=== PATIENT | male | born 1985 | race American Indian/Alaskan Native ===

== ENCOUNTER 2017-04-16 10:16 | Emergency (ER) | payer MEDICAID ==
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
[2017-04-16] MEDS ORDERED: Sodium Chloride 0.9% 1,000 ML IV ONE ×3 (12:00→19:22)
[2017-04-16] MEDS ORDERED: Cefepime 2 GM in Premix Bag 1 BAG IV ONE (15:34)
--- NOTE | 2017-04-17 08:02 | CR ---
Chest: Portable view of the chest was obtained. Comparison: No prior chest x-ray. Heart size and mediastinum are normal. Lungs are clear. Bony structures are grossly intact. Incidental note of minimal scoliosis. Impression: 1. Nothing acute is appreciated on portable chest x-ray. Diagnostic code #2
== END 2017-04-16 18:20 | disposition home or self-care (01) ==
LOC: JD.ED 10:16
DX: T83.511A Infection and inflammatory reaction due to indwelling urethral catheter, initial encounter (principal); N39.0 Urinary tract infection, site not specified; N31.9 Neuromuscular dysfunction of bladder, unspecified; L89.102 Pressure ulcer of unspecified part of back, stage 2; G82.20 Paraplegia, unspecified; F15.10 Other stimulant abuse, uncomplicated; F12.10 Cannabis abuse, uncomplicated; F13.10 Sedative, hypnotic or anxiolytic abuse, uncomplicated; Z79.899 Other long term (current) drug therapy
CPT/HCPCS: 36415; 51701; 71045; 80053; 80306; 81001; 85025; 86140; 87086; 87088; 87186; 96361; 96365; 99284; J0692; J7040; 99283

== ENCOUNTER 2018-06-28 08:25 | Emergency (ER) | payer SELFPAY ==
[2018-06-28] MEDS ORDERED: Sodium Chloride 0.9% 10 ML Syringe FLUSH PRN (08:41)
[2018-06-28] MEDS ORDERED: Ondansetron 4 MG/2 ML SDV IVPUSH ONE (08:41)
[2018-06-28] MEDS ORDERED: Sodium Chloride 0.9% 1,000 ML IV STA (08:41)
[2018-06-28] MEDS ORDERED: HYDROmorphone 1 MG/ML Syringe IVPUSH ONE (08:42)
[2018-06-28] MEDS ORDERED: Acetaminophen 325 MG Tab PO ONE (08:44)
[2018-06-28] MEDS ORDERED: cefTRIAXone 2 GM in Sodium Chloride 0.9% 100 ML IV ONE (08:45)
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
[2018-06-28] MEDS ORDERED: Sodium Chloride 0.9% 10 ML Syringe FLUSH ONE ×2 (08:58→10:57)
[2018-06-28] MEDS ORDERED: Diatrizoate Meglumine/Diatrizoate Sodium 37% 120 ML Bottle PO ONE ×2 (08:58→10:57)
[2018-06-28] MEDS ORDERED: Iopamidol 755 Mg/ML 200 ML Bottle IV ONE ×2 (08:58→10:57)
[2018-06-28] MEDS ORDERED: LORazepam 2 MG/ML SDV IVPUSH ONE (11:23)
--- NOTE | 2018-06-28 12:26 | CT ---
CT abdomen and pelvis Technique: Multiple axial sections were obtained from the top of the liver inferiorly through the pubic symphysis. Intravenous contrast was utilized. Oral contrast is noted which remains within the stomach. Minimal contrast noted within the first part of the duodenum. Delayed images were obtained to the bladder. Comparison: Visualized lung bases show nothing acute. Small hiatal hernia seen which contains contrast. Liver shows no focal parenchymal abnormality. Gallbladder contains no calcified gallstones. Spleen appears within normal limits. Adrenal glands show no nodule. Pancreas is within normal limits. Kidneys show symmetric contrast enhancement without hydronephrosis or mass. Aorta shows no aneurysm. No retroperitoneal adenopathy is seen. Appendix is seen which is normal in size. Mild increased stool is noted throughout the colon. Several small bowel loops are mildly prominent which contain fluid within the right abdomen which are most likely incidental. No free fluid or inflammatory change is seen. Porter catheter is noted within the bladder. Delayed images show contrast within the ureters as well as bladder. Bone window settings were reviewed which appear within normal limits for the patient's age. Impression: 1. Slight increased stool within the colon. 2. Several loops of mildly prominent small bowel containing fluid which are most likely incidental. 3. Porter catheter within the bladder. No additional abnormality is appreciated. Diagnostic code #2
[2018-06-28] MEDS ORDERED: Ketorolac 30 MG/ML SDV IVPUSH ONE (15:11)
== END 2018-06-28 22:56 | disposition home or self-care (01) ==
LOC: JD.ED 08:25
DX: N35.919 Unspecified urethral stricture, male, unspecified site (principal); R33.9 Retention of urine, unspecified; J06.9 Acute upper respiratory infection, unspecified; F17.210 Nicotine dependence, cigarettes, uncomplicated; Z79.899 Other long term (current) drug therapy
CPT/HCPCS: 36415; 51702; 74177; 80053; 81001; 83605; 83690; 85025; 86140; 87040; 87804; 96361; 96365; 96375; 99284; A9270; J0696; J1170; J1885; J2060; J2405; J7030; J7040; Q9963; Q9967

== ENCOUNTER 2020-10-25 09:13 | Inpatient (IN) | payer MEDICARE, MEDICAID ==
[2020-10-25] MEDS ORDERED: LORazepam 2 MG/ML SDV IVPUSH ONE (09:36)
[2020-10-25] MEDS ORDERED: Metoclopramide 10 MG/2 ML SDV IVPUSH ONE (09:36)
[2020-10-25] MEDS ORDERED: Dextrose 5%-0.9% NaCl 1,000 ML IV SCH (09:45)
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
--- NOTE | 2020-10-25 11:04 | CR ---
Chest: Portable view of the chest was obtained. Comparison: Prior chest x-rays of 02/09/18 and 04/16/17. Heart size appears within normal limits for portable technique. Upper mediastinum is within normal limits. Lungs are clear with no acute parenchymal change. Slight nodular density is seen within the right lung base. Lungs otherwise are clear. Impression: 1. Nodule within the right lung base. This is not seen on prior exam. Either follow-up chest x-ray in 4 months or, if more immediate workup is needed, a noncontrast chest CT could be performed. 2. Nothing acute is otherwise seen. Diagnostic code #3
[2020-10-25] MEDS ORDERED: Levofloxacin/Dextrose 5%-Water 750 MG in Premix Bag 1 BAG IV ONE (11:43)
[2020-10-25] MEDS: Sodium Chloride 0.9% 1,000 ML IV SCH (12:04)
[2020-10-25] MEDS ORDERED: Baclofen 10 MG Tab PO ONE (12:06)
--- NOTE | 2020-10-25 12:14 | PCM.HP.2 ---
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 Mucus (FEW) /hpf Ethyl Alcohol (0.00) gm% Ketones (0.0-0.3) mM SARS-CoV-2 RNA (BRIT) (NEGATIVE) 10/25/20 10/25/20 10/25/20 Range/Units 10:30 10:30 11:05 WBC (4.23-9.07) K/mm3 RBC (4.63-6.08) M/mm3 Hgb (13.7-17.5) gm/dl Hct (40.1-51.0) % MCV (79.0-92.2) fl MCH (25.7-32.2) pg MCHC (32.2-35.5) g/dl RDW Std Deviation (35.1-43.9) fL Plt Count (163-337) K/mm3 MPV (9.4-12.3) fl Neutrophils % (Manual) (40-60) % Band Neutrophils % (0-10) % Lymphocytes % (Manual) (20-40) % Atypical Lymphs % % Monocytes % (Manual) (2-10) % Eosinophils % (Manual) (0.8-7.0) % Basophils % (Manual) (0.2-1.2) Platelet Estimate Plt Morphology Comment Hypochromasia Anisocytosis Microcytosis RBC Morph Comment PT (9.7-12.0) SECONDS INR APTT (21.7-31.4) SECONDS D-Dimer, Quantitative (0.19-0.50) mg/L Sodium (136-145) mEq/L Potassium (3.5-5.1) mEq/L Chloride (98-107) mEq/L Carbon Dioxide (21-32) mEq/L Anion Gap (5-15) BUN (7-18) mg/dL Creatinine (0.7-1.3) mg/dL Est Cr Clr Drug Dosing mL/min Estimated GFR (MDRD) (>60) mL/min BUN/Creatinine Ratio (14-18) Glucose (70-99) mg/dL Lactic Acid (0.4-2.0) mmol/L Calcium (8.5-10.1) mg/dL Magnesium (1.8-2.4) mg/dL Iron 21 L (65-175) ug/dL TIBC 394 (100-400) ug/dL % Saturation 5 L (20-55) % Transferrin 315 (202-364) mg/dL Total Bilirubin (0.2-1.0) mg/dL AST (15-37) U/L ALT (16-63) U/L Alkaline Phosphatase (46-116) U/L CK-MB (CK-2) (0-3.6) ng/ml Troponin I (0.00-0.056) ng/mL C-Reactive Protein (<1.0) mg/dL Total Protein (6.4-8.2) g/dl Albumin (3.4-5.0) g/dl Globulin gm/dL Albumin/Globulin Ratio (1-2) Urine Color (Yellow) Urine Appearance (Clear) Urine pH (5.0-8.0) Ur Specific Stewart (1.005-1.030) Urine Protein (Negative) Urine Glucose (UA) (Negative) Urine Ketones (Negative) Urine Occult Blood (Negative) Urine Nitrite (Negative) Urine Bilirubin (Negative) Urine Urobilinogen (0.2-1.0) Ur Leukocyte Esterase (Negative) Urine RBC (0-5) /hpf Urine WBC (0-5) /hpf Ur Epithelial Cells (0-5) /hpf Urine Bacteria (FEW) /hpf Urine Mucus (FEW) /hpf Ethyl Alcohol 0.00 (0.00) gm% Ketones <0.01 (0.0-0.3) mM SARS-CoV-2 RNA (BRIT) (NEGATIVE) 10/25/20 10/25/20 10/25/20 Range/Units 11:08 11:34 11:34 WBC (4.23-9.07) K/mm3 RBC (4.63-6.08) M/mm3 Hgb (13.7-17.5) gm/dl Hct (40.1-51.0) % MCV (79.0-92.2) fl MCH (25.7-32.2) pg MCHC (32.2-35.5) g/dl RDW Std Deviation (35.1-43.9) fL Plt Count (163-337) K/mm3 MPV (9.4-12.3) fl Neutrophils % (Manual) (40-60) % Band Neutrophils % (0-10) % Lymphocytes % (Manual) (20-40) % Atypical Lymphs % % Monocytes % (Manual) (2-10) % Eosinophils % (Manual) (0.8-7.0) % Basophils % (Manual) (0.2-1.2) Platelet Estimate Plt Morphology Comment Hypochromasia Anisocytosis Microcytosis RBC Morph Comment PT 10.6 (9.7-12.0) SECONDS INR 0.99 APTT 21.5 L (21.7-31.4) SECONDS D-Dimer, Quantitative 0.80 H (0.19-0.50) mg/L Sodium (136-145) mEq/L Potassium (3.5-5.1) mEq/L Chloride (98-107) mEq/L Carbon Dioxide (21-32) mEq/L Anion Gap (5-15) BUN (7-18) mg/dL Creatinine (0.7-1.3) mg/dL Est Cr Clr Drug Dosing mL/min Estimated GFR (MDRD) (>60) mL/min BUN/Creatinine Ratio (14-18) Glucose (70-99) mg/dL Lactic Acid (0.4-2.0) mmol/L Calcium (8.5-10.1) mg/dL Magnesium (1.8-2.4) mg/dL Iron (65-175) ug/dL TIBC (100-400) ug/dL % Saturation (20-55) % Transferrin (202-364) mg/dL Total Bilirubin (0.2-1.0) mg/dL AST (15-37) U/L ALT (16-63) U/L Alkaline Phosphatase (46-116) U/L CK-MB (CK-2) (0-3.6) ng/ml Troponin I (0.00-0.056) ng/mL C-Reactive Protein (<1.0) mg/dL Total Protein (6.4-8.2) g/dl Albumin (3.4-5.0) g/dl Globulin gm/dL Albumin/Globulin Ratio (1-2) Urine Color Yellow (Yellow) Urine Appearance Slt cloudy H (Clear) Urine pH 8.5 H (5.0-8.0) Ur Specific Stewart 1.020 (1.005-1.030) Urine Protein Negative (Negative) Urine Glucose (UA) Trace H (Negative) Urine Ketones Negative (Negative) Urine Occult Blood Negative (Negative) Urine Nitrite Positive H (Negative) Urine Bilirubin Negative (Negative) Urine Urobilinogen 0.2 (0.2-1.0) Ur Leukocyte Esterase 2+ H (Negative) Urine RBC 0-5 (0-5) /hpf Urine WBC 5-10 H (0-5) /hpf Ur Epithelial Cells 0-5 (0-5) /hpf Urine Bacteria Moderate H (FEW) /hpf Urine Mucus Few (FEW) /hpf Ethyl Alcohol (0.00) gm% Ketones (0.0-0.3) mM SARS-CoV-2 RNA (BRIT) (NEGATIVE) 10/25/20 Range/Units 12:06 WBC (4.23-9.07) K/mm3 RBC (4.63-6.08) M/mm3 Hgb (13.7-17.5) gm/dl Hct (40.1-51.0) % MCV (79.0-92.2) fl MCH (25.7-32.2) pg MCHC (32.2-35.5) g/dl RDW Std Deviation (35.1-43.9) fL Plt Count (163-337) K/mm3 MPV (9.4-12.3) fl Neutrophils % (Manual) (40-60) % Band Neutrophils % (0-10) % Lymphocytes % (Manual) (20-40) % Atypical Lymphs % % Monocytes % (Manual) (2-10) % Eosinophils % (Manual) (0.8-7.0) % Basophils % (Manual) (0.2-1.2) Platelet Estimate Plt Morphology Comment Hypochromasia Anisocytosis Microcytosis RBC Morph Comment PT (9.7-12.0) SECONDS INR APTT (21.7-31.4) SECONDS D-Dimer, Quantitative (0.19-0.50) mg/L Sodium (136-145) mEq/L Potassium (3.5-5.1) mEq/L Chloride (98-107) mEq/L Carbon Dioxide (21-32) mEq/L Anion Gap (5-15) BUN (7-18) mg/dL Creatinine (0.7-1.3) mg/dL Est Cr Clr Drug Dosing mL/min Estimated GFR (MDRD) (>60) mL/min BUN/Creatinine Ratio (14-18) Glucose (70-99) mg/dL Lactic Acid (0.4-2.0) mmol/L Calcium (8.5-10.1) mg/dL Magnesium (1.8-2.4) mg/dL Iron (65-175) ug/dL TIBC (100-400) ug/dL % Saturation (20-55) % Transferrin (202-364) mg/dL Total Bilirubin (0.2-1.0) mg/dL AST (15-37) U/L ALT (16-63) U/L Alkaline Phosphatase (46-116) U/L CK-MB (CK-2) (0-3.6) ng/ml Troponin I (0.00-0.056) ng/mL C-Reactive Protein (<1.0) mg/dL Total Protein (6.4-8.2) g/dl Albumin (3.4-5.0) g/dl Globulin gm/dL Albumin/Globulin Ratio (1-2) Urine Color (Yellow) Urine Appearance (Clear) Urine pH (5.0-8.0) Ur Specific Stewart (1.005-1.030) Urine Protein (Negative) Urine Glucose (UA) (Negative) Urine Ketones (Negative) Urine Occult Blood (Negative) Urine Nitrite (Negative) Urine Bilirubin (Negative) Urine Urobilinogen (0.2-1.0) Ur Leukocyte Esterase (Negative) Urine RBC (0-5) /hpf Urine WBC (0-5) /hpf Ur Epithelial Cells (0-5) /hpf Urine Bacteria (FEW) /hpf Urine Mucus (FEW) /hpf Ethyl Alcohol (0.00) gm% Ketones (0.0-0.3) mM SARS-CoV-2 RNA (BRIT) Negative (NEGATIVE) Result Diagrams: 10/25/20 10:30 10/25/20 10:30 Sepsis Event Note - Focused Exam Vital Signs: Vital Signs Temp Pulse Resp BP Pulse Ox 10/25/20 09:20 97.0 F 98 16 140/86 93 L Orders Last 24hrs: Active Orders 24 hr Category Date Time Status Admission Status [Patient Status] [ADT] Routine ADT 10/25/20 13:49 Active CIWAA Assessment [RC] Q4HR Care 10/25/20 14:52 Active Insert Urinary Catheter [OM.PC] ONETIME Care 10/25/20 15:00 Ordered Intake and Output [RC] 04,16 Care 10/25/20 14:53 Active Nurse Communication: Isolation [RC] ASDIRECTED Care 10/25/20 14:55 Active Oxygen Therapy [RC] ASDIRECTED Care 10/25/20 14:52 Active Pulse Oximetry [RC] PRN Care 10/25/20 14:53 Active Up to Chair [RC] ASDIRECTED Care 10/25/20 14:52 Active Urinary Catheter Assessment [RC] Q4HR Care 10/25/20 11:08 Active Vital Signs [RC] Q6HR Care 10/25/20 14:52 Active Consult to Case Management/[employer] Professional [CONS] Cons 10/25/20 14:52 Active Routine Consult to Occupational Therapy [OT Evaluation and Cons 10/25/20 15:34 Active Treatment] [CONS] Routine PT Evaluation and Treatment [CONS] Routine Cons 10/25/20 15:34 Active Regular Diet [DIET] Diet 10/25/20 Lunch Active BASIC METABOLIC PANEL,BMP [CHEM] AM Lab 10/26/20 05:11 Ordered BASIC METABOLIC PANEL,BMP [CHEM] AM Lab 10/27/20 05:11 Ordered BASIC METABOLIC PANEL,BMP [CHEM] AM Lab 10/28/20 05:11 Ordered BASIC METABOLIC PANEL,BMP [CHEM] AM Lab 10/29/20 05:11 Ordered C-REACTIVE PROTEIN [CHEM] AM Lab 10/26/20 05:11 Ordered C-REACTIVE PROTEIN [CHEM] AM Lab 10/27/20 05:11 Ordered C-REACTIVE PROTEIN [CHEM] AM Lab 10/28/20 05:11 Ordered C-REACTIVE PROTEIN [CHEM] AM Lab 10/29/20 05:11 Ordered CBC WITH AUTO DIFF [HEME] AM Lab 10/26/20 05:11 Ordered CBC WITH AUTO DIFF [HEME] AM Lab 10/27/20 05:11 Ordered CBC WITH AUTO DIFF [HEME] AM Lab 10/28/20 05:11 Ordered CBC WITH AUTO DIFF [HEME] AM Lab 10/29/20 05:11 Ordered CULTURE BLOOD [BC] Stat Lab 10/25/20 10:30 Received CULTURE URINE [MREF] Stat Lab 10/25/20 11:05 Received DRUG SCREEN, URINE [URCHEM] Routine Lab 10/25/20 11:05 Received MAGNESIUM [CHEM] AM Lab 10/26/20 05:11 Ordered MAGNESIUM [CHEM] AM Lab 10/27/20 05:11 Ordered MAGNESIUM [CHEM] AM Lab 10/28/20 05:11 Ordered MAGNESIUM [CHEM] AM Lab 10/29/20 05:11 Ordered OCCULT BLOOD DIAGNOSTIC [OP] Routine Lab 10/25/20 15:51 Ordered Acetaminophen [TylenoL] Med 10/25/20 14:52 Active 650 mg PO Q4H PRN Acetaminophen/HYDROcodone [[place] 325-5 MG] Med 10/25/20 14:52 Active 1 tab PO Q4H PRN Apixaban [Eliquis] Med 10/25/20 21:00 Active 5 mg PO BID Baclofen [Lioresal] Med 10/25/20 17:00 Active 30 mg PO QID Celecoxib [CeleBREX] Med 10/25/20 21:00 Active 100 mg PO BID Docusate Sodium [Colace] Med 10/25/20 14:52 Active 100 mg PO Q12H PRN Gabapentin [Neurontin] Med 10/25/20 21:00 Active 600 mg PO TID HYDROmorphone [Dilaudid] Med 10/25/20 14:52 Active 0.5 mg IVPUSH Q2H PRN LORazepam [Ativan] Med 10/25/20 15:19 Active 1 - 3 mg IVPUSH Q4H PRN Levofloxacin/Dextrose 5%-Water [Levaquin in D5W 750 MG/ Med 10/26/20 12:00 Active 150 ML] 750 mg Premix Bag 1 bag IV Q24H Magnesium Hydroxide [Milk of Magnesia] Med 10/25/20 14:52 Active 30 ml PO Q12H PRN Nicotine [Habitrol] Med 10/25/20 15:30 Active 7 mg TRDERM DAILY Ondansetron [Zofran] Med 10/25/20 14:52 Active 4 mg IV Q6H PRN Pantoprazole [ProTONIX] Med 10/25/20 21:00 Active 40 mg PO BID Remove Patch Med 10/26/20 09:00 Active 0 ea TRDERM DAILY Sodium Chloride 0.9% [Normal Saline] 1,000 ml Med 10/25/20 11:45 Active IV ASDIRECTED Sodium Ferric Gluconat/Sucrose [Sodium Ferric Gluc Cplx Med 10/25/20 15:30 Active 62.5 MG/5 ML] 250 mg Sodium Chloride 0.9% [Normal Saline] 100 ml IV ONETIME Sucralfate [Carafate] Med 10/25/20 17:00 Active 1 gm PO QIDACANDBED Blood Culture x2 Reflex Set [OM.PC] Stat Oth 10/25/20 09:37 Ordered Isolation [COMM] Routine Oth 10/25/20 14:52 Ordered Resuscitation Status Routine Resus Stat 10/25/20 14:52 Ordered Medication Orders Acetaminophen (Acetaminophen 325 Mg Tab) 650 mg PO Q4H PRN PRN Reason: Pain (Mild 1-3)/fever Hydrocodone Bitart/Acetaminophen (Acetaminophen/Hydrocodone 325-5 Mg Tab) 1 tab PO Q4H PRN PRN Reason: Pain (moderate 4-6) Last Admin: 10/25/20 16:06 Dose: 1 tab Documented by: MELISA Apixaban (Apixaban 5 Mg Tab) 5 mg PO BID TANVIR Baclofen (Baclofen 10 Mg Tab) 30 mg PO QID TANVIR Celecoxib (Celecoxib 100 Mg Cap) 100 mg PO BID [facility] Docusate Sodium (Docusate Sodium 100 Mg Cap) 100 mg PO Q12H PRN PRN Reason: Constipation Gabapentin (Gabapentin 600 Mg Tab) 600 mg PO TID [facility] Hydromorphone HCl (Hydromorphone 0.5 Mg/0.5 Ml Syringe) 0.5 mg IVPUSH Q2H PRN PRN Reason: Pain (severe 7-10) Sodium Chloride (Normal Saline) 1,000 mls @ 150 mls/hr IV ASDIRECTED [facility] Last Admin: 10/25/20 12:04 Dose: 150 mls/hr Documented by: SANG Ferric Sodium Gluconate Complex 250 mg/ Sodium Chloride 120 mls @ 60 mls/hr IV ONETIME ONE Stop: 10/25/20 17:29 Last Admin: 10/25/20 16:04 Dose: 60 mls/hr Documented by: MELISA Levofloxacin/Dextrose 750 mg/ (Premix) 150 mls @ 100 mls/hr IV Q24H TANVIR Lorazepam (Lorazepam 2 Mg/Ml Sdv) 1 - 3 mg IVPUSH Q4H PRN; Protocol PRN Reason: withdrawl Magnesium Hydroxide (Magnesium Hydroxide 400 Mg/5 Ml Susp 30 Ml Cup) 30 ml PO Q12H PRN PRN Reason: Constipation Miscellaneous Information (Remove Patch) 0 ea TRDERM DAILY [facility] Nicotine (Nicotine 7 Mg/24 Hr Patch) 7 mg TRDERM DAILY [facility] Last Admin: 10/25/20 16:06 Dose: 7 mg Documented by: MELISA Ondansetron HCl (Ondansetron 4 Mg/2 Ml Sdv) 4 mg IV Q6H PRN PRN Reason: Nausea/Vomiting Pantoprazole Sodium (Pantoprazole 40 Mg Tab.Cr) 40 mg PO BID [facility] Sucralfate (Sucralfate 1 Gm Tab) 1 gm PO QIDACANDBED [facility] Assessment/Plan Comment:: Case discussed in full. Agree with evaluation, assessment and plan.
--- NOTE | 2020-10-25 14:26 | PCM.SN.2 ---
- Free Text/Narrative Note: 10/25/20 [id number] IV started 22 g right upper arm via vein finder times 1 attempt. Secured and flushes easily [email or web address]
[2020-10-25] MEDS ORDERED: Docusate Sodium 100 MG Cap PO PRN (14:52)
[2020-10-25] MEDS ORDERED: Acetaminophen 325 MG Tab PO PRN (14:52)
[2020-10-25] MEDS ORDERED: Magnesium Hydroxide 400 MG/5 ML Susp 30 ML Cup PO PRN (14:52)
[2020-10-25] MEDS ORDERED: Famotidine 20 MG Tab PO SCH (15:15)
[2020-10-25] MEDS ORDERED: LORazepam 2 MG/ML SDV IVPUSH PRN (15:19)
[2020-10-25] MEDS: Acetaminophen/HYDROcodone 325-5 MG Tab PO PRN (16:06)
[2020-10-25] MEDS: Nicotine 7 MG/24 Hr Patch TRDERM SCH (16:06)
[2020-10-25] MEDS: Sucralfate 1 GM Tab PO SCH ×2 (16:25→21:44)
[2020-10-25] MEDS: Baclofen 10 MG Tab PO SCH ×2 (16:26→21:44)
[2020-10-25] MEDS: HYDROmorphone 0.5 MG/0.5 ML Syringe IVPUSH PRN (18:01)
[2020-10-25] MEDS: Ondansetron 4 MG/2 ML SDV IV PRN (21:38)
[2020-10-25] MEDS: LORazepam 2 MG/ML SDV IVPUSH PRN (21:41)
[2020-10-25] MEDS: Pantoprazole 40 MG Tab.CR PO SCH (21:43)
[2020-10-25] MEDS: Celecoxib 100 MG Cap PO SCH (21:44)
[2020-10-25] MEDS: Gabapentin 600 MG Tab PO SCH (21:44)
[2020-10-25] MEDS: Apixaban 5 MG Tab PO SCH (21:44)
[2020-10-25] MEDS ORDERED: Aluminum Hydroxide/Magnesium Hydroxide/Simethicone Susp 30 ML Cup PO PRN (21:55)
[2020-10-25] MEDS ORDERED: Zolpidem 5 MG Tab PO ONE (22:23)
[2020-10-26] MEDS: Sodium Chloride 0.9% 1,000 ML IV SCH (03:44)
[2020-10-26] MEDS: Sucralfate 1 GM Tab PO SCH ×4 (06:22→21:06)
[2020-10-26] MEDS: Acetaminophen/HYDROcodone 325-5 MG Tab PO PRN ×3 (06:26→21:24)
--- NOTE | 2020-10-26 06:58 | PCM.PN ---
<Marcos Olea - Last Filed: 10/26/20 11:21> - General Info Date of Service: 10/26/20 Admission Dx/Problem (Free Text): Admission Diagnosis/Problem Admission Diagnosis/Problem Abdominal pain Functional Status: Reports: Pain Controlled, Tolerating Diet, Urinating. Denies: Ambulating (Baseline ), New Symptoms - Review of Systems General: Reports: No Symptoms. Denies: Fever, Weakness, Fatigue, Malaise, Chills HEENT: Reports: No Symptoms. Denies: Headaches, Sore Throat Pulmonary: Reports: No Symptoms. Denies: Shortness of Breath, Cough, Sputum, Wheezing Cardiovascular: Reports: No Symptoms, Edema. Denies: Chest Pain, Palpitations, Dyspnea on Exertion, Lightheadedness Gastrointestinal: Reports: No Symptoms. Denies: Abdominal Pain, Constipation, Diarrhea, Nausea, Vomiting Genitourinary: Reports: No Symptoms. Denies: Pain Musculoskeletal: Reports: Back Pain Skin: Reports: No Symptoms. 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 Denies: Confusion, Dizziness, Headache, Numbness, Syncope, Weakness Psychiatric: Reports: No Symptoms - Patient Data Vitals - Most Recent: Last Vital Signs Temp 98.1 F 10/26/20 01:59 Pulse 98 10/26/20 01:59 Resp 18 10/26/20 01:59 BP 120/61 10/26/20 01:59 Pulse Ox 97 10/26/20 01:59 Weight - Most Recent: 179 lb 14.4 oz I&O - Last 24 Hours: Intake & Output 10/25/20 10/25/20 10/26/20 14:59 22:59 06:59 Intake Total 2004 Output Total 1450 Balance 555 Lab Results Last 24 Hours: Laboratory Results - last 24 hr 10/25/20 10/25/20 10/25/20 Range/Units 10:30 10:30 10:30 WBC 7.78 (4.23-9.07) K/mm3 RBC 4.40 L (4.63-6.08) M/mm3 Hgb 9.5 L D (13.7-17.5) gm/dl Hct 32.0 L (40.1-51.0) % MCV 72.7 L D (79.0-92.2) fl MCH 21.6 L (25.7-32.2) pg MCHC 29.7 L (32.2-35.5) g/dl RDW Std Deviation 43.1 (35.1-43.9) fL Plt Count 441 H D (163-337) K/mm3 MPV 9.2 L (9.4-12.3) fl Neut % (Auto) (34.0-67.9) % Lymph % (Auto) (21.8-53.1) % Ware % (Auto) (5.3-12.2) % Eos % (Auto) (0.8-7.0) Baso % (Auto) (0.1-1.2) % Neut # (Auto) (1.78-5.38) K/mm3 Lymph # (Auto) (1.32-3.57) K/mm3 Ware # (Auto) (0.30-0.82) K/mm3 Eos # (Auto) (0.04-0.54) K/mm3 Baso # (Auto) (0.01-0.08) K/mm3 Neutrophils % (Manual) 85 H (40-60) % Band Neutrophils % 0 (0-10) % Lymphocytes % (Manual) 11 L (20-40) % Atypical Lymphs % 0 % Monocytes % (Manual) 2 (2-10) % Eosinophils % (Manual) 2 (0.8-7.0) % Basophils % (Manual) 0 L (0.2-1.2) Platelet Estimate Increased Plt Morphology Comment Normal Hypochromasia 2+ moderate Anisocytosis 2+ moderate Microcytosis 2+ moderate RBC Morph Comment Not Reportable PT (9.7-12.0) SECONDS INR APTT (21.7-31.4) SECONDS D-Dimer, Quantitative (0.19-0.50) mg/L Sodium 139 (136-145) mEq/L Potassium 3.8 (3.5-5.1) mEq/L Chloride 101 (98-107) mEq/L Carbon Dioxide 31 (21-32) mEq/L Anion Gap 10.8 (5-15) BUN 16 (7-18) mg/dL Creatinine 1.0 (0.7-1.3) mg/dL Est Cr Clr Drug Dosing 123.23 mL/min Estimated GFR (MDRD) > 60 (>60) mL/min BUN/Creatinine Ratio 16.0 (14-18) Glucose 163 H (70-99) mg/dL Lactic Acid 1.3 (0.4-2.0) mmol/L Calcium 8.7 (8.5-10.1) mg/dL Magnesium 2.3 (1.8-2.4) mg/dL Iron (65-175) ug/dL TIBC (100-400) ug/dL % Saturation (20-55) % Transferrin (202-364) mg/dL Total Bilirubin 0.5 (0.2-1.0) mg/dL AST 65 H (15-37) U/L ALT 104 H (16-63) U/L Alkaline Phosphatase 87 (46-116) U/L CK-MB (CK-2) 0.6 (0-3.6) ng/ml Troponin I < 0.017 (0.00-0.056) ng/mL C-Reactive Protein 4.3 H* (<1.0) mg/dL Total Protein 6.6 (6.4-8.2) g/dl Albumin 2.6 L (3.4-5.0) g/dl Globulin 4.0 gm/dL Albumin/Globulin Ratio 0.7 L (1-2) Urine Color (Yellow) Urine Appearance (Clear) Urine pH (5.0-8.0) Ur Specific [place]arson (1.005-1.030) Urine Protein (Negative) Urine Glucose (UA) (Negative) Urine Ketones (Negative) Urine Occult Blood (Negative) Urine Nitrite (Negative) Urine Bilirubin (Negative) Urine Urobilinogen (0.2-1.0) Ur Leukocyte Esterase (Negative) Urine RBC (0-5) /hpf Urine WBC (0-5) /hpf Ur Epithelial Cells (0-5) /hpf Urine Bacteria (FEW) /hpf Urine Mucus (FEW) /hpf Urine Opiates Screen (XYMWLP=875) Ur Buprenorphine Scrn (CUTOFF=10) Ur Oxycodone Screen (NPV2AW=506) Urine Methadone Screen (NNP4NA=999) Ur Propoxyphene Screen (VWWHWK=182) Ur Barbiturates Screen (DZVRKM=970) Ur Tricyclics Screen (WVXVCT=772) Ur Phencyclidine Scrn (CUTOFF=25) Ur Amphetamine Screen (HUTMQW=832) U Methamphetamines Scrn (WBIKXQ=716) U Benzodiazepines Scrn (UBHUJH=515) U Cocaine Metab Screen (WJGPCJ=577) U Marijuana (THC) Screen (CUTOFF=50) Ethyl Alcohol (0.00) gm% Ketones (0.0-0.3) mM SARS-CoV-2 RNA (BRIT) (NEGATIVE) 10/25/20 10/25/20 10/25/20 Range/Units 10:30 10:30 11:05 WBC (4.23-9.07) K/mm3 RBC (4.63-6.08) M/mm3 Hgb (13.7-17.5) gm/dl Hct (40.1-51.0) % MCV (79.0-92.2) fl MCH (25.7-32.2) pg MCHC (32.2-35.5) g/dl RDW Std Deviation (35.1-43.9) fL Plt Count (163-337) K/mm3 MPV (9.4-12.3) fl Neut % (Auto) (34.0-67.9) % Lymph % (Auto) (21.8-53.1) % Ware % (Auto) (5.3-12.2) % Eos % (Auto) (0.8-7.0) Baso % (Auto) (0.1-1.2) % Neut # (Auto) (1.78-5.38) K/mm3 Lymph # (Auto) (1.32-3.57) K/mm3 Ware # (Auto) (0.30-0.82) K/mm3 Eos # (Auto) (0.04-0.54) K/mm3 Baso # (Auto) (0.01-0.08) K/mm3 Neutrophils % (Manual) (40-60) % Band Neutrophils % (0-10) % Lymphocytes % (Manual) (20-40) % Atypical Lymphs % % Monocytes % (Manual) (2-10) % Eosinophils % (Manual) (0.8-7.0) % Basophils % (Manual) (0.2-1.2) Platelet Estimate Plt Morphology Comment Hypochromasia Anisocytosis Microcytosis RBC Morph Comment PT (9.7-12.0) SECONDS INR APTT (21.7-31.4) SECONDS D-Dimer, Quantitative (0.19-0.50) mg/L Sodium (136-145) mEq/L Potassium (3.5-5.1) mEq/L Chloride (98-107) mEq/L Carbon Dioxide (21-32) mEq/L Anion Gap (5-15) BUN (7-18) mg/dL Creatinine (0.7-1.3) mg/dL Est Cr Clr Drug Dosing mL/min Estimated GFR (MDRD) (>60) mL/min BUN/Creatinine Ratio (14-18) Glucose (70-99) mg/dL Lactic Acid (0.4-2.0) mmol/L Calcium (8.5-10.1) mg/dL Magnesium (1.8-2.4) mg/dL Iron 21 L (65-175) ug/dL TIBC 394 (100-400) ug/dL % Saturation 5 L (20-55) % Transferrin 315 (202-364) mg/dL Total Bilirubin (0.2-1.0) mg/dL AST (15-37) U/L ALT (16-63) U/L Alkaline Phosphatase (46-116) U/L CK-MB (CK-2) (0-3.6) ng/ml Troponin I (0.00-0.056) ng/mL C-Reactive Protein (<1.0) mg/dL Total Protein (6.4-8.2) g/dl Albumin (3.4-5.0) g/dl Globulin gm/dL Albumin/Globulin Ratio (1-2) Urine Color (Yellow) Urine Appearance (Clear) Urine pH (5.0-8.0) Ur Specific [place] (1.005-1.030) Urine Protein (Negative) Urine Glucose (UA) (Negative) Urine Ketones (Negative) Urine Occult Blood (Negative) Urine Nitrite (Negative) Urine Bilirubin (Negative) Urine Urobilinogen (0.2-1.0) Ur Leukocyte Esterase (Negative) Urine RBC (0-5) /hpf Urine WBC (0-5) /hpf Ur Epithelial Cells (0-5) /hpf Urine Bacteria (FEW) /hpf Urine Mucus (FEW) /hpf Urine Opiates Screen Negative (PUYMAX=257) Ur Buprenorphine Scrn Negative (CUTOFF=10) Ur Oxycodone Screen Negative (XGW6DL=879) Urine Methadone Screen Negative (DZV6DW=225) Ur Propoxyphene Screen Negative (BXNUSU=197) Ur Barbiturates Screen Negative (LKJNGP=677) Ur Tricyclics Screen Negative (SQLTUB=745) Ur Phencyclidine Scrn Negative (CUTOFF=25) Ur Amphetamine Screen Negative (YHSKYD=962) U Methamphetamines Scrn Negative (VRHBHK=283) U Benzodiazepines Scrn Negative (QXCWZE=568) U Cocaine Metab Screen Negative (XIPQMA=211) U Marijuana (THC) Screen Presumptive positive H (CUTOFF=50) Ethyl Alcohol (0.00) gm% Ketones <0.01 (0.0-0.3) mM SARS-CoV-2 RNA (BRIT) (NEGATIVE) 10/25/20 10/25/20 10/25/20 Range/Units 11:05 11:08 11:34 WBC (4.23-9.07) K/mm3 RBC (4.63-6.08) M/mm3 Hgb (13.7-17.5) gm/dl Hct (40.1-51.0) % MCV (79.0-92.2) fl MCH (25.7-32.2) pg MCHC (32.2-35.5) g/dl RDW Std Deviation (35.1-43.9) fL Plt Count (163-337) K/mm3 MPV (9.4-12.3) fl Neut % (Auto) (34.0-67.9) % Lymph % (Auto) (21.8-53.1) % Ware % (Auto) (5.3-12.2) % Eos % (Auto) (0.8-7.0) Baso % (Auto) (0.1-1.2) % Neut # (Auto) (1.78-5.38) K/mm3 Lymph # (Auto) (1.32-3.57) K/mm3 Ware # (Auto) (0.30-0.82) K/mm3 Eos # (Auto) (0.04-0.54) K/mm3 Baso # (Auto) (0.01-0.08) K/mm3 Neutrophils % (Manual) (40-60) % Band Neutrophils % (0-10) % Lymphocytes % (Manual) (20-40) % Atypical Lymphs % % Monocytes % (Manual) (2-10) % Eosinophils % (Manual) (0.8-7.0) % Basophils % (Manual) (0.2-1.2) Platelet Estimate Plt Morphology Comment Hypochromasia Anisocytosis Microcytosis RBC Morph Comment PT 10.6 (9.7-12.0) SECONDS INR 0.99 APTT 21.5 L (21.7-31.4) SECONDS D-Dimer, Quantitative (0.19-0.50) mg/L Sodium (136-145) mEq/L Potassium (3.5-5.1) mEq/L Chloride (98-107) mEq/L Carbon Dioxide (21-32) mEq/L Anion Gap (5-15) BUN (7-18) mg/dL Creatinine (0.7-1.3) mg/dL Est Cr Clr Drug Dosing mL/min Estimated GFR (MDRD) (>60) mL/min BUN/Creatinine Ratio (14-18) Glucose (70-99) mg/dL Lactic Acid (0.4-2.0) mmol/L Calcium (8.5-10.1) mg/dL Magnesium (1.8-2.4) mg/dL Iron (65-175) ug/dL TIBC (100-400) ug/dL % Saturation (20-55) % Transferrin (202-364) mg/dL Total Bilirubin (0.2-1.0) mg/dL AST (15-37) U/L ALT (16-63) U/L Alkaline Phosphatase (46-116) U/L CK-MB (CK-2) (0-3.6) ng/ml Troponin I (0.00-0.056) ng/mL C-Reactive Protein (<1.0) mg/dL Total Protein (6.4-8.2) g/dl Albumin (3.4-5.0) g/dl Globulin gm/dL Albumin/Globulin Ratio (1-2) Urine Color Yellow (Yellow) Urine Appearance Slt cloudy H (Clear) Urine pH 8.5 H (5.0-8.0) Ur Specific [place] 1.020 (1.005-1.030) Urine Protein Negative (Negative) Urine Glucose (UA) Trace H (Negative) Urine Ketones Negative (Negative) Urine Occult Blood Negative (Negative) Urine Nitrite Positive H (Negative) Urine Bilirubin Negative (Negative) Urine Urobilinogen 0.2 (0.2-1.0) Ur Leukocyte Esterase 2+ H (Negative) Urine RBC 0-5 (0-5) /hpf Urine WBC 5-10 H (0-5) /hpf Ur Epithelial Cells 0-5 (0-5) /hpf Urine Bacteria Moderate H (FEW) /hpf Urine Mucus Few (FEW) /hpf Urine Opiates Screen (LWQALD=489) Ur Buprenorphine Scrn (CUTOFF=10) Ur Oxycodone Screen (MSC0BI=123) Urine Methadone Screen (UXV9VF=338) Ur Propoxyphene Screen (DQPZYQ=900) Ur Barbiturates Screen (TMTBSP=588) Ur Tricyclics Screen (NGIORO=535) Ur Phencyclidine Scrn (CUTOFF=25) Ur Amphetamine Screen (KTOTGJ=870) U Methamphetamines Scrn (WIGXRJ=691) U Benzodiazepines Scrn (HEBNLT=266) U Cocaine Metab Screen (ZATXLF=718) U Marijuana (THC) Screen (CUTOFF=50) Ethyl Alcohol 0.00 (0.00) gm% Ketones (0.0-0.3) mM SARS-CoV-2 RNA (BRIT) (NEGATIVE) 10/25/20 10/25/20 10/26/20 Range/Units 11:34 12:06 06:12 WBC 5.61 (4.23-9.07) K/mm3 RBC 4.03 L (4.63-6.08) M/mm3 Hgb 8.6 L (13.7-17.5) gm/dl Hct 29.4 L (40.1-51.0) % MCV 73.0 L (79.0-92.2) fl MCH 21.3 L (25.7-32.2) pg MCHC 29.3 L (32.2-35.5) g/dl RDW Std Deviation 43.5 (35.1-43.9) fL Plt Count 459 H (163-337) K/mm3 MPV 9.0 L (9.4-12.3) fl Neut % (Auto) 58.3 (34.0-67.9) % Lymph % (Auto) 28.7 (21.8-53.1) % Ware % (Auto) 5.3 (5.3-12.2) % Eos % (Auto) 7.0 (0.8-7.0) Baso % (Auto) 0.5 (0.1-1.2) % Neut # (Auto) 3.27 (1.78-5.38) K/mm3 Lymph # (Auto) 1.61 (1.32-3.57) K/mm3 Ware # (Auto) 0.30 (0.30-0.82) K/mm3 Eos # (Auto) 0.39 (0.04-0.54) K/mm3 Baso # (Auto) 0.03 (0.01-0.08) K/mm3 Neutrophils % (Manual) (40-60) % Band Neutrophils % (0-10) % Lymphocytes % (Manual) (20-40) % Atypical Lymphs % % Monocytes % (Manual) (2-10) % Eosinophils % (Manual) (0.8-7.0) % Basophils % (Manual) (0.2-1.2) Platelet Estimate Plt Morphology Comment Hypochromasia Anisocytosis Microcytosis RBC Morph Comment PT (9.7-12.0) SECONDS INR APTT (21.7-31.4) SECONDS D-Dimer, Quantitative 0.80 H (0.19-0.50) mg/L Sodium (136-145) mEq/L Potassium (3.5-5.1) mEq/L Chloride (98-107) mEq/L Carbon Dioxide (21-32) mEq/L Anion Gap (5-15) BUN (7-18) mg/dL Creatinine (0.7-1.3) mg/dL Est Cr Clr Drug Dosing mL/min Estimated GFR (MDRD) (>60) mL/min BUN/Creatinine Ratio (14-18) Glucose (70-99) mg/dL Lactic Acid (0.4-2.0) mmol/L Calcium (8.5-10.1) mg/dL Magnesium (1.8-2.4) mg/dL Iron (65-175) ug/dL TIBC (100-400) ug/dL % Saturation (20-55) % Transferrin (202-364) mg/dL Total Bilirubin (0.2-1.0) mg/dL AST (15-37) U/L ALT (16-63) U/L Alkaline Phosphatase (46-116) U/L CK-MB (CK-2) (0-3.6) ng/ml Troponin I (0.00-0.056) ng/mL C-Reactive Protein (<1.0) mg/dL Total Protein (6.4-8.2) g/dl Albumin (3.4-5.0) g/dl Globulin gm/dL Albumin/Globulin Ratio (1-2) Urine Color (Yellow) Urine Appearance (Clear) Urine pH (5.0-8.0) Ur Specific [place] (1.005-1.030) Urine Protein (Negative) Urine Glucose (UA) (Negative) Urine Ketones (Negative) Urine Occult Blood (Negative) Urine Nitrite (Negative) Urine Bilirubin (Negative) Urine Urobilinogen (0.2-1.0) Ur Leukocyte Esterase (Negative) Urine RBC (0-5) /hpf Urine WBC (0-5) /hpf Ur Epithelial Cells (0-5) /hpf Urine Bacteria (FEW) /hpf Urine Mucus (FEW) /hpf Urine Opiates Screen (BEXYBB=700) Ur Buprenorphine Scrn (CUTOFF=10) Ur Oxycodone Screen (WSZ7QD=672) Urine Methadone Screen (SUB6ZH=628) Ur Propoxyphene Screen (SEPMGZ=324) Ur Barbiturates Screen (HIXGPK=837) Ur Tricyclics Screen (QNZSDY=251) Ur Phencyclidine Scrn (CUTOFF=25) Ur Amphetamine Screen (UFGGCU=915) U Methamphetamines Scrn (WBVKFS=305) U Benzodiazepines Scrn (LEUCTJ=944) U Cocaine Metab Screen (YAZFLZ=206) U Marijuana (THC) Screen (CUTOFF=50) Ethyl Alcohol (0.00) gm% Ketones (0.0-0.3) mM SARS-CoV-2 RNA (BRIT) Negative (NEGATIVE) Med Orders - Current: Current Medications Acetaminophen (Acetaminophen 325 Mg Tab) 650 mg PO Q4H PRN PRN Reason: Pain (Mild 1-3)/fever Hydrocodone Bitart/Acetaminophen (Acetaminophen/Hydrocodone 325-5 Mg Tab) 1 tab PO Q4H PRN PRN Reason: Pain (moderate 4-6) Last Admin: 10/26/20 06:26 Dose: 1 tab Documented by: Al Hydroxide/Mg Hydroxide (Aluminum Hydroxide/Magnesium Hydroxide/Simethicone Susp 30 Ml Cup) 30 ml PO Q4H PRN PRN Reason: Heartburn Last Admin: 10/25/20 22:07 Dose: 30 ml Documented by: Apixaban (Apixaban 5 Mg Tab) 5 mg PO BID [facility] Last Admin: 10/25/20 21:44 Dose: 5 mg Documented by: Baclofen (Baclofen 10 Mg Tab) 30 mg PO QID [facility] Last Admin: 10/25/20 21:44 Dose: 30 mg Documented by: Celecoxib (Celecoxib 100 Mg Cap) 100 mg PO BID [facility] Last Admin: 10/25/20 21:44 Dose: 100 mg Documented by: Docusate Sodium (Docusate Sodium 100 Mg Cap) 100 mg PO Q12H PRN PRN Reason: Constipation Last Admin: 10/25/20 22:13 Dose: 100 mg Documented by: Gabapentin (Gabapentin 600 Mg Tab) 600 mg PO TID [facility] Last Admin: 10/25/20 21:44 Dose: 600 mg Documented by: Hydromorphone HCl (Hydromorphone 0.5 Mg/0.5 Ml Syringe) 0.5 mg IVPUSH Q2H PRN PRN Reason: Pain (severe 7-10) Last Admin: 10/25/20 18:01 Dose: 0.5 mg Documented by: Sodium Chloride (Normal Saline) 1,000 mls @ 150 mls/hr IV ASDIRECTED [facility] Last Admin: 10/26/20 03:44 Dose: 150 mls/hr Documented by: Levofloxacin/Dextrose 750 mg/ (Premix) 150 mls @ 100 mls/hr IV Q24H TANVIR Lorazepam (Lorazepam 2 Mg/Ml Sdv) 1 - 3 mg IVPUSH Q4H PRN; Protocol PRN Reason: withdrawl Lorazepam (Lorazepam 2 Mg/Ml Sdv) 1 mg IVPUSH Q6H PRN PRN Reason: Anxiety Last Admin: 10/25/20 21:41 Dose: 1 mg Documented by: Magnesium Hydroxide (Magnesium Hydroxide 400 Mg/5 Ml Susp 30 Ml Cup) 30 ml PO Q12H PRN PRN Reason: Constipation Miscellaneous Information (Remove Patch) 0 ea TRDERM DAILY [facility] Nicotine (Nicotine 7 Mg/24 Hr Patch) 7 mg TRDERM DAILY [facility] Last Admin: 10/25/20 16:06 Dose: 7 mg Documented by: Ondansetron HCl (Ondansetron 4 Mg/2 Ml Sdv) 4 mg IV Q6H PRN PRN Reason: Nausea/Vomiting Last Admin: 10/25/20 21:38 Dose: 4 mg Documented by: Pantoprazole Sodium (Pantoprazole 40 Mg Tab.Cr) 40 mg PO BID [facility] Last Admin: 10/25/20 21:43 Dose: 40 mg Documented by: Sucralfate (Sucralfate 1 Gm Tab) 1 gm PO QIDACANDBED [facility] Last Admin: 10/26/20 06:22 Dose: 1 gm Documented by: Discontinued Medications Baclofen (Baclofen 10 Mg Tab) 30 mg PO ONETIME ONE Stop: 10/25/20 12:07 Last Admin: 10/25/20 13:52 Dose: 30 mg Documented by: Enoxaparin Sodium (Enoxaparin 40 Mg/0.4 Ml Syringe) 40 mg SUBCUT DAILY [facility] Famotidine (Famotidine 20 Mg Tab) 20 mg PO BID [facility] Last Admin: 10/25/20 16:29 Dose: Not Given Documented by: Dextrose/Sodium Chloride (Dextrose 5%-Normal Saline) 1,000 mls @ 999 mls/hr IV ASDIRECTED [facility] Last Admin: 10/25/20 10:05 Dose: 999 mls/hr Documented by: Levofloxacin/Dextrose 750 mg/ (Premix) 150 mls @ 100 mls/hr IV ONETIME ONE Stop: 10/25/20 13:12 Last Admin: 10/25/20 12:05 Dose: 100 mls/hr Documented by: Ferric Sodium Gluconate Complex 250 mg/ Sodium Chloride 120 mls @ 60 mls/hr IV ONETIME ONE Stop: 10/25/20 17:29 Last Admin: 10/25/20 16:04 Dose: 60 mls/hr Documented by: Lorazepam (Lorazepam 2 Mg/Ml Sdv) 1 mg IVPUSH ONETIME ONE Stop: 10/25/20 09:37 Last Admin: 10/25/20 10:14 Dose: 1 mg Documented by: Metoclopramide HCl (Metoclopramide 10 Mg/2 Ml Sdv) 10 mg IVPUSH ONETIME ONE Stop: 10/25/20 09:37 Last Admin: 10/25/20 10:05 Dose: 10 mg Documented by: Zolpidem Tartrate (Zolpidem 5 Mg Tab) 5 mg PO ONETIME ONE Stop: 10/25/20 22:24 Last Admin: 10/25/20 22:36 Dose: 5 mg Documented by: - Exam Quality Assessment: Urine Catheter, DVT Prophylaxis. No: Supplemental Oxygen Urinary Catheter Total Time: 0Days 17Hours General: Alert, Oriented, Cooperative, No Acute Distress HEENT: Pupils Equal, Pupils Reactive, Mucous Membr. Moist/[place] Neck: Supple, Trachea Midline Lungs: Clear to Auscultation, Normal Respiratory Effort Cardiovascular: Regular Rate, Regular Rhythm GI/Abdominal Exam: Normal Bowel Sounds, Soft, Non-Tender, No Distention (Male) Exam: Deferred Back Exam: Normal Inspection, CVA Tenderness (R), Decreased Range of Motion, Other (Ulcer over coccyx with Mepilex covering). No: CVA Tenderness (L) Extremities: Normal Inspection, Non-Tender, Pedal Edema (Trace), Limited Range of Motion (Secondary to quadriplegia) Peripheral Pulses: 2+: Radial (L), Radial (R), Dorsalis Pedis (L), Dorsalis Pedis (R) Skin: Warm, Dry, Intact Wound/Incisions: Healing Well, No Drainage Neurological: No New Focal Deficit Psy/Mental Status: Alert, Normal Affect, Normal Mood - Patient Data Lab Results Last 24 hrs: Laboratory Results - last 24 hr 10/25/20 10/25/20 10/25/20 Range/Units 10:30 10:30 10:30 WBC 7.78 (4.23-9.07) K/mm3 RBC 4.40 L (4.63-6.08) M/mm3 Hgb 9.5 L D (13.7-17.5) gm/dl Hct 32.0 L (40.1-51.0) % MCV 72.7 L D (79.0-92.2) fl MCH 21.6 L (25.7-32.2) pg MCHC 29.7 L (32.2-35.5) g/dl RDW Std Deviation 43.1 (35.1-43.9) fL Plt Count 441 H D (163-337) K/mm3 MPV 9.2 L (9.4-12.3) fl Neut % (Auto) (34.0-67.9) % Lymph % (Auto) (21.8-53.1) % Ware % (Auto) (5.3-12.2) % Eos % (Auto) (0.8-7.0) Baso % (Auto) (0.1-1.2) % Neut # (Auto) (1.78-5.38) K/mm3 Lymph # (Auto) (1.32-3.57) K/mm3 Ware # (Auto) (0.30-0.82) K/mm3 Eos # (Auto) (0.04-0.54) K/mm3 Baso # (Auto) (0.01-0.08) K/mm3 Neutrophils % (Manual) 85 H (40-60) % Band Neutrophils % 0 (0-10) % Lymphocytes % (Manual) 11 L (20-40) % Atypical Lymphs % 0 % Monocytes % (Manual) 2 (2-10) % Eosinophils % (Manual) 2 (0.8-7.0) % Basophils % (Manual) 0 L (0.2-1.2) Platelet Estimate Increased Plt Morphology Comment Normal Hypochromasia 2+ moderate Anisocytosis 2+ moderate Microcytosis 2+ moderate RBC Morph Comment Not Reportable PT (9.7-12.0) SECONDS INR APTT (21.7-31.4) SECONDS D-Dimer, Quantitative (0.19-0.50) mg/L Sodium 139 (136-145) mEq/L Potassium 3.8 (3.5-5.1) mEq/L Chloride 101 (98-107) mEq/L Carbon Dioxide 31 (21-32) mEq/L Anion Gap 10.8 (5-15) BUN 16 (7-18) mg/dL Creatinine 1.0 (0.7-1.3) mg/dL Est Cr Clr Drug Dosing 123.23 mL/min Estimated GFR (MDRD) > 60 (>60) mL/min BUN/Creatinine Ratio 16.0 (14-18) Glucose 163 H (70-99) mg/dL Lactic Acid 1.3 (0.4-2.0) mmol/L Calcium 8.7 (8.5-10.1) mg/dL Magnesium 2.3 (1.8-2.4) mg/dL Iron (65-175) ug/dL TIBC (100-400) ug/dL % Saturation (20-55) % Transferrin (202-364) mg/dL Total Bilirubin 0.5 (0.2-1.0) mg/dL AST 65 H (15-37) U/L ALT 104 H (16-63) U/L Alkaline Phosphatase 87 (46-116) U/L CK-MB (CK-2) 0.6 (0-3.6) ng/ml Troponin I < 0.017 (0.00-0.056) ng/mL C-Reactive Protein 4.3 H* (<1.0) mg/dL Total Protein 6.6 (6.4-8.2) g/dl Albumin 2.6 L (3.4-5.0) g/dl Globulin 4.0 gm/dL Albumin/Globulin Ratio 0.7 L (1-2) Urine Color (Yellow) Urine Appearance (Clear) Urine pH (5.0-8.0) Ur Specific Farson (1.005-1.030) Urine Protein (Negative) Urine Glucose (UA) (Negative) Urine Ketones (Negative) Urine Occult Blood (Negative) Urine Nitrite (Negative) Urine Bilirubin (Negative) Urine Urobilinogen (0.2-1.0) Ur Leukocyte Esterase (Negative) Urine RBC (0-5) /hpf Urine WBC (0-5) /hpf Ur Epithelial Cells (0-5) /hpf Urine Bacteria (FEW) /hpf Urine Mucus (FEW) /hpf Urine Opiates Screen (EOYKAW=535) Ur Buprenorphine Scrn (CUTOFF=10) Ur Oxycodone Screen (AEX6TM=527) Urine Methadone Screen (NVR7MH=685) Ur Propoxyphene Screen (GJVPCW=401) Ur Barbiturates Screen (HALNVZ=693) Ur Tricyclics Screen (BCMMAA=496) Ur Phencyclidine Scrn (CUTOFF=25) Ur Amphetamine Screen (RMGWID=800) U Methamphetamines Scrn (XRZUAS=090) U Benzodiazepines Scrn (AIXJPU=230) U Cocaine Metab Screen (ZGSUKA=687) U Marijuana (THC) Screen (CUTOFF=50) Ethyl Alcohol (0.00) gm% Ketones (0.0-0.3) mM SARS-CoV-2 RNA (BRIT) (NEGATIVE) 10/25/20 10/25/20 10/25/20 Range/Units 10:30 10:30 11:05 WBC (4.23-9.07) K/mm3 RBC (4.63-6.08) M/mm3 Hgb (13.7-17.5) gm/dl Hct (40.1-51.0) % MCV (79.0-92.2) fl MCH (25.7-32.2) pg MCHC (32.2-35.5) g/dl RDW Std Deviation (35.1-43.9) fL Plt Count (163-337) K/mm3 MPV (9.4-12.3) fl Neut % (Auto) (34.0-67.9) % Lymph % (Auto) (21.8-53.1) % Ware % (Auto) (5.3-12.2) % Eos % (Auto) (0.8-7.0) Baso % (Auto) (0.1-1.2) % Neut # (Auto) (1.78-5.38) K/mm3 Lymph # (Auto) (1.32-3.57) K/mm3 Ware # (Auto) (0.30-0.82) K/mm3 Eos # (Auto) (0.04-0.54) K/mm3 Baso # (Auto) (0.01-0.08) K/mm3 Neutrophils % (Manual) (40-60) % Band Neutrophils % (0-10) % Lymphocytes % (Manual) (20-40) % Atypical Lymphs % % Monocytes % (Manual) (2-10) % Eosinophils % (Manual) (0.8-7.0) % Basophils % (Manual) (0.2-1.2) Platelet Estimate Plt Morphology Comment Hypochromasia Anisocytosis Microcytosis RBC Morph Comment PT (9.7-12.0) SECONDS INR APTT (21.7-31.4) SECONDS D-Dimer, Quantitative (0.19-0.50) mg/L Sodium (136-145) mEq/L Potassium (3.5-5.1) mEq/L Chloride (98-107) mEq/L Carbon Dioxide (21-32) mEq/L Anion Gap (5-15) BUN (7-18) mg/dL Creatinine (0.7-1.3) mg/dL Est Cr Clr Drug Dosing mL/min Estimated GFR (MDRD) (>60) mL/min BUN/Creatinine Ratio (14-18) Glucose (70-99) mg/dL Lactic Acid (0.4-2.0) mmol/L Calcium (8.5-10.1) mg/dL Magnesium (1.8-2.4) mg/dL Iron 21 L (65-175) ug/dL TIBC 394 (100-400) ug/dL % Saturation 5 L (20-55) % Transferrin 315 (202-364) mg/dL Total Bilirubin (0.2-1.0) mg/dL AST (15-37) U/L ALT (16-63) U/L Alkaline Phosphatase (46-116) U/L CK-MB (CK-2) (0-3.6) ng/ml Troponin I (0.00-0.056) ng/mL C-Reactive Protein (<1.0) mg/dL Total Protein (6.4-8.2) g/dl Albumin (3.4-5.0) g/dl Globulin gm/dL Albumin/Globulin Ratio (1-2) Urine Color (Yellow) Urine Appearance (Clear) Urine pH (5.0-8.0) Ur Specific [place] (1.005-1.030) Urine Protein (Negative) Urine Glucose (UA) (Negative) Urine Ketones (Negative) Urine Occult Blood (Negative) Urine Nitrite (Negative) Urine Bilirubin (Negative) Urine Urobilinogen (0.2-1.0) Ur Leukocyte Esterase (Negative) Urine RBC (0-5) /hpf Urine WBC (0-5) /hpf Ur Epithelial Cells (0-5) /hpf Urine Bacteria (FEW) /hpf Urine Mucus (FEW) /hpf Urine Opiates Screen Negative (RIEIAG=911) Ur Buprenorphine Scrn Negative (CUTOFF=10) Ur Oxycodone Screen Negative (EXN0IE=317) Urine Methadone Screen Negative (VMX5PX=052) Ur Propoxyphene Screen Negative (YYYKDD=527) Ur Barbiturates Screen Negative (PLASCW=537) Ur Tricyclics Screen Negative (FUBXDQ=287) Ur Phencyclidine Scrn Negative (CUTOFF=25) Ur Amphetamine Screen Negative (OAAGTU=729) U Methamphetamines Scrn Negative (QTAIBK=432) U Benzodiazepines Scrn Negative (RBHCIO=858) U Cocaine Metab Screen Negative (GNBFLY=644) U Marijuana (THC) Screen Presumptive positive H (CUTOFF=50) Ethyl Alcohol (0.00) gm% Ketones <0.01 (0.0-0.3) mM SARS-CoV-2 RNA (BRIT) (NEGATIVE) 10/25/20 10/25/20 10/25/20 Range/Units 11:05 11:08 11:34 WBC (4.23-9.07) K/mm3 RBC (4.63-6.08) M/mm3 Hgb (13.7-17.5) gm/dl Hct (40.1-51.0) % MCV (79.0-92.2) fl MCH (25.7-32.2) pg MCHC (32.2-35.5) g/dl RDW Std Deviation (35.1-43.9) fL Plt Count (163-337) K/mm3 MPV (9.4-12.3) fl Neut % (Auto) (34.0-67.9) % Lymph % (Auto) (21.8-53.1) % Ware % (Auto) (5.3-12.2) % Eos % (Auto) (0.8-7.0) Baso % (Auto) (0.1-1.2) % Neut # (Auto) (1.78-5.38) K/mm3 Lymph # (Auto) (1.32-3.57) K/mm3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 (Auto) 3.27 (1.78-5.38) K/mm3 Lymph # (Auto) 1.61 (1.32-3.57) K/mm3 Ware # (Auto) 0.30 (0.30-0.82) K/mm3 Eos # (Auto) 0.39 (0.04-0.54) K/mm3 Baso # (Auto) 0.03 (0.01-0.08) K/mm3 Manual Slide Review Abnormal smear Sodium 143 (136-145) mEq/L Potassium 4.4 (3.5-5.1) mEq/L Chloride 110 H (98-107) mEq/L Carbon Dioxide 26 (21-32) mEq/L Anion Gap 11.4 (5-15) BUN 9 (7-18) mg/dL Creatinine 1.0 (0.7-1.3) mg/dL Est Cr Clr Drug Dosing 119.00 mL/min Estimated GFR (MDRD) > 60 (>60) mL/min BUN/Creatinine Ratio 9.0 L (14-18) Glucose 108 H (70-99) mg/dL Calcium 7.8 L (8.5-10.1) mg/dL Magnesium 1.9 (1.8-2.4) mg/dL C-Reactive Protein 2.8 H* (<1.0) mg/dL Result Diagrams: 10/26/20 06:12 10/26/20 06:12 Leon Results Last 24 hrs: Microbiology 10/26/20 15:55 Stool Occult Blood (LEON) - Final Stool / Feces 10/25/20 11:05 Urine Culture - Preliminary Urine Gram Negative Rods 10/25/20 10:30 Aerobic Blood Culture - Preliminary Blood - Venous NO GROWTH AFTER 1 DAY Anaerobic Blood Culture - Preliminary NO GROWTH AFTER 1 DAY Sepsis Event Note - Focused Exam Vital Signs: Vital Signs Temp Pulse Resp BP Pulse Ox 10/26/20 15:11 97.5 F 79 14 116/74 98 10/26/20 14:53 98 10/26/20 12:14 97.5 F 72 14 108/81 93 L 10/26/20 07:40 98.1 F 84 16 114/57 L 100 - My Orders Last 24 Hours: My Active Orders 10/25/20 21:04 LORazepam [Ativan] 1 mg IVPUSH Q6H PRN 10/25/20 21:55 Alum Hydrox/Mag Hydrox/Simeth [Mag-Al Plus] 30 ml PO Q4H PRN - Plan Plan:: Case discussed in full. Agree with evaluation, assessment and plan.
[2020-10-26] MEDS: HYDROmorphone 0.5 MG/0.5 ML Syringe IVPUSH PRN ×4 (07:49→18:50)
[2020-10-26] MEDS ORDERED: Enoxaparin 40 MG/0.4 ML Syringe SUBCUT SCH (09:00)
[2020-10-26] MEDS: Celecoxib 100 MG Cap PO SCH ×2 (10:03→21:06)
[2020-10-26] MEDS: Apixaban 5 MG Tab PO SCH ×2 (10:06→21:07)
[2020-10-26] MEDS: Baclofen 10 MG Tab PO SCH ×4 (10:06→21:06)
[2020-10-26] MEDS: Gabapentin 600 MG Tab PO SCH ×3 (10:06→21:06)
[2020-10-26] MEDS: Nicotine 7 MG/24 Hr Patch TRDERM SCH (10:06)
[2020-10-26] MEDS: Pantoprazole 40 MG Tab.CR PO SCH ×2 (10:06→21:06)
--- NOTE | 2020-10-26 10:24 | PCM.SN.2 ---
- Free Text/Narrative Note: Anesthesia Note: Start: 08:30 Stop: 10:00 Anesthesia requested for IV start. After numerous attempts with ability to access but not advance catheter with US, 20 gauge to right saphenous vein placed. Good blood return noted and easily flushed with 20 ml's of normal saline. Patient tolerated attempts exceptionally well. Thank you! Nadia SRINIVASAN
[2020-10-26] MEDS: LORazepam 2 MG/ML SDV IVPUSH PRN ×2 (10:25→21:07)
[2020-10-26] MEDS: Levofloxacin/Dextrose 5%-Water 750 MG in Premix Bag 1 BAG IV SCH (12:34)
[2020-10-26] MEDS: Ondansetron 4 MG/2 ML SDV IV PRN (21:21)
[2020-10-27] MEDS: Sucralfate 1 GM Tab PO SCH ×4 (06:05→21:01)
[2020-10-27] MEDS: Acetaminophen/HYDROcodone 325-5 MG Tab PO PRN ×3 (09:12→19:43)
[2020-10-27] MEDS: Gabapentin 600 MG Tab PO SCH ×3 (09:12→21:00)
[2020-10-27] MEDS: Apixaban 5 MG Tab PO SCH ×2 (09:12→21:00)
[2020-10-27] MEDS: Baclofen 10 MG Tab PO SCH ×4 (09:12→21:01)
[2020-10-27] MEDS: Pantoprazole 40 MG Tab.CR PO SCH ×2 (09:12→21:01)
[2020-10-27] MEDS: Celecoxib 100 MG Cap PO SCH ×2 (09:12→21:00)
[2020-10-27] MEDS: Ondansetron 4 MG/2 ML SDV IV PRN ×2 (09:13→19:40)
[2020-10-27] MEDS: Nicotine 7 MG/24 Hr Patch TRDERM SCH (09:13)
[2020-10-27] MEDS: Levofloxacin/Dextrose 5%-Water 750 MG in Premix Bag 1 BAG IV SCH (11:15)
--- NOTE | 2020-10-27 12:18 | PCM.PN ---
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 Abnormal smear Sodium 145 (136-145) mEq/L Potassium 4.3 (3.5-5.1) mEq/L Chloride 111 H (98-107) mEq/L Carbon Dioxide 25 (21-32) mEq/L Anion Gap 13.3 (5-15) BUN 10 (7-18) mg/dL Creatinine 1.1 (0.7-1.3) mg/dL Est Cr Clr Drug Dosing 111.01 mL/min Estimated GFR (MDRD) > 60 (>60) mL/min BUN/Creatinine Ratio 9.1 L (14-18) Glucose 107 H (70-99) mg/dL Calcium 8.0 L (8.5-10.1) mg/dL Magnesium 2.0 (1.8-2.4) mg/dL C-Reactive Protein 2.0 H* (<1.0) mg/dL Leon Results Last 24 Hours: Microbiology 10/25/20 11:05 Urine Culture - Final Urine Enterobacter Cloacae Complex Beta Streptococcus Group B 10/25/20 10:30 Aerobic Blood Culture - Preliminary Blood - Venous NO GROWTH AFTER 2 DAYS Anaerobic Blood Culture - Preliminary NO GROWTH AFTER 2 DAYS Med Orders - Current: Current Medications Acetaminophen (Acetaminophen 325 Mg Tab) 650 mg PO Q4H PRN PRN Reason: Pain (Mild 1-3)/fever Hydrocodone Bitart/Acetaminophen (Acetaminophen/Hydrocodone 325-5 Mg Tab) 1 tab PO Q4H PRN PRN Reason: Pain (moderate 4-6) Last Admin: 10/27/20 19:43 Dose: 1 tab Documented by: Al Hydroxide/Mg Hydroxide (Aluminum Hydroxide/Magnesium Hydroxide/Simethicone Susp 30 Ml Cup) 30 ml PO Q4H PRN PRN Reason: Heartburn Last Admin: 10/25/20 22:07 Dose: 30 ml Documented by: Apixaban (Apixaban 5 Mg Tab) 5 mg PO BID [facility] Last Admin: 10/27/20 21:00 Dose: 5 mg Documented by: Baclofen (Baclofen 10 Mg Tab) 30 mg PO QID [facility] Last Admin: 10/27/20 21:01 Dose: 30 mg Documented by: Celecoxib (Celecoxib 100 Mg Cap) 100 mg PO BID [facility] Last Admin: 10/27/20 21:00 Dose: 100 mg Documented by: Docusate Sodium (Docusate Sodium 100 Mg Cap) 100 mg PO Q12H PRN PRN Reason: Constipation Last Admin: 10/25/20 22:13 Dose: 100 mg Documented by: Gabapentin (Gabapentin 600 Mg Tab) 600 mg PO TID [facility] Last Admin: 10/27/20 21:00 Dose: 600 mg Documented by: Levofloxacin/Dextrose 750 mg/ (Premix) 150 mls @ 100 mls/hr IV Q24H [facility] Last Admin: 10/27/20 11:15 Dose: 100 mls/hr Documented by: Lorazepam (Lorazepam 2 Mg/Ml Sdv) 1 - 3 mg IVPUSH Q4H PRN; Protocol PRN Reason: withdrawl Last Admin: 10/27/20 11:16 Dose: 1 mg Documented by: Lorazepam (Lorazepam 2 Mg/Ml Sdv) 1 mg IVPUSH Q6H PRN PRN Reason: Anxiety Last Admin: 10/28/20 04:44 Dose: 1 mg Documented by: Magnesium Hydroxide (Magnesium Hydroxide 400 Mg/5 Ml Susp 30 Ml Cup) 30 ml PO Q12H PRN PRN Reason: Constipation Last Admin: 10/26/20 13:44 Dose: 30 ml Documented by: Miscellaneous Information (Remove Patch) 0 ea TRDERM DAILY [facility] Last Admin: 10/27/20 09:20 Dose: 1 ea Documented by: Nicotine (Nicotine 7 Mg/24 Hr Patch) 7 mg TRDERM DAILY [facility] Last Admin: 10/27/20 09:13 Dose: 7 mg Documented by: Ondansetron HCl (Ondansetron 4 Mg/2 Ml Sdv) 4 mg IV Q6H PRN PRN Reason: Nausea/Vomiting Last Admin: 10/27/20 19:40 Dose: 4 mg Documented by: Pantoprazole Sodium (Pantoprazole 40 Mg Tab.Cr) 40 mg PO BID [facility] Last Admin: 10/27/20 21:01 Dose: 40 mg Documented by: Sucralfate (Sucralfate 1 Gm Tab) 1 gm PO QIDACANDBED [facility] Last Admin: 10/27/20 21:01 Dose: 1 gm Documented by: Discontinued Medications Baclofen (Baclofen 10 Mg Tab) 30 mg PO ONETIME ONE Stop: 10/25/20 12:07 Last Admin: 10/25/20 13:52 Dose: 30 mg Documented by: Enoxaparin Sodium (Enoxaparin 40 Mg/0.4 Ml Syringe) 40 mg SUBCUT DAILY [facility] Famotidine (Famotidine 20 Mg Tab) 20 mg PO BID [facility] Last Admin: 10/25/20 16:29 Dose: Not Given Documented by: Hydromorphone HCl (Hydromorphone 0.5 Mg/0.5 Ml Syringe) 0.5 mg IVPUSH Q2H PRN PRN Reason: Pain (severe 7-10) Last Admin: 10/26/20 18:50 Dose: 0.5 mg Documented by: Dextrose/Sodium Chloride (Dextrose 5%-Normal Saline) 1,000 mls @ 999 mls/hr IV ASDIRECTED [facility] Last Admin: 10/25/20 10:05 Dose: 999 mls/hr Documented by: Levofloxacin/Dextrose 750 mg/ (Premix) 150 mls @ 100 mls/hr IV ONETIME ONE Stop: 10/25/20 13:12 Last Admin: 10/25/20 12:05 Dose: 100 mls/hr Documented by: Sodium Chloride (Normal Saline) 1,000 mls @ 150 mls/hr IV ASDIRECTED [facility] Last Admin: 10/26/20 03:44 Dose: 150 mls/hr Documented by: Ferric Sodium Gluconate Complex 250 mg/ Sodium Chloride 120 mls @ 60 mls/hr IV ONETIME ONE Stop: 10/25/20 17:29 Last Admin: 10/25/20 16:04 Dose: 60 mls/hr Documented by: Lorazepam (Lorazepam 2 Mg/Ml Sdv) 1 mg IVPUSH ONETIME ONE Stop: 10/25/20 09:37 Last Admin: 10/25/20 10:14 Dose: 1 mg Documented by: Metoclopramide HCl (Metoclopramide 10 Mg/2 Ml Sdv) 10 mg IVPUSH ONETIME ONE Stop: 10/25/20 09:37 Last Admin: 10/25/20 10:05 Dose: 10 mg Documented by: Zolpidem Tartrate (Zolpidem 5 Mg Tab) 5 mg PO ONETIME ONE Stop: 10/25/20 22:24 Last Admin: 10/25/20 22:36 Dose: 5 mg Documented by: - Patient Data Lab Results Last 24 hrs: Laboratory Results - last 24 hr 10/27/20 10/27/20 10/28/20 Range/Units 05:45 05:45 05:27 WBC 6.31 6.22 (4.23-9.07) K/mm3 RBC 3.71 L 3.75 L (4.63-6.08) M/mm3 Hgb 7.9 L 8.0 L (13.7-17.5) gm/dl Hct 27.7 L 28.0 L (40.1-51.0) % MCV 74.7 L 74.7 L (79.0-92.2) fl MCH 21.3 L 21.3 L (25.7-32.2) pg MCHC 28.5 L 28.6 L (32.2-35.5) g/dl RDW Std Deviation 43.7 43.4 (35.1-43.9) fL Plt Count 435 H 475 H (163-337) K/mm3 MPV 9.2 L 9.0 L (9.4-12.3) fl Neut % (Auto) 60.9 55.4 (34.0-67.9) % Lymph % (Auto) 22.8 28.9 (21.8-53.1) % Coffey % (Auto) 7.1 8.2 (5.3-12.2) % Eos % (Auto) 8.6 H 6.4 (0.8-7.0) Baso % (Auto) 0.3 0.5 (0.1-1.2) % Neut # (Auto) 3.84 3.44 (1.78-5.38) K/mm3 Lymph # (Auto) 1.44 1.80 (1.32-3.57) K/mm3 [place]offey # (Auto) 0.45 0.51 (0.30-0.82) K/mm3 Eos # (Auto) 0.54 0.40 (0.04-0.54) K/mm3 Baso # (Auto) 0.02 0.03 (0.01-0.08) K/mm3 Manual Slide Review Abnormal smear Sodium 145 (136-145) mEq/L Potassium 4.3 (3.5-5.1) mEq/L Chloride 111 H (98-107) mEq/L Carbon Dioxide 25 (21-32) mEq/L Anion Gap 13.3 (5-15) BUN 10 (7-18) mg/dL Creatinine 1.1 (0.7-1.3) mg/dL Est Cr Clr Drug Dosing 111.01 mL/min Estimated GFR (MDRD) > 60 (>60) mL/min BUN/Creatinine Ratio 9.1 L (14-18) Glucose 107 H (70-99) mg/dL Calcium 8.0 L (8.5-10.1) mg/dL Magnesium 2.0 (1.8-2.4) mg/dL C-Reactive Protein 2.0 H* (<1.0) mg/dL Result Diagrams: 10/28/20 05:27 10/27/20 05:45 Leon Results Last 24 hrs: Microbiology 10/25/20 11:05 Urine Culture - Final Urine Enterobacter Cloacae Complex Beta Streptococcus Group B 10/25/20 10:30 Aerobic Blood Culture - Preliminary Blood - Venous NO GROWTH AFTER 2 DAYS Anaerobic Blood Culture - Preliminary NO GROWTH AFTER 2 DAYS Sepsis Event Note - Focused Exam Vital Signs: Vital Signs Temp Pulse Resp BP Pulse Ox 10/28/20 02:51 97.5 F 66 16 125/72 98 10/27/20 23:20 84 100 10/27/20 21:05 97.5 F 85 18 126/80 99 - My Orders Last 24 Hours: My Active Orders 10/27/20 14:57 Renew/Continue Urinary Catheter [OM.PC] Routine - Plan Plan:: Case discussed in full. Agree with evaluation, assessment and plan.
[2020-10-27] MEDS: LORazepam 2 MG/ML SDV IVPUSH PRN ×2 (15:22→19:39)
[2020-10-28] MEDS: LORazepam 2 MG/ML SDV IVPUSH PRN (04:44)
[2020-10-28] MEDS: Sucralfate 1 GM Tab PO SCH ×2 (08:54→12:23)
[2020-10-28] MEDS: Pantoprazole 40 MG Tab.CR PO SCH (08:56)
[2020-10-28] MEDS: Apixaban 5 MG Tab PO SCH (08:56)
[2020-10-28] MEDS: Gabapentin 600 MG Tab PO SCH (08:56)
[2020-10-28] MEDS: Baclofen 10 MG Tab PO SCH (08:56)
[2020-10-28] MEDS: Celecoxib 100 MG Cap PO SCH (08:56)
[2020-10-28] MEDS: Nicotine 7 MG/24 Hr Patch TRDERM SCH (09:02)
[2020-10-28] MEDS: Acetaminophen/HYDROcodone 325-5 MG Tab PO PRN (09:21)
[2020-10-28] MEDS ORDERED: LORazepam 0.5 MG Tab PO ONE (11:33)
--- NOTE | 2020-10-28 11:36 | PCM.DCSUM1 ---
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 1.80 (1.32-3.57) K/mm3 [place] # (Auto) 0.51 (0.30-0.82) K/mm3 Eos # (Auto) 0.40 (0.04-0.54) K/mm3 Baso # (Auto) 0.03 (0.01-0.08) K/mm3 Manual Slide Review Abnormal smear Sodium 144 (136-145) mEq/L Potassium 4.4 (3.5-5.1) mEq/L Chloride 111 H (98-107) mEq/L Carbon Dioxide 26 (21-32) mEq/L Anion Gap 11.4 (5-15) BUN 11 (7-18) mg/dL Creatinine 0.9 (0.7-1.3) mg/dL Est Cr Clr Drug Dosing 135.24 mL/min Estimated GFR (MDRD) > 60 (>60) mL/min BUN/Creatinine Ratio 12.2 L (14-18) Glucose 99 (70-99) mg/dL Calcium 8.2 L (8.5-10.1) mg/dL Magnesium 2.0 (1.8-2.4) mg/dL C-Reactive Protein 1.3 H* (<1.0) mg/dL RADHA Results - Last 24 hrs: Microbiology 10/25/20 10:30 Aerobic Blood Culture - Preliminary Blood - Venous NO GROWTH AFTER 3 DAYS Anaerobic Blood Culture - Preliminary NO GROWTH AFTER 3 DAYS 10/25/20 11:05 Urine Culture - Final Urine Enterobacter Cloacae Complex Beta Streptococcus Group B Med Orders - Current: Current Medications Acetaminophen (Acetaminophen 325 Mg Tab) 650 mg PO Q4H PRN PRN Reason: Pain (Mild 1-3)/fever Hydrocodone Bitart/Acetaminophen (Acetaminophen/Hydrocodone 325-5 Mg Tab) 1 tab PO Q4H PRN PRN Reason: Pain (moderate 4-6) Last Admin: 10/28/20 09:21 Dose: 1 tab Documented by: Al Hydroxide/Mg Hydroxide (Aluminum Hydroxide/Magnesium Hydroxide/Simethicone Susp 30 Ml Cup) 30 ml PO Q4H PRN PRN Reason: Heartburn Last Admin: 10/25/20 22:07 Dose: 30 ml Documented by: Apixaban (Apixaban 5 Mg Tab) 5 mg PO BID [facility] Last Admin: 10/28/20 08:56 Dose: 5 mg Documented by: Baclofen (Baclofen 10 Mg Tab) 30 mg PO QID [facility] Last Admin: 10/28/20 08:56 Dose: 30 mg Documented by: Celecoxib (Celecoxib 100 Mg Cap) 100 mg PO BID [facility] Last Admin: 10/28/20 08:56 Dose: 100 mg Documented by: Docusate Sodium (Docusate Sodium 100 Mg Cap) 100 mg PO Q12H PRN PRN Reason: Constipation Last Admin: 10/25/20 22:13 Dose: 100 mg Documented by: Gabapentin (Gabapentin 600 Mg Tab) 600 mg PO TID [facility] Last Admin: 10/28/20 08:56 Dose: 600 mg Documented by: Levofloxacin/Dextrose 750 mg/ (Premix) 150 mls @ 100 mls/hr IV Q24H [facility] Last Admin: 10/27/20 11:15 Dose: 100 mls/hr Documented by: Lorazepam (Lorazepam 2 Mg/Ml Sdv) 1 - 3 mg IVPUSH Q4H PRN; Protocol PRN Reason: withdrawl Last Admin: 10/27/20 11:16 Dose: 1 mg Documented by: Lorazepam (Lorazepam 2 Mg/Ml Sdv) 1 mg IVPUSH Q6H PRN PRN Reason: Anxiety Last Admin: 10/28/20 04:44 Dose: 1 mg Documented by: Magnesium Hydroxide (Magnesium Hydroxide 400 Mg/5 Ml Susp 30 Ml Cup) 30 ml PO Q12H PRN PRN Reason: Constipation Last Admin: 10/26/20 13:44 Dose: 30 ml Documented by: Miscellaneous Information (Remove Patch) 0 ea TRDERM DAILY [facility] Last Admin: 10/28/20 09:02 Dose: 1 ea Documented by: Nicotine (Nicotine 7 Mg/24 Hr Patch) 7 mg TRDERM DAILY [facility] Last Admin: 10/28/20 09:02 Dose: 7 mg Documented by: Ondansetron HCl (Ondansetron 4 Mg/2 Ml Sdv) 4 mg IV Q6H PRN PRN Reason: Nausea/Vomiting Last Admin: 10/27/20 19:40 Dose: 4 mg Documented by: Pantoprazole Sodium (Pantoprazole 40 Mg Tab.Cr) 40 mg PO BID [facility] Last Admin: 10/28/20 08:56 Dose: 40 mg Documented by: Sucralfate (Sucralfate 1 Gm Tab) 1 gm PO QIDACANDBED [facility] Last Admin: 10/28/20 12:23 Dose: 1 gm Documented by: Discontinued Medications Baclofen (Baclofen 10 Mg Tab) 30 mg PO ONETIME ONE Stop: 10/25/20 12:07 Last Admin: 10/25/20 13:52 Dose: 30 mg Documented by: Enoxaparin Sodium (Enoxaparin 40 Mg/0.4 Ml Syringe) 40 mg SUBCUT DAILY [facility] Famotidine (Famotidine 20 Mg Tab) 20 mg PO BID [facility] Last Admin: 10/25/20 16:29 Dose: Not Given Documented by: Hydromorphone HCl (Hydromorphone 0.5 Mg/0.5 Ml Syringe) 0.5 mg IVPUSH Q2H PRN PRN Reason: Pain (severe 7-10) Last Admin: 10/26/20 18:50 Dose: 0.5 mg Documented by: Dextrose/Sodium Chloride (Dextrose 5%-Normal Saline) 1,000 mls @ 999 mls/hr IV ASDIRECTED [facility] Last Admin: 10/25/20 10:05 Dose: 999 mls/hr Documented by: Levofloxacin/Dextrose 750 mg/ (Premix) 150 mls @ 100 mls/hr IV ONETIME ONE Stop: 10/25/20 13:12 Last Admin: 10/25/20 12:05 Dose: 100 mls/hr Documented by: Sodium Chloride (Normal Saline) 1,000 mls @ 150 mls/hr IV ASDIRECTED [facility] Last Admin: 10/26/20 03:44 Dose: 150 mls/hr Documented by: Ferric Sodium Gluconate Complex 250 mg/ Sodium Chloride 120 mls @ 60 mls/hr IV ONETIME ONE Stop: 10/25/20 17:29 Last Admin: 10/25/20 16:04 Dose: 60 mls/hr Documented by: Lorazepam (Lorazepam 2 Mg/Ml Sdv) 1 mg IVPUSH ONETIME ONE Stop: 10/25/20 09:37 Last Admin: 10/25/20 10:14 Dose: 1 mg Documented by: Lorazepam (Lorazepam 0.5 Mg Tab) 0.5 mg PO ONETIME ONE Stop: 10/28/20 11:34 Last Admin: 10/28/20 12:23 Dose: 0.5 mg Documented by: Metoclopramide HCl (Metoclopramide 10 Mg/2 Ml Sdv) 10 mg IVPUSH ONETIME ONE Stop: 10/25/20 09:37 Last Admin: 10/25/20 10:05 Dose: 10 mg Documented by: Zolpidem Tartrate (Zolpidem 5 Mg Tab) 5 mg PO ONETIME ONE Stop: 10/25/20 22:24 Last Admin: 10/25/20 22:36 Dose: 5 mg Documented by:
== END 2020-10-28 13:03 | disposition home or self-care (01) | DRG 698 ==
LOC: JD.ED 09:13 → JD.MS 13:49
PROVIDERS: ADMIT Hospitalist; ATTEND Hospitalist
DX: T83.511A Infection and inflammatory reaction due to indwelling urethral catheter, initial encounter (principal); R11.2 Nausea with vomiting, unspecified; G82.54 Quadriplegia, C5-C7 incomplete; N10 Acute pyelonephritis; F10.230 Alcohol dependence with withdrawal, uncomplicated; M81.0 Age-related osteoporosis without current pathological fracture; M62.838 Other muscle spasm; N31.9 Neuromuscular dysfunction of bladder, unspecified; F17.219 Nicotine dependence, cigarettes, with unspecified nicotine-induced disorders; Z20.822 Contact with and (suspected) exposure to COVID-19; K21.9 Gastro-esophageal reflux disease without esophagitis; D50.9 Iron deficiency anemia, unspecified; B96.89 Other specified bacterial agents as the cause of diseases classified elsewhere; B95.1 Streptococcus, group B, as the cause of diseases classified elsewhere; F12.90 Cannabis use, unspecified, uncomplicated; F15.90 Other stimulant use, unspecified, uncomplicated; Z87.01 Personal history of pneumonia (recurrent); Z78.9 Other specified health status; Z86.14 Personal history of Methicillin resistant Staphylococcus aureus infection; Z79.899 Other long term (current) drug therapy; Z93.6 Other artificial openings of urinary tract status; Z79.01 Long term (current) use of anticoagulants
CPT/HCPCS: 36410; 36415; 51702; 71045; 71045-26; 80048; 80053; 80306; 80307; 81001; 82009; 82272; 82553; 83540; 83605; 83735; 84145; 84466; 84484; 85007; 85025; 85027; 85379; 85610; 85730; 86140; 87040; 87086; 87088; 87147; 87186; 93005; 93010; 96365; 96375; 97162-GP; 99223; 99233; 99239; 99285; 99285-25; A9270-GY; J1170; J1956; J2060; J2405; J2765; J2916; J7030; J7042; U0002

== ENCOUNTER 2020-11-07 18:00 | Inpatient (IN) | payer MEDICARE, MEDICAID ==
[2020-11-07] MEDS ORDERED: Sodium Chloride 0.9% 1,000 ML IV ONE (20:04)
[2020-11-07] MEDS ORDERED: Levofloxacin/Dextrose 5%-Water 750 MG in Premix Bag 1 BAG IV STA (20:04)
[2020-11-07] MEDS ORDERED: HYDROmorphone 1 MG/ML Syringe IVPUSH ONE (20:05)
[2020-11-07] MEDS ORDERED: Ondansetron 4 MG/2 ML SDV IVPUSH ONE (20:05)
[2020-11-07] MEDS ORDERED: Pantoprazole 40 MG Vial IVPUSH ONE (20:05)
--- NOTE | 2020-11-07 20:11 | EDM.PDOC ---
ED HPI GENERAL MEDICAL PROBLEM - General Chief Complaint: Genitourinary Problem Stated Complaint: [facility] Time Seen by Provider: 11/07/20 19:47 Source of Information: Reports: Patient, Old Records (D/C summary 10/28/2020) History Limitations: Reports: No Limitations - History of Present Illness INITIAL COMMENTS - FREE TEXT/NARRATIVE: Mr. Hughes is a very pleasant 35-year-old gentleman with a past medical history significant for a partial C5-C6 quadriplegia with a neurogenic bladder requiring self-catheterization. Medical records indicate that he was admitted to this hospital 10/25/2020 through 10/28/2020 for pyelonephritis as well as some other issues. A urine culture from 10/25/2020 grew 50,000-100,000 CFU/ml Enterobacter cloacae complex beta Streptococcus group B, with the Enterobacter being susceptible to levofloxacin. He was discharged home with prescriptions for levofloxacin, pantoprazole, sucralfate, gabapentin, baclofen, Celebrex, and Eliquis, however, he reports that he lives alone and does not have transportation, and therefore was unable to fill the prescriptions, and also unable to follow-up with a PCP as requested. He now returns the ED by EMS stating that he has had a few days of pain in his right upper quadrant radiating through to his right flank and down his right back, along with nausea and vomiting. He also reports feeling easily fatigued with exertion. No recent fever. EMS placed a right leg IO, and give the patient 2 mg of Dilaudid and 2 mg of midazolam en route to the ED. Here in the ED, the patient is initially found to be tachycardic at 124 bpm, with mild tachypnea of 26 rpm. He is otherwise hemodynamically stable, afebrile, saturating 100% on room air. He appears to be comfortable, in no acute distress. Prior to a few days ago, the patient denies having a recent fever, chills, sore throat, ear pain, nasal or sinus congestion, cough, dyspnea, chest pain, palpitations, nausea, vomiting, constipation, diarrhea, abdominal pain, urinary symptoms, recent weight gain or weight loss, recent bloody bowel movements or black bowel movements, recent joint aches, headaches, or rashes. The patient does not have a PCP. Back Pain Score (Numeric/FACES): 10 - Related Data Allergies Allergy/AdvReac Type Severity Reaction Status Date / Time No Known Allergies Allergy Verified 11/07/20 18:17 Home Meds: Home Meds Apixaban [Eliquis] 5 mg PO BID #20 tab 10/28/20 [Rx] Baclofen 30 mg PO QID #50 tab 10/28/20 [Rx] Celecoxib [CeleBREX] 100 mg PO BID #20 cap 10/28/20 [Rx] Gabapentin [Neurontin] 600 mg PO TID #35 tablet 10/28/20 [Rx] Pantoprazole [ProTONIX] 40 mg PO BID #40 tab 10/28/20 [Rx] Sucralfate 1 gm PO QIDACANDBED #50 tab 10/28/20 [Rx] levoFLOXacin [Levaquin] 750 mg PO DAILY #4 tab 10/28/20 [Rx] Past Medical History Genitourinary History: Reports: Neurogenic Bladder (requires self- catheterization) Musculoskeletal History: Reports: Osteoporosis Neurological History: Reports: Other (See Below) (C5-C6 partial quadriplegia) Psychiatric History: Reports: Addiction Dermatologic History: Reports: Decubitus Ulcer - Infectious Disease History Infectious Disease History: Reports: Chicken Pox, MRSA Social & Family History - Tobacco Use Tobacco Use Status *Q: Never Tobacco User Second Hand Smoke Exposure: No - Caffeine Use Caffeine Use: Reports: None - Alcohol Use Alcohol Use History: Yes Alcohol Use Frequency: Binges - Recreational Drug Use Recreational Drug Use: Yes Drug Use in Last 12 Months: Yes Recreational Drug Type: Reports: Marijuana/Hashish, Methamphetamine - Living Situation & Occupation Living situation: Reports: Single, Alone Occupation: Disabled ED ROS GENERAL - Review of Systems Review Of Systems: Comprehensive ROS is negative, except as noted in HPI. ED EXAM, RENAL/ - Physical Exam Exam: See Below Exam Limited By: No Limitations General Appearance: Alert, WD/WN, No Apparent Distress Eye Exam: Bilateral Eye: EOMI, Normal Inspection Ears: Normal External Exam, Hearing Grossly Normal Nose: Normal Inspection Throat/Mouth: Normal Inspection, Normal Lips, Normal Voice, No Airway Compromise Head: Atraumatic, Normocephalic Neck: Normal Inspection, Full Range of Motion Respiratory/Chest: No Respiratory Distress, Lungs Clear, Normal Breath Sounds, No Accessory Muscle Use Cardiovascular: Normal Peripheral Pulses, No Edema, No Gallop, No JVD, No Murmur, No Rub, Tachycardia (regular) GI/Abdominal: Normal Bowel Sounds, Soft, Non-Tender, No Organomegaly, No Distention, No Abnormal Bruit, No Mass Extremities: Normal Capillary Refill, Other (Spastic paralysis BLEs. Partial use of bilateral upper extremities. IO in right leg.) Neurological: Alert, Oriented, Normal Cognition, No Motor/Sensory Deficits Psychiatric: Normal Affect Skin Exam: Warm, Dry, Intact, Normal Color, No Rash Course - Vital Signs Last Recorded V/S: Last Vital Signs Temp 37.1 C 11/07/20 18:00 Pulse 124 H 11/07/20 18:00 Resp 26 H 11/07/20 18:00 BP 109/79 11/07/20 18:00 Pulse Ox 100 11/07/20 18:00 - Orders/Labs/Meds Orders: Active Orders 24 hr Category Date Time Status BLOOD CULTURE [MREF] Stat Lab 11/07/20 20:25 Received BLOOD CULTURE [MREF] Stat Lab 11/07/20 21:20 Received CULTURE URINE [MREF] Stat Lab 11/07/20 20:45 Received Blood Culture x2 Reflex Set [OM.PC] Stat Oth 11/07/20 20:03 Ordered Medication Orders Hydromorphone HCl (Hydromorphone 0.5 Mg/0.5 Ml Syringe) 0.5 mg IVPUSH Q2H PRN PRN Reason: Pain Sodium Chloride (Normal Saline) 1,000 mls @ 100 mls/hr IV ASDIRECTED [facility] Labs: Laboratory Tests 11/07/20 11/07/20 11/07/20 Range/Units 20:10 20:10 20:10 WBC 10.65 H (4.23-9.07) K/mm3 RBC 3.75 L (4.63-6.08) M/mm3 Hgb 7.7 L (13.7-17.5) gm/dl Hct 26.8 L (40.1-51.0) % MCV 71.5 L D (79.0-92.2) fl MCH 20.5 L (25.7-32.2) pg MCHC 28.7 L (32.2-35.5) g/dl RDW Std Deviation 44.7 H (35.1-43.9) fL Plt Count 753 H D (163-337) K/mm3 MPV 8.7 L (9.4-12.3) fl Neutrophils % (Manual) 81 H (40-60) % Band Neutrophils % 0 (0-10) % Lymphocytes % (Manual) 13 L (20-40) % Atypical Lymphs % 0 % Monocytes % (Manual) 5 (2-10) % Eosinophils % (Manual) 1 (0.8-7.0) % Basophils % (Manual) 0 L (0.2-1.2) Platelet Estimate Increased Polychromasia 1+ slight Hypochromasia 2+ moderate Microcytosis 2+ moderate RBC Morph Comment Not Reportable Sodium 139 (136-145) mEq/L Potassium 3.3 L (3.5-5.1) mEq/L Chloride 104 (98-107) mEq/L Carbon Dioxide 28 (21-32) mEq/L Anion Gap 10.3 (5-15) BUN 12 (7-18) mg/dL Creatinine 1.1 (0.7-1.3) mg/dL Est Cr Clr Drug Dosing 108.24 mL/min Estimated GFR (MDRD) > 60 (>60) mL/min BUN/Creatinine Ratio 10.9 L (14-18) Glucose 106 H (70-99) mg/dL Calcium 8.2 L (8.5-10.1) mg/dL Total Bilirubin 0.3 (0.2-1.0) mg/dL AST 15 (15-37) U/L ALT 20 (16-63) U/L Alkaline Phosphatase 67 (46-116) U/L Total Protein 7.0 (6.4-8.2) g/dl Albumin 2.9 L (3.4-5.0) g/dl Globulin 4.1 gm/dL Albumin/Globulin Ratio 0.7 L (1-2) Urine Color (Yellow) Urine Appearance (Clear) Urine pH (5.0-8.0) Ur Specific [place] (1.005-1.030) Urine Protein (Negative) Urine Glucose (UA) (Negative) Urine Ketones (Negative) Urine Occult Blood (Negative) Urine Nitrite (Negative) Urine Bilirubin (Negative) Urine Urobilinogen (0.2-1.0) Ur Leukocyte Esterase (Negative) Urine RBC (0-5) /hpf Urine WBC (0-5) /hpf Ur Squamous Epith Cells (0-5) /hpf Urine Bacteria (FEW) /hpf Urine Mucus (FEW) /hpf Urine Opiates Screen (TUXLSH=847) Ur Buprenorphine Scrn (CUTOFF=10) Ur Oxycodone Screen (JVN3AE=600) Urine Methadone Screen (ADR5QG=751) Ur Propoxyphene Screen (JXOXMG=611) Ur Barbiturates Screen (GRNOLD=818) Ur Tricyclics Screen (RIIKHZ=516) Ur Phencyclidine Scrn (CUTOFF=25) Ur Amphetamine Screen (EHSRTP=057) U Methamphetamines Scrn (GLSDUK=454) U Benzodiazepines Scrn (BVZNBJ=376) U Cocaine Metab Screen (GXALQX=499) U Marijuana (THC) Screen (CUTOFF=50) Ethyl Alcohol 0.00 (0.00) gm% SARS-CoV-2 RNA (BRIT) (NEGATIVE) 11/07/20 11/07/20 11/07/20 Range/Units 20:45 20:45 20:45 WBC (4.23-9.07) K/mm3 RBC (4.63-6.08) M/mm3 Hgb (13.7-17.5) gm/dl Hct (40.1-51.0) % MCV (79.0-92.2) fl MCH (25.7-32.2) pg MCHC (32.2-35.5) g/dl RDW Std Deviation (35.1-43.9) fL Plt Count (163-337) K/mm3 MPV (9.4-12.3) fl Neutrophils % (Manual) (40-60) % Band Neutrophils % (0-10) % Lymphocytes % (Manual) (20-40) % Atypical Lymphs % % Monocytes % (Manual) (2-10) % Eosinophils % (Manual) (0.8-7.0) % Basophils % (Manual) (0.2-1.2) Platelet Estimate Polychromasia Hypochromasia Microcytosis RBC Morph Comment Sodium (136-145) mEq/L Potassium (3.5-5.1) mEq/L Chloride (98-107) mEq/L Carbon Dioxide (21-32) mEq/L Anion Gap (5-15) BUN (7-18) mg/dL Creatinine (0.7-1.3) mg/dL Est Cr Clr Drug Dosing mL/min Estimated GFR (MDRD) (>60) mL/min BUN/Creatinine Ratio (14-18) Glucose (70-99) mg/dL Calcium (8.5-10.1) mg/dL Total Bilirubin (0.2-1.0) mg/dL AST (15-37) U/L ALT (16-63) U/L Alkaline Phosphatase (46-116) U/L Total Protein (6.4-8.2) g/dl Albumin (3.4-5.0) g/dl Globulin gm/dL Albumin/Globulin Ratio (1-2) Urine Color Rufina H (Yellow) Urine Appearance Cloudy H (Clear) Urine pH 6.0 (5.0-8.0) Ur Specific [place] 1.025 (1.005-1.030) Urine Protein 1+ H (Negative) Urine Glucose (UA) Negative (Negative) Urine Ketones 1+ H (Negative) Urine Occult Blood Trace-intact H (Negative) Urine Nitrite Positive H (Negative) Urine Bilirubin Negative (Negative) Urine Urobilinogen 0.2 (0.2-1.0) Ur Leukocyte Esterase 2+ H (Negative) Urine RBC 10-20 H (0-5) /hpf Urine WBC >100 H (0-5) /hpf Ur Squamous Epith Cells 0-5 (0-5) /hpf Urine Bacteria Moderate H (FEW) /hpf Urine Mucus Few (FEW) /hpf Urine Opiates Screen Presumptive positive H (SLEVNZ=554) Ur Buprenorphine Scrn Negative (CUTOFF=10) Ur Oxycodone Screen Negative (JVA8GE=813) Urine Methadone Screen Negative (LJI5SS=070) Ur Propoxyphene Screen Negative (PKWEYR=559) Ur Barbiturates Screen Negative (JTNFWB=117) Ur Tricyclics Screen Negative (VREPCO=025) Ur Phencyclidine Scrn Negative (CUTOFF=25) Ur Amphetamine Screen Presumptive positive H (QHKYZZ=770) U Methamphetamines Scrn Presumptive positive H (OSFYAB=082) U Benzodiazepines Scrn Presumptive positive H (TAANIL=911) U Cocaine Metab Screen Negative (FRTYAA=542) U Marijuana (THC) Screen Presumptive positive H (CUTOFF=50) Ethyl Alcohol (0.00) gm% SARS-CoV-2 RNA (BRIT) Negative (NEGATIVE) Meds: Medications Generic Name Dose Route Start Last Admin Trade Name Freq PRN Reason Stop Dose Admin Hydromorphone HCl 0.5 mg 11/07/20 23:50 Hydromorphone 0.5 Mg/0.5 Ml Syringe IVPUSH Q2H PRN Pain Sodium Chloride 1,000 mls @ 100 mls/hr 11/07/20 23:45 Normal Saline IV ASDIRECTED [facility]AN[facility] Discontinued Medications Generic Name Dose Route Start Last Admin Trade Name Freq PRN Reason Stop Dose Admin Hydromorphone HCl 1 mg 11/07/20 20:05 11/07/20 20:36 Hydromorphone 1 Mg/Ml Syringe IVPUSH 11/07/20 20:06 1 mg ONETIME ONE Administration Sodium Chloride 1,000 mls @ 999 mls/hr 11/07/20 20:04 11/07/20 20:29 Normal Saline IV 11/07/20 21:04 999 mls/hr ONETIME ONE Administration Levofloxacin/Dextrose 750 mg/ 150 mls @ 100 mls/hr 11/07/20 20:04 11/07/20 20:43 Premix IV 11/07/20 21:33 100 mls/hr ONETIME STA Administration Ondansetron HCl 4 mg 11/07/20 20:05 11/07/20 20:35 Ondansetron 4 Mg/2 Ml Sdv IVPUSH 11/07/20 20:06 4 mg ONETIME ONE Administration Pantoprazole Sodium 40 mg 11/07/20 20:05 11/07/20 20:43 Pantoprazole 40 Mg Vial IVPUSH 11/07/20 20:06 40 mg ONETIME ONE Administration - Re-Assessments/Exams Free Text/Narrative Re-Assessment/Exam: 11/07/20 20:06 As above, the patient was admitted to this hospital 10/25/2020 through 10/28/2020 for pyelonephritis, as well as other issues, and was discharged home with prescriptions for Levaquin, among other things, however, the patient did not fill his prescriptions and did not follow-up with a PCP as requested. A urine culture obtained 10/25/2020 grew 50,000 - 100,000 CFU/ml Enterobacter cloacae, susceptible to levofloxacin. It also grew beta Streptococcus group B, however, there are no details on that. He now presents with pain to his right upper quadrant that radiates around to his right flank and down his right back. He also reports easy fatigability on exertion, although no fever. I suspect that he is suffering from progression of his pyelonephritis. A CBC, CMP and urinalysis were ordered at triage. I have added 2 sets of blood cultures, an EtOH level, and a urine drug screen. In the meantime, the patient will be given some IV fluid, IV Dilaudid, IV pantoprazole, and IV Zofran. He will receive IV Levaquin after his blood and urine have been collected. 11/07/20 21:49 The patient's CBC is remarkable for leukocytosis of 10.65, but with 0% bandemia. His H/H is depressed at 7.7/26.8, with thrombocytosis of 753,000. His anemia is hypochromic/microcytic. His CMP is remarkable for slight hypokalemia 3.3, and slight hyperglycemia of 106, with the remainder of his CBC being unremarkable. His EtOH level is 0.00. His urinalysis is remarkable for cloudy appearance, trace occult blood with 10- 20 RBCs, 2+ leukocyte esterase with >100 WBCs, nitrate positive with moderate bacteria, and 0-5 squamous epithelial cells. His urine drug screen is positive for opiates, methamphetamine/amphetamine, benzodiazepines, and marijuana. Reviewing prior labs finds that the patient's H/H was 8.0/28.0, with platelets 475,000 on 10/28/2020. Based on the above, I have ordered a urine culture. As above, the patient is already been started on IV levofloxacin. As oral levofloxacin is 100% bioavailable, and the patient is not hemodynamically unstable, one could make an argument that the patient does not require hospitalization, however, since the patient reports that he has no ability to acquire prescriptions or follow-up, I believe that in this case it would be the patient's best interest to admit him to the hospital until his pyelonephritis has been adequately treated. 11/07/20 21:59 Test results and my plan to admit discussed with the patient. He is agreeable to being admitted. He is requesting something for both pain and anxiety. I will leave it to the Hospitalist to decide on pain medication and antianxiety medication. While the patient is anemic, it is debatable if he would benefit from a PRBC transfusion at this time. I will leave that to the Hospitalist, as well. 11/07/20 22:[address] Gary at 22:06. He accepted the patient for full admission to the Med-Surg unit. He does not want the patient to be transfused PRBCs at this time. I will write some bridge orders that includes some pain medication. Departure - Departure Time of Disposition: 22:14 Disposition: Home, Self-Care 01 Condition: Good Clinical Impression: Pyelonephritis, Polysubstance abuse Anemia Qualifiers: Anemia type: iron deficiency Iron deficiency anemia type: unspecified iron deficiency Qualified Code(s): D50.9 - Iron deficiency anemia, unspecified - Discharge Information *PRESCRIPTION DRUG MONITORING PROGRAM REVIEWED*: Not Applicable *COPY OF PRESCRIPTION DRUG MONITORING REPORT IN PATIENT [place]: Not Applicable Sepsis Event Note (ED) - Evaluation Sepsis Screening Result: No Definite Risk - Focused Exam Vital Signs: Vital Signs Temp Pulse Resp BP Pulse Ox 11/07/20 18:00 37.1 C 124 H 26 H 109/79 100 - My Orders Last 24 Hours: My Active Orders 11/07/20 20:03 Blood Culture x2 Reflex Set [OM.PC] Stat 11/07/20 20:25 BLOOD CULTURE [MREF] Stat 11/07/20 20:45 CULTURE URINE [MREF] Stat 11/07/20 21:20 BLOOD CULTURE [MREF] Stat - Assessment/Plan Last 24 Hours: My Active Orders 11/07/20 20:03 Blood Culture x2 Reflex Set [OM.PC] Stat 11/07/20 20:25 BLOOD CULTURE [MREF] Stat 11/07/20 20:45 CULTURE URINE [MREF] Stat 11/07/20 21:20 BLOOD CULTURE [MREF] Stat
[2020-11-08] MEDS: HYDROmorphone 0.5 MG/0.5 ML Syringe IVPUSH PRN ×5 (00:34→16:10)
[2020-11-08] MEDS: Sodium Chloride 0.9% 1,000 ML IV SCH ×2 (00:36→10:22)
[2020-11-08] MEDS: oxyCODONE 5 MG Tab PO PRN ×3 (07:47→20:46)
--- NOTE | 2020-11-08 08:37 | PCM.HP.2 ---
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 RDW Std Deviation 44.7 H (35.1-43.9) fL Plt Count 753 H D (163-337) K/mm3 MPV 8.7 L (9.4-12.3) fl Neutrophils % (Manual) 81 H (40-60) % Band Neutrophils % 0 (0-10) % Lymphocytes % (Manual) 13 L (20-40) % Atypical Lymphs % 0 % Monocytes % (Manual) 5 (2-10) % Eosinophils % (Manual) 1 (0.8-7.0) % Basophils % (Manual) 0 L (0.2-1.2) Platelet Estimate Increased Polychromasia 1+ slight Hypochromasia 2+ moderate Microcytosis 2+ moderate RBC Morph Comment Not Reportable Sodium 139 (136-145) mEq/L Potassium 3.3 L (3.5-5.1) mEq/L Chloride 104 (98-107) mEq/L Carbon Dioxide 28 (21-32) mEq/L Anion Gap 10.3 (5-15) BUN 12 (7-18) mg/dL Creatinine 1.1 (0.7-1.3) mg/dL Est Cr Clr Drug Dosing 108.24 mL/min Estimated GFR (MDRD) > 60 (>60) mL/min BUN/Creatinine Ratio 10.9 L (14-18) Glucose 106 H (70-99) mg/dL Calcium 8.2 L (8.5-10.1) mg/dL Total Bilirubin 0.3 (0.2-1.0) mg/dL AST 15 (15-37) U/L ALT 20 (16-63) U/L Alkaline Phosphatase 67 (46-116) U/L Total Protein 7.0 (6.4-8.2) g/dl Albumin 2.9 L (3.4-5.0) g/dl Globulin 4.1 gm/dL Albumin/Globulin Ratio 0.7 L (1-2) Urine Color (Yellow) Urine Appearance (Clear) Urine pH (5.0-8.0) Ur Specific Fowler (1.005-1.030) Urine Protein (Negative) Urine Glucose (UA) (Negative) Urine Ketones (Negative) Urine Occult Blood (Negative) Urine Nitrite (Negative) Urine Bilirubin (Negative) Urine Urobilinogen (0.2-1.0) Ur Leukocyte Esterase (Negative) Urine RBC (0-5) /hpf Urine WBC (0-5) /hpf Ur Squamous Epith Cells (0-5) /hpf Urine Bacteria (FEW) /hpf Urine Mucus (FEW) /hpf Urine Opiates Screen (UTQKQE=320) Ur Buprenorphine Scrn (CUTOFF=10) Ur Oxycodone Screen (PHY7QI=570) Urine Methadone Screen (AMP0DQ=612) Ur Propoxyphene Screen (KPYAWW=238) Ur Barbiturates Screen (SNPERU=023) Ur Tricyclics Screen (QOPLZN=031) Ur Phencyclidine Scrn (CUTOFF=25) Ur Amphetamine Screen (ZJXAXT=421) U Methamphetamines Scrn (ESMYWD=826) U Benzodiazepines Scrn (ZQPGGL=995) U Cocaine Metab Screen (BIVIHB=061) U Marijuana (THC) Screen (CUTOFF=50) Ethyl Alcohol 0.00 (0.00) gm% SARS-CoV-2 RNA (BRIT) (NEGATIVE) MRSA (PCR) 11/07/20 11/07/20 11/07/20 Range/Units 20:45 20:45 20:45 WBC (4.23-9.07) K/mm3 RBC (4.63-6.08) M/mm3 Hgb (13.7-17.5) gm/dl Hct (40.1-51.0) % MCV (79.0-92.2) fl MCH (25.7-32.2) pg MCHC (32.2-35.5) g/dl RDW Std Deviation (35.1-43.9) fL Plt Count (163-337) K/mm3 MPV (9.4-12.3) fl Neutrophils % (Manual) (40-60) % Band Neutrophils % (0-10) % Lymphocytes % (Manual) (20-40) % Atypical Lymphs % % Monocytes % (Manual) (2-10) % Eosinophils % (Manual) (0.8-7.0) % Basophils % (Manual) (0.2-1.2) Platelet Estimate Polychromasia Hypochromasia Microcytosis RBC Morph Comment Sodium (136-145) mEq/L Potassium (3.5-5.1) mEq/L Chloride (98-107) mEq/L Carbon Dioxide (21-32) mEq/L Anion Gap (5-15) BUN (7-18) mg/dL Creatinine (0.7-1.3) mg/dL Est Cr Clr Drug Dosing mL/min Estimated GFR (MDRD) (>60) mL/min BUN/Creatinine Ratio (14-18) Glucose (70-99) mg/dL Calcium (8.5-10.1) mg/dL Total Bilirubin (0.2-1.0) mg/dL AST (15-37) U/L ALT (16-63) U/L Alkaline Phosphatase (46-116) U/L Total Protein (6.4-8.2) g/dl Albumin (3.4-5.0) g/dl Globulin gm/dL Albumin/Globulin Ratio (1-2) Urine Color Rufina H (Yellow) Urine Appearance Cloudy H (Clear) Urine pH 6.0 (5.0-8.0) Ur Specific Fowler 1.025 (1.005-1.030) Urine Protein 1+ H (Negative) Urine Glucose (UA) Negative (Negative) Urine Ketones 1+ H (Negative) Urine Occult Blood Trace-intact H (Negative) Urine Nitrite Positive H (Negative) Urine Bilirubin Negative (Negative) Urine Urobilinogen 0.2 (0.2-1.0) Ur Leukocyte Esterase 2+ H (Negative) Urine RBC 10-20 H (0-5) /hpf Urine WBC >100 H (0-5) /hpf Ur Squamous Epith Cells 0-5 (0-5) /hpf Urine Bacteria Moderate H (FEW) /hpf Urine Mucus Few (FEW) /hpf Urine Opiates Screen Presumptive positive H (TBPYWD=046) Ur Buprenorphine Scrn Negative (CUTOFF=10) Ur Oxycodone Screen Negative (QQP4SP=609) Urine Methadone Screen Negative (QVZ0WL=014) Ur Propoxyphene Screen Negative (DPFVSY=162) Ur Barbiturates Screen Negative (ZZEIKD=576) Ur Tricyclics Screen Negative (XLXSMR=856) Ur Phencyclidine Scrn Negative (CUTOFF=25) Ur Amphetamine Screen Presumptive positive H (GYSCYF=932) U Methamphetamines Scrn Presumptive positive H (OJUVEK=857) U Benzodiazepines Scrn Presumptive positive H (FBAUOO=080) U Cocaine Metab Screen Negative (WDMFCH=486) U Marijuana (THC) Screen Presumptive positive H (CUTOFF=50) Ethyl Alcohol (0.00) gm% SARS-CoV-2 RNA (BRIT) Negative (NEGATIVE) MRSA (PCR) 11/08/20 Range/Units 07:30 WBC (4.23-9.07) K/mm3 RBC (4.63-6.08) M/mm3 Hgb (13.7-17.5) gm/dl Hct (40.1-51.0) % MCV (79.0-92.2) fl MCH (25.7-32.2) pg MCHC (32.2-35.5) g/dl RDW Std Deviation (35.1-43.9) fL Plt Count (163-337) K/mm3 MPV (9.4-12.3) fl Neutrophils % (Manual) (40-60) % Band Neutrophils % (0-10) % Lymphocytes % (Manual) (20-40) % Atypical Lymphs % % Monocytes % (Manual) (2-10) % Eosinophils % (Manual) (0.8-7.0) % Basophils % (Manual) (0.2-1.2) Platelet Estimate Polychromasia Hypochromasia Microcytosis RBC Morph Comment Sodium (136-145) mEq/L Potassium (3.5-5.1) mEq/L Chloride (98-107) mEq/L Carbon Dioxide (21-32) mEq/L Anion Gap (5-15) BUN (7-18) mg/dL Creatinine (0.7-1.3) mg/dL Est Cr Clr Drug Dosing mL/min Estimated GFR (MDRD) (>60) mL/min BUN/Creatinine Ratio (14-18) Glucose (70-99) mg/dL Calcium (8.5-10.1) mg/dL Total Bilirubin (0.2-1.0) mg/dL AST (15-37) U/L ALT (16-63) U/L Alkaline Phosphatase (46-116) U/L Total Protein (6.4-8.2) g/dl Albumin (3.4-5.0) g/dl Globulin gm/dL Albumin/Globulin Ratio (1-2) Urine Color (Yellow) Urine Appearance (Clear) Urine pH (5.0-8.0) Ur Specific Fowler (1.005-1.030) Urine Protein (Negative) Urine Glucose (UA) (Negative) Urine Ketones (Negative) Urine Occult Blood (Negative) Urine Nitrite (Negative) Urine Bilirubin (Negative) Urine Urobilinogen (0.2-1.0) Ur Leukocyte Esterase (Negative) Urine RBC (0-5) /hpf Urine WBC (0-5) /hpf Ur Squamous Epith Cells (0-5) /hpf Urine Bacteria (FEW) /hpf Urine Mucus (FEW) /hpf Urine Opiates Screen (WVJADJ=375) Ur Buprenorphine Scrn (CUTOFF=10) Ur Oxycodone Screen (QOP0SV=914) Urine Methadone Screen (UJP9KA=630) Ur Propoxyphene Screen (HTIIMY=016) Ur Barbiturates Screen (BBJONT=963) Ur Tricyclics Screen (QWCFHE=498) Ur Phencyclidine Scrn (CUTOFF=25) Ur Amphetamine Screen (GESYMA=173) U Methamphetamines Scrn (CJYTHI=521) U Benzodiazepines Scrn (HBOHSF=898) U Cocaine Metab Screen (WLBATJ=551) U Marijuana (THC) Screen (CUTOFF=50) Ethyl Alcohol (0.00) gm% SARS-CoV-2 RNA (BRIT) (NEGATIVE) MRSA (PCR) Positive H Result Diagrams: 11/07/20 20:10 11/07/20 20:10 Sepsis Event Note - Focused Exam Vital Signs: Vital Signs Temp Pulse Resp BP Pulse Ox 11/08/20 07:31 36.4 C 96 18 132/66 98 11/08/20 04:56 36.8 C 95 14 112/71 94 L Orders Last 24hrs: Active Orders 24 hr Category Date Time Status Patient Status [ADT] Routine ADT 11/07/20 23:04 Active Insert Nath Catheter [Insert Urinary Catheter] [OM.PC] Care 11/08/20 08:15 Ordered Q24H Insert Urinary Catheter [OM.PC] Q24H Care 11/07/20 23:53 Ordered Notify Provider Consults [RC] ASDIRECTED Care 11/08/20 10:07 Active Oxygen Therapy [RC] PRN Care 11/08/20 07:01 Active RT Incentive Spirometry [RC] ASDIRECTED Care 11/08/20 10:15 Active Up With Assistance [RC] ASDIRECTED Care 11/08/20 07:01 Active Urinary Catheter Assessment [RC] 04,10,16,22 Care 11/08/20 08:05 Active VTE/DVT Education [RC] PER UNIT ROUTINE Care 11/08/20 07:01 Active Vital Signs [RC] 10,16,22,04 Care 11/08/20 07:01 Active Consult to Case Management/Wood Last Maker [CONS] Cons 11/08/20 02:35 Active Routine Consult to Physician [CONS] Routine Cons 11/08/20 10:06 Active OT Evaluation and Treatment [CONS] Routine Cons 11/08/20 07:01 Active PT Evaluation and Treatment [CONS] Routine Cons 11/08/20 07:01 Active Regular Diet [DIET] Diet 11/08/20 Breakfast Active BASIC METABOLIC PANEL,BMP [CHEM] AM Lab 11/09/20 05:11 Ordered BASIC METABOLIC PANEL,BMP [CHEM] AM Lab 11/10/20 05:11 Ordered BASIC METABOLIC PANEL,BMP [CHEM] AM Lab 11/11/20 05:11 Ordered BASIC METABOLIC PANEL,BMP [CHEM] AM Lab 11/12/20 05:11 Ordered BLOOD CULTURE [MREF] Stat Lab 11/07/20 20:25 Received BLOOD CULTURE [MREF] Stat Lab 11/07/20 21:20 Received CBC WITH AUTO DIFF [HEME] AM Lab 11/09/20 05:11 Ordered CBC WITH AUTO DIFF [HEME] AM Lab 11/10/20 05:11 Ordered CBC WITH AUTO DIFF [HEME] AM Lab 11/11/20 05:11 Ordered CBC WITH AUTO DIFF [HEME] AM Lab 11/12/20 05:11 Ordered CRP [C-REACTIVE PROTEIN] [CHEM] AM Lab 11/09/20 05:11 Ordered CRP [C-REACTIVE PROTEIN] [CHEM] AM Lab 11/10/20 05:11 Ordered CRP [C-REACTIVE PROTEIN] [CHEM] AM Lab 11/11/20 05:11 Ordered CRP [C-REACTIVE PROTEIN] [CHEM] AM Lab 11/12/20 05:11 Ordered CULTURE URINE [MREF] Stat Lab 11/07/20 20:45 Received MAGNESIUM [CHEM] AM Lab 11/09/20 05:11 Ordered MAGNESIUM [CHEM] AM Lab 11/10/20 05:11 Ordered MAGNESIUM [CHEM] AM Lab 11/11/20 05:11 Ordered MAGNESIUM [CHEM] AM Lab 11/12/20 05:11 Ordered Acetaminophen [TylenoL] Med 11/08/20 07:01 Active 650 mg PO Q4H PRN Apixaban [Eliquis] Med 11/08/20 09:00 Active 5 mg PO BID Baclofen [Lioresal] Med 11/08/20 09:00 Active 30 mg PO QID Celecoxib [CeleBREX] Med 11/08/20 09:00 Active 100 mg PO BID Docusate Sodium [Colace] Med 11/08/20 07:01 Active 100 mg PO BID PRN Gabapentin [Neurontin] Med 11/08/20 09:00 Active 600 mg PO TID HYDROmorphone [Dilaudid] Med 11/07/20 23:50 Active 0.5 mg IVPUSH Q2H PRN Iron Polysaccharides Complex [Ferrex 150] Med 11/08/20 11:00 Active 150 mg PO DAILY Levofloxacin/Dextrose 5%-Water [Levaquin in D5W 750 MG/ Med 11/08/20 20:00 Active 150 ML] 750 mg Premix Bag 1 bag IV Q24H Nicotine [Habitrol] Med 11/08/20 10:15 Active 7 mg TRDERM DAILY Ondansetron [Zofran ODT] Med 11/08/20 07:01 Active 4 mg PO Q4H PRN Pantoprazole [ProTONIX] Med 11/08/20 09:00 Active 40 mg PO BID Remove Patch Med 11/09/20 09:00 Active 1 ea TRDERM DAILY Sodium Chloride 0.9% [Normal Saline] 1,000 ml Med 11/07/20 23:45 Active IV ASDIRECTED Sucralfate [Carafate] Med 11/08/20 11:00 Active 1 gm PO QIDACANDBED oxyCODONE Med 11/08/20 07:01 Active 5 mg PO Q4H PRN Blood Culture x2 Reflex Set [OM.PC] Stat Oth 11/07/20 20:03 Ordered Code Status [Resuscitation Status] Routine Resus Stat 11/07/20 23:48 Ordered Medication Orders Acetaminophen (Acetaminophen 325 Mg Tab) 650 mg PO Q4H PRN PRN Reason: Pain (Mild 1-3)/fever Last Admin: 11/08/20 12:31 Dose: 650 mg Documented by: FELI Apixaban (Apixaban 5 Mg Tab) 5 mg PO BID [facility] Last Admin: 11/08/20 09:29 Dose: 5 mg Documented by: FELI Baclofen (Baclofen 10 Mg Tab) 30 mg PO QID [facility] Last Admin: 11/08/20 12:32 Dose: 30 mg Documented by: Admin: 11/08/20 09:28 Dose: 30 mg Documented by: FELI Celecoxib (Celecoxib 100 Mg Cap) 100 mg PO BID [facility] Last Admin: 11/08/20 09:28 Dose: 100 mg Documented by: FELI Docusate Sodium (Docusate Sodium 100 Mg Cap) 100 mg PO BID PRN PRN Reason: Constipation Gabapentin (Gabapentin 600 Mg Tab) 600 mg PO TID [facility] Last Admin: 11/08/20 09:28 Dose: 600 mg Documented by: FELI Hydromorphone HCl (Hydromorphone 0.5 Mg/0.5 Ml Syringe) 0.5 mg IVPUSH Q2H PRN PRN Reason: Pain Last Admin: 11/08/20 12:32 Dose: 0.5 mg Documented by: Admin: 11/08/20 07:48 Dose: 0.5 mg Documented by: Admin: 11/08/20 04:42 Dose: 0.5 mg Documented by: Admin: 11/08/20 00:34 Dose: 0.5 mg Documented by: MARTINE Sodium Chloride (Normal Saline) 1,000 mls @ 100 mls/hr IV ASDIRECTED [facility] Last Admin: 11/08/20 10:22 Dose: 100 mls/hr Documented by: Infusion: 11/08/20 10:22 Dose: 100 mls/hr Documented by: Admin: 11/08/20 00:36 Dose: 100 mls/hr Documented by: MARTINE Levofloxacin/Dextrose 750 mg/ (Premix) 150 mls @ 100 mls/hr IV Q24H [facility] Miscellaneous Information (Remove Nicotine Patch) 1 ea TRDERM DAILY [facility] Nicotine (Nicotine 7 Mg/24 Hr Patch) 7 mg TRDERM DAILY [facility] Last Admin: 11/08/20 10:18 Dose: 7 mg Documented by: FELI Ondansetron HCl (Ondansetron 4 Mg Tab.Dis) 4 mg PO Q4H PRN PRN Reason: nausea, able to take PO Oxycodone HCl (Oxycodone 5 Mg Tab) 5 mg PO Q4H PRN PRN Reason: Pain (moderate 4-6) Last Admin: 11/08/20 07:47 Dose: 5 mg Documented by: FELI Pantoprazole Sodium (Pantoprazole 40 Mg Tab.Cr) 40 mg PO BID [facility] Last Admin: 11/08/20 09:28 Dose: 40 mg Documented by: FELI Polysaccharide Iron Complex (Iron Polysaccharides Complex 150 Mg Cap) 150 mg PO DAILY [facility] Last Admin: 11/08/20 10:17 Dose: 150 mg Documented by: FELI Sucralfate (Sucralfate 1 Gm Tab) 1 gm PO QIDACANDBED [facility] Last Admin: 11/08/20 10:03 Dose: 1 gm Documented by: FELI Assessment/Plan Comment:: I have seen and examined the patient independently of physician educational/development assistant Marcos Olea and have discussed the case with him. I have reviewed and agree with the plan of care as outlined by him for this patient. Please see orders.
[2020-11-08] MEDS ORDERED: Sucralfate 1 GM Tab PO SCH (09:00)
[2020-11-08] MEDS ORDERED: Pantoprazole 40 MG Tab.CR PO SCH (09:00)
[2020-11-08] MEDS ORDERED: Enoxaparin 40 MG/0.4 ML Syringe SUBCUT SCH (09:00)
[2020-11-08] MEDS: Celecoxib 100 MG Cap PO SCH ×2 (09:28→20:46)
[2020-11-08] MEDS: Pantoprazole 40 MG Tab.CR PO SCH ×2 (09:28→20:47)
[2020-11-08] MEDS: Gabapentin 600 MG Tab PO SCH ×3 (09:28→20:46)
[2020-11-08] MEDS: Baclofen 10 MG Tab PO SCH ×4 (09:28→20:48)
[2020-11-08] MEDS: Apixaban 5 MG Tab PO SCH ×2 (09:29→20:46)
[2020-11-08] MEDS: Sucralfate 1 GM Tab PO SCH ×4 (10:03→21:14)
[2020-11-08] MEDS: Iron Polysaccharides Complex 150 MG Cap PO SCH (10:17)
[2020-11-08] MEDS: Nicotine 7 MG/24 Hr Patch TRDERM SCH (10:18)
[2020-11-08] MEDS: Acetaminophen 325 MG Tab PO PRN (12:31)
[2020-11-08] MEDS ORDERED: Levofloxacin/Dextrose 5%-Water 750 MG in Premix Bag 1 BAG IV SCH (20:00)
[2020-11-08] MEDS ORDERED: LORazepam 2 MG/ML SDV IVPUSH PRN (20:01)
[2020-11-09] MEDS: Sucralfate 1 GM Tab PO SCH ×4 (06:35→20:59)
[2020-11-09] MEDS: oxyCODONE 5 MG Tab PO PRN ×2 (06:36→12:51)
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
[2020-11-09] MEDS ORDERED: Magnesium Sulfate/Water 2 GM in Premix Bag 1 BAG IV ONE (08:00)
[2020-11-09] MEDS: Baclofen 10 MG Tab PO SCH ×4 (09:29→20:52)
[2020-11-09] MEDS: Gabapentin 600 MG Tab PO SCH ×3 (09:29→20:52)
[2020-11-09] MEDS: Pantoprazole 40 MG Tab.CR PO SCH ×2 (09:29→20:52)
[2020-11-09] MEDS: Iron Polysaccharides Complex 150 MG Cap PO SCH (09:29)
[2020-11-09] MEDS: Nicotine 7 MG/24 Hr Patch TRDERM SCH (09:29)
[2020-11-09] MEDS: Celecoxib 100 MG Cap PO SCH ×2 (09:29→20:52)
[2020-11-09] MEDS ORDERED: Vancomycin 1 GM, Vancomycin 500 MG in Sodium Chloride 0.9% 500 ML IV ONE (11:20)
--- NOTE | 2020-11-09 11:48 | PCM.SN.2 ---
- Free Text/Narrative Note: 11/09/20 [id number] IV started times 1 attempt 20 guage right forearm. Vein finder assisted. Flushes well and was secured with opsite. Kenneth
[2020-11-09] MEDS: Apixaban 5 MG Tab PO SCH ×2 (11:52→20:52)
[2020-11-09] MEDS ORDERED: Sodium Chloride 0.9% 250 ML IV SCH (12:30)
[2020-11-09] MEDS ORDERED: LORazepam 1 MG Tab PO PRN (12:40)
[2020-11-09] MEDS: LORazepam 1 MG Tab PO SCH ×2 (12:51→20:52)
[2020-11-09] MEDS: FLUoxetine 20 MG Cap PO SCH (12:52)
[2020-11-09] MEDS: Topiramate 25 MG Tab PO SCH ×2 (12:52→20:52)
[2020-11-09] MEDS ORDERED: Vancomycin 1 GM, Vancomycin 250 MG in Sodium Chloride 0.9% 250 ML IV SCH (20:00)
[2020-11-10] MEDS: Docusate Sodium 100 MG Cap PO PRN (04:29)
[2020-11-10] MEDS: oxyCODONE 5 MG Tab PO PRN ×2 (04:29→16:31)
[2020-11-10] MEDS ORDERED: Magnesium Hydroxide 400 MG/5 ML Susp 30 ML Cup PO PRN (05:09)
--- NOTE | 2020-11-10 05:38 | PCM.SN.2 ---
- Free Text/Narrative Note: End Matcher called to place PIV on patient. RN stated that he has a history of being a difficult PIV start. Attempted to flush existing 20 samir to right lower arm without success, patient complaining of discomfort with flushing, appears to be infiltrated. New PIV placed to left upper arm, 22 samir. Clear tegaderm applied a nd tape to secure PIV. Discussed with RN if she could discuss with JONNY Winston this morning during rounds if TKO (To Keep Open with 25 ml/hr) fluids could be started to potentially prevent the patient from PIV pokes. Old 20 samir PIV to be removed per RN. Kassidy Wilson, ZARINA
[2020-11-10] MEDS: Vancomycin 1 GM, Vancomycin 250 MG in Sodium Chloride 0.9% 250 ML IV SCH ×2 (05:45→14:04)
[2020-11-10] MEDS: Sucralfate 1 GM Tab PO SCH ×4 (06:22→21:07)
[2020-11-10] MEDS ORDERED: Lactated Ringers 1,000 ML IV SCH (07:30)
[2020-11-10] MEDS: Nicotine 7 MG/24 Hr Patch TRDERM SCH (08:34)
[2020-11-10] MEDS: Celecoxib 100 MG Cap PO SCH ×2 (08:35→20:36)
[2020-11-10] MEDS: Gabapentin 600 MG Tab PO SCH ×3 (08:35→20:36)
[2020-11-10] MEDS: Iron Polysaccharides Complex 150 MG Cap PO SCH (08:35)
[2020-11-10] MEDS: LORazepam 1 MG Tab PO SCH ×2 (08:35→20:35)
[2020-11-10] MEDS: Pantoprazole 40 MG Tab.CR PO SCH ×2 (08:35→20:36)
[2020-11-10] MEDS: Baclofen 10 MG Tab PO SCH ×4 (08:35→20:35)
[2020-11-10] MEDS: Apixaban 5 MG Tab PO SCH ×2 (08:36→20:34)
[2020-11-10] MEDS: FLUoxetine 20 MG Cap PO SCH (08:36)
[2020-11-10] MEDS: Topiramate 25 MG Tab PO SCH ×2 (08:36→20:35)
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
[2020-11-10] MEDS: LINEZOLID IV SCH (18:21)
[2020-11-11] MEDS: oxyCODONE 5 MG Tab PO PRN ×2 (05:26→19:44)
[2020-11-11] MEDS: LINEZOLID IV SCH (05:34)
[2020-11-11] MEDS ORDERED: Linezolid 600 MG in Premix Bag 1 BAG IV SCH (06:00)
[2020-11-11] MEDS: Sucralfate 1 GM Tab PO SCH ×4 (06:31→21:09)
[2020-11-11] MEDS: Nicotine 7 MG/24 Hr Patch TRDERM SCH (09:15)
[2020-11-11] MEDS: LORazepam 1 MG Tab PO SCH ×2 (09:16→20:27)
[2020-11-11] MEDS: Gabapentin 600 MG Tab PO SCH ×3 (09:17→20:27)
[2020-11-11] MEDS: Topiramate 25 MG Tab PO SCH ×2 (09:17→20:27)
[2020-11-11] MEDS: Iron Polysaccharides Complex 150 MG Cap PO SCH (09:17)
[2020-11-11] MEDS: Pantoprazole 40 MG Tab.CR PO SCH ×2 (09:17→20:29)
[2020-11-11] MEDS: FLUoxetine 20 MG Cap PO SCH (09:17)
[2020-11-11] MEDS: Celecoxib 100 MG Cap PO SCH ×2 (09:17→20:29)
[2020-11-11] MEDS: Baclofen 10 MG Tab PO SCH ×4 (09:17→20:28)
[2020-11-11] MEDS: Apixaban 5 MG Tab PO SCH ×2 (09:17→20:27)
[2020-11-11] MEDS: Docusate Sodium 100 MG Cap PO PRN (13:08)
--- NOTE | 2020-11-11 14:17 | PCM.PN ---
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 blood is negative. Patient is in agreement to possible SNF placement however there has been some difficulty arranging placement given the patient's complex social situation and history of drug use. Throughout his stay patient has been very tearful and appreciative of the care we are providing. He reports that he knows he needs to break his current social habits and states he cannot be discharged back to the [facility] again. Plan will be to discharge once appropriate safe discharge disposition is figured out. [facility] gina cleared for discharge. - Plan Plan:: Urinary tract infection associated with catheterization of urinary tract Pyelonephritis of right kidney Recurrent UTI Self-catheterizes urinary bladder Neurogenic bladder Nath catheter in place * Discontinue IV fluids * Re-insert nath catheter * Change antibiotic to p.o. Bactrim DS 1 tab twice daily based on urine sensitivities and discussion with pharmacy. * Pain medications as ordered * Antiemetics as ordered * Await urine sensitivities -staph aureus and other gram-positive isolates thus far resistant to Levaquin * Await blood cultures -negative thus far * Tylenol if febrile * Monitor daily labs Anxiety * Dr. 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 Osteoporosis * No acute concerns * PT/OT * CM/SW for discharge planning History of MRSA * Contact precautions H/O recurrent pneumonia * No acute concerns Muscle spasms of lower extremity * Continue home baclofen * PRN pain medications as ordered * PT/OT Nicotine dependence History of substance abuse History of ETOH use Methamphetamine abuse Marijuana abuse Non-compliance Food insecurity High risk social situation * Nicotine patches * Cessation counseling * Offer nicotine patches at discharge * SW/CM * Work on placement GERD * Continue home Protonix Dysphagia, ruled out * [employer] [facility] evaluation -regular diet with thin liquids * [employer] consultation Hypomagnesemia, resolved * Monitor labs Code status: Full code PCP: None locally DVT prophylaxis: Home Eliquis Social: Patient resides alone and has difficulty with ambulation due to his quadriplegia. He reports he is quite lonely and anxious. Hopeful for [facility] placement. Disposition: Patient admitted to the medical floor for treatment of his UTI/pyelonephritis and medical noncompliance. Discharge pending placement. Length of stay greater than 96 hours due to placement issues secondary to high risk social situation.
[2020-11-11] MEDS: Sulfamethoxazole/Trimethoprim 800-160 MG Tab PO SCH (20:28)
[2020-11-12] MEDS: Sucralfate 1 GM Tab PO SCH ×4 (06:27→21:03)
--- NOTE | 2020-11-12 07:48 | PCM.PN ---
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 arranging placement given the patient's complex social situation and history of drug use. Throughout his stay patient has been very tearful and appreciative of the care we are providing. He reports that he knows he needs to break his current social habits and states he cannot be discharged back to the [facility] again. Plan will be to discharge once appropriate safe discharge disposition is figured out. Otherwise cleared for discharge. 11/12/2020 35-year-old male quadriplegic admitted for UTI. Urine cultures are growing MRSA and other gram-positive bacteria of also been isolated. Patient was initially started on Levaquin and was switched to vancomycin after urine cultures returned positive for gram positive bacteria. Unfortunately patient did not tolerate vancomycin and he was noted to have IV site irritation and redness. He was then switched to IV and linezolid and ultimately switched to Bactrim DS 1 tablet twice daily based on urine cultures and sensitivities. Blood cultures have remained negative. Today infectious disease specialist Dr. Rosario with [facility] was contacted to discuss case and ensure patient is on proper antibiotics. She recommends continuing Bactrim DS 1 tab twice daily for a total of 7 days of treatment. She also wanted to clarify that the Nath was placed after patient began treatment, which was the case. She has no other concerns. Overall he continues to do quite well. He states his been feeling better. WBC today 7.04. Hemoglobin 7.6. Platelet 567,000. Neutrophils 56.1. Sodium 142. Potassium 3.7. Chloride 111. Carbon dioxide 18. Anion gap 16.7. BUN is 14. Creatinine 0.9. GFR greater than 60. Glucose 135. Calcium 7.8. Magnesium 1.9. CRP is 2.3. He remains on contact isolation. Because his labs have been stable we will not draw blood tomorrow for fear of exacerbating his anemia. At this point patient will be clear for discharge pending safe discharge disposition. There remains multiple concerns with patient's social situation. Social work did confirm patient has been sleeping on the floor at home as he does not have a proper bed. Patient will remain hospitalized pending placement. - Plan Plan:: MRSA Urinary tract infection associated with catheterization of urinary tract Pyelonephritis of right kidney Recurrent UTI Self-catheterizes urinary bladder Neurogenic bladder Nath catheter in place * Continue nath catheter * Continue p.o. Bactrim DS 1 tab twice daily based on urine sensitivities and discussion with pharmacy. * Pain medications as ordered * Antiemetics as ordered * Await urine sensitivities -MRSA and other gram-positive isolates thus far resistant to Levaquin * Await blood cultures -negative thus far * Tylenol if febrile * Monitor daily labs Anxiety * Dr. 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 Osteoporosis * No acute concerns * PT/OT * CM/SW for discharge planning History of MRSA Positive MRSA screen * Contact precautions H/O recurrent pneumonia * No acute concerns Muscle spasms of lower extremity * Continue home baclofen * PRN pain medications as ordered * PT/OT Nicotine dependence History of substance abuse History of ETOH use Methamphetamine abuse Marijuana abuse Non-compliance Food insecurity High risk social situation * Nicotine patches * Cessation counseling * Offer nicotine patches at discharge * SW/CM * Work on placement GERD * Continue home Protonix Dysphagia, ruled out * HUMAN RESOURCES BENEFITS COORDINATOR evaluation -regular diet with thin liquids * Inspection And Testing Supervisor consultation Hypomagnesemia, resolved * Monitor labs PRN Code status: Full code PCP: None locally DVT prophylaxis: Home Eliquis Social: Patient resides alone and has difficulty with ambulation due to his quadriplegia. He reports he is quite lonely and anxious. Hopeful for LONGTERM placement. Disposition: Patient admitted to the medical floor for treatment of his UTI/pyelonephritis and medical noncompliance. Discharge pending placement. Length of stay greater than 96 hours due to placement issues secondary to high risk social situation.
[2020-11-12] MEDS: Baclofen 10 MG Tab PO SCH ×4 (08:32→21:03)
[2020-11-12] MEDS: Topiramate 25 MG Tab PO SCH ×2 (08:32→21:03)
[2020-11-12] MEDS: LORazepam 1 MG Tab PO SCH ×2 (08:33→21:03)
[2020-11-12] MEDS: Celecoxib 100 MG Cap PO SCH ×2 (08:33→21:03)
[2020-11-12] MEDS: FLUoxetine 20 MG Cap PO SCH (08:34)
[2020-11-12] MEDS: Pantoprazole 40 MG Tab.CR PO SCH ×2 (08:34→21:03)
[2020-11-12] MEDS: Gabapentin 600 MG Tab PO SCH ×3 (08:34→21:03)
[2020-11-12] MEDS: Iron Polysaccharides Complex 150 MG Cap PO SCH (08:35)
[2020-11-12] MEDS: Sulfamethoxazole/Trimethoprim 800-160 MG Tab PO SCH ×2 (08:35→21:02)
[2020-11-12] MEDS: Apixaban 5 MG Tab PO SCH ×2 (08:35→21:03)
[2020-11-12] MEDS: Nicotine 7 MG/24 Hr Patch TRDERM SCH (08:40)
[2020-11-12] MEDS: oxyCODONE 5 MG Tab PO PRN (23:23)
[2020-11-13] MEDS: Sucralfate 1 GM Tab PO SCH ×5 (06:47→23:41)
[2020-11-13] MEDS ORDERED: Albuterol 6.7 GM Inhaler INH PRN (08:14)
[2020-11-13] MEDS: FLUoxetine 20 MG Cap PO SCH (09:10)
[2020-11-13] MEDS: LORazepam 1 MG Tab PO SCH ×2 (09:10→20:44)
[2020-11-13] MEDS: Celecoxib 100 MG Cap PO SCH ×2 (09:11→20:45)
[2020-11-13] MEDS: Baclofen 10 MG Tab PO SCH ×4 (09:11→20:44)
[2020-11-13] MEDS: Topiramate 25 MG Tab PO SCH ×2 (09:11→20:46)
[2020-11-13] MEDS: Apixaban 5 MG Tab PO SCH ×2 (09:12→20:45)
[2020-11-13] MEDS: Pantoprazole 40 MG Tab.CR PO SCH ×2 (09:12→20:45)
[2020-11-13] MEDS: Iron Polysaccharides Complex 150 MG Cap PO SCH (09:12)
[2020-11-13] MEDS: Sulfamethoxazole/Trimethoprim 800-160 MG Tab PO SCH ×2 (09:13→20:46)
[2020-11-13] MEDS: Gabapentin 600 MG Tab PO SCH ×3 (09:13→20:45)
[2020-11-13] MEDS: Nicotine 7 MG/24 Hr Patch TRDERM SCH (09:13)
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
[2020-11-13] MEDS: oxyCODONE 5 MG Tab PO PRN (23:41)
[2020-11-14] MEDS: oxyCODONE 5 MG Tab PO PRN ×3 (04:36→12:16)
[2020-11-14] MEDS: Sucralfate 1 GM Tab PO SCH ×5 (04:37→21:12)
[2020-11-14] MEDS: Ondansetron 4 MG Tab.DIS PO PRN (07:57)
[2020-11-14] MEDS: Pantoprazole 40 MG Tab.CR PO SCH ×2 (08:15→21:12)
[2020-11-14] MEDS: Gabapentin 600 MG Tab PO SCH ×3 (08:16→21:11)
[2020-11-14] MEDS: Baclofen 10 MG Tab PO SCH ×4 (08:16→21:11)
[2020-11-14] MEDS: Celecoxib 100 MG Cap PO SCH ×2 (08:17→21:10)
[2020-11-14] MEDS: Topiramate 25 MG Tab PO SCH ×2 (08:18→21:12)
[2020-11-14] MEDS: Apixaban 5 MG Tab PO SCH ×2 (08:18→21:11)
[2020-11-14] MEDS: FLUoxetine 20 MG Cap PO SCH (08:18)
[2020-11-14] MEDS: Iron Polysaccharides Complex 150 MG Cap PO SCH (08:18)
[2020-11-14] MEDS: Nicotine 7 MG/24 Hr Patch TRDERM SCH (08:20)
[2020-11-14] MEDS: LORazepam 1 MG Tab PO SCH ×2 (08:20→21:10)
[2020-11-14] MEDS: Sulfamethoxazole/Trimethoprim 800-160 MG Tab PO SCH ×2 (08:20→21:12)
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
[2020-11-15] MEDS: oxyCODONE 5 MG Tab PO PRN ×3 (01:03→20:06)
[2020-11-15] MEDS: Sucralfate 1 GM Tab PO SCH ×4 (06:11→22:23)
--- NOTE | 2020-11-15 07:44 | CT ---
Head CT Technique: Multiple axial sections through the brain were obtained. Intravenous contrast was not utilized. Reconstructed coronal and sagittal images were obtained. Comparison: Prior head CT study of 02/09/18. Findings: Ventricles along with basal cisterns and sulci over the convexities are within normal limits for the patient's age. No abnormal parenchymal densities are seen. No evidence of intracranial hemorrhage is seen. No midline shift or mass-effect is seen. Bone window settings were reviewed. Visualized mastoid sinuses are clear. Mild mucosal thickening is seen within the ethmoid sinuses and frontal sinuses. Mild mucosal thickening is noted within both maxillary sinuses. No acute calvarial abnormality is appreciated. Impression: 1. Mucosal thickening within the paranasal sinuses most likely representing mild chronic sinusitis. 2. No acute intracranial abnormality is appreciated on noncontrast head CT study. Diagnostic code #2 I agree with preliminary report from [facility], finalized on 11/14/20, 7:45 PM CDT, code 1
--- NOTE | 2020-11-15 07:56 | PCM.PN ---
- General Info Date of Service: 11/15/20 Admission Dx/Problem (Free Text): Admission Diagnosis/Problem Admission Diagnosis/Problem Pyelonephritis Functional Status: Reports: Pain Controlled, Tolerating Diet, Urinating, Incentive Spirometry, Other (Acapella). 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 Denies: Fever, Weakness, Fatigue, Malaise, Chills HEENT: Reports: No Symptoms. Denies: Headaches, Sore Throat Pulmonary: Reports: Shortness of Breath (At times). Denies: Pleuritic Chest Pain, Cough, Sputum, Wheezing Cardiovascular: Reports: Dyspnea on Exertion (At times). Denies: Chest Pain, Palpitations, Edema Gastrointestinal: Reports: No Symptoms. Denies: Abdominal Pain, Constipation, Diarrhea, Nausea, Vomiting Genitourinary: Reports: No Symptoms. Denies: Pain Musculoskeletal: Reports: No Symptoms Skin: Reports: No Symptoms. Denies: Cyanosis Neurological: Reports: Pre-Existing Deficit (Quadriplegic with some use of his arms), Difficulty Walking (Baseline). Denies: Confusion, Dizziness, Headache, Numbness, Seizure, Syncope, Tingling, Trouble Speaking Psychiatric: Reports: No Symptoms - Patient Data Vitals - Most Recent: Last Vital Signs Temp 97.8 F 11/15/20 03:25 Pulse 82 11/15/20 03:25 Resp 14 11/15/20 03:25 BP 115/68 11/15/20 03:25 Pulse Ox 99 11/15/20 03:25 Weight - Most Recent: 176 lb 6.4 oz I&O - Last 24 Hours: Intake & Output 11/14/20 11/15/20 11/15/20 22:59 06:59 14:59 Intake Total 1320 900 Output Total 1300 1850 Balance 20 -950 Lab Results Last 24 Hours: Laboratory Results - last 24 hr 11/14/20 11/14/20 11/14/20 Range/Units 15:18 15:18 17:37 WBC 6.36 (4.23-9.07) K/mm3 RBC 3.17 L (4.63-6.08) M/mm3 Hgb 8.0 L (13.7-17.5) gm/dl Hct 23.0 L (40.1-51.0) % MCV 72.6 L (79.0-92.2) fl MCH 25.2 L (25.7-32.2) pg MCHC 34.8 (32.2-35.5) g/dl RDW Std Deviation 45.0 H (35.1-43.9) fL Plt Count 447 H D (163-337) K/mm3 MPV 9.0 L (9.4-12.3) fl Neut % (Auto) (34.0-67.9) % Lymph % (Auto) (21.8-53.1) % Beadle % (Auto) (5.3-12.2) % Eos % (Auto) (0.8-7.0) Baso % (Auto) (0.1-1.2) % Neut # (Auto) (1.78-5.38) K/mm3 Lymph # (Auto) (1.32-3.57) K/mm3 Beadle # (Auto) (0.30-0.82) K/mm3 Eos # (Auto) (0.04-0.54) K/mm3 Baso # (Auto) (0.01-0.08) K/mm3 Manual Slide Review VBG pH 7.43 H (7.30-7.40) VBG pCO2 26.9 L (41-51) mmHg VBG pO2 75.0 (40-80) mmHG VBG HCO3 17.7 L (22-26) meq/L VBG O2 Saturation 97.0 VBG Base Excess -5.4 L (-4.0-2.0) O2 Delivery Device Room air Oxygen Flow Rate 0.0 Sodium 141 (136-145) mEq/L Potassium 4.4 (3.5-5.1) mEq/L Chloride 109 H (98-107) mEq/L Carbon Dioxide 22 (21-32) mEq/L Anion Gap 14.4 (5-15) BUN 19 H (7-18) mg/dL Creatinine 1.3 (0.7-1.3) mg/dL Est Cr Clr Drug Dosing 89.61 mL/min Estimated GFR (MDRD) > 60 (>60) mL/min BUN/Creatinine Ratio 14.6 (14-18) Glucose 102 H (70-99) mg/dL Lactic Acid (0.4-2.0) mmol/L Calcium 8.2 L (8.5-10.1) mg/dL Total Bilirubin (0.2-1.0) mg/dL AST (15-37) U/L ALT (16-63) U/L Alkaline Phosphatase (46-116) U/L Ammonia (11-32) umol/L Total Protein (6.4-8.2) g/dl Albumin (3.4-5.0) g/dl Globulin gm/dL Albumin/Globulin Ratio (1-2) 11/14/20 11/14/20 11/14/20 Range/Units 17:40 17:40 17:40 WBC 5.04 (4.23-9.07) K/mm3 RBC 3.64 L (4.63-6.08) M/mm3 Hgb 7.6 L (13.7-17.5) gm/dl Hct 25.8 L (40.1-51.0) % MCV 70.9 L (79.0-92.2) fl MCH 20.9 L (25.7-32.2) pg MCHC 29.5 L (32.2-35.5) g/dl RDW Std Deviation 45.1 H (35.1-43.9) fL Plt Count 581 H D (163-337) K/mm3 MPV 8.9 L (9.4-12.3) fl Neut % (Auto) 46.7 (34.0-67.9) % Lymph % (Auto) 34.5 (21.8-53.1) % Beadle % (Auto) 9.5 (5.3-12.2) % Eos % (Auto) 7.9 H (0.8-7.0) Baso % (Auto) 0.6 (0.1-1.2) % Neut # (Auto) 2.35 (1.78-5.38) K/mm3 Lymph # (Auto) 1.74 (1.32-3.57) K/mm3 Beadle # (Auto) 0.48 (0.30-0.82) K/mm3 Eos # (Auto) 0.40 (0.04-0.54) K/mm3 Baso # (Auto) 0.03 (0.01-0.08) K/mm3 Manual Slide Review Abnormal smear VBG pH (7.30-7.40) VBG pCO2 (41-51) mmHg VBG pO2 (40-80) mmHG VBG HCO3 (22-26) meq/L VBG O2 Saturation VBG Base Excess (-4.0-2.0) O2 Delivery Device Oxygen Flow Rate Sodium 141 (136-145) mEq/L Potassium 4.5 (3.5-5.1) mEq/L Chloride 109 H (98-107) mEq/L Carbon Dioxide 21 (21-32) mEq/L Anion Gap 15.5 H (5-15) BUN 21 H (7-18) mg/dL Creatinine 1.3 (0.7-1.3) mg/dL Est Cr Clr Drug Dosing 89.61 mL/min Estimated GFR (MDRD) > 60 (>60) mL/min BUN/Creatinine Ratio 16.2 (14-18) Glucose 99 (70-99) mg/dL Lactic Acid (0.4-2.0) mmol/L Calcium 8.2 L (8.5-10.1) mg/dL Total Bilirubin 0.1 L (0.2-1.0) mg/dL AST 12 L (15-37) U/L ALT 18 (16-63) U/L Alkaline Phosphatase 58 (46-116) U/L Ammonia 20 (11-32) umol/L Total Protein 6.4 (6.4-8.2) g/dl Albumin 2.6 L (3.4-5.0) g/dl Globulin 3.8 gm/dL Albumin/Globulin Ratio 0.7 L (1-2) 11/14/20 Range/Units 17:40 WBC (4.23-9.07) K/mm3 RBC (4.63-6.08) M/mm3 Hgb (13.7-17.5) gm/dl Hct (40.1-51.0) % MCV (79.0-92.2) fl MCH (25.7-32.2) pg MCHC (32.2-35.5) g/dl RDW Std Deviation (35.1-43.9) fL Plt Count (163-337) K/mm3 MPV (9.4-12.3) fl Neut % (Auto) (34.0-67.9) % Lymph % (Auto) (21.8-53.1) % Beadle % (Auto) (5.3-12.2) % Eos % (Auto) (0.8-7.0) Baso % (Auto) (0.1-1.2) % Neut # (Auto) (1.78-5.38) K/mm3 Lymph # (Auto) (1.32-3.57) K/mm3 Beadle # (Auto) (0.30-0.82) K/mm3 Eos # (Auto) (0.04-0.54) K/mm3 Baso # (Auto) (0.01-0.08) K/mm3 Manual Slide Review VBG pH (7.30-7.40) VBG pCO2 (41-51) mmHg VBG pO2 (40-80) mmHG VBG HCO3 (22-26) meq/L VBG O2 Saturation VBG Base Excess (-4.0-2.0) O2 Delivery Device Oxygen Flow Rate Sodium (136-145) mEq/L Potassium (3.5-5.1) mEq/L Chloride (98-107) mEq/L Carbon Dioxide (21-32) mEq/L Anion Gap (5-15) BUN (7-18) mg/dL Creatinine (0.7-1.3) mg/dL Est Cr Clr Drug Dosing mL/min Estimated GFR (MDRD) (>60) mL/min BUN/Creatinine Ratio (14-18) Glucose (70-99) mg/dL Lactic Acid 1.1 (0.4-2.0) mmol/L Calcium (8.5-10.1) mg/dL Total Bilirubin (0.2-1.0) mg/dL AST (15-37) U/L ALT (16-63) U/L Alkaline Phosphatase (46-116) U/L Ammonia (11-32) umol/L Total Protein (6.4-8.2) g/dl Albumin (3.4-5.0) g/dl Globulin gm/dL Albumin/Globulin Ratio (1-2) Med Orders - Current: Current Medications Acetaminophen (Acetaminophen 325 Mg Tab) 650 mg PO Q4H PRN PRN Reason: Pain (Mild 1-3)/fever Last Admin: 11/08/20 12:31 Dose: 650 mg Documented by: Albuterol (Albuterol 6.7 Gm Inhaler) 0 gm INH Q2H PRN PRN Reason: Shortness of Breath Last Admin: 11/14/20 08:55 Dose: 2 inhalation Documented by: Apixaban (Apixaban 5 Mg Tab) 5 mg PO BID [facility] Last Admin: 11/14/20 21:11 Dose: 5 mg Documented by: Baclofen (Baclofen 10 Mg Tab) 30 mg PO QID [facility] Last Admin: 11/14/20 21:11 Dose: 30 mg Documented by: Celecoxib (Celecoxib 100 Mg Cap) 100 mg PO BID [facility] Last Admin: 11/14/20 21:10 Dose: 100 mg Documented by: Docusate Sodium (Docusate Sodium 100 Mg Cap) 100 mg PO BID PRN PRN Reason: Constipation Last Admin: 11/11/20 13:08 Dose: 100 mg Documented by: Fluoxetine HCl (Fluoxetine 20 Mg Cap) 20 mg PO DAILY [facility] Last Admin: 11/14/20 08:18 Dose: 20 mg Documented by: Gabapentin (Gabapentin 600 Mg Tab) 600 mg PO TID [facility] Last Admin: 11/14/20 21:11 Dose: 600 mg Documented by: Lorazepam (Lorazepam 1 Mg Tab) 1 mg PO BID [facility] Last Admin: 11/14/20 21:10 Dose: 1 mg Documented by: Lorazepam (Lorazepam 1 Mg Tab) 1 mg PO Q12H PRN PRN Reason: Anxiety Last Admin: 11/10/20 22:47 Dose: 1 mg Documented by: Magnesium Hydroxide (Magnesium Hydroxide 400 Mg/5 Ml Susp 30 Ml Cup) 30 ml PO DAILY PRN PRN Reason: Constipation Miscellaneous Information (Remove Nicotine Patch) 1 ea TRDERM DAILY [facility] Last Admin: 11/14/20 08:21 Dose: 1 ea Documented by: Nicotine (Nicotine 7 Mg/24 Hr Patch) 7 mg TRDERM DAILY [facility] Last Admin: 11/14/20 08:20 Dose: 7 mg Documented by: Ondansetron HCl (Ondansetron 4 Mg Tab.Dis) 4 mg PO Q4H PRN PRN Reason: nausea, able to take PO Last Admin: 11/14/20 07:57 Dose: 4 mg Documented by: Oxycodone HCl (Oxycodone 5 Mg Tab) 5 mg PO Q4H PRN PRN Reason: Pain (moderate 4-6) Last Admin: 11/15/20 01:03 Dose: 5 mg Documented by: Pantoprazole Sodium (Pantoprazole 40 Mg Tab.Cr) 40 mg PO BID [facility] Last Admin: 11/14/20 21:12 Dose: 40 mg Documented by: Polysaccharide Iron Complex (Iron Polysaccharides Complex 150 Mg Cap) 150 mg PO DAILY [facility] Last Admin: 11/14/20 08:18 Dose: 150 mg Documented by: Sucralfate (Sucralfate 1 Gm Tab) 1 gm PO QIDACANDBED [facility] Last Admin: 11/15/20 06:11 Dose: 1 gm Documented by: Topiramate (Topiramate 25 Mg Tab) 25 mg PO BID [facility] Last Admin: 11/14/20 21:12 Dose: 25 mg Documented by: Trimethoprim/Sulfamethoxazole (Sulfamethoxazole/Trimethoprim 800-160 Mg Tab) 1 tab PO BID [facility] Last Admin: 11/14/20 21:12 Dose: 1 tab Documented by: Discontinued Medications Enoxaparin Sodium (Enoxaparin 40 Mg/0.4 Ml Syringe) 40 mg SUBCUT DAILY [facility] Last Admin: 11/08/20 08:00 Dose: 40 mg Documented by: Hydromorphone HCl (Hydromorphone 1 Mg/Ml Syringe) 1 mg IVPUSH ONETIME ONE Stop: 11/07/20 20:06 Last Admin: 11/07/20 20:36 Dose: 1 mg Documented by: Hydromorphone HCl (Hydromorphone 0.5 Mg/0.5 Ml Syringe) 0.5 mg IVPUSH Q2H PRN PRN Reason: Pain Last Admin: 11/08/20 16:10 Dose: 0.5 mg Documented by: Sodium Chloride (Normal Saline) 1,000 mls @ 999 mls/hr IV ONETIME ONE Stop: 11/07/20 21:04 Last Admin: 11/07/20 20:29 Dose: 999 mls/hr Documented by: Levofloxacin/Dextrose 750 mg/ (Premix) 150 mls @ 100 mls/hr IV ONETIME STA Stop: 11/07/20 21:33 Last Admin: 11/07/20 20:43 Dose: 100 mls/hr Documented by: Sodium Chloride (Normal Saline) 1,000 mls @ 100 mls/hr IV ASDIRECTED [facility] Last Admin: 11/08/20 10:22 Dose: 100 mls/hr Documented by: Levofloxacin/Dextrose 750 mg/ (Premix) 150 mls @ 100 mls/hr IV Q24H [facility] Last Admin: 11/08/20 20:49 Dose: 100 mls/hr Documented by: Magnesium Sulfate 2 gm/ Premix 50 mls @ 25 mls/hr IV ONETIME ONE Stop: 11/09/20 09:59 Last Admin: 11/09/20 09:30 Dose: 25 mls/hr Documented by: Vancomycin HCl 1 gm/Vancomycin HCl 500 mg/ Sodium Chloride 500 mls @ 250 mls/hr IV ONETIME ONE Stop: 11/09/20 13:19 Last Admin: 11/09/20 12:50 Dose: 250 mls/hr Documented by: Vancomycin HCl 1 gm/Vancomycin HCl 250 mg/ Sodium Chloride 250 mls @ 166.667 mls/hr IV Q8H [facility] Last Admin: 11/09/20 20:51 Dose: 166.667 mls/hr Documented by: Sodium Chloride (Normal Saline) 250 mls @ 100 mls/hr IV ASDIRECTED [facility] Last Admin: 11/09/20 13:03 Dose: 100 mls/hr Documented by: Vancomycin HCl 1 gm/Vancomycin HCl 250 mg/ Sodium Chloride 250 mls @ 83.333 mls/hr IV Q8H [facility] Last Admin: 11/10/20 14:04 Dose: Not Given Documented by: Lactated Ringer's (Ringers, Lactated) 1,000 mls @ 30 mls/hr IV ASDIRECTED [facility] Last Admin: 11/10/20 13:08 Dose: 30 mls/hr Documented by: Linezolid 600 mg/ Premix 300 mls @ 300 mls/hr IV Q12H [facility] Last Admin: 11/11/20 05:34 Dose: Not Given Documented by: Linezolid (Zyvox) Confirm Administered Dose 300 mls @ as directed .ROUTE .STK- MED ONE Stop: 11/10/20 16:06 Last Admin: 11/10/20 18:14 Dose: Not Given Documented by: Linezolid 600 mg/ Premix 300 mls @ 300 mls/hr IV Q12H [facility] Last Admin: 11/11/20 06:13 Dose: 300 mls/hr Documented by: Lorazepam (Lorazepam 2 Mg/Ml Sdv) 1 mg IVPUSH Q6H PRN PRN Reason: Anxiety Last Admin: 11/08/20 20:52 Dose: 1 mg Documented by: Ondansetron HCl (Ondansetron 4 Mg/2 Ml Sdv) 4 mg IVPUSH ONETIME ONE Stop: 11/07/20 20:06 Last Admin: 11/07/20 20:35 Dose: 4 mg Documented by: Pantoprazole Sodium (Pantoprazole 40 Mg Vial) 40 mg IVPUSH ONETIME ONE Stop: 11/07/20 20:06 Last Admin: 11/07/20 20:43 Dose: 40 mg Documented by: Pantoprazole Sodium (Pantoprazole 40 Mg Tab.Cr) 40 mg PO DAILY [facility] Last Admin: 11/08/20 10:06 Dose: Not Given Documented by: Sucralfate (Sucralfate 1 Gm Tab) 1 gm PO QID [facility] Last Admin: 11/08/20 10:06 Dose: Not Given Documented by: Vancomycin HCl (Pharmacy To Dose - Vancomycin) 1 dose .XX ASDIRECTED PRN PRN Reason: RX TO DOSE VANCO - Exam Quality Assessment: Urine Catheter (Nath), DVT Prophylaxis. No: Supplemental Oxygen Urinary Catheter Total Time: 3Days 20Hours General: Alert, Oriented, Cooperative, No Acute Distress HEENT: Pupils Equal, Pupils Reactive, Mucous Membr. Moist/[place] Neck: Supple, Trachea Midline Lungs: Clear to Auscultation, Normal Respiratory Effort Cardiovascular: Regular Rate, Regular Rhythm GI/Abdominal Exam: Normal Bowel Sounds, Soft, Non-Tender, No Distention, No Abnormal Bruit (Male) Exam: Deferred Back Exam: Normal Inspection, Decreased Range of Motion Extremities: Non-Tender, No Pedal Edema, Normal Capillary Refill, Limited Range of Motion Peripheral Pulses: 2+: Radial (L), Radial (R), Dorsalis Pedis (L), Dorsalis Pedis (R) Skin: Warm, Dry, Intact Neurological: No New Focal Deficit Psy/Mental Status: Alert, Normal Affect, Normal Mood - Patient Data Lab Results Last 24 hrs: Laboratory Results - last 24 hr 11/14/20 11/14/20 11/14/20 Range/Units 15:18 15:18 17:37 WBC 6.36 (4.23-9.07) K/mm3 RBC 3.17 L (4.63-6.08) M/mm3 Hgb 8.0 L (13.7-17.5) gm/dl Hct 23.0 L (40.1-51.0) % MCV 72.6 L (79.0-92.2) fl MCH 25.2 L (25.7-32.2) pg MCHC 34.8 (32.2-35.5) g/dl RDW Std Deviation 45.0 H (35.1-43.9) fL Plt Count 447 H D (163-337) K/mm3 MPV 9.0 L (9.4-12.3) fl Neut % (Auto) (34.0-67.9) % Lymph % (Auto) (21.8-53.1) % Beadle % (Auto) (5.3-12.2) % Eos % (Auto) (0.8-7.0) Baso % (Auto) (0.1-1.2) % Neut # (Auto) (1.78-5.38) K/mm3 Lymph # (Auto) (1.32-3.57) K/mm3 Beadle # (Auto) (0.30-0.82) K/mm3 Eos # (Auto) (0.04-0.54) K/mm3 Baso # (Auto) (0.01-0.08) K/mm3 Manual Slide Review VBG pH 7.43 H (7.30-7.40) VBG pCO2 26.9 L (41-51) mmHg VBG pO2 75.0 (40-80) mmHG VBG HCO3 17.7 L (22-26) meq/L VBG O2 Saturation 97.0 VBG Base Excess -5.4 L (-4.0-2.0) O2 Delivery Device Room air Oxygen Flow Rate 0.0 Sodium 141 (136-145) mEq/L Potassium 4.4 (3.5-5.1) mEq/L Chloride 109 H (98-107) mEq/L Carbon Dioxide 22 (21-32) mEq/L Anion Gap 14.4 (5-15) BUN 19 H (7-18) mg/dL Creatinine 1.3 (0.7-1.3) mg/dL Est Cr Clr Drug Dosing 89.61 mL/min Estimated GFR (MDRD) > 60 (>60) mL/min BUN/Creatinine Ratio 14.6 (14-18) Glucose 102 H (70-99) mg/dL Lactic Acid (0.4-2.0) mmol/L Calcium 8.2 L (8.5-10.1) mg/dL Total Bilirubin (0.2-1.0) mg/dL AST (15-37) U/L ALT (16-63) U/L Alkaline Phosphatase (46-116) U/L Ammonia (11-32) umol/L Total Protein (6.4-8.2) g/dl Albumin (3.4-5.0) g/dl Globulin gm/dL Albumin/Globulin Ratio (1-2) 11/14/20 11/14/20 11/14/20 Range/Units 17:40 17:40 17:40 WBC 5.04 (4.23-9.07) K/mm3 RBC 3.64 L (4.63-6.08) M/mm3 Hgb 7.6 L (13.7-17.5) gm/dl Hct 25.8 L (40.1-51.0) % MCV 70.9 L (79.0-92.2) fl MCH 20.9 L (25.7-32.2) pg MCHC 29.5 L (32.2-35.5) g/dl RDW Std Deviation 45.1 H (35.1-43.9) fL Plt Count 581 H D (163-337) K/mm3 MPV 8.9 L (9.4-12.3) fl Neut % (Auto) 46.7 (34.0-67.9) % Lymph % (Auto) 34.5 (21.8-53.1) % Beadle % (Auto) 9.5 (5.3-12.2) % Eos % (Auto) 7.9 H (0.8-7.0) Baso % (Auto) 0.6 (0.1-1.2) % Neut # (Auto) 2.35 (1.78-5.38) K/mm3 Lymph # (Auto) 1.74 (1.32-3.57) K/mm3 Beadle # (Auto) 0.48 (0.30-0.82) K/mm3 Eos # (Auto) 0.40 (0.04-0.54) K/mm3 Baso # (Auto) 0.03 (0.01-0.08) K/mm3 Manual Slide Review Abnormal smear VBG pH (7.30-7.40) VBG pCO2 (41-51) mmHg VBG pO2 (40-80) mmHG VBG HCO3 (22-26) meq/L VBG O2 Saturation VBG Base Excess (-4.0-2.0) O2 Delivery Device Oxygen Flow Rate Sodium 141 (136-145) mEq/L Potassium 4.5 (3.5-5.1) mEq/L Chloride 109 H (98-107) mEq/L Carbon Dioxide 21 (21-32) mEq/L Anion Gap 15.5 H (5-15) BUN 21 H (7-18) mg/dL Creatinine 1.3 (0.7-1.3) mg/dL Est Cr Clr Drug Dosing 89.61 mL/min Estimated GFR (MDRD) > 60 (>60) mL/min BUN/Creatinine Ratio 16.2 (14-18) Glucose 99 (70-99) mg/dL Lactic Acid (0.4-2.0) mmol/L Calcium 8.2 L (8.5-10.1) mg/dL Total Bilirubin 0.1 L (0.2-1.0) mg/dL AST 12 L (15-37) U/L ALT 18 (16-63) U/L Alkaline Phosphatase 58 (46-116) U/L Ammonia 20 (11-32) umol/L Total Protein 6.4 (6.4-8.2) g/dl Albumin 2.6 L (3.4-5.0) g/dl Globulin 3.8 gm/dL Albumin/Globulin Ratio 0.7 L (1-2) 11/14/20 Range/Units 17:40 WBC (4.23-9.07) K/mm3 RBC (4.63-6.08) M/mm3 Hgb (13.7-17.5) gm/dl Hct (40.1-51.0) % MCV (79.0-92.2) fl MCH (25.7-32.2) pg MCHC (32.2-35.5) g/dl RDW Std Deviation (35.1-43.9) fL Plt Count (163-337) K/mm3 MPV (9.4-12.3) fl Neut % (Auto) (34.0-67.9) % Lymph % (Auto) (21.8-53.1) % Beadle % (Auto) (5.3-12.2) % Eos % (Auto) (0.8-7.0) Baso % (Auto) (0.1-1.2) % Neut # (Auto) (1.78-5.38) K/mm3 Lymph # (Auto) (1.32-3.57) K/mm3 Beadle # (Auto) (0.30-0.82) K/mm3 Eos # (Auto) (0.04-0.54) K/mm3 Baso # (Auto) (0.01-0.08) K/mm3 Manual Slide Review VBG pH (7.30-7.40) VBG pCO2 (41-51) mmHg VBG pO2 (40-80) mmHG VBG HCO3 (22-26) meq/L VBG O2 Saturation VBG Base Excess (-4.0-2.0) O2 Delivery Device Oxygen Flow Rate Sodium (136-145) mEq/L Potassium (3.5-5.1) mEq/L Chloride (98-107) mEq/L Carbon Dioxide (21-32) mEq/L Anion Gap (5-15) BUN (7-18) mg/dL Creatinine (0.7-1.3) mg/dL Est Cr Clr Drug Dosing mL/min Estimated GFR (MDRD) (>60) mL/min BUN/Creatinine Ratio (14-18) Glucose (70-99) mg/dL Lactic Acid 1.1 (0.4-2.0) mmol/L Calcium (8.5-10.1) mg/dL Total Bilirubin (0.2-1.0) mg/dL AST (15-37) U/L ALT (16-63) U/L Alkaline Phosphatase (46-116) U/L Ammonia (11-32) umol/L Total Protein (6.4-8.2) g/dl Albumin (3.4-5.0) g/dl Globulin gm/dL Albumin/Globulin Ratio (1-2) Result Diagrams: 11/14/20 17:40 11/14/20 17:40 Sepsis Event Note - Evaluation Sepsis Screening Result: No Definite Risk - Focused Exam Vital Signs: Vital Signs Temp Pulse Resp BP Pulse Ox 11/15/20 03:25 97.8 F 82 14 115/68 99 - Problem List & Annotations (1) Noncompliance SNOMED Code(s): 3987782 Code(s): Z91.19 - PATIENT'S NONCOMPLIANCE W OTH MEDICAL TREATMENT AND REGIMEN Status: Acute Priority: High Current Visit: Yes (2) Polysubstance abuse SNOMED Code(s): 346658978 Code(s): F19.10 - OTHER PSYCHOACTIVE SUBSTANCE ABUSE, UNCOMPLICATED Status: Chronic Priority: High Current Visit: Yes (3) Methamphetamine abuse SNOMED Code(s): 207477232 Code(s): F15.10 - OTHER STIMULANT ABUSE, UNCOMPLICATED Status: Chronic Priority: High Current Visit: Yes (4) Urinary tract infection associated with catheterization of urinary tract SNOMED Code(s): 402882778 Code(s): T83.511A - I/I REACT D/T INDWELLING URETHRAL CATHETER, INIT; N39.0 - URINARY TRACT INFECTION, SITE NOT SPECIFIED Status: Acute Priority: High Current Visit: Yes Qualifiers: Indwelling urinary catheter type: unspecified Encounter type: initial encounter Qualified Code(s): T83.511A - Infection and inflammatory reaction due to indwelling urethral catheter, initial encounter; N39.0 - Urinary tract infection, site not specified; N39.0 - Urinary tract infection, site not specified (5) GERD (gastroesophageal reflux disease) SNOMED Code(s): 000806971 Code(s): K21.9 - GASTRO-ESOPHAGEAL REFLUX DISEASE WITHOUT ESOPHAGITIS Status: Chronic Priority: Medium Current Visit: No Qualifiers: Esophagitis presence: esophagitis presence not specified Qualified Code(s): K21.9 - Gastro-esophageal reflux disease without esophagitis (6) H/O recurrent pneumonia SNOMED Code(s): 711281663 Code(s): Z87.01 - PERSONAL HISTORY OF PNEUMONIA (RECURRENT) Status: Chronic Priority: Low Current Visit: No (7) History of MRSA infection SNOMED Code(s): 982397069, 927615659 Code(s): Z86.14 - PERSONAL HISTORY OF METHICILLIN RESIS STAPH INFECTION Status: Chronic Priority: Low Current Visit: No (8) Incomplete quadriplegia at C5-6 level SNOMED Code(s): 07263763, 528064756 Code(s): G82.54 - QUADRIPLEGIA, C5-C7 INCOMPLETE Status: Chronic Priority: Medium Current Visit: No (9) Neurogenic bladder SNOMED Code(s): 465626949 Code(s): N31.9 - NEUROMUSCULAR DYSFUNCTION OF BLADDER, UNSPECIFIED Status: Chronic Priority: High Current Visit: Yes (10) Nicotine dependence SNOMED Code(s): 23487284 Code(s): F17.200 - NICOTINE DEPENDENCE, UNSPECIFIED, UNCOMPLICATED Status: Chronic Priority: Medium Current Visit: No Qualifiers: Nicotine product type: cigarettes Substance use status: unspecified nicotine-induced disorder Qualified Code(s): F17.219 - Nicotine dependence, cigarettes, with unspecified nicotine-induced disorders (11) Osteoporosis SNOMED Code(s): 30076981 Code(s): M81.0 - AGE-RELATED OSTEOPOROSIS W/O CURRENT PATHOLOGICAL FRACTURE Status: Chronic Priority: Low Current Visit: No Qualifiers: Osteoporosis type: unspecified Presence of current pathological fracture: unspecified Qualified Code(s): M81.0 - Age-related osteoporosis without current pathological fracture (12) Recurrent UTI SNOMED Code(s): 396589237 Code(s): N39.0 - URINARY TRACT INFECTION, SITE NOT SPECIFIED Status: Chronic Priority: High Current Visit: No (13) Self-catheterizes urinary bladder SNOMED Code(s): 509367199 Code(s): Z78.9 - OTHER SPECIFIED HEALTH STATUS Status: Chronic Priority: High Current Visit: Yes (14) Marijuana abuse SNOMED Code(s): 69794559 Code(s): F12.10 - CANNABIS ABUSE, UNCOMPLICATED Status: Chronic Priority: High Current Visit: Yes (15) Anemia SNOMED Code(s): 950808580 Code(s): D64.9 - ANEMIA, UNSPECIFIED Status: Chronic Priority: Medium Current Visit: Yes Qualifiers: Anemia type: iron deficiency Iron deficiency anemia type: unspecified iron deficiency Qualified Code(s): D50.9 - Iron deficiency anemia, unspecified (16) Pyelonephritis SNOMED Code(s): 96484293 Code(s): N12 - TUBULO-INTERSTITIAL NEPHRITIS, NOT SPCF ACUTE OR CHRONIC Status: Acute Priority: High Current Visit: Yes (17) Anxiety SNOMED Code(s): 52123350 Code(s): F41.9 - ANXIETY DISORDER, UNSPECIFIED Status: Chronic Priority: High Current Visit: Yes (18) History of alcohol use SNOMED Code(s): 824734526 Code(s): Z87.898 - PERSONAL HISTORY OF OTHER SPECIFIED CONDITIONS Status: Chronic Priority: Medium Current Visit: Yes (19) Iron deficiency SNOMED Code(s): 69258587 Code(s): E61.1 - IRON DEFICIENCY Status: Chronic Priority: Medium Current Visit: Yes (20) Dysphagia SNOMED Code(s): 56859106, 411841314 Code(s): R13.10 - DYSPHAGIA, UNSPECIFIED Status: Ruled-out Priority: High Current Visit: Yes Qualifiers: Dysphagia type: unspecified Qualified Code(s): R13.10 - Dysphagia, unspecified (21) Food insecurity SNOMED Code(s): 986268789 Code(s): Z59.4 - LACK OF ADEQUATE FOOD AND SAFE DRINKING WATER Status: Chronic Priority: High Current Visit: Yes (22) High risk social situation SNOMED Code(s): 823381257, 862008166 Code(s): Z60.9 - PROBLEM RELATED TO SOCIAL ENVIRONMENT, UNSPECIFIED Status: Chronic Priority: High Current Visit: Yes (23) Hypomagnesemia SNOMED Code(s): 021538632 Code(s): E83.42 - HYPOMAGNESEMIA Status: Resolved Priority: High Current Visit: Yes (24) Nath catheter in place SNOMED Code(s): 702875697 Code(s): Z97.8 - PRESENCE OF OTHER SPECIFIED DEVICES Status: Acute Priority: Medium Current Visit: Yes (25) Positive result for methicillin resistant Staphylococcus aureus (MRSA) screening SNOMED Code(s): 892209846 Code(s): Z22.322 - CARRIER OR SUSPECTED CARRIER OF METHICILLIN RESIS STAPH Status: Acute Priority: Medium Current Visit: Yes - Problem List Review Problem List Initiated/Reviewed/Updated: Yes - Assessment Assessment:: Assessment - Day of admission 11/08/2020 (admitted late 11/07/2020) * 35-year-old male who presents to ED on 11-07-2020 with right upper quadrant plain radiated to his right flank and down his right back * Accompanying nausea, vomiting, and fatigue. Denies any fever. * History of: neurogenic bladder, osteoporosis, C5-C6 partial quadriplegia, addiction, prior MRSA infection, GERD, recurrent pneumonia, recurrent UTI, home self-catheterization. * Hospitalized from 10-26-2019 for pyelonephritis of his right kidney * Urine culture from that admission grew out 50-100,000 CFU's of Enterobacter cloacae complex and beta strep group B. * Enterobacter was susceptible to Levaquin and that was what he was discharged home on. * home medications were also renewed with a short course refill for each * Unable to obtain any of his medications. He also did not follow-up with his primary care provider as instructed * In route to the hospital EMS had placed a right leg IO and given the patient 2 mg Dilaudid and 2 mg of midazolam. * In the ED patient is noted to be tachycardic at 124 bpm and tachypneic at 26 breaths/min. * Labs are obtained: * WBC of 10.65. * Hemoglobin 7.7. * Hematocrit 26.8. * Platelets 753,000. * Neutrophils are elevated 81%. There is no bandemia. * Sodium is 139. * Potassium 3.3. * Chloride 104. * Carbon dioxide 28. * Anion gap is 10.3. * BUN is 12. Creatinine 1.1. GFR is greater than 60. * Glucose 106. *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
[2020-11-15] MEDS: Apixaban 5 MG Tab PO SCH ×2 (08:36→20:07)
[2020-11-15] MEDS: Topiramate 25 MG Tab PO SCH ×2 (08:36→20:07)
[2020-11-15] MEDS: LORazepam 1 MG Tab PO SCH ×2 (08:36→20:07)
[2020-11-15] MEDS: Docusate Sodium 100 MG Cap PO PRN (08:37)
[2020-11-15] MEDS: Iron Polysaccharides Complex 150 MG Cap PO SCH (08:37)
[2020-11-15] MEDS: Baclofen 10 MG Tab PO SCH ×4 (08:37→20:06)
[2020-11-15] MEDS: Nicotine 7 MG/24 Hr Patch TRDERM SCH (08:37)
[2020-11-15] MEDS: Gabapentin 600 MG Tab PO SCH ×3 (08:38→20:07)
[2020-11-15] MEDS: Sulfamethoxazole/Trimethoprim 800-160 MG Tab PO SCH ×2 (08:38→20:06)
[2020-11-15] MEDS: FLUoxetine 20 MG Cap PO SCH (08:38)
[2020-11-15] MEDS: Pantoprazole 40 MG Tab.CR PO SCH ×2 (08:38→20:06)
[2020-11-15] MEDS: Celecoxib 100 MG Cap PO SCH ×2 (08:38→20:06)
[2020-11-16] MEDS: oxyCODONE 5 MG Tab PO PRN ×4 (02:33→22:37)
[2020-11-16] MEDS: Sucralfate 1 GM Tab PO SCH ×4 (06:03→21:29)
[2020-11-16] MEDS: Baclofen 10 MG Tab PO SCH ×4 (09:42→20:06)
[2020-11-16] MEDS: LORazepam 1 MG Tab PO SCH ×2 (09:42→21:31)
[2020-11-16] MEDS: Nicotine 7 MG/24 Hr Patch TRDERM SCH (09:42)
[2020-11-16] MEDS: Apixaban 5 MG Tab PO SCH ×2 (09:42→20:07)
[2020-11-16] MEDS: Iron Polysaccharides Complex 150 MG Cap PO SCH (09:42)
[2020-11-16] MEDS: Pantoprazole 40 MG Tab.CR PO SCH ×2 (09:42→21:29)
[2020-11-16] MEDS: FLUoxetine 20 MG Cap PO SCH (09:42)
[2020-11-16] MEDS: Sulfamethoxazole/Trimethoprim 800-160 MG Tab PO SCH ×2 (09:43→20:07)
[2020-11-16] MEDS: Topiramate 25 MG Tab PO SCH ×2 (09:43→20:07)
[2020-11-16] MEDS: Gabapentin 600 MG Tab PO SCH ×3 (09:43→20:07)
[2020-11-16] MEDS: Celecoxib 100 MG Cap PO SCH ×2 (09:43→20:06)
--- NOTE | 2020-11-16 11:12 | PCM.PN ---
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 tarted on vancomycin for 1 day and switch to linezolid. He was ultimately switched to Bactrim DS 1 tab twice daily. This was discussed with infectious disease as well. Today no labs were obtained. Patient has been doing quite well. He did have an episode of near syncope over the weekend after a soap in the Jacuzzi tub on the floor. Head CT was obtained after that episode which showed mucosal thickening within the paranasal sinuses but nothing acute. He reports his anxiety has greatly improved. He remains on contact isolation. Social work continues to work on placement options and discharge disposition. Otherwise he remains clear for discharge pending placement. No acute concerns t saumya. 11/16/2020 Patient states he did not sleep well last night due to the fact that his brother last evening. Offered to call spiritual care to visit with him however he declined that. States he is otherwise feeling very well. He is anxious to not have to move back home and be around the environment he had been in. States that he is optimistic about his future. No other real complaints. Hemoglobin is down to 7.6 again today. Iron studies reveal an iron of 18, TIBC 510, percent saturation 4, transferrin 408. Is still on the Bactrim DS 1 tab twice daily. Awaiting placement. - Plan Plan:: MRSA Urinary tract infection associated with catheterization of urinary tract Pyelonephritis of right kidney Recurrent UTI Self-catheterizes urinary bladder Neurogenic bladder Nath catheter in place * Continue nath catheter * Continue p.o. Bactrim DS 1 tab twice daily based on urine sensitivities and discussion with pharmacy. * Pain medications as ordered * Antiemetics as ordered * Await urine sensitivities -MRSA and other gram-positive isolates thus far resistant to Levaquin * Await blood cultures -negative thus far * Tylenol if febrile Anxiety * Dr. Deras/psychiatry consultation: * Start 20mg daily Prozac * Start 25mg BID Topamax * Start 1mg BID Ativan * 1mg Q12hr PRN Ativan for anxiety * Follow-up with outpatient psychiatry after discharge Anemia Iron deficiency * PCP follow-up * PO iron supplementation * Infused 1 unit PRBC on 11/09/2020 * Occult stool negative * Caution with lab draw frequency * Iron infusion today Incomplete quadriplegia at C5-6 level Osteoporosis * No acute concerns * PT/OT * CM/SW for discharge planning History of MRSA Positive MRSA screen * Contact precautions H/O recurrent pneumonia * No acute concerns Muscle spasms of lower extremity * Continue home baclofen * PRN pain medications as ordered * PT/OT Nicotine dependence History of substance abuse History of ETOH use Methamphetamine abuse Marijuana abuse Non-compliance Food insecurity High risk social situation * Nicotine patches * Cessation counseling * Offer nicotine patches at discharge * SW/CM * Work on placement GERD * Continue home Protonix Dysphagia, ruled out * [employer] evaluation -regular diet with thin liquids * Energy 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 He reports he is quite lonely and anxious. Hopeful for [facility] placement. Disposition: Patient admitted to the medical floor for treatment of his UTI/pyelonephritis and medical noncompliance. Discharge pending placement. Length of stay greater than 96 hours due to placement issues secondary to high risk social situation.
[2020-11-17] MEDS: Acetaminophen 325 MG Tab PO PRN ×3 (02:29→16:27)
[2020-11-17] MEDS: oxyCODONE 5 MG Tab PO PRN ×4 (05:39→21:39)
[2020-11-17] MEDS: Sucralfate 1 GM Tab PO SCH ×4 (06:29→21:38)
--- NOTE | 2020-11-17 07:18 | PCM.PN ---
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 pending safe discharge disposition. There remains multiple concerns with patient's social situation. Social work did confirm patient has been sleeping on the floor at home as he does not have a proper bed. Patient will remain hospitalized pending placement. 11/13/2020 Patient had bad nightmares last night endorses anxiety and SOB denies Cough Denies chest pain would like prn albuterol and prn supplemental oxygen morning labs pending 11/14/2020 Patient had bad nightmare last night denies chest pain and sob eating breakfast tolerating diet 11/15/2020 35-year-old male admitted to the floor for UTI. Patient is quadriplegic and does have a neurogenic bladder for which a Nath was placed after admission. Ur ine cultures are growing MRSA and other gram-positive isolates. Patient was started on vancomycin for 1 day and switch to linezolid. He was ultimately switched to Bactrim DS 1 tab twice daily. This was discussed with infectious disease as well. Today no labs were obtained. Patient has been doing quite well. He did have an episode of near syncope over the weekend after a soap in the Jacuzzi tub on the floor. Head CT was obtained after that episode which showed mucosal thickening within the paranasal sinuses but nothing acute. He reports his anxiety has greatly improved. He remains on contact isolation. Social work continues to work on placement options and discharge disposition. Otherwise he remains clear for discharge pending placement. No acute concerns today. 11/16/2020 Patient states he did not sleep well last night due to the fact that his brother last evening. Offered to call spiritual care to visit with him however he declined that. States he is otherwise feeling very well. He is anxious to not have to move back home and be around the environment he had been in. States that he is optimistic about his future. No other real complaints. Hemoglobin is down to 7.6 again today. Iron studies reveal an iron of 18, TIBC 510, percent saturation 4, transferrin 408. Is still on the Bactrim DS 1 tab twice daily. Awaiting placement. 11/17/2020 45-year-old male admitted for pyelonephritis/UTI. Overall patient is doing quite well. He will finish his last dose of Bactrim today. Iron panel was obtained yesterday and was low and iron infusion was given. We will recheck labs tomorrow including CBC, BMP, and magnesium. He is complaining of back pain and states that in the past he is used Voltaren gel for this. We will try a lidocaine patch first and consider Voltaren gel if that does not work. He is hesitant to utilize a hot pack as he states he does not have great feeling in his back and he is concerned about risk of cross. No labs were obtained today. He states that he has been in contact with some people regarding living arrangements. They are reportedly going to stop in and see him today or tomorrow. Remains cleared for discharge pending placement. - Plan Plan:: MRSA Urinary tract infection associated with catheterization of urinary tract Pyelonephritis of right kidney Recurrent UTI Self-catheterizes urinary bladder Neurogenic bladder Nath catheter in place * Continue nath catheter * Continue p.o. Bactrim DS 1 tab twice daily based on urine sensitivities and discussion with pharmacy - last dose today * Pain medications as ordered * Antiemetics as ordered * Await urine sensitivities -MRSA and other gram-positive isolates thus far resistant to Levaquin * Await blood cultures -negative thus far * Tylenol if febrile Anxiety * Dr. 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 Osteoporosis * No acute concerns * PT/OT * CM/SW for discharge planning History of MRSA Positive MRSA screen * Contact precautions H/O recurrent pneumonia * No acute concerns Muscle spasms of lower extremity * Continue home baclofen * PRN pain medications as ordered * PT/OT Nicotine dependence History of substance abuse History of ETOH use Methamphetamine abuse Marijuana abuse Non-compliance Food insecurity High risk social situation * Nicotine patches * Cessation counseling * Offer nicotine patches at discharge * SW/CM * Work on placement GERD * Continue home Protonix Dysphagia, ruled out * 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 He reports he is quite lonely and anxious. Hopeful for INTERMEDIATE placement. Disposition: Patient admitted to the medical floor for treatment of his UTI/pyelonephritis and medical noncompliance. Discharge pending placement. Length of stay greater than 96 hours due to placement issues secondary to high risk social situation.
[2020-11-17] MEDS: LORazepam 1 MG Tab PO SCH ×2 (09:55→21:38)
[2020-11-17] MEDS: Iron Polysaccharides Complex 150 MG Cap PO SCH (09:56)
[2020-11-17] MEDS: Topiramate 25 MG Tab PO SCH ×2 (09:57→21:39)
[2020-11-17] MEDS: Apixaban 5 MG Tab PO SCH ×2 (09:57→21:38)
[2020-11-17] MEDS: Pantoprazole 40 MG Tab.CR PO SCH ×2 (09:58→21:39)
[2020-11-17] MEDS: Celecoxib 100 MG Cap PO SCH ×2 (09:58→21:39)
[2020-11-17] MEDS: FLUoxetine 20 MG Cap PO SCH (09:58)
[2020-11-17] MEDS: Baclofen 10 MG Tab PO SCH ×4 (09:59→21:39)
[2020-11-17] MEDS: Gabapentin 600 MG Tab PO SCH ×3 (09:59→21:39)
[2020-11-17] MEDS: Sulfamethoxazole/Trimethoprim 800-160 MG Tab PO SCH ×2 (09:59→21:39)
[2020-11-17] MEDS: Nicotine 7 MG/24 Hr Patch TRDERM SCH (10:00)
[2020-11-17] MEDS: Docusate Sodium 100 MG Cap PO PRN (10:09)
[2020-11-17] MEDS: Lidocaine 4% 1 each Patch TOP SCH (10:12)
[2020-11-18] MEDS: Ondansetron 4 MG Tab.DIS PO PRN (05:40)
[2020-11-18] MEDS: oxyCODONE 5 MG Tab PO PRN ×2 (05:40→13:35)
[2020-11-18] MEDS: Sucralfate 1 GM Tab PO SCH ×4 (06:12→22:09)
--- NOTE | 2020-11-18 07:30 | PCM.PN ---
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 at 67.9. Sodium is 145. Potassium 4.0. Chloride 114. Carbon dioxide 22. Anion gap 13.0. BUN is 11. Creatinine 1.0. GFR greater than 60. Glucose was 120. Calcium is 7.9. CRP is 5.0. Urine culture returns MRSA. Discussion ensues with pharmacy and ultimately patient will be placed on Bactrim 1 tablet twice daily. Blood cultures have been negative. Stool occult blood is negative. Patient is in agreement to possible SNF placement however there has been some difficulty arranging placement given the patient's complex social situation and history of drug use. Throughout his stay patient has been very tearful and appreciative of the care we are providing. He reports that he knows he needs to break his current social habits and states he cannot be discharged back to the [facility] again. Plan will be to discharge once appropriate safe discharge disposition is figured out. Otherwise cleared for discharge. 11/12/2020 35-year-old male quadriplegic admitted for UTI. Urine cultures are growing MRSA and other gram-positive bacteria of also been isolated. Patient was initially started on Levaquin and was switched to vancomycin after urine cultures returned positive for gram positive bacteria. Unfortunately patient did not tolerate vancomycin and he was noted to have IV site irritation and redness. He was then switched to IV and linezolid and ultimately switched to Bactrim DS 1 tablet twice daily based on urine cultures and sensitivities. Blood cultures have remained negative. Today infectious disease specialist Dr. Rosario with [facility] was contacted to discuss case and ensure patient is on proper antibiotics. She recommends continuing Bactrim DS 1 tab twice daily for a total of 7 days of treatment. She also wanted to clarify that the Nath was placed after patient began treatment, which was the case. She has no other concerns. Overall he continues to do quite well. He states his been feeling better. WBC today 7.04. Hemoglobin 7.6. Platelet 567,000. Neutrophils 56.1. Sodium 142. Potassium 3.7. Chloride 111. Carbon dioxide 18. Anion gap 16.7. BUN is 14. Creatinine 0.9. GFR greater than 60. Glucose 135. Calcium 7.8. Magnesium 1.9. CRP is 2.3. He remains on contact isolation. Because his labs have been stable we will not draw blood tomorrow for fear of exacerbating his anemia. At this point patient will be clear for discharge pending safe discharge disposition. There remains multiple concerns with patient's social situation. Social work did confirm patient has been sleeping on the floor at home as he does not have a proper bed. Patient will remain hospitalized pending placement. 11/13/2020 Patient had bad nightmares last night endorses anxiety and SOB denies Cough Denies chest pain would like prn albuterol and prn supplemental oxygen morning labs pending 11/14/2020 Patient had bad nightmare last night denies chest pain and sob eating breakfast tolerating diet 11/15/2020 35-year-old male admitted to the floor for UTI. Patient is quadriplegic and does have a neurogenic bladder for which a Nath was placed after admission. Urine cultures are growing MRSA and other gram-positive isolates. Patient was started on vancomycin for 1 day and switch to linezolid. He was ultimately switched to Bactrim DS 1 tab twice daily. This was discussed with infectious disease as well. Today no labs were obtained. Patient has been doing quite well. He did have an episode of near syncope over the weekend after a soap in the Jacuzzi tub on the floor. Head CT was obtained after that episode which showed mucosal thickening within the paranasal sinuses but nothing acute. He reports his anxiety has greatly improved. He remains on contact isolation. Social work continues to work on placement options and discharge disposition. Otherwise he remains clear for discharge pending placement. No acute concerns today. 11/16/2020 Patient states he did not sleep well last night due to the fact that his brother last evening. Offered to call spiritual care to visit with him however he declined that. States he is otherwise feeling very well. He is anxious to not have to move back home and be around the environment he had been in. States that he is optimistic about his future. No other real complaints. Hemoglobin is down to 7.6 again today. Iron studies reveal an iron of 18, TIBC 510, percent saturation 4, transferrin 408. Is still on the Bactrim DS 1 tab twice daily. Awaiting placement. 11/17/2020 35-year-old male admitted for pyelonephritis/UTI. Overall patient is doing quite well. He will finish his last dose of Bactrim today. Iron panel was obtained yesterday and was low and iron infusion was given. We will recheck labs tomorrow including CBC, BMP, and magnesium. He is complaining of back pain and states that in the past he is used Voltaren gel for this. We will try a lidocaine patch first and consider Voltaren gel if that does not work. He is hesitant to utilize a hot pack as he states he does not have great feeling in his back and he is concerned about risk of cross. No labs were obtained today. He states that he has been in contact with some people regarding living arrangements. They are reportedly going to stop in and see him today or tomorrow. Remains cleared for discharge pending placement. 11/18/2020 35-year-old male quadriplegic patient admitted for pyelonephritis/UTI. He has since finished his antibiotic and is doing quite well. Labs today were obtained showing a WBC of 6.37. Hemoglobin 8.2. Hematocrit 28.6. Sodium 145. Potassium 5.2. Chloride 111. Anion gap 17.2. BUN 29. Creatinine 1.4. GFR 58. Magnesium 2.4. Encouraged to drink more water. There have been some issues with the patient and nursing as he had some episodes of frustration with how quickly they are able to address his catheter needs. Patient does note that he feels things differently secondary to his cervical spine injury and neurogenic bladder and if he has issues with his Nath and needs to be addressed quite rapidly. We discussed treating nurses and other staff with respect and how we are working very hard to ensure a safe and appropriate discharge for the patient. By all accounts medically he is very stable and he remains clear for discharge pending placement. Plan will be to keep the patient until Sunday, at which time several of our local social secretary offices will assist him in finding a place to stay. - Plan Plan:: MRSA Urinary tract infection associated with catheterization of urinary tract Pyelonephritis of right kidney Recurrent UTI Self-catheterizes urinary bladder Neurogenic bladder Nath catheter in place * Continue nath catheter * Completed ABX treatment with Bactrim DS * Pain medications as ordered * Antiemetics as ordered * Await urine sensitivities -MRSA and other gram-positive isolates thus far resistant to Levaquin * Await blood cultures -negative thus far * Tylenol if febrile Anxiety * Dr. 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 Osteoporosis * No acute concerns * PT/OT * CM/SW for discharge planning History of MRSA Positive MRSA screen * Contact precautions H/O recurrent pneumonia * No acute concerns Muscle spasms of lower extremity * Continue home baclofen * PRN pain medications as ordered * PT/OT Nicotine dependence History of substance abuse History of ETOH use Methamphetamine abuse Marijuana abuse Non-compliance Food insecurity High risk social situation * Nicotine patches * Cessation counseling * Offer nicotine patches at discharge * SW/CM * Work on placement GERD * Continue home Protonix Dysphagia, ruled out * D[employer]UT [employer]ER evaluation -regular diet with thin liquids * Recorder Helper Seismograph consultation Hypomagnesemia, resolved * Monitor labs PRN Chronic back pain * PT/OT * Lidocaine patches * Pain medications as ordered * PRN warming pad Code status: Full code PCP: None locally DVT prophylaxis: Home Eliquis Social: Patient resides alone and has difficulty with ambulation due to his quadriplegia. He reports he is quite lonely and anxious. Hopeful for [facility] placement. Disposition: Patient admitted to the medical floor for treatment of his UTI/pyelonephritis and medical noncompliance. Discharge pending placement. Length of stay greater than 96 hours due to placement issues secondary to high risk social situation.
[2020-11-18] MEDS: Nicotine 7 MG/24 Hr Patch TRDERM SCH (08:15)
[2020-11-18] MEDS: Lidocaine 4% 1 each Patch TOP SCH ×2 (08:15→09:35)
[2020-11-18] MEDS: Topiramate 25 MG Tab PO SCH ×2 (08:16→22:09)
[2020-11-18] MEDS: Pantoprazole 40 MG Tab.CR PO SCH ×2 (08:16→22:10)
[2020-11-18] MEDS: Iron Polysaccharides Complex 150 MG Cap PO SCH (08:16)
[2020-11-18] MEDS: Baclofen 10 MG Tab PO SCH ×4 (08:16→22:09)
[2020-11-18] MEDS: Apixaban 5 MG Tab PO SCH ×2 (08:16→22:10)
[2020-11-18] MEDS: LORazepam 1 MG Tab PO SCH ×2 (08:16→22:10)
[2020-11-18] MEDS: Gabapentin 600 MG Tab PO SCH ×3 (08:16→22:09)
[2020-11-18] MEDS: Celecoxib 100 MG Cap PO SCH ×2 (08:16→22:09)
[2020-11-18] MEDS: FLUoxetine 20 MG Cap PO SCH (08:16)
--- NOTE | 2020-11-19 07:18 | PCM.PN ---
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 clear for discharge pending safe discharge disposition. There remains multiple concerns with patient's social situation. Social work did confirm patient has been sleeping on the floor at home as he does not have a proper bed. Patient will remain hospitalized pending placement. 11/13/2020 Patient had bad nightmares last night endorses anxiety and SOB denies Cough Denies chest pain would like prn albuterol and prn supplemental oxygen morning labs pending 11/14/2020 Patient had bad nightmare last night denies chest pain and sob eating breakfast tolerating diet 11/15/2020 35-year-old male admitted to the floor for UTI. Patient is quadriplegic and does have a neurogenic bladder for which a Nath was placed after admission. Urine cultures are growing MRSA and other gram-positive isolates. Patient was started on vancomycin for 1 day and switch to linezolid. He was ultimately switched to Bactrim DS 1 tab twice daily. This was discussed with infectious disease as well. Today no labs were obtained. Patient has been doing quite well. He did have an episode of near syncope over the weekend after a soap in the Jacuzzi tub on the floor. Head CT was obtained after that episode which showed mucosal thickening within the paranasal sinuses but nothing acute. He reports his anxiety has greatly improved. He remains on contact isolation. Social work continues to work on placement options and discharge disposition. Otherwise he remains clear for discharge pending placement. No acute concerns today. 11/16/2020 Patient states he did not sleep well last night due to the fact that his brother last evening. Offered to call spiritual care to visit with him however he declined that. States he is otherwise feeling very well. He is anxious to not have to move back home and be around the environment he had been in. States that he is optimistic about his future. No other real complaints. Hemoglobin is down to 7.6 again today. Iron studies reveal an iron of 18, TIBC 510, percent saturation 4, transferrin 408. Is still on the Bactrim DS 1 tab twice daily. Awaiting placement. 11/17/2020 35-year-old male admitted for pyelonephritis/UTI. Overall patient is doing quite well. He will finish his last dose of Bactrim today. Iron panel was obtained yesterday and was low and iron infusion was given. We will recheck labs tomorrow including CBC, BMP, and magnesium. He is complaining of back pain and states that in the past he is used Voltaren gel for this. We will try a lidocaine patch first and consider Voltaren gel if that does not work. He is hesitant to utilize a hot pack as he states he does not have great feeling in his back and he is concerned about risk of cross. No labs were obtained today. He states that he has been in contact with some people regarding living arrangements. They are reportedly going to stop in and see him today or tomorrow. Remains cleared for discharge pending placement. 11/18/2020 35-year-old male quadriplegic patient admitted for pyelonephritis/UTI. He has since finished his antibiotic and is doing quite well. Labs today were obtained showing a WBC of 6.37. Hemoglobin 8.2. Hematocrit 28.6. Sodium 145. Potassium 5.2. Chloride 111. Anion gap 17.2. BUN 29. Creatinine 1.4. GFR 58. Magnesium 2.4. Encouraged to drink more water. There have been some issues with the patient and nursing as he had some episodes of frustration with how quickly they are able to address his catheter needs. Patient does note that he feels things differently secondary to his cervical spine injury and neur ogenic bladder and if he has issues with his Nath and needs to be addressed quite rapidly. We discussed treating nurses and other staff with respect and how we are working very hard to ensure a safe and appropriate discharge for the patient. By all accounts medically he is very stable and he remains clear for discharge pending placement. Plan will be to keep the patient until Sunday, at which time several of our local social security specialist offices will assist him in finding a place to stay. 11/19/2020 35-year-old quadriplegic male admitted for pyelonephritis/UTI who has completed treatment. At this point he remains hospitalized due to his social situation and need for assistance in finding placement. Plan is for discharge Sunday. No labs are obtained today. Overall he states he feels pretty good. He is very determined to "prove us right" and make is proud with all the help we have been giving him. Clinically he continues to look well. No new complaints. We will recheck labs tomorrow to ensure stability. Otherwise we will wait Sunday for discharge. - Plan Plan:: MRSA Urinary tract infection associated with catheterization of urinary tract, Resolved Pyelonephritis of right kidney, Resolved Recurrent UTI Self-catheterizes urinary bladder Neurogenic bladder Nath catheter in place * Continue nath catheter * Completed ABX treatment with Bactrim DS * Pain medications as ordered * Antiemetics as ordered * Await urine sensitivities -MRSA and other gram-positive isolates thus far resistant to Levaquin * Await blood cultures -negative thus far * Tylenol if febrile Anxiety * Dr. 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 Osteoporosis * No acute concerns * PT/OT * CM/SW for discharge planning History of MRSA Positive MRSA screen * Contact precautions H/O recurrent pneumonia * No acute concerns Muscle spasms of lower extremity * Continue home baclofen * PRN pain medications as ordered * PT/OT Nicotine dependence History of substance abuse History of ETOH use Methamphetamine abuse Marijuana abuse Non-compliance Food insecurity High risk social situation * Nicotine patches * Cessation counseling * Offer nicotine patches at discharge * SW/CM * Work on placement GERD * Continue home Protonix Dysphagia, ruled out * AIRCRAFT COMMUNICATOR evaluation -regular diet with thin liquids * Recreation Attendant Supervisor consultation Hypomagnesemia, resolved * Monitor labs PRN Chronic back pain * PT/OT * Lidocaine patches * Pain medications as ordered * PRN warming pad Code status: Full code PCP: None locally DVT prophylaxis: Home Eliquis Social: Patient resides alone and has difficulty with ambulation due to his quadriplegia. He reports he is quite lonely and anxious. Hopeful for placement. Disposition: Patient admitted to the medical floor for treatment of his UTI/p yelonephritis and medical noncompliance. Discharge pending placement. Length of stay greater than 96 hours due to placement issues secondary to high risk social situation.
[2020-11-19] MEDS: Sucralfate 1 GM Tab PO SCH ×4 (07:44→16:21)
[2020-11-19] MEDS: FLUoxetine 20 MG Cap PO SCH (09:03)
[2020-11-19] MEDS: Iron Polysaccharides Complex 150 MG Cap PO SCH (09:03)
[2020-11-19] MEDS: Gabapentin 600 MG Tab PO SCH ×3 (09:04→22:29)
[2020-11-19] MEDS: Pantoprazole 40 MG Tab.CR PO SCH ×2 (09:04→22:30)
[2020-11-19] MEDS: Celecoxib 100 MG Cap PO SCH ×2 (09:04→22:28)
[2020-11-19] MEDS: Apixaban 5 MG Tab PO SCH ×2 (09:04→22:28)
[2020-11-19] MEDS: Baclofen 10 MG Tab PO SCH ×4 (09:04→22:29)
[2020-11-19] MEDS: LORazepam 1 MG Tab PO SCH ×2 (09:05→22:28)
[2020-11-19] MEDS: Topiramate 25 MG Tab PO SCH ×2 (09:05→22:30)
[2020-11-19] MEDS: Nicotine 7 MG/24 Hr Patch TRDERM SCH (09:06)
[2020-11-19] MEDS: Lidocaine 4% 1 each Patch TOP SCH (09:07)
[2020-11-19] MEDS: Diclofenac Sodium 1% Gel 100 GM Tube TOP PRN (12:02)
[2020-11-19] MEDS: oxyCODONE 5 MG Tab PO PRN ×2 (18:30→22:30)
[2020-11-19] MEDS: Acetaminophen 325 MG Tab PO PRN ×2 (18:34→22:31)
--- NOTE | 2020-11-20 08:50 | PCM.PN ---
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 did not tolerate vancomycin and he was noted to have IV site irritation and redness. He was then switched to IV and linezolid and ultimately switched to Bactrim DS 1 tablet twice daily based on urine cultures and sensitivities. Blood cultures have remained negative. Today infectious disease specialist Dr. Rosario with [facility] was contacted to discuss case and ensure patient is on proper antibiotics. She recommends continuing Bactrim DS 1 tab twice daily for a total of 7 days of treatment. She also wanted to clarify that the Nath was placed after patient began treatment, which was the case. She has no other concerns. Overall he continues to do quite well. He states his been feeling better. WBC today 7.04. Hemoglobin 7.6. Platelet 567,000. Neutrophils 56.1. Sodium 142. Potassium 3.7. Chloride 111. Carbon dioxide 18. Anion gap 16.7. BUN is 14. Creatinine 0.9. GFR greater than 60. Glucose 135. Calcium 7.8. Magnesium 1.9. CRP is 2.3. He remains on contact isolation. Because his labs have been stable we will not draw blood tomorrow for fear of exacerbating his anemia. At this point patient will be clear for discharge pending safe discharge disposition. There remains multiple concerns with patient's social situation. Social work did confirm patient has been sleeping on the floor at home as he does not have a proper bed. Patient will remain hospitalized pending placement. 11/13/2020 Patient had bad nightmares last night endorses anxiety and SOB denies Cough Denies chest pain would like prn albuterol and prn supplemental oxygen morning labs pending 11/14/2020 Patient had bad nightmare last night denies chest pain and sob eating breakfast tolerating diet 11/15/2020 35-year-old male admitted to the floor for UTI. Patient is quadriplegic and does have a neurogenic bladder for which a Nath was placed after admission. Urine cultures are growing MRSA and other gram-positive isolates. Patient was started on vancomycin for 1 day and switch to linezolid. He was ultimately switched to Bactrim DS 1 tab twice daily. This was discussed with infectious disease as well. Today no labs were obtained. Patient has been doing quite well. He did have an episode of near syncope over the weekend after a soap in the Jacuzzi tub on the floor. Head CT was obtained after that episode which showed mucosal thickening within the paranasal sinuses but nothing acute. He reports his anxiety has greatly improved. He remains on contact isolation. Social work continues to work on placement options and discharge disposition. Otherwise he remains clear for discharge pending placement. No acute concerns today. 11/16/2020 Patient states he did not sleep well last night due to the fact that his brother last evening. Offered to call spiritual care to visit with him however he declined that. States he is otherwise feeling very well. He is anxious to not have to move back home and be around the environment he had been in. States that he is optimistic about his future. No other real complaints. Hemoglobin is down to 7.6 again today. Iron studies reveal an iron of 18, TIBC 510, percent saturation 4, transferrin 408. Is still on the Bactrim DS 1 tab twice daily. Awaiting placement. 11/17/2020 35-year-old male admitted for pyelonephritis/UTI. Overall patient is doing quite well. He will finish his last dose of Bactrim today. Iron panel was obtained yesterday and was low and iron infusion was given. We will recheck labs tomorrow including CBC, BMP, and magnesium. He is complaining of back pain and states that in the past he is used Voltaren gel for this. We will try a lidocaine patch first and consider Voltaren gel if that does not work. He is hesitant to utilize a hot pack as he states he does not have great feeling in his back and he is concerned about risk of cross. No labs were obtained today. He states that he has been in contact with some people regarding living ar rangements. They are reportedly going to stop in and see him today or tomorrow. Remains cleared for discharge pending placement. 11/18/2020 35-year-old male quadriplegic patient admitted for pyelonephritis/UTI. He has since finished his antibiotic and is doing quite well. Labs today were obtained showing a WBC of 6.37. Hemoglobin 8.2. Hematocrit 28.6. Sodium 145. Pot assium 5.2. Chloride 111. Anion gap 17.2. BUN 29. Creatinine 1.4. GFR 58. Magnesium 2.4. Encouraged to drink more water. There have been some issues with the patient and nursing as he had some episodes of frustration with how quickly they are able to address his catheter needs. Patient does note that he feels things differently secondary to his cervical spine injury and neurogenic bladder and if he has issues with his Nath and needs to be addressed quite rapidly. We discussed treating nurses and other staff with respect and how we are working very hard to ensure a safe and appropriate discharge for the patient. By all accounts medically he is very stable and he remains clear for discharge pending placement. Plan will be to keep the patient until Sunday, at which time several of our local social media marketing analyst offices will assist him in finding a place to stay. 11/19/2020 35-year-old quadriplegic male admitted for pyelonephritis/UTI who has completed treatment. At this point he remains hospitalized due to his social situation and need for assistance in finding placement. Plan is for discharge Sunday. No labs are obtained today. Overall he states he feels pretty good. He is very determined to "prove us right" and make is proud with all the help we have been giving him. Clinically he continues to look well. No new complaints. We will recheck labs tomorrow to ensure stability. Otherwise we will wait Sunday for discharge. 11/20/2020 35-year-old male quadriplegic admitted for pyelonephritis and UTI was completed treatment. Remains hospitalized to do so situation need for assistance in finding placement. Labs obtained show sodium of 146. Potassium 4.3. Chloride 112. Carbon oxide 24. Anion gap 14.3. BUN 24. Creatinine 1.0. GFR greater than 60. Calcium 8.4. Magnesium 2.3. Patient was complaining of some dysphagia. TEMPERATURE REGULATOR did evaluate patient earlier in stay and found no concerns. Will recommend patient follow-up with Dr. Calix, general surgeon, as patient reports that he has had strictures in the past. Overall patient continues to do well. Plan for discharge tomorrow. Patient remains cleared for discharge pending placement. - Plan Plan:: MRSA Urinary tract infection associated with catheterization of urinary tract, Resolved Pyelonephritis of right kidney, Resolved Recurrent UTI Self-catheterizes urinary bladder Neurogenic bladder Nath catheter in place * Continue nath catheter * Completed ABX treatment with Bactrim DS * Pain medications as ordered * Antiemetics as ordered * Await urine sensitivities -MRSA and other gram-positive isolates thus far resistant to Levaquin * Await blood cultures -negative thus far * Tylenol if febrile Anxiety * Dr. 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 Osteoporosis * No acute concerns * PT/OT * CM/SW for discharge planning History of MRSA Positive MRSA screen * Contact precautions H/O recurrent pneumonia * No acute concerns Muscle spasms of lower extremity * Continue home baclofen * PRN pain medications as ordered * PT/OT Nicotine dependence History of substance abuse History of ETOH use Methamphetamine abuse Marijuana abuse Non-compliance Food insecurity High risk social situation * Nicotine patches * Cessation counseling * Offer nicotine patches at discharge * SW/CM * Work on placement GERD * Continue home Protonix Dysphagia * TEMPERATURE REGULATOR evaluation -regular diet with thin liquids * Learning Design Specialist consultation * Outpatient general surgery consultation Hypomagnesemia, resolved * Monitor labs PRN Chronic back pain * PT/OT * Lidocaine patches * Pain medications as ordered * PRN warming pad Code status: Full code PCP: None locally DVT prophylaxis: Home Eliquis Social: Patient resides alone and has difficulty with ambulation due to his quadriplegia. He reports he is quite lonely and anxious. Hopeful for placement. Disposition: Patient admitted to the medical floor for treatment of his UTI/pyelonephritis and medical noncompliance. Discharge pending placement. Length of stay greater than 96 hours due to placement issues secondary to high risk social situation.
[2020-11-20] MEDS: Nicotine 7 MG/24 Hr Patch TRDERM SCH (09:55)
[2020-11-20] MEDS: Baclofen 10 MG Tab PO SCH ×4 (10:27→22:13)
[2020-11-20] MEDS: Gabapentin 600 MG Tab PO SCH ×3 (10:28→22:13)
[2020-11-20] MEDS: Iron Polysaccharides Complex 150 MG Cap PO SCH (10:29)
[2020-11-20] MEDS: FLUoxetine 20 MG Cap PO SCH (10:31)
[2020-11-20] MEDS: Celecoxib 100 MG Cap PO SCH ×2 (10:31→22:12)
[2020-11-20] MEDS: Pantoprazole 40 MG Tab.CR PO SCH ×2 (10:32→22:13)
[2020-11-20] MEDS: LORazepam 1 MG Tab PO SCH ×2 (10:32→22:11)
[2020-11-20] MEDS: Topiramate 25 MG Tab PO SCH ×2 (10:32→22:12)
[2020-11-20] MEDS: Apixaban 5 MG Tab PO SCH ×2 (10:32→22:12)
[2020-11-20] MEDS: oxyCODONE 5 MG Tab PO PRN (22:14)
[2020-11-21] MEDS: Gabapentin 600 MG Tab PO SCH ×4 (08:28→21:22)
[2020-11-21] MEDS: Celecoxib 100 MG Cap PO SCH ×3 (08:29→21:21)
[2020-11-21] MEDS: FLUoxetine 20 MG Cap PO SCH (08:29)
[2020-11-21] MEDS: Iron Polysaccharides Complex 150 MG Cap PO SCH (08:29)
[2020-11-21] MEDS: Pantoprazole 40 MG Tab.CR PO SCH ×3 (08:30→21:22)
[2020-11-21] MEDS: Apixaban 5 MG Tab PO SCH ×2 (08:31→19:59)
[2020-11-21] MEDS: Topiramate 25 MG Tab PO SCH ×3 (08:31→21:22)
[2020-11-21] MEDS: LORazepam 1 MG Tab PO SCH ×3 (08:32→21:21)
[2020-11-21] MEDS: Baclofen 10 MG Tab PO SCH ×5 (08:33→21:21)
[2020-11-21] MEDS: Nicotine 7 MG/24 Hr Patch TRDERM SCH (08:34)
--- NOTE | 2020-11-21 09:45 | PCM.PN ---
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 contact isolation. Because his labs have been stable we will not draw blood tomorrow for fear of exacerbating his anemia. At this point patient will be clear for discharge pending safe discharge disposition. There remains multiple concerns with patient's social situation. Social work did confirm patient has been sleeping on the floor at home as he does not have a proper bed. Patient will remain hospitalized pending placement. 11/13/2020 Patient had bad nightmares last night endorses anxiety and SOB denies Cough Denies chest pain would like prn albuterol and prn supplemental oxygen morning labs pending 11/14/2020 Patient had bad nightmare last night denies chest pain and sob eating breakfast tolerating diet 11/15/2020 35-year-old male admitted to the floor for UTI. Patient is quadriplegic and does have a neurogenic bladder for which a Nath was placed after admission. Urine cultures are growing MRSA and other gram-positive isolates. Patient was started on vancomycin for 1 day and switch to linezolid. He was ultimately switched to Bactrim DS 1 tab twice daily. This was discussed with infectious disease as well. Today no labs were obtained. Patient has been doing quite well. He did have an episode of near syncope over the weekend after a soap in the Jacuzzi tub on the floor. Head CT was obtained after that episode which showed mucosal thickening within the paranasal sinuses but nothing acute. He reports his anxiety has greatly improved. He remains on contact isolation. Social work continues to work on placement options and discharge disposition. Otherwise he remains clear for discharge pending placement. No acute concerns today. 11/16/2020 Patient states he did not sleep well last night due to the fact that his brother last evening. Offered to call spiritual care to visit with him h owever he declined that. States he is otherwise feeling very well. He is anxious to not have to move back home and be around the environment he had been in. States that he is optimistic about his future. No other real complaints. Hemoglobin is down to 7.6 again today. Iron studies reveal an iron of 18, TIBC 510, percent saturation 4, transferrin 408. Is still on the Bactrim DS 1 tab twice daily. Awaiting placement. 11/17/2020 35-year-old male admitted for pyelonephritis/UTI. Overall patient is doing quite well. He will finish his last dose of Bactrim today. Iron panel was obtained yesterday and was low and iron infusion was given. We will recheck labs tomorrow including CBC, BMP, and magnesium. He is complaining of back pain and states that in the past he is used Voltaren gel for this. We will try a lidocaine patch first and consider Voltaren gel if that does not work. He is hesitant to utilize a hot pack as he states he does not have great feeling in his back and he is concerned about risk of cross. No labs were obtained today. He states that he has been in contact with some people regarding living arrangements. They are reportedly going to stop in and see him today or tomorrow. Remains cleared for discharge pending placement. 11/18/2020 35-year-old male quadriplegic patient admitted for pyelonephritis/UTI. He has since finished his antibiotic and is doing quite well. Labs today were obtained showing a WBC of 6.37. Hemoglobin 8.2. Hematocrit 28.6. Sodium 145. Potassium 5.2. Chloride 111. Anion gap 17.2. BUN 29. Creatinine 1.4. GFR 58. Magnesium 2.4. Encouraged to drink more water. There have been some issues with the patient and nursing as he had some episodes of frustration with how quickly they are able to address his catheter needs. Patient does note that he feels things differently secondary to his cervical spine injury and neurogenic bladder and if he has issues with his Nath and needs to be addressed quite rapidly. We discussed treating nurses and other staff with respect and how we are working very hard to ensure a safe and appropriate discharge for the patient. By all accounts medically he is very stable and he remains clear for discharge pending placement. Plan will be to keep the patient until Sunday, at which time several of our local social work msw offices will assist him in finding a place to stay. 11/19/2020 35-year-old quadriplegic male admitted for pyelonephritis/UTI who has completed treatment. At this point he remains hospitalized due to his social situation and need for assistance in finding placement. Plan is for discharge Sunday. No labs are obtained today. Overall he states he feels pretty good. He is very determined to "prove us right" and make is proud with all the help we have been giving him. Clinically he continues to look well. No new complaints. We will recheck labs tomorrow to ensure stability. Otherwise we will wait Sunday for discharge. 11/20/2020 35-year-old male quadriplegic admitted for pyelonephritis and UTI was completed treatment. Remains hospitalized to do so situation need for assistance in finding placement. Labs obtained show sodium of 146. Potassium 4.3. Chloride 112. Carbon oxide 24. Anion gap 14.3. BUN 24. Creatinine 1.0. GFR greater than 60. Calcium 8.4. Magnesium 2.3. Patient was complaining of some dysphagia. TRADE CLERK did evaluate patient earlier in stay and found no concerns. Will recommend patient follow-up with Dr. Calix, general surgeon, as patient reports that he has had strictures in the past. Overall patient continues to do well. Plan for discharge tomorrow. Patient remains cleared for discharge pend ing placement. 11/21/2020 35-year-old male admitted to the floor for pyelonephritis/UTI who completed antibiotic treatment. Patient is a quadriplegic and there have been several concerning social events noted. Overall patient has done quite well. Nath catheter remains in place and he will need outpatient follow-up with urology for this concerning strictures. Patient has noted difficulty with swallowing which has apparently been ongoing for some time. Speech-language pathologist did see him and cleared him for regular diet with thin liquids. We will recommend karina ent follow-up with outpatient general surgery regarding this. No labs were obtained today. No patient or nursing concerns. Plan for discharge tomorrow. - Plan Plan:: MRSA Urinary tract infection associated with catheterization of urinary tract, Resolved Pyelonephritis of right kidney, Resolved Recurrent UTI Self-catheterizes urinary bladder Neurogenic bladder Nath catheter in place * Continue nath catheter * Completed ABX treatment with Bactrim DS * Pain medications as ordered * Antiemetics as ordered * Await urine sensitivities -MRSA and other gram-positive isolates thus far resistant to Levaquin * Await blood cultures -negative thus far * Tylenol if febrile Anxiety * Dr. 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 Osteoporosis * No acute concerns * PT/OT * CM/SW for discharge planning History of MRSA Positive MRSA screen * Contact precautions H/O recurrent pneumonia * No acute concerns Muscle spasms of lower extremity * Continue home baclofen * PRN pain medications as ordered * PT/OT Nicotine dependence History of substance abuse History of ETOH use Methamphetamine abuse Marijuana abuse Non-compliance Food insecurity High risk social situation * Nicotine patches * Cessation counseling * Offer nicotine patches at discharge * SW/CM * Work on placement GERD * Continue home Protonix Dysphagia * TRADE CLERK evaluation -regular diet with thin liquids * Environmental Compliance Technician consultation * Outpatient general surgery consultation Hypomagnesemia, resolved * Monitor labs PRN Chronic back pain * PT/OT * Discontinue lidocaine patches * Pain medications as ordered * PRN warming pad * Voltaren gel as needed Code status: Full code PCP: None locally DVT prophylaxis: Home Eliquis Social: Patient resides alone and has difficulty with ambulation due to his quadriplegia. He reports he is quite lonely and anxious. Hopeful for placement. Disposition: Patient admitted to the medical floor for treatment of his UTI/pyelonephritis and medical noncompliance. Discharge pending placement. Length of stay greater than 96 hours due to placement issues secondary to high risk social situation.
[2020-11-21] MEDS: oxyCODONE 5 MG Tab PO PRN (19:57)
[2020-11-22] MEDS: Diclofenac Sodium 1% Gel 100 GM Tube TOP PRN (06:43)
[2020-11-22] MEDS: Iron Polysaccharides Complex 150 MG Cap PO SCH (09:18)
[2020-11-22] MEDS: Baclofen 10 MG Tab PO SCH ×3 (09:18→16:44)
[2020-11-22] MEDS: Pantoprazole 40 MG Tab.CR PO SCH (09:19)
[2020-11-22] MEDS: Celecoxib 100 MG Cap PO SCH (09:19)
[2020-11-22] MEDS: FLUoxetine 20 MG Cap PO SCH (09:19)
[2020-11-22] MEDS: LORazepam 1 MG Tab PO SCH (09:20)
[2020-11-22] MEDS: Topiramate 25 MG Tab PO SCH (09:20)
[2020-11-22] MEDS: Apixaban 5 MG Tab PO SCH (09:20)
[2020-11-22] MEDS: Gabapentin 600 MG Tab PO SCH ×2 (09:20→16:44)
[2020-11-22] MEDS: Nicotine 7 MG/24 Hr Patch TRDERM SCH (09:21)
--- NOTE | 2020-11-22 10:21 | PCM.DCSUM1 ---
Discharge Summary - Hospital Course HPI Initial Comments: This is a 35-year-old male who presents to ED on 11-07-2020 with right upper quadrant plain radiated to his right flank and down his right back. He has had accompanying nausea, vomiting, and fatigue. Denies any fever. He is well-known to this service as he was hospitalized from 10-26-2019 for pyelonephritis of his right kidney. Urine culture from that admission grew out 50-100,000 CFU's of Enterobacter cloacae complex and beta strep group B. Enteric coccus was susceptible to Levaquin and that was what he was discharged home on. His home medications were also renewed with a short course refill for each. Patient does report that he lives alone and has been unable to obtain any of his medications. He also did not follow-up with his primary care provider as instructed. In route to the hospital EMS had placed a right leg IO and given the patient 2 mg Dilaudid and 2 mg of midazolam. In the ED patient is noted to be tachycardic at 124 bpm and tachypneic at 26 breaths/min. Temp is 37.1 Celsius. Pressure 109/79. Pulse ox 100% on room air. Labs are obtained showing a WBC of 10.65. Hemoglobin 7.7. Hematocrit 26.8. Platelets 753,000. Neutrophils are elevated 81%. There is no bandemia. Sodium is 139. Potassium 3.3. Chloride 104. Carbon dioxide 28. Anion gap is 10.3. BUN is 12. Creatinine 1.1. GFR is greater than 60. Glucose 106. Calcium 8.2. Bilirubin 0.3. AST is 15, ALT 20, alkaline phosphatase 67. Protein is 7.0. Albumin 2.9. UA is obtained showing cloudy urine with 1+ protein, 1+ ketones, trace intact blood, positive nitrite, 2+ leukocyte esterase, 10-20 RBC, greater than 100 WBCs, moderate bacteria. Urine drug screen is obtained and is positive for amphetamines, methamphetamines, benzodiazepines, opioids, and marijuana. Patient was given benzos and opiates in route. He does admit to methamphetamine and marijuana use. Ethyl alcohol was 0.00. SARS Covid 2 RNA was negative. Urine culture and blood culture are pending. He is given Dilaudid for pain and started on 750 mg Levaquin. He is also given IV push Zofran and Protonix. IV fluids are started and he is admitted to the medical floor for further treatment and his social issues. He carries a history of neurogenic bladder, osteoporosis, C5-C6 partial quadriplegia, addiction, prior MRSA infection, GERD, recurrent pneumonia, recurrent UTI, home self-catheterization. He is a full code. He does not have a primary care provider locally. Diagnosis: Stroke: No - Discharge Data Discharge Date: 11/22/20 (Admit date: 11/07/2020) Discharge Disposition: Home, W Home Health Agency 06 Condition: Good - Referral to Home Health Date of Face to Face Encounter: 11/22/20 Reason for Homebound Status: See discharge summary Primary Care Physician: PCP None Skilled Need: See discharge summary - Discharge Diagnosis/Problem(s) (1) Noncompliance SNOMED Code(s): 2450291 ICD Code: Z91.19 - PATIENT'S NONCOMPLIANCE W OTH MEDICAL TREATMENT AND REGIMEN Status: Acute Priority: High Current Visit: Yes (2) Polysubstance abuse SNOMED Code(s): 143364592 ICD Code: F19.10 - OTHER PSYCHOACTIVE SUBSTANCE ABUSE, UNCOMPLICATED Status: Chronic Priority: High Current Visit: Yes (3) Methamphetamine abuse SNOMED Code(s): 871994685 ICD Code: F15.10 - OTHER STIMULANT ABUSE, UNCOMPLICATED Status: Chronic Priority: High Current Visit: Yes (4) Urinary tract infection associated with catheterization of urinary tract SNOMED Code(s): 038424394 ICD Code: T83.511A - I/I REACT D/T INDWELLING URETHRAL CATHETER, INIT; N39.0 - URINARY TRACT INFECTION, SITE NOT SPECIFIED Status: Resolved Priority: High Current Visit: Yes Qualifiers: Indwelling urinary catheter type: unspecified Encounter type: initial encounter Qualified Code(s): T83.511A - Infection and inflammatory reaction due to indwelling urethral catheter, initial encounter; N39.0 - Urinary tract infection, site not specified; N39.0 - Urinary tract infection, site not sp ecified (5) GERD (gastroesophageal reflux disease) SNOMED Code(s): 700248499 ICD Code: K21.9 - GASTRO-ESOPHAGEAL REFLUX DISEASE WITHOUT ESOPHAGITIS Status: Chronic Priority: Medium Current Visit: No Qualifiers: Esophagitis presence: esophagitis presence not specified Qualified Code(s): K21.9 - Gastro-esophageal reflux disease without esophagitis (6) H/O recurrent pneumonia SNOMED Code(s): 780768662 ICD Code: Z87.01 - PERSONAL HISTORY OF PNEUMONIA (RECURRENT) Status: Chronic Priority: Low Current Visit: No (7) History of MRSA infection SNOMED Code(s): 239414967, 303162708 ICD Code: Z86.14 - PERSONAL HISTORY OF METHICILLIN RESIS STAPH INFECTION Status: Chronic Priority: Low Current Visit: No (8) Incomplete quadriplegia at C5-6 level SNOMED Code(s): 25812244, 887202315 ICD Code: G82.54 - QUADRIPLEGIA, C5-C7 INCOMPLETE Status: Chronic Priority: Medium Current Visit: No (9) Neurogenic bladder SNOMED Code(s): 536099607 ICD Code: N31.9 - NEUROMUSCULAR DYSFUNCTION OF BLADDER, UNSPECIFIED Status: Chronic Priority: High Current Visit: Yes (10) Nicotine dependence SNOMED Code(s): 37164585 ICD Code: F17.200 - NICOTINE DEPENDENCE, UNSPECIFIED, UNCOMPLICATED Status: Chronic Priority: Medium Current Visit: No Qualifiers: Nicotine product type: cigarettes Substance use status: unspecified nicotine-induced disorder Qualified Code(s): F17.219 - Nicotine dependence, cigarettes, with unspecified nicotine-induced disorders (11) Osteoporosis SNOMED Code(s): 31532465 ICD Code: M81.0 - AGE-RELATED OSTEOPOROSIS W/O CURRENT PATHOLOGICAL FRACTURE Status: Chronic Priority: Low Current Visit: No Qualifiers: Osteoporosis type: unspecified Presence of current pathological fracture: unspecified Qualified Code(s): M81.0 - Age-related osteoporosis without current pathological fracture (12) Recurrent UTI SNOMED Code(s): 203572746 ICD Code: N39.0 - URINARY TRACT INFECTION, SITE NOT SPECIFIED Status: Chronic Priority: High Current Visit: No (13) Self-catheterizes urinary bladder SNOMED Code(s): 687843982 ICD Code: Z78.9 - OTHER SPECIFIED HEALTH STATUS Status: Chronic Priority: High Current Visit: Yes (14) Marijuana abuse SNOMED Code(s): 33882850 ICD Code: F12.10 - CANNABIS ABUSE, UNCOMPLICATED Status: Chronic Priority: High Current Visit: Yes (15) Anemia SNOMED Code(s): 150360186 ICD Code: D64.9 - ANEMIA, UNSPECIFIED Status: Chronic Priority: Medium Current Visit: Yes Qualifiers: Anemia type: iron deficiency Iron deficiency anemia type: unspecified iron deficiency Qualified Code(s): D50.9 - Iron deficiency anemia, unspecified (16) Pyelonephritis SNOMED Code(s): 36315889 ICD Code: N12 - TUBULO-INTERSTITIAL NEPHRITIS, NOT SPCF ACUTE OR CHRONIC Status: Resolved Priority: High Current Visit: Yes (17) Anxiety SNOMED Code(s): 85589437 ICD Code: F41.9 - ANXIETY DISORDER, UNSPECIFIED Status: Chronic Priority: High Current Visit: Yes (18) History of alcohol use SNOMED Code(s): 230720305 ICD Code: Z87.898 - PERSONAL HISTORY OF OTHER SPECIFIED CONDITIONS Status: Chronic Priority: Medium Current Visit: Yes (19) Iron deficiency SNOMED Code(s): 87597882 ICD Code: E61.1 - IRON DEFICIENCY Status: Chronic Priority: Medium Current Visit: Yes (20) Dysphagia SNOMED Code(s): 84228211, 075291132 ICD Code: R13.10 - DYSPHAGIA, UNSPECIFIED Status: Acute Priority: High Current Visit: Yes Qualifiers: Dysphagia type: unspecified Qualified Code(s): R13.10 - Dysphagia, unspecified (21) Food insecurity SNOMED Code(s): 038022816 ICD Code: Z59.4 - LACK OF ADEQUATE FOOD AND SAFE DRINKING WATER Status: Chronic Priority: High Current Visit: Yes (22) High risk social situation SNOMED Code(s): 611679741, 363699659 ICD Code: Z60.9 - PROBLEM RELATED TO SOCIAL ENVIRONMENT, UNSPECIFIED Status: Chronic Priority: High Current Visit: Yes (23) Hypomagnesemia SNOMED Code(s): 782790713 ICD Code: E83.42 - HYPOMAGNESEMIA Status: Resolved Priority: High Current Visit: Yes (24) Porter catheter in place SNOMED Code(s): 928630703 ICD Code: Z97.8 - PRESENCE OF OTHER SPECIFIED DEVICES Status: Acute Priority: Medium Current Visit: Yes (25) Positive result for methicillin resistant Staphylococcus aureus (MRSA) screening SNOMED Code(s): 988691701 ICD Code: Z22.322 - CARRIER OR SUSPECTED CARRIER OF METHICILLIN RESIS STAPH Status: Acute Priority: Medium Current Visit: Yes (26) Back pain SNOMED Code(s): 112836611 ICD Code: M54.9 - DORSALGIA, UNSPECIFIED Status: Chronic Priority: Medium Current Visit: Yes Qualifiers: Back pain location: back pain in unspecified location Chronicity: chronic Back pain laterality: unspecified Qualified Code(s): M54.9 - Dorsalgia, unspecified; G89.29 - Other chronic pain - Patient Summary/Data Consults: Consultations 11/08/20 02:35 Consult to Case Management/English And Reading Instructor [CONS] Routine 11/08/20 07:01 OT Evaluation and Treatment [CONS] Routine PT Evaluation and Treatment [CONS] Routine 11/08/20 10:06 Consult to Physician [CONS] Routine 11/09/20 13:42 Consult to Speech Language Pathology [SPECIALTY TRANSFORMER ASSEMBLER Evaluation and Treatment] [CONS] Routine 11/09/20 13:43 Consult to Retail Clerk [CONS] Routine Labs Pending at D/C: None. Recommended Follow-up Testing/Procedures: Follow-up with primary care provider within 5 days of discharge, sooner if needed. -Patient completed treatment for pyelonephritis/UTI and no antibiotic was prescribed at discharge -Patient was reporting difficulty swallowing occasionally while here. SPECIALTY TRANSFORMER ASSEMBLER evaluation had no concerns. Outpatient surgery appointment scheduled. -Patient noted to have a low iron and was started on daily p.o. supplement. He was also given iron infusion while here. Be sure to follow-up on this. -Patient started on scheduled and as needed Ativan, Prozac, and Topamax by psychiatry. -Significant difficulty with discharge disposition. Patient ultimately discharged with plans to reside locally with assistance from social work. -Patient has been noncompliant in the past due to difficulty with accessing medications. 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 Nursing confirmed this with catheterization. Porter catheter placed. Follow-up with psychiatry as scheduled Follow-up with Dr. Calix, general surgery, as scheduled regarding swallowing difficulty and possible strictures. Follow-up with outpatient urology as scheduled regarding urethral strictures and Porter catheter placement. Hospital Course: This is a 35-year-old male who presented to ED on 11/07/2020 with right upper quadrant pain that radiates to his right flank and down his right back. He also noted accompanying nausea, vomiting, and fatigue. He was brought in by ambulance in the interosseous needle was placed due to concerns over patient being septic. Carries a history of neurogenic bladder, osteoporosis, C5-C6 fracture with partial quadriplegia, addiction, prior MRSA infection, GERD, recurrent pneumonia, recurrent UTI, home self-catheterization, and methamphetamine abuse. He was hospitalized from 10-25-20 to for pyelonephritis of his right kidney. During that time he grew out 50-100,000 CFU's of Enterobacter cloacae complex and beta strep group B. The Enterobacter was susceptible to Levaquin he was discharged home on this. He also requested refills for many of his home medications, as he had reportedly ran out. Per the patient's report he was unable to find anyone to help him get his medications. 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 Patient did have a leukocytosis and UA was positive so he was admitted to the floor for continued treatment of his spinal nephritis and UTI. MRSA screen was obtained and patient was positive. Blood cultures remain negative. He did see Dr. Deras with telepsychiatry who recommended patient start 20 mg of Prozac daily and Topamax 25 mg p.o. twice daily. He recommended 1 mg of p.o. lorazepam twice daily and 1 mg p.o. lorazepam as needed for anxiety. Patient was noted to have difficulty obtaining food and was ordering significant amounts of food with his meals. Dietitian was consulted and did notice that the patient was drinking lots of water and having difficulty with swallowing. SPECIALTY TRANSFORMER ASSEMBLER evaluation was ordered and no concerns were noted. He was placed on regular diet with thin liquids. Throughout his stay blood cultures remain negative. He was initially placed on Levaquin however his blood cultures returned positive for MRSA and he was switched to vancomycin. He noted pain with infusion from the vancomycin was ultimately switched to Zyvox. Sensitivities returned and he was placed on Bactrim DS 1 tablet twice daily. Of note MRSA was resistant to Levaquin. Patient was noted to have a hemoglobin drop to 6.9 and he was given 1 unit of packed red cells with good response. Iron panel was obtained and was low and he was given an iron infusion. He was also started on daily iron supplementation. Porter catheter was placed on admission and this was discontinued after discussion with our hospital stockroom associate. Patient was placed back on his home catheterization routine and had great difficulty with this. Patient does note that because of his neurogenic bladder and prior quadriplegia he has a rapid need to urinate. He stated he was having difficulty with catheterization at home as he feels like he has some strictures in his urethra and nursing did note this is well. Ultimately decision was made to reinsert Porter catheter and have patient follow- up with urology. Social work was involved and did set up a plan for safe discharge and services locally. Patient stated that he is aware he is in a bad situation and [place] and he was appreciative of our services being offered. Multiple correction and assisted living facilities were explored however patient was not accepted at any of these. Ultimately a service was found that will help patient find an apartment after discharge. Prior to discharge patient was continuing to complain of dysphagia and felt like he was having things getting stuck in his throat. As noted we had SPECIALTY TRANSFORMER ASSEMBLER evaluate him earlier in his st ay with no concerns. We will therefore have him follow-up with Dr. Calix, general surgeon, as the patient may require an EGD to rule out strictures. Patient was accepted by Dr. Paz, internal medicine, locally as a primary care provider. He was scheduled to follow-up with urology, unfortunately the earliest he could get in is in March. He will also follow-up with Dr. Deras, psychiatry, outpatient. Patient's home medications were all continued. Refills were sent as the patient does not have any more locally. He was reporting pain and was utilizing oxycodone while here. We will discharge him on a short course of Tylenol 3, in addition to his home pain medications. He was utilizing Voltaren gel while here for back pain. We had tried lidocaine patches with no success. Patient will be sent on Voltaren gel as well. He did report occasional daily cigarette use and he will be prescribed patches at discharge. He was given resources for cessation and instructed to follow-up with his primary care provider as he will likely need longer duration of patches. Patient does remain a high readmission risk given his multiple chronic conditions and social situation. He was discharged today. Recommend follow-up with primary care provider within 5 days of discharge, sooner if needed. Recommend repeat CBC, CMP, and magnesium at that time. Please follow-up on patient's iron deficiency anemia, as he may need an increase in his iron supplementation. Patient structured to follow-up with Dr. Deras, psychiatry as scheduled. Patient instructed to follow-up with Dr. Calix, general surgery, as scheduled. Patient instructed to follow-up with urology as scheduled. Nursing educated patient on Porter catheter care. Patient started to contact primary care provider return the emergency room should symptoms return or worsen. - Patient Instructions Diet: Usual Diet as Tolerated Activity: As Tolerated Driving: Do Not Drive Showering/Bathing: May Shower Notify Provider of: Fever, Increased Pain, Nausea and/or Vomiting Other/Special Instructions: Follow-up with primary care provider within 5 days of discharge, sooner if needed. Follow-up with general surgery , Dr. Calix, as scheduled regarding swallowing difficulty. Follow-up with psychiatry as scheduled. Follow-up with urology as scheduled. Porter catheter cares as directed by nursing. You completed treatment for your pyelonephritis/UTI. No antibiotic will be prescribed at discharge. Stay away from alcholol and methamphetamine. Take all new medications as prescribed. Be careful as several of your pain medications and antianxiety medications may make you quite sleepy. Be sure to discuss this with your primary care provider should you notice issues. You were prescribed nicotine patches to aid in smoking cessation. Be sure to discuss this with your primary care provider as you will likely need a continuing prescription. You were also given resources such as [place] quits which would have counseling available and possibly free resources for assistance. As we discussed we have set up a safe discharge plan for you through social work. This is a great opportunity. Be sure not to waste it. Should symptoms return or worsen contact your primary care provider or return to the Emergency Department. - Discharge Plan *PRESCRIPTION DRUG MONITORING PROGRAM REVIEWED*: Not Applicable *COPY OF PRESCRIPTION DRUG MONITORING REPORT IN PATIENT [place]: Not Applicable Prescriptions/Med Rec: LORazepam [Ativan] 1 mg PO Q12H PRN #10 tablet PRN Reason: Anxiety LORazepam [Ativan] 1 mg PO BID #30 tablet Baclofen 30 mg PO QID #140 tablet Celecoxib [CeleBREX] 100 mg PO BID #30 cap Apixaban [Eliquis] 5 mg PO BID #30 tablet Iron Polysaccharides Complex [Ferrex 150] 150 mg PO DAILY #20 cap Nicotine [Habitrol] 7 mg TRDERM DAILY #2 box Gabapentin [Neurontin] 600 mg PO TID #60 tablet Pantoprazole [ProTONIX] 40 mg PO BID #30 tab FLUoxetine [PROzac] 20 mg PO DAILY #30 tab Topiramate [Topamax] 25 mg PO BID #30 tablet Acetaminophen/Codeine [Tylenol with Codeine No.3 300MG/30MG] 1 tab PO Q4H PRN #10 tab PRN Reason: Pain Diclofenac Sodium [Voltaren 1% Gel] 1 gm TOP Q6H PRN #2 tube PRN Reason: Pain (Mild 1-3) Tobacco Cessation Medication: Prescription Given Home Medications: Home Meds Acetaminophen/Codeine [Tylenol with Codeine No.3 300MG/30MG] 1 tab PO Q4H PRN #10 tab 11/22/20 [Rx] Apixaban [Eliquis] 5 mg PO BID #30 tablet 11/22/20 [Rx] Baclofen 30 mg PO QID #140 tablet 11/22/20 [Rx] Celecoxib [CeleBREX] 100 mg PO BID #30 cap 11/22/20 [Rx] Diclofenac Sodium [Voltaren 1% Gel] 1 gm TOP Q6H PRN #2 tube 11/22/20 [Rx] FLUoxetine [PROzac] 20 mg PO DAILY #30 tab 11/22/20 [Rx] Gabapentin [Neurontin] 600 mg PO TID #60 tablet 11/22/20 [Rx] Iron Polysaccharides Complex [Ferrex 150] 150 mg PO DAILY #20 cap 11/22/20 [Rx] LORazepam [Ativan] 1 mg PO BID #30 tablet 11/22/20 [Rx] LORazepam [Ativan] 1 mg PO Q12H PRN #10 tablet 11/22/20 [Rx] Nicotine [Habitrol] 7 mg TRDERM DAILY #2 box 11/22/20 [Rx] Pantoprazole [ProTONIX] 40 mg PO BID #30 tab 11/22/20 [Rx] Topiramate [Topamax] 25 mg PO BID #30 tablet 11/22/20 [Rx] Oxygen Therapy Mode: Room Air Patient Handouts: Urinary Tract Infection, Adult, [id number], Indwelling Urinary Catheter Care, Adult, [id number], Steps to Quit Smoking, Sepsis, Self Care, Adult Referrals: Ildefonso Matos NP [Ordering Only Provider] - 03/22/21 8:30 am (This appointment is for urology and this appointment is in [place] on the [place] side of the hospital, you have been put on a wait list for earlier appt.) Uriah Deras MD [Physician] - 01/11/21 11:00 am (This appt. is [place] over tele med. You will also be put on a wait list for earlier appt. ) Jer Hopkins MD [Physician] - 11/30/20 1:40 pm (This appt. is to Establish care and hospital follow up and will by with Dr. Evie Flynn is out that week Please arrive at 1:40) Juan Pablo Calix MD [Physician] - 11/26/20 12:00 pm (This appointment dysphagia, Please check in at 12:00) - Discharge Summary/Plan Comment DC Time >30 min.: Yes (60 minutes ) - General Info Date of Service: 11/22/20 Admission Dx/Problem (Free Text: Admission Diagnosis/Problem Admission Diagnosis/Problem Pyelonephritis Functional Status: Reports: Pain Controlled, Tolerating Diet, Urinating, Incentive Spirometry. Denies: Ambulating (Baseline quadriplegic), New Symptoms - Review of Systems General: Reports: No Symptoms. Denies: Fever, Weakness, Fatigue, Malaise, Chills HEENT: Reports: No Symptoms. Denies: Headaches, Sore Throat Pulmonary: Reports: No Symptoms. Denies: Shortness of Breath, Pleuritic Chest Pain, Cough, Sputum, Wheezing Cardiovascular: Reports: No Symptoms. Denies: Chest Pain, Palpitations, Dyspnea on Exertion, Edema, Lightheadedness Gastrointestinal: Reports: Difficulty Swallowing (Chronic). Denies: Abdominal Pain, Constipation, Diarrhea, Nausea, Vomiting Genitourinary: Reports: No Symptoms. Denies: Pain Musculoskeletal: Reports: Back Pain (Chronic) Skin: Reports: No Symptoms. Denies: Cyanosis Neurological: Reports: Pre-Existing Deficit (Baseline quadriplegic however does have some use of his arms and is able to ambulate very short distances with a walker), Difficulty Walking (Chronic), Gait Disturbance (Chronic). Denies: Confusion, Dizziness, Headache, Numbness, Seizure, Syncope, Tingling, Weakness Psychiatric: Reports: No Symptoms - Patient Data Vitals - Most Recent: Last Vital Signs Temp 97.9 F 11/22/20 03:48 Pulse 62 11/22/20 03:48 Resp 18 11/22/20 03:48 BP 105/53 L 11/22/20 03:48 Pulse Ox 95 11/22/20 03:48 Weight - Most Recent: 172 lb 9.6 oz I&O - Last 24 hours: Intake & Output 11/21/20 11/22/20 11/22/20 22:59 06:59 14:59 Intake Total 1280 1950 Output Total 2505 5380 Balance -1225 -650 Med Orders - Current: Current Medications Acetaminophen (Acetaminophen 325 Mg Tab) 650 mg PO Q4H PRN PRN Reason: Pain (Mild 1-3)/fever Last Admin: 11/19/20 22:31 Dose: 650 mg Documented by: Albuterol (Albuterol 6.7 Gm Inhaler) 0 gm INH Q2H PRN PRN Reason: Shortness of Breath Last Admin: 11/14/20 08:55 Dose: 2 inhalation Documented by: Apixaban (Apixaban 5 Mg Tab) 5 mg PO BID [facility] Last Admin: 11/22/20 09:20 Dose: 5 mg Documented by: Baclofen (Baclofen 10 Mg Tab) 30 mg PO QID [facility] Last Admin: 11/22/20 09:18 Dose: 30 mg Documented by: Celecoxib (Celecoxib 100 Mg Cap) 100 mg PO BID [facility] Last Admin: 11/22/20 09:19 Dose: 100 mg Documented by: Diclofenac Sodium (Diclofenac Sodium 1% Gel 100 Gm Tube) 1 gm TOP Q6H PRN PRN Reason: Pain (mild 1-3) Last Admin: 11/22/20 06:43 Dose: 1 gm Documented by: Docusate Sodium (Docusate Sodium 100 Mg Cap) 100 mg PO BID PRN PRN Reason: Constipation Last Admin: 11/17/20 10:09 Dose: 100 mg Documented by: Fluoxetine HCl (Fluoxetine 20 Mg Cap) 20 mg PO DAILY [facility] Last Admin: 11/22/20 09:19 Dose: 20 mg Documented by: Gabapentin (Gabapentin 600 Mg Tab) 600 mg PO TID [facility] Last Admin: 11/22/20 09:20 Dose: 600 mg Documented by: Lorazepam (Lorazepam 1 Mg Tab) 1 mg PO BID [facility] Last Admin: 11/22/20 09:20 Dose: 1 mg Documented by: Lorazepam (Lorazepam 1 Mg Tab) 1 mg PO Q12H PRN PRN Reason: Anxiety Last Admin: 11/10/20 22:47 Dose: 1 mg Documented by: Magnesium Hydroxide (Magnesium Hydroxide 400 Mg/5 Ml Susp 30 Ml Cup) 30 ml PO DAILY PRN PRN Reason: Constipation Last Admin: 11/21/20 01:33 Dose: 30 ml Documented by: Miscellaneous Information (Remove Nicotine Patch) 1 ea TRDERM DAILY [facility] Last Admin: 11/22/20 09:21 Dose: 1 ea Documented by: Nicotine (Nicotine 7 Mg/24 Hr Patch) 7 mg TRDERM DAILY [facility] Last Admin: 11/22/20 09:21 Dose: 7 mg Documented by: Ondansetron HCl (Ondansetron 4 Mg Tab.Dis) 4 mg PO Q4H PRN PRN Reason: nausea, able to take PO Last Admin: 11/18/20 05:40 Dose: 4 mg Documented by: Oxycodone HCl (Oxycodone 5 Mg Tab) 5 mg PO Q4H PRN PRN Reason: Pain (moderate 4-6) Last Admin: 11/21/20 19:57 Dose: 5 mg Documented by: Pantoprazole Sodium (Pantoprazole 40 Mg Tab.Cr) 40 mg PO BID [facility] Last Admin: 11/22/20 09:19 Dose: 40 mg Documented by: Polysaccharide Iron Complex (Iron Polysaccharides Complex 150 Mg Cap) 150 mg PO DAILY [facility] Last Admin: 11/22/20 09:18 Dose: 150 mg Documented by: Topiramate (Topiramate 25 Mg Tab) 25 mg PO BID [facility] Last Admin: 11/22/20 09:20 Dose: 25 mg Documented by: Discontinued Medications Enoxaparin Sodium (Enoxaparin 40 Mg/0.4 Ml Syringe) 40 mg SUBCUT DAILY [facility] Last Admin: 11/08/20 08:00 Dose: 40 mg Documented by: Hydromorphone HCl (Hydromorphone 1 Mg/Ml Syringe) 1 mg IVPUSH ONETIME ONE Stop: 11/07/20 20:06 Last Admin: 11/07/20 20:36 Dose: 1 mg Documented by: Hydromorphone HCl (Hydromorphone 0.5 Mg/0.5 Ml Syringe) 0.5 mg IVPUSH Q2H PRN PRN Reason: Pain Last Admin: 11/08/20 16:10 Dose: 0.5 mg Documented by: Sodium Chloride (Normal Saline) 1,000 mls @ 999 mls/hr IV ONETIME ONE Stop: 11/07/20 21:04 Last Admin: 11/07/20 20:29 Dose: 999 mls/hr Documented by: Levofloxacin/Dextrose 750 mg/ (Premix) 150 mls @ 100 mls/hr IV ONETIME STA Stop: 11/07/20 21:33 Last Admin: 11/07/20 20:43 Dose: 100 mls/hr Documented by: Sodium Chloride (Normal Saline) 1,000 mls @ 100 mls/hr IV ASDIRECTED [facility] Last Admin: 11/08/20 10:22 Dose: 100 mls/hr Documented by: Levofloxacin/Dextrose 750 mg/ (Premix) 150 mls @ 100 mls/hr IV Q24H [facility] Last Admin: 11/08/20 20:49 Dose: 100 mls/hr Documented by: Magnesium Sulfate 2 gm/ Premix 50 mls @ 25 mls/hr IV ONETIME ONE Stop: 11/09/20 09:59 Last Admin: 11/09/20 09:30 Dose: 25 mls/hr Documented by: Vancomycin HCl 1 gm/Vancomycin HCl 500 mg/ Sodium Chloride 500 mls @ 250 mls/hr IV ONETIME ONE Stop: 11/09/20 13:19 Last Admin: 11/09/20 12:50 Dose: 250 mls/hr Documented by: Vancomycin HCl 1 gm/Vancomycin HCl 250 mg/ Sodium Chloride 250 mls @ 166.667 mls/hr IV Q8H [facility] Last Admin: 11/09/20 20:51 Dose: 166.667 mls/hr Documented by: Sodium Chloride (Normal Saline) 250 mls @ 100 mls/hr IV ASDIRECTED [facility] Last Admin: 11/09/20 13:03 Dose: 100 mls/hr Documented by: Vancomycin HCl 1 gm/Vancomycin HCl 250 mg/ Sodium Chloride 250 mls @ 83.333 mls/hr IV Q8H [facility] Last Admin: 11/10/20 14:04 Dose: Not Given Documented by: Lactated Ringer's (Ringers, Lactated) 1,000 mls @ 30 mls/hr IV ASDIRECTED [facility] Last Admin: 11/10/20 13:08 Dose: 30 mls/hr Documented by: Linezolid 600 mg/ Premix 300 mls @ 300 mls/hr IV Q12H [facility] Last Admin: 11/11/20 05:34 Dose: Not Given Documented by: Linezolid (Zyvox) Confirm Administered Dose 300 mls @ as directed .ROUTE .STK- MED ONE Stop: 11/10/20 16:06 Last Admin: 11/10/20 18:14 Dose: Not Given Documented by: Linezolid 600 mg/ Premix 300 mls @ 300 mls/hr IV Q12H [facility] Last Admin: 11/11/20 06:13 Dose: 300 mls/hr Documented by: Ferric Sodium Gluconate Complex 250 mg/ Sodium Chloride 120 mls @ 60 mls/hr IV ONETIME ONE Stop: 11/16/20 15:59 Last Admin: 11/16/20 14:25 Dose: 60 mls/hr Documented by: Lidocaine (Lidocaine 4% 1 Each Patch) 1 each TOP Q24H [facility] Last Admin: 11/19/20 09:07 Dose: Not Given Documented by: Lorazepam (Lorazepam 2 Mg/Ml Sdv) 1 mg IVPUSH Q6H PRN PRN Reason: Anxiety Last Admin: 11/08/20 20:52 Dose: 1 mg Documented by: Miscellaneous Information (Remove Lidocaine Patch) 1 ea TOP Q24H [facility] Last Admin: 11/18/20 22:10 Dose: 1 ea Documented by: Ondansetron HCl (Ondansetron 4 Mg/2 Ml Sdv) 4 mg IVPUSH ONETIME ONE Stop: 11/07/20 20:06 Last Admin: 11/07/20 20:35 Dose: 4 mg Documented by: Pantoprazole Sodium (Pantoprazole 40 Mg Vial) 40 mg IVPUSH ONETIME ONE Stop: 11/07/20 20:06 Last Admin: 11/07/20 20:43 Dose: 40 mg Documented by: Pantoprazole Sodium (Pantoprazole 40 Mg Tab.Cr) 40 mg PO DAILY [facility] Last Admin: 11/08/20 10:06 Dose: Not Given Documented by: Sucralfate (Sucralfate 1 Gm Tab) 1 gm PO QID [facility] Last Admin: 11/08/20 10:06 Dose: Not Given Documented by: Sucralfate (Sucralfate 1 Gm Tab) 1 gm PO QIDACANDBED [facility] Last Admin: 11/19/20 16:21 Dose: Not Given Documented by: Trimethoprim/Sulfamethoxazole (Sulfamethoxazole/Trimethoprim 800-160 Mg Tab) 1 tab PO BID [facility] Stop: 11/17/20 21:01 Last Admin: 11/17/20 21:39 Dose: 1 tab Documented by: Vancomycin HCl (Pharmacy To Dose - Vancomycin) 1 dose .XX ASDIRECTED PRN PRN Reason: RX TO DOSE VANCO - Exam Quality Assessment: Reports: Urine Catheter, DVT Prophylaxis. Denies: Supplemental Oxygen General: Reports: Alert, Oriented, Cooperative, No Acute Distress HEENT: Reports: Pupils Equal, Pupils Reactive, Mucous Membr. Moist/[place] Neck: Reports: Supple, Trachea Midline Lungs: Reports: Clear to Auscultation, Normal Respiratory Effort Cardiovascular: Reports: Regular Rate, Regular Rhythm GI/Abdominal Exam: Normal Bowel Sounds, Soft, Non-Tender, No Distention (Male) Exam: Deferred Rectal (Males) Exam: Deferred Back Exam: Reports: Normal Inspection, Decreased Range of Motion Extremities: Normal Inspection, Non-Tender, No Pedal Edema, Normal Capillary Refill, Limited Range of Motion Skin: Reports: Warm, Dry, Intact Neurological: Reports: No New Focal Deficit Psy/Mental Status: Reports: Alert, Normal Affect, Normal Mood
== END 2020-11-22 18:30 | disposition home health service (06) | DRG 698 ==
LOC: JD.ED 18:00 → JD.MS 23:04
PROVIDERS: ADMIT Internal Medicine; ATTEND Internal Medicine
PROC: 30233N1 Transfusion of Nonautologous Red Blood Cells into Peripheral Vein, Percutaneous Approach (ICD-10-PCS; principal; 2019-11-08)
DX: T83.511A Infection and inflammatory reaction due to indwelling urethral catheter, initial encounter (principal); G82.54 Quadriplegia, C5-C7 incomplete; N12 Tubulo-interstitial nephritis, not specified as acute or chronic; F31.60 Bipolar disorder, current episode mixed, unspecified; F19.10 Other psychoactive substance abuse, uncomplicated; N39.0 Urinary tract infection, site not specified; F15.10 Other stimulant abuse, uncomplicated; K21.9 Gastro-esophageal reflux disease without esophagitis; N31.9 Neuromuscular dysfunction of bladder, unspecified; F17.219 Nicotine dependence, cigarettes, with unspecified nicotine-induced disorders; M81.0 Age-related osteoporosis without current pathological fracture; F12.10 Cannabis abuse, uncomplicated; D50.9 Iron deficiency anemia, unspecified; F41.9 Anxiety disorder, unspecified; E83.42 Hypomagnesemia; M54.9 Dorsalgia, unspecified; Y84.6 Urinary catheterization as the cause of abnormal reaction of the patient, or of later complication, without mention of misadventure at the time of the procedure; G89.29 Other chronic pain; Z20.822 Contact with and (suspected) exposure to COVID-19; N39.498 Other specified urinary incontinence; F43.10 Post-traumatic stress disorder, unspecified; B95.62 Methicillin resistant Staphylococcus aureus infection as the cause of diseases classified elsewhere; Z60.9 Problem related to social environment, unspecified; Z87.01 Personal history of pneumonia (recurrent); Z86.14 Personal history of Methicillin resistant Staphylococcus aureus infection; Z91.19 Patient's noncompliance with other medical treatment and regimen; Z59.4 Lack of adequate food; Z79.01 Long term (current) use of anticoagulants; Z79.899 Other long term (current) drug therapy; Z87.440 Personal history of urinary (tract) infections
CPT/HCPCS: 36415; 80053; 80306; 80307; 81001; 85007; 85027; 87040 ×2; 87086; 87088; 87186; 96365; 96375; 99285; C9113; J1170; J1956; J2405; J7030; U0002; 36410; 36430; 51701; 51702; 51798; 70450; 70450-26; 80048; 82140; 82272; 82803; 83540; 83605; 83735; 84466; 85025; 86140; 86850; 86900; 86901; 86922; 87147; 87641; 92610-GN; 94640; 94760; 97110-GP; 97162-GP; 97530-GP; 99223; 99233; 99239; 99284; A9270-GY; J1650; J2020; J2060; J2916; J3370; J3475; J7040; J7050; J7120; P9016; Q3014

== ENCOUNTER 2021-02-24 21:09 | Inpatient (IN) | payer MEDICARE, MEDICAID ==
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
[2021-02-24] MEDS ORDERED: Levofloxacin 750 MG Tab PO ONE (22:46)
[2021-02-25] MEDS ORDERED: Ketorolac 15 MG/ML SDV IM ONE (01:05)
[2021-02-25] MEDS ORDERED: Ondansetron 4 MG Tab.DIS PO ONE ×2 (02:38→19:56)
[2021-02-25] MEDS ORDERED: Ondansetron 4 MG Tab.DIS ONE (02:42)
[2021-02-25] MEDS ORDERED: Acetaminophen 325 MG Tab PO ONE (05:57)
--- NOTE | 2021-02-25 05:59 | CR ---
Right elbow: 4 views of the right elbow were obtained. Comparison: No prior right elbow study is available. Joint spaces are preserved. No joint effusion is seen. No fracture, dislocation or other bony abnormality is appreciated. Soft tissue swelling appears to be present. Impression: 1. Soft tissue swelling which is presumably due to cellulitis. 2. No acute osseous finding is seen. Diagnostic code #3
[2021-02-25] MEDS ORDERED: Acetaminophen 325 MG Tab ONE ×2 (06:02→06:06)
[2021-02-25] MEDS ORDERED: Acetaminophen/HYDROcodone 325-5 MG Tab PO ONE (09:44)
[2021-02-25] MEDS ORDERED: Vancomycin 2 GM in Sodium Chloride 0.9% 500 ML IV ONE ×2 (12:37→14:00)
[2021-02-25] MEDS ORDERED: Sodium Chloride 0.9% 10 ML Syringe FLUSH PRN (12:37)
[2021-02-25] MEDS ORDERED: HYDROmorphone 0.5 MG/0.5 ML Syringe IVPUSH ONE ×2 (14:14→17:44)
[2021-02-25] MEDS: Levofloxacin 750 MG Tab PO SCH (21:32)
[2021-02-25] MEDS: Morphine 2 MG/ML SYRINGE IVPUSH PRN ×2 (21:32→23:30)
[2021-02-25] MEDS: Gabapentin 600 MG Tab PO SCH ×2 (23:14→23:15)
[2021-02-25] MEDS: LORazepam 0.5 MG Tab PO SCH (23:14)
[2021-02-25] MEDS: Baclofen 10 MG Tab PO SCH (23:14)
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
[2021-02-26] MEDS ORDERED: DULoxetine 30 MG Cap PO SCH (09:00)
[2021-02-26] MEDS ORDERED: amLODIPine 5 MG Tab PO SCH ×2 (09:00)
[2021-02-26] MEDS ORDERED: Apixaban 5 MG Tab PO SCH (09:00)
[2021-02-26] MEDS ORDERED: Baclofen 10 MG Tab PO SCH (09:00)
[2021-02-26] MEDS ORDERED: Pantoprazole 40 MG Tab.CR PO SCH (09:00)
[2021-02-26] MEDS ORDERED: Lactulose Soln 10 GM/15 ML 30 ML UD Cup PO PRN (09:30)
[2021-02-26] MEDS: LORazepam 0.5 MG Tab PO SCH ×3 (10:30→20:10)
[2021-02-26] MEDS: Gabapentin 600 MG Tab PO SCH ×3 (10:32→20:10)
[2021-02-26] MEDS: AMLODIPINE 10 MG PO SCH (10:33)
[2021-02-26] MEDS: APIXABAN 5 MG PO SCH (10:35)
[2021-02-26] MEDS: BACLOFEN 10 MG PO SCH ×3 (10:36→20:06)
[2021-02-26] MEDS: DULOXETINE 30 MG PO SCH (10:40)
[2021-02-26] MEDS: IRON POLYSACCHARIDES COMPLEX 150 MG PO SCH (10:41)
[2021-02-26] MEDS: Morphine 2 MG/ML SYRINGE IVPUSH PRN ×2 (10:45→20:06)
[2021-02-26] MEDS: Ondansetron 4 MG Tab.DIS PO PRN (13:00)
[2021-02-26] MEDS: SUCRALFATE 1 GM PO SCH ×3 (13:00→20:06)
[2021-02-26] MEDS: Acetaminophen 325 MG Tab PO PRN (13:01)
[2021-02-26] MEDS: Baclofen 10 MG Tab PO SCH (13:43)
[2021-02-26] MEDS: PANTOPRAZOLE 40 MG PO SCH (20:06)
[2021-02-26] MEDS: Levofloxacin 750 MG Tab PO SCH (20:10)
[2021-02-27] MEDS: SUCRALFATE 1 GM PO SCH ×3 (05:15→16:34)
[2021-02-27] MEDS: Morphine 2 MG/ML SYRINGE IVPUSH PRN ×3 (05:21→22:04)
[2021-02-27] MEDS: APIXABAN 5 MG PO SCH ×2 (05:30→09:09)
[2021-02-27] MEDS: LORazepam 0.5 MG Tab PO SCH ×3 (09:04→21:17)
[2021-02-27] MEDS: Acetaminophen 325 MG Tab PO PRN (09:05)
[2021-02-27] MEDS: Gabapentin 600 MG Tab PO SCH ×3 (09:05→21:16)
[2021-02-27] MEDS: AMLODIPINE 10 MG PO SCH (09:08)
[2021-02-27] MEDS: Ondansetron 4 MG Tab.DIS PO PRN (09:08)
[2021-02-27] MEDS: BACLOFEN 10 MG PO SCH ×2 (09:10→14:05)
[2021-02-27] MEDS: DULOXETINE 30 MG PO SCH (09:10)
[2021-02-27] MEDS: IRON POLYSACCHARIDES COMPLEX 150 MG PO SCH (09:11)
[2021-02-27] MEDS: PANTOPRAZOLE 40 MG PO SCH (09:12)
[2021-02-27] MEDS ORDERED: Bacitracin/Neomycin/Polymyxin B Oint 15 GM Tube TOP SCH (11:00)
--- NOTE | 2021-02-27 12:11 | PCM.PN ---
- General Info Date of Service: 02/27/21 Admission Dx/Problem (Free Text): Admission Diagnosis/Problem Admission Diagnosis/Problem UTI, Urinary tract infectious disease Subjective Update: Patient is a 35-year-old male with a past medical history as listed below, most notable for functional quadriplegia who presented to the emergency department on February 24 in the late evening due to a chief complaint of generalized body aches. Patient has been living at home. He had been worried for himself as he does not believe he is getting the care and help he needs from family and friends. Pt is feeling fine. Does not have any new complaints. Blood pressure is soft at times Hemoglobin 8.7. Fecal cocci blood was ordered Patient asking for more pain medications. Educated the patient - Review of Systems General: Reports: Weakness HEENT: Reports: No Symptoms Pulmonary: Reports: No Symptoms Cardiovascular: Reports: No Symptoms Gastrointestinal: Reports: No Symptoms Genitourinary: Reports: No Symptoms Musculoskeletal: Reports: Other (Body ache) Skin: Reports: No Symptoms Neurological: Reports: No Symptoms, Other (Quadriplegia) Psychiatric: Reports: No Symptoms - Patient Data Vitals - Most Recent: Last Vital Signs Temp 36.9 C 02/27/21 05:16 Pulse 75 02/27/21 05:16 Resp 20 02/27/21 05:16 BP 98/56 L 02/27/21 11:07 Pulse Ox 98 02/27/21 05:16 Weight - Most Recent: 76.476 kg I&O - Last 24 Hours: Intake & Output 02/26/21 02/27/21 02/27/21 22:59 06:59 14:59 Intake Total 1700 1720 Output Total 1100 1900 Balance 600 -180 Leon Results Last 24 Hours: Microbiology 02/24/21 21:30 Urine Culture - Preliminary Urine Gram Negative Rods Gram Negative Rods#2 02/25/21 09:47 Miscellaneous Reference Culture - Preliminary Sacrum Staphylococcus Aureus Gram Stain - Final Med Orders - Current: Current Medications Acetaminophen (Acetaminophen 325 Mg Tab) 650 mg PO Q6H PRN PRN Reason: Pain Last Admin: 02/27/21 09:05 Dose: 650 mg Documented by: Docusate Sodium (Docusate Sodium 100 Mg Cap) 100 mg PO Q12H PRN PRN Reason: Constipation Gabapentin (Gabapentin 600 Mg Tab) 600 mg PO TID [facility] Last Admin: 02/27/21 09:05 Dose: 600 mg Documented by: Lactulose (Lactulose Soln 10 Gm/15 Ml 30 Ml Ud Cup) 20 gm PO DAILY PRN PRN Reason: Constipation Stop: 03/05/21 09:31 Levofloxacin (Levofloxacin 750 Mg Tab) 750 mg PO Q24H [facility] Last Admin: 02/26/21 20:10 Dose: 750 mg Documented by: Lorazepam (Lorazepam 0.5 Mg Tab) 0.5 mg PO TID [facility] Last Admin: 02/27/21 09:04 Dose: 0.5 mg Documented by: Morphine Sulfate (Morphine 2 Mg/Ml Syringe) 2 mg IVPUSH Q8H PRN PRN Reason: Pain (severe 7-10) Last Admin: 02/27/21 05:21 Dose: 2 mg Documented by: Neomycin/Polymyxin/Bacitracin (Bacitracin/Neomycin/Polymyxin B Oint 15 Gm Tube) 0 gm TOP DAILY [facility] Ondansetron HCl (Ondansetron 4 Mg Tab.Dis) 4 mg PO Q8H PRN PRN Reason: Nausea Last Admin: 02/27/21 09:08 Dose: 4 mg Documented by: Iron Polysaccharides Complex 150 Mg Cap Patient's Own Med 0 each PO DAILY [facility] Last Admin: 02/27/21 09:11 Dose: 1 each Documented by: Sucralfate 1 Gm Tab Patient's Own Med 0 each PO QIDACANDBED [facility] Last Admin: 02/27/21 10:51 Dose: 1 each Documented by: Apixaban 5 Mg Tab Patient's Own Med * * 0 each PO BID [facility] Last Admin: 02/27/21 09:09 Dose: 1 each Documented by: Baclofen 10 Mg Tab Patient's Own Med 0 each PO TID [facility] Last Admin: 02/27/21 09:10 Dose: 1 each Documented by: Pantoprazole 40 Mg Tab.Cr Patient's Own Med 0 each PO BID [facility] Last Admin: 02/27/21 09:12 Dose: 1 each Documented by: Amlodipine 10 Mg Tab Patient's Own Med 0 each PO DAILY [facility] Last Admin: 02/27/21 09:08 Dose: Not Given Documented by: Duloxetine 30 Mg Cap Patient's Own Med 0 each PO DAILY [facility] Last Admin: 02/27/21 09:10 Dose: 1 each Documented by: Sodium Chloride (Sodium Chloride 0.9% 10 Ml Syringe) 10 ml FLUSH ASDIRECTED PRN PRN Reason: Keep Vein Open Last Admin: 02/25/21 13:17 Dose: 10 ml Documented by: Discontinued Medications Acetaminophen (Acetaminophen 325 Mg Tab) 650 mg PO NOW ONE Stop: 02/25/21 05:58 Last Admin: 02/25/21 06:03 Dose: 650 mg Documented by: Acetaminophen (Acetaminophen 325 Mg Tab) Confirm Administered Dose 650 mg .ROUTE .STK-MED ONE Stop: 02/25/21 06:03 Last Admin: 02/25/21 17:37 Dose: Not Given Documented by: Acetaminophen (Acetaminophen 325 Mg Tab) Confirm Administered Dose 325 mg .ROUTE .STK-MED ONE Stop: 02/25/21 06:07 Last Admin: 02/25/21 17:38 Dose: Not Given Documented by: Hydrocodone Bitart/Acetaminophen (Acetaminophen/Hydrocodone 325-5 Mg Tab) 2 tab PO ONETIME ONE Stop: 02/25/21 09:45 Last Admin: 02/25/21 09:55 Dose: 2 tab Documented by: Amlodipine Besylate (Amlodipine 5 Mg Tab) 10 mg PO DAILY [facility] Amlodipine Besylate (Amlodipine 5 Mg Tab) 2.5 mg PO DAILY [facility] Last Admin: 02/26/21 13:43 Dose: Not Given Documented by: Apixaban (Apixaban 5 Mg Tab) 5 mg PO DAILY [facility] Last Admin: 02/26/21 13:43 Dose: Not Given Documented by: Baclofen (Baclofen 10 Mg Tab) 30 mg PO QID [facility] Last Admin: 02/26/21 13:43 Dose: Not Given Documented by: Baclofen (Baclofen 10 Mg Tab) 30 mg PO TID [facility] Duloxetine HCl (Duloxetine 30 Mg Cap) 30 mg PO DAILY [facility] Last Admin: 02/26/21 13:42 Dose: Not Given Documented by: Hydromorphone HCl (Hydromorphone 0.5 Mg/0.5 Ml Syringe) 0.5 mg IVPUSH ONETIME ONE Stop: 02/25/21 14:15 Last Admin: 02/25/21 14:33 Dose: 0.5 mg Documented by: Hydromorphone HCl (Hydromorphone 0.5 Mg/0.5 Ml Syringe) 0.5 mg IVPUSH ONETIME ONE Stop: 02/25/21 17:45 Last Admin: 02/25/21 18:01 Dose: 0.5 mg Documented by: Vancomycin HCl 2 gm/ Sodium (Chloride) 500 mls @ 250 mls/hr IV ONETIME ONE Stop: 02/25/21 15:59 Last Admin: 02/25/21 13:57 Dose: 250 mls/hr Documented by: Ketorolac Tromethamine (Ketorolac 15 Mg/Ml Sdv) 30 mg IM ONETIME ONE Stop: 02/25/21 01:06 Last Admin: 02/25/21 01:16 Dose: 30 mg Documented by: Levofloxacin (Levofloxacin 750 Mg Tab) 750 mg PO ONETIME ONE Stop: 02/24/21 22:47 Last Admin: 02/24/21 22:53 Dose: 750 mg Documented by: Ondansetron HCl (Ondansetron 4 Mg Tab.Dis) 4 mg PO ONETIME ONE Stop: 02/25/21 02:39 Last Admin: 02/25/21 02:43 Dose: 4 mg Documented by: Ondansetron HCl (Ondansetron 4 Mg Tab.Dis) Confirm Administered Dose 4 mg .ROUTE .STK-MED ONE Stop: 02/25/21 02:43 Last Admin: 02/25/21 17:38 Dose: Not Given Documented by: Ondansetron HCl (Ondansetron 4 Mg Tab.Dis) 4 mg PO ONETIME ONE Stop: 02/25/21 19:57 Last Admin: 02/25/21 20:15 Dose: 4 mg Documented by: Pantoprazole Sodium (Pantoprazole 40 Mg Tab.Cr) 40 mg PO BID [facility] Last Admin: 02/26/21 13:43 Dose: Not Given Documented by: - Exam Urinary Catheter Total Time: 1Days 6Hours General: Alert, Oriented, Cooperative HEENT: Pupils Equal, Pupils Reactive, EOMI Neck: Supple, No JVD Lungs: Clear to Auscultation, Normal Respiratory Effort Cardiovascular: Regular Rate, Regular Rhythm, No Murmurs, Irregular Rhythm GI/Abdominal Exam: Normal Bowel Sounds, Soft, Non-Tender, No Organomegaly Extremities: Non-Tender, No Pedal Edema Skin: Other Wound/Incisions: Other (pressure ulcers x 1, stage II-III over left hip area; pressure ulcers x 2, stage II-III over right hip area; ulcers, stage II-III over sacral area. bases of ulcers are covered by purulent secretion) Neurological: Other (decreased strength and sensation in the both arms and legs) Psy/Mental Status: Alert, Normal Affect, Normal Mood - Patient Data Result Diagrams: 02/26/21 04:30 02/26/21 04:30 Leon Results Last 24 hrs: Microbiology 02/24/21 21:30 Urine Culture - Preliminary Urine Gram Negative Rods Gram Negative Rods#2 02/25/21 09:47 Miscellaneous Reference Culture - Preliminary Sacrum Staphylococcus Aureus Gram Stain - Final Sepsis Event Note - Evaluation Sepsis Screening Result: No Definite Risk - Focused Exam Vital Signs: Vital Signs Temp Pulse Resp BP BP Pulse Ox 02/27/21 11:07 98/56 L 02/27/21 05:16 36.9 C 75 20 109/84 98 - Problem List Review Problem List Initiated/Reviewed/Updated: Yes - My Orders Last 24 Hours: My Active Orders 02/26/21 16:33 Renew/Continue Urinary Catheter [OM.PC] Routine 02/26/21 18:50 Up With Assistance [RC] ASDIRECTED 02/27/21 11:59 Patient Status [ADT] Routine 02/28/21 05:00 CBC WITH AUTO DIFF [HEME] DAILY COMPREHENSIVE METABOLIC PN,CMP [CHEM] DAILY 03/01/21 05:00 CBC WITH AUTO DIFF [HEME] DAILY COMPREHENSIVE METABOLIC PN,CMP [CHEM] DAILY 03/02/21 05:00 CBC WITH AUTO DIFF [HEME] DAILY COMPREHENSIVE METABOLIC PN,CMP [CHEM] DAILY 03/03/21 05:00 CBC WITH AUTO DIFF [HEME] DAILY COMPREHENSIVE METABOLIC PN,CMP [CHEM] DAILY 03/04/21 05:00 CBC WITH AUTO DIFF [HEME] DAILY COMPREHENSIVE METABOLIC PN,CMP [CHEM] DAILY - Plan Plan:: Patient is a 35-year-old male with a past medical history as listed above who presented to the emergency department with generalized body aches and requesting placement into a halfway because he believes he is not cared for and obviously cannot do it himself considering his neurologic condition. 1. Urinary tract infection. Uncomplicated in the setting of neurogenic bladder. Not septic and nontoxic-appearing. Monitor volume status. Empiric antibiotics with levofloxacin to continue. Urine culture showed gram-negative rods, sensitivity pending Continue Levaquin 2. Skin ulcerations and skin breakdown. Pressure ulcers x 1, stage II-III over left hip area; pressure ulcers x 2, stage II-III over right hip area; ulcers, stage II-III over sacral area. bases of ulcers are covered by purulent secretion All wounds likely pressure ulcers in nature. Wound care Topical antibiotics Wound care showed miscellaneous, light growth staph aureus Case management and professor of social work involvement for placement into halfway. Awaiting placement on Sunday. Consistent repositioning. 3. Alcohol and methamphetamine abuse. Patient not acutely intoxicated with meth. Patient drinks about 8 ounces of hard liquor a day. Patient is on 3 times daily lorazepam at baseline which we will continue. Has never gone through with draw. Will invoke [facility] protocol if necessary. 4. Quadriplegia. PT and OT. Wound care as mentioned above. Frequent with repositioning. Intermittent catheterizations for urination. Baclofen at home dose. All other medical comorbidities are stable and nonactive conditions, will continue home medications at regular dose. CODE STATUS: Full code. DVT prophylaxis with enoxaparin.
[2021-02-27] MEDS ORDERED: Enoxaparin 40 MG/0.4 ML Syringe SUBCUT SCH (12:30)
[2021-02-27] MEDS: Bacitracin/Neomycin/Polymyxin B Oint 15 GM Tube TOP SCH (15:25)
[2021-02-27] MEDS ORDERED: Apixaban 5 MG Tab PO SCH (17:51)
[2021-02-27] MEDS ORDERED: Baclofen 10 MG Tab PO SCH (17:52)
[2021-02-27] MEDS ORDERED: Iron Polysaccharides Complex 150 MG Cap PO SCH (17:54)
[2021-02-27] MEDS ORDERED: Sucralfate 1 GM Tab PO SCH (17:56)
[2021-02-27] MEDS ORDERED: Pantoprazole 40 MG Tab.CR PO SCH (17:57)
[2021-02-27] MEDS ORDERED: amLODIPine 2.5 MG Tab PO SCH (17:58)
[2021-02-27] MEDS ORDERED: DULoxetine 30 MG Cap PO SCH (18:00)
[2021-02-27] MEDS: Sucralfate 1 GM Tab PO SCH (21:16)
[2021-02-27] MEDS: Baclofen 10 MG Tab PO SCH (21:16)
[2021-02-27] MEDS: Apixaban 5 MG Tab PO SCH (21:17)
[2021-02-27] MEDS: Pantoprazole 40 MG Tab.CR PO SCH (21:17)
[2021-02-27] MEDS: Levofloxacin 750 MG Tab PO SCH (21:19)
[2021-02-28] MEDS: Acetaminophen 325 MG Tab PO PRN (05:07)
[2021-02-28] MEDS: Morphine 2 MG/ML SYRINGE IVPUSH PRN ×3 (06:15→22:44)
[2021-02-28] MEDS: Sucralfate 1 GM Tab PO SCH ×4 (06:15→21:31)
[2021-02-28] MEDS: Bacitracin/Neomycin/Polymyxin B Oint 15 GM Tube TOP SCH (08:30)
[2021-02-28] MEDS: Iron Polysaccharides Complex 150 MG Cap PO SCH ×2 (09:31→10:17)
[2021-02-28] MEDS: Apixaban 5 MG Tab PO SCH ×3 (09:32→21:32)
[2021-02-28] MEDS: Gabapentin 600 MG Tab PO SCH ×4 (09:32→21:32)
[2021-02-28] MEDS: amLODIPine 2.5 MG Tab PO SCH (09:34)
[2021-02-28] MEDS: LORazepam 0.5 MG Tab PO SCH ×4 (09:35→21:31)
[2021-02-28] MEDS: DULoxetine 30 MG Cap PO SCH ×2 (09:36→10:16)
[2021-02-28] MEDS: Baclofen 10 MG Tab PO SCH ×4 (09:36→21:31)
[2021-02-28] MEDS: Pantoprazole 40 MG Tab.CR PO SCH ×3 (09:36→21:32)
[2021-02-28] MEDS ORDERED: Sodium Chloride 0.9% 500 ML IV ONE (11:00)
[2021-02-28] MEDS: Docusate Sodium 100 MG Cap PO PRN (11:03)
--- NOTE | 2021-02-28 11:55 | PCM.PN ---
- General Info Date of Service: 02/28/21 Admission Dx/Problem (Free Text): Admission Diagnosis/Problem Admission Diagnosis/Problem UTI, Urinary tract infectious disease Subjective Update: Patient is a 35-year-old male with a past medical history as listed below, most notable for functional quadriplegia who presented to the emergency department on February 24 in the late evening due to a chief complaint of generalized body aches. Patient has been living at home. He had been worried for himself as he does not believe he is getting the care and help he needs from family and friends. Pt is feeling fine. Does not have any new complaints. Blood pressure is soft at times. NS bolus Hemoglobin 8.9. Fecal cocci blood was ordered - Review of Systems Systems Review Comment:: General: Reports: Weakness HEENT: Reports: No Symptoms Pulmonary: Reports: No Symptoms Cardiovascular: Reports: No Symptoms Gastrointestinal: Reports: No Symptoms Genitourinary: Reports: No Symptoms Musculoskeletal: Reports: Other (Body ache) Skin: Reports: No Symptoms Neurological: Reports: No Symptoms, Other (Quadriplegia) Psychiatric: Reports: No Symptoms - Patient Data Vitals - Most Recent: Last Vital Signs Temp 37.0 C 02/28/21 04:14 Pulse 72 02/28/21 04:14 Resp 18 02/28/21 04:14 BP 90/37 L 02/28/21 09:34 Pulse Ox 98 02/28/21 04:14 Weight - Most Recent: 77.111 kg I&O - Last 24 Hours: Intake & Output 02/27/21 02/28/21 02/28/21 22:59 06:59 14:59 Intake Total 2520 2072 Output Total 2250 3900 Balance 270 -1828 Lab Results Last 24 Hours: Laboratory Results - last 24 hr 02/28/21 02/28/21 Range/Units 06:12 06:12 WBC 8.38 (4.23-9.07) K/mm3 RBC 4.41 L (4.63-6.08) M/mm3 Hgb 8.9 L (13.7-17.5) gm/dl Hct 31.4 L (40.1-51.0) % MCV 71.2 L (79.0-92.2) fl MCH 20.2 L (25.7-32.2) pg MCHC 28.3 L (32.2-35.5) g/dl RDW Std Deviation 50.9 H (35.1-43.9) fL Plt Count 588 H D (163-337) K/mm3 MPV 9.4 (9.4-12.3) fl Neut % (Auto) 62.5 (34.0-67.9) % Lymph % (Auto) 25.1 (21.8-53.1) % Ellis % (Auto) 7.9 (5.3-12.2) % Eos % (Auto) 3.9 (0.8-7.0) Baso % (Auto) 0.4 (0.1-1.2) % Neut # (Auto) 5.24 (1.78-5.38) K/mm3 Lymph # (Auto) 2.10 (1.32-3.57) K/mm3 Ellis # (Auto) 0.66 (0.30-0.82) K/mm3 Eos # (Auto) 0.33 (0.04-0.54) K/mm3 Baso # (Auto) 0.03 (0.01-0.08) K/mm3 Manual Slide Review Not Reportable Sodium 141 (136-145) mEq/L Potassium 4.5 (3.5-5.1) mEq/L Chloride 107 (98-107) mEq/L Carbon Dioxide 28 (21-32) mEq/L Anion Gap 10.5 (5-15) BUN 12 (7-18) mg/dL Creatinine 1.0 (0.7-1.3) mg/dL Est Cr Clr Drug Dosing 112.45 mL/min Estimated GFR (MDRD) > 60 (>60) mL/min BUN/Creatinine Ratio 12.0 L (14-18) Glucose 98 (70-99) mg/dL Calcium 8.1 L (8.5-10.1) mg/dL Total Bilirubin 0.1 L (0.2-1.0) mg/dL AST 11 L (15-37) U/L ALT 30 (16-63) U/L Alkaline Phosphatase 74 (46-116) U/L Total Protein 6.3 L (6.4-8.2) g/dl Albumin 2.3 L (3.4-5.0) g/dl Globulin 4.0 gm/dL Albumin/Globulin Ratio 0.6 L (1-2) Leon Results Last 24 Hours: Microbiology 02/25/21 09:47 Miscellaneous Reference Culture - Final Sacrum Staphylococcus Aureus Iso Consis W/Enterocutan Kylah Gram Stain - Final 02/24/21 21:30 Urine Culture - Preliminary Urine Pseudomonas Aeruginosa Klebsiella Pneumoniae Med Orders - Current: Current Medications Acetaminophen (Acetaminophen 325 Mg Tab) 650 mg PO Q6H PRN PRN Reason: Pain Last Admin: 02/28/21 05:07 Dose: 650 mg Documented by: Amlodipine Besylate (Amlodipine 2.5 Mg Tab) 2.5 mg PO DAILY [facility] Last Admin: 02/28/21 09:34 Dose: Not Given Documented by: Apixaban (Apixaban 5 Mg Tab) 5 mg PO BID [facility] Last Admin: 02/28/21 10:17 Dose: 5 mg Documented by: Baclofen (Baclofen 10 Mg Tab) 30 mg PO TID [facility] Last Admin: 02/28/21 10:17 Dose: 30 mg Documented by: Docusate Sodium (Docusate Sodium 100 Mg Cap) 100 mg PO Q12H PRN PRN Reason: Constipation Last Admin: 02/28/21 11:03 Dose: 100 mg Documented by: Duloxetine HCl (Duloxetine 30 Mg Cap) 30 mg PO DAILY [facility] Last Admin: 02/28/21 10:16 Dose: 30 mg Documented by: Gabapentin (Gabapentin 600 Mg Tab) 600 mg PO TID [facility] Last Admin: 02/28/21 10:17 Dose: 600 mg Documented by: Sodium Chloride (Normal Saline) 500 mls @ 250 mls/hr IV .BOLUS ONE Stop: 02/28/21 12:59 Last Admin: 02/28/21 11:03 Dose: 250 mls/hr Documented by: Lactulose (Lactulose Soln 10 Gm/15 Ml 30 Ml Ud Cup) 20 gm PO DAILY PRN PRN Reason: Constipation Stop: 03/05/21 09:31 Levofloxacin (Levofloxacin 750 Mg Tab) 750 mg PO Q24H [facility] Lorazepam (Lorazepam 0.5 Mg Tab) 0.5 mg PO TID [facility] Last Admin: 02/28/21 10:17 Dose: 0.5 mg Documented by: Morphine Sulfate (Morphine 2 Mg/Ml Syringe) 2 mg IVPUSH Q8H PRN PRN Reason: Pain (severe 7-10) Last Admin: 02/28/21 06:15 Dose: 2 mg Documented by: Neomycin/Polymyxin/Bacitracin (Bacitracin/Neomycin/Polymyxin B Oint 15 Gm Tube) 1 gm TOP DAILY [facility] Last Admin: 02/28/21 08:30 Dose: 1 applic Documented by: Ondansetron HCl (Ondansetron 4 Mg Tab.Dis) 4 mg PO Q8H PRN PRN Reason: Nausea Last Admin: 02/27/21 09:08 Dose: 4 mg Documented by: Pantoprazole Sodium (Pantoprazole 40 Mg Tab.Cr) 40 mg PO BID [facility] Last Admin: 02/28/21 10:19 Dose: Not Given Documented by: Polysaccharide Iron Complex (Iron Polysaccharides Complex 150 Mg Cap) 150 mg PO DAILY [facility] Last Admin: 02/28/21 10:17 Dose: 150 mg Documented by: Sodium Chloride (Sodium Chloride 0.9% 10 Ml Syringe) 10 ml FLUSH ASDIRECTED PRN PRN Reason: Keep Vein Open Last Admin: 02/25/21 13:17 Dose: 10 ml Documented by: Sucralfate (Sucralfate 1 Gm Tab) 1 gm PO QIDACANDBED [facility] Last Admin: 02/28/21 11:03 Dose: Not Given Documented by: Discontinued Medications Acetaminophen (Acetaminophen 325 Mg Tab) 650 mg PO NOW ONE Stop: 02/25/21 05:58 Last Admin: 02/25/21 06:03 Dose: 650 mg Documented by: Acetaminophen (Acetaminophen 325 Mg Tab) Confirm Administered Dose 650 mg .ROUTE .STK-MED ONE Stop: 02/25/21 06:03 Last Admin: 02/25/21 17:37 Dose: Not Given Documented by: Acetaminophen (Acetaminophen 325 Mg Tab) Confirm Administered Dose 325 mg .ROUTE .STK-MED ONE Stop: 02/25/21 06:07 Last Admin: 02/25/21 17:38 Dose: Not Given Documented by: Hydrocodone Bitart/Acetaminophen (Acetaminophen/Hydrocodone 325-5 Mg Tab) 2 tab PO ONETIME ONE Stop: 02/25/21 09:45 Last Admin: 02/25/21 09:55 Dose: 2 tab Documented by: Amlodipine Besylate (Amlodipine 5 Mg Tab) 10 mg PO DAILY [facility] Amlodipine Besylate (Amlodipine 5 Mg Tab) 2.5 mg PO DAILY [facility] Last Admin: 02/26/21 13:43 Dose: Not Given Documented by: Amlodipine Besylate (Amlodipine 2.5 Mg Tab) 2.5 mg PO DAILY [facility] Apixaban (Apixaban 5 Mg Tab) 5 mg PO DAILY [facility] Last Admin: 02/26/21 13:43 Dose: Not Given Documented by: Apixaban (Apixaban 5 Mg Tab) 5 mg PO BID [facility] Baclofen (Baclofen 10 Mg Tab) 30 mg PO QID [facility] Last Admin: 02/26/21 13:43 Dose: Not Given Documented by: Baclofen (Baclofen 10 Mg Tab) 30 mg PO TID [facility] Baclofen (Baclofen 10 Mg Tab) 30 mg PO TID [facility] Duloxetine HCl (Duloxetine 30 Mg Cap) 30 mg PO DAILY [facility] Last Admin: 02/26/21 13:42 Dose: Not Given Documented by: Duloxetine HCl (Duloxetine 30 Mg Cap) 30 mg PO DAILY [facility] Enoxaparin Sodium (Enoxaparin 40 Mg/0.4 Ml Syringe) 40 mg SUBCUT DAILY [facility] Last Admin: 02/27/21 14:00 Dose: 40 mg Documented by: Hydromorphone HCl (Hydromorphone 0.5 Mg/0.5 Ml Syringe) 0.5 mg IVPUSH ONETIME ONE Stop: 02/25/21 14:15 Last Admin: 02/25/21 14:33 Dose: 0.5 mg Documented by: Hydromorphone HCl (Hydromorphone 0.5 Mg/0.5 Ml Syringe) 0.5 mg IVPUSH ONETIME ONE Stop: 02/25/21 17:45 Last Admin: 02/25/21 18:01 Dose: 0.5 mg Documented by: Vancomycin HCl 2 gm/ Sodium (Chloride) 500 mls @ 250 mls/hr IV ONETIME ONE Stop: 02/25/21 15:59 Last Admin: 02/25/21 13:57 Dose: 250 mls/hr Documented by: Ketorolac Tromethamine (Ketorolac 15 Mg/Ml Sdv) 30 mg IM ONETIME ONE Stop: 02/25/21 01:06 Last Admin: 02/25/21 01:16 Dose: 30 mg Documented by: Levofloxacin (Levofloxacin 750 Mg Tab) 750 mg PO ONETIME ONE Stop: 02/24/21 22:47 Last Admin: 02/24/21 22:53 Dose: 750 mg Documented by: Levofloxacin (Levofloxacin 750 Mg Tab) 750 mg PO Q24H [facility] Last Admin: 02/27/21 21:19 Dose: 750 mg Documented by: Ondansetron HCl (Ondansetron 4 Mg Tab.Dis) 4 mg PO ONETIME ONE Stop: 02/25/21 02:39 Last Admin: 02/25/21 02:43 Dose: 4 mg Documented by: Ondansetron HCl (Ondansetron 4 Mg Tab.Dis) Confirm Administered Dose 4 mg .ROUTE .STK-MED ONE Stop: 02/25/21 02:43 Last Admin: 02/25/21 17:38 Dose: Not Given Documented by: Ondansetron HCl (Ondansetron 4 Mg Tab.Dis) 4 mg PO ONETIME ONE Stop: 02/25/21 19:57 Last Admin: 02/25/21 20:15 Dose: 4 mg Documented by: Pantoprazole Sodium (Pantoprazole 40 Mg Tab.Cr) 40 mg PO BID [facility] Last Admin: 02/26/21 13:43 Dose: Not Given Documented by: Pantoprazole Sodium (Pantoprazole 40 Mg Tab.Cr) 40 mg PO BID [facility] Iron Polysaccharides Complex 150 Mg Cap Patient's Own Med 0 each PO DAILY [facility] Last Admin: 02/27/21 09:11 Dose: 1 each Documented by: Sucralfate 1 Gm Tab Patient's Own Med 0 each PO QIDACANDBED [facility] Last Admin: 02/27/21 16:34 Dose: 1 each Documented by: Apixaban 5 Mg Tab Patient's Own Med * * 0 each PO BID [facility] Last Admin: 02/27/21 09:09 Dose: 1 each Documented by: Baclofen 10 Mg Tab Patient's Own Med 0 each PO TID [facility] Last Admin: 02/27/21 14:05 Dose: 1 each Documented by: Pantoprazole 40 Mg Tab.Cr Patient's Own Med 0 each PO BID [facility] Last Admin: 02/27/21 09:12 Dose: 1 each Documented by: Amlodipine 10 Mg Tab Patient's Own Med 0 each PO DAILY [facility] Last Admin: 02/27/21 09:08 Dose: Not Given Documented by: Duloxetine 30 Mg Cap Patient's Own Med 0 each PO DAILY [facility] Last Admin: 02/27/21 09:10 Dose: 1 each Documented by: Polysaccharide Iron Complex (Iron Polysaccharides Complex 150 Mg Cap) 150 mg PO DAILY [facility] Sucralfate (Sucralfate 1 Gm Tab) 1 gm PO QIDACANDBED TANVIR - Exam Urinary Catheter Total Time: 2Days 15Hours Physical Findings Comments:: General: Alert, Oriented, Cooperative HEENT: Pupils Equal, Pupils Reactive, EOMI Neck: Supple, No JVD Lungs: Clear to Auscultation, Normal Respiratory Effort Cardiovascular: Regular Rate, Regular Rhythm, No Murmurs, Irregular Rhythm GI/Abdominal Exam: Normal Bowel Sounds, Soft, Non-Tender, No Organomegaly Extremities: Non-Tender, No Pedal Edema Skin: Other : nath cath in place Wound/Incisions: Other (pressure ulcers x 1, stage II-III over left hip area; pressure ulcers x 2, stage II-III over right hip area; ulcers, stage II-III over sacral area. bases of ulcers are covered by purulent secretion) Neurological: Other (decreased strength and sensation in the both arms and legs) Psy/Mental Status: Alert, Normal Affect, Normal Mood - Patient Data Lab Results Last 24 hrs: Laboratory Results - last 24 hr 02/28/21 02/28/21 Range/Units 06:12 06:12 WBC 8.38 (4.23-9.07) K/mm3 RBC 4.41 L (4.63-6.08) M/mm3 Hgb 8.9 L (13.7-17.5) gm/dl Hct 31.4 L (40.1-51.0) % MCV 71.2 L (79.0-92.2) fl MCH 20.2 L (25.7-32.2) pg MCHC 28.3 L (32.2-35.5) g/dl RDW Std Deviation 50.9 H (35.1-43.9) fL Plt Count 588 H D (163-337) K/mm3 MPV 9.4 (9.4-12.3) fl Neut % (Auto) 62.5 (34.0-67.9) % Lymph % (Auto) 25.1 (21.8-53.1) % Ellis % (Auto) 7.9 (5.3-12.2) % Eos % (Auto) 3.9 (0.8-7.0) Baso % (Auto) 0.4 (0.1-1.2) % Neut # (Auto) 5.24 (1.78-5.38) K/mm3 Lymph # (Auto) 2.10 (1.32-3.57) K/mm3 Ellis # (Auto) 0.66 (0.30-0.82) K/mm3 Eos # (Auto) 0.33 (0.04-0.54) K/mm3 Baso # (Auto) 0.03 (0.01-0.08) K/mm3 Manual Slide Review Not Reportable Sodium 141 (136-145) mEq/L Potassium 4.5 (3.5-5.1) mEq/L Chloride 107 (98-107) mEq/L Carbon Dioxide 28 (21-32) mEq/L Anion Gap 10.5 (5-15) BUN 12 (7-18) mg/dL Creatinine 1.0 (0.7-1.3) mg/dL Est Cr Clr Drug Dosing 112.45 mL/min Estimated GFR (MDRD) > 60 (>60) mL/min BUN/Creatinine Ratio 12.0 L (14-18) Glucose 98 (70-99) mg/dL Calcium 8.1 L (8.5-10.1) mg/dL Total Bilirubin 0.1 L (0.2-1.0) mg/dL AST 11 L (15-37) U/L ALT 30 (16-63) U/L Alkaline Phosphatase 74 (46-116) U/L Total Protein 6.3 L (6.4-8.2) g/dl Albumin 2.3 L (3.4-5.0) g/dl Globulin 4.0 gm/dL Albumin/Globulin Ratio 0.6 L (1-2) Result Diagrams: 02/28/21 06:12 02/28/21 06:12 Leon Results Last 24 hrs: Microbiology 02/25/21 09:47 Miscellaneous Reference Culture - Final Sacrum Staphylococcus Aureus Iso Consis W/Enterocutan Kylah Gram Stain - Final 02/24/21 21:30 Urine Culture - Preliminary Urine Pseudomonas Aeruginosa Klebsiella Pneumoniae Sepsis Event Note - Evaluation Sepsis Screening Result: No Definite Risk - Focused Exam Vital Signs: Vital Signs Temp Pulse Resp BP Pulse Ox 02/28/21 09:34 90/37 L 02/28/21 04:14 37.0 C 72 18 112/66 98 02/27/21 23:50 36.6 C 77 18 114/85 97 - Problem List Review Problem List Initiated/Reviewed/Updated: Yes - My Orders Last 24 Hours: My Active Orders 02/27/21 11:59 Patient Status [ADT] Routine 02/27/21 14:00 Bacitracin/Neomycin/Polymyxin [Neosporin Oint] 1 gm TOP DAILY 02/27/21 17:34 PT Evaluation and Treatment [CONS] Routine 02/27/21 17:35 Consult to Occupational Therapy [OT Evaluation and Treatment] [CONS] Routine 02/27/21 18:03 amLODIPine [Norvasc] 2.5 mg PO DAILY 02/27/21 18:44 Renew/Continue Urinary Catheter [OM.PC] Routine 02/28/21 10:02 Consult to Speech Language Pathology [BACK ORDER CLERK Evaluation and Treatment] [CONS] Routine 02/28/21 11:00 Sodium Chloride 0.9% [Normal Saline] 500 ml IV .BOLUS 02/28/21 11:22 Renew/Continue Urinary Catheter [OM.PC] Routine 03/01/21 05:00 CBC WITH AUTO DIFF [HEME] DAILY COMPREHENSIVE METABOLIC PN,CMP [CHEM] DAILY 03/02/21 05:00 CBC WITH AUTO DIFF [HEME] DAILY COMPREHENSIVE METABOLIC PN,CMP [CHEM] DAILY 03/03/21 05:00 CBC WITH AUTO DIFF [HEME] DAILY COMPREHENSIVE METABOLIC PN,CMP [CHEM] DAILY 03/04/21 05:00 CBC WITH AUTO DIFF [HEME] DAILY COMPREHENSIVE METABOLIC PN,CMP [CHEM] DAILY - Plan Plan:: Patient is a 35-year-old male with a past medical history as listed above who presented to the emergency department with generalized body aches and requesting placement into a jail because he believes he is not cared for and obviously cannot do it himself considering his neurologic condition. 1. Urinary tract infection. neurogenic bladder, using cath at home by himself. I would like to discharge this patient on Nath catheter and to follow with the urologist. urine culture - positive for Pseudomonas aeruginosa and Klebsiella pneumoniae. Both are sensitive to Levaquin Continue levofloxacin Nath catheter in place. 2. Skin ulcerations and skin breakdown. Pressure ulcers x 1, stage II-III over left hip area; pressure ulcers x 2, stage II-III over right hip area; ulcers, stage II-III over sacral area. bases of ulcers are covered by purulent secretion All wounds likely pressure ulcers in nature. Wound care Topical antibiotics Wound culture showed miscellaneous, light growth staph aureus Case management and social security assessor involvement for placement into jail. Consistent repositioning. 3. Alcohol and methamphetamine abuse. Patient not acutely intoxicated with meth. Patient drinks about 8 ounces of hard liquor a day. Patient is on 3 times daily lorazepam at baseline which we will continue. Has never gone through with draw. Will invoke [facility] protocol if necessary. machine lay out worker consult 4. Quadriplegia. PT and OT. Wound care as mentioned above. Frequent with repositioning. Intermittent catheterizations for urination. Baclofen at home dose. 5. Hx of PE As per patient, he had a PE in the past. For which he had been taking Eliquis Continue Eliquis 6. Dysphagia? I was reported that he may have dysphagia Speech pathology consult All other medical comorbidities are stable and nonactive conditions, will continue home medications at regular dose. CODE STATUS: Full code. DVT prophylaxis: Eliquis Pt needs pcp, urology and wound care.
[2021-02-28] MEDS: Ondansetron 4 MG Tab.DIS PO PRN (18:28)
[2021-02-28] MEDS: Levofloxacin 750 MG Tab PO SCH (18:49)
[2021-03-01] MEDS: Sucralfate 1 GM Tab PO SCH ×2 (06:19→12:11)
[2021-03-01] MEDS: Morphine 2 MG/ML SYRINGE IVPUSH PRN ×3 (06:48→20:28)
--- NOTE | 2021-03-01 09:48 | US ---
Right upper extremity venous ultrasound: Duplex and color Doppler evaluation was obtained of the right internal jugular, subclavian, axillary, brachial, basilic, radial and ulnar veins. Comparison: No previous upper extremity venous ultrasound is available. Findings: Normal phasic flow, augmentation and compression are seen. Impression: 1. No findings of venous thrombosis is seen within the right upper extremity. Diagnostic code #1
--- NOTE | 2021-03-01 10:15 | PCM.PN ---
- General Info Date of Service: 03/01/21 Admission Dx/Problem (Free Text): Admission Diagnosis/Problem Admission Diagnosis/Problem UTI, Urinary tract infectious disease Subjective Update: Patient is a 35-year-old male with a past medical history as listed below, most notable for functional quadriplegia who presented to the emergency department on February 24 in the late evening due to a chief complaint of generalized body aches. Patient has been living at home. He had been worried for himself as he does not believe he is getting the care and help he needs from family and friends. Patient complains of right arm swelling and mild pain. He was found to cough up food. Blood pressure is improving Hemoglobin trending up to 9.6 today. Social work is working on placement - Review of Systems Systems Review Comment:: General: Reports: Weakness HEENT: Reports: No Symptoms Pulmonary: Reports: No Symptoms Cardiovascular: Reports: No Symptoms Gastrointestinal: Reports: No Symptoms Genitourinary: Reports: No Symptoms Musculoskeletal: Reports: Other (Body ache), right arm swelling Skin: Reports: No Symptoms Neurological: Reports: No Symptoms, Other (Quadriplegia) Psychiatric: Reports: No Symptoms - Patient Data Vitals - Most Recent: Last Vital Signs Temp 36.2 C 03/01/21 07:32 Pulse 57 L 03/01/21 07:32 Resp 16 03/01/21 07:32 BP 123/72 03/01/21 07:32 Pulse Ox 97 03/01/21 07:32 Weight - Most Recent: 78.517 kg I&O - Last 24 Hours: Intake & Output 02/28/21 03/01/21 03/01/21 22:59 06:59 14:59 Intake Total 3690 918 Output Total 3300 2050 Balance 390 -1132 Lab Results Last 24 Hours: Laboratory Results - last 24 hr 03/01/21 03/01/21 Range/Units 07:00 07:00 WBC 6.67 (4.23-9.07) K/mm3 RBC 4.73 (4.63-6.08) M/mm3 Hgb 9.6 L (13.7-17.5) gm/dl Hct 33.4 L (40.1-51.0) % MCV 70.6 L (79.0-92.2) fl MCH 20.3 L (25.7-32.2) pg MCHC 28.7 L (32.2-35.5) g/dl RDW Std Deviation 51.8 H (35.1-43.9) fL Plt Count 596 H (163-337) K/mm3 MPV 8.9 L (9.4-12.3) fl Neut % (Auto) 50.6 (34.0-67.9) % Lymph % (Auto) 34.9 (21.8-53.1) % [place] % (Auto) 6.1 (5.3-12.2) % Eos % (Auto) 7.6 H (0.8-7.0) Baso % (Auto) 0.4 (0.1-1.2) % Neut # (Auto) 3.36 (1.78-5.38) K/mm3 Lymph # (Auto) 2.33 (1.32-3.57) K/mm3 [place] # (Auto) 0.41 (0.30-0.82) K/mm3 Eos # (Auto) 0.51 (0.04-0.54) K/mm3 Baso # (Auto) 0.03 (0.01-0.08) K/mm3 Manual Slide Review Normal smear Sodium 143 (136-145) mEq/L Potassium 4.1 (3.5-5.1) mEq/L Chloride 109 H (98-107) mEq/L Carbon Dioxide 27 (21-32) mEq/L Anion Gap 11.1 (5-15) BUN 12 (7-18) mg/dL Creatinine 0.9 (0.7-1.3) mg/dL Est Cr Clr Drug Dosing 127.23 mL/min Estimated GFR (MDRD) > 60 (>60) mL/min BUN/Creatinine Ratio 13.3 L (14-18) Glucose 88 (70-99) mg/dL Calcium 8.5 (8.5-10.1) mg/dL Total Bilirubin 0.1 L (0.2-1.0) mg/dL AST 13 L (15-37) U/L ALT 27 (16-63) U/L Alkaline Phosphatase 67 (46-116) U/L Total Protein 6.5 (6.4-8.2) g/dl Albumin 2.4 L (3.4-5.0) g/dl Globulin 4.1 gm/dL Albumin/Globulin Ratio 0.6 L (1-2) Leon Results Last 24 Hours: Microbiology 02/25/21 09:47 Miscellaneous Reference Culture - Final Sacrum Staphylococcus Aureus Iso Consis W/Enterocutan Kylah Gram Stain - Final 02/24/21 21:30 Urine Culture - Preliminary Urine Pseudomonas Aeruginosa Klebsiella Pneumoniae Med Orders - Current: Current Medications Acetaminophen (Acetaminophen 325 Mg Tab) 650 mg PO Q6H PRN PRN Reason: Pain Last Admin: 02/28/21 05:07 Dose: 650 mg Documented by: Amlodipine Besylate (Amlodipine 2.5 Mg Tab) 2.5 mg PO DAILY [facility] Last Admin: 02/28/21 09:34 Dose: Not Given Documented by: Apixaban (Apixaban 5 Mg Tab) 5 mg PO BID [facility] Last Admin: 02/28/21 21:32 Dose: 5 mg Documented by: Baclofen (Baclofen 10 Mg Tab) 30 mg PO TID [facility] Last Admin: 02/28/21 21:31 Dose: 30 mg Documented by: Docusate Sodium (Docusate Sodium 100 Mg Cap) 100 mg PO Q12H PRN PRN Reason: Constipation Last Admin: 02/28/21 11:03 Dose: 100 mg Documented by: Duloxetine HCl (Duloxetine 30 Mg Cap) 30 mg PO DAILY [facility] Last Admin: 02/28/21 10:16 Dose: 30 mg Documented by: Gabapentin (Gabapentin 600 Mg Tab) 600 mg PO TID [facility] Last Admin: 02/28/21 21:32 Dose: 600 mg Documented by: Lactulose (Lactulose Soln 10 Gm/15 Ml 30 Ml Ud Cup) 20 gm PO DAILY PRN PRN Reason: Constipation Stop: 03/05/21 09:31 Levofloxacin (Levofloxacin 750 Mg Tab) 750 mg PO Q24H [facility] Last Admin: 02/28/21 18:49 Dose: 750 mg Documented by: Lorazepam (Lorazepam 0.5 Mg Tab) 0.5 mg PO TID [facility] Last Admin: 02/28/21 21:31 Dose: 0.5 mg Documented by: Morphine Sulfate (Morphine 2 Mg/Ml Syringe) 2 mg IVPUSH Q8H PRN PRN Reason: Pain (severe 7-10) Last Admin: 03/01/21 06:48 Dose: 2 mg Documented by: Neomycin/Polymyxin/Bacitracin (Bacitracin/Neomycin/Polymyxin B Oint 15 Gm Tube) 1 gm TOP DAILY [facility] Last Admin: 02/28/21 08:30 Dose: 1 applic Documented by: Ondansetron HCl (Ondansetron 4 Mg Tab.Dis) 4 mg PO Q8H PRN PRN Reason: Nausea Last Admin: 02/28/21 18:28 Dose: 4 mg Documented by: Pantoprazole Sodium (Pantoprazole 40 Mg Tab.Cr) 40 mg PO BID [facility] Last Admin: 02/28/21 21:32 Dose: 40 mg Documented by: Polysaccharide Iron Complex (Iron Polysaccharides Complex 150 Mg Cap) 150 mg PO DAILY [facility] Last Admin: 02/28/21 10:17 Dose: 150 mg Documented by: Sodium Chloride (Sodium Chloride 0.9% 10 Ml Syringe) 10 ml FLUSH ASDIRECTED PRN PRN Reason: Keep Vein Open Last Admin: 02/25/21 13:17 Dose: 10 ml Documented by: Sucralfate (Sucralfate 1 Gm Tab) 1 gm PO QIDACANDBED [facility] Last Admin: 03/01/21 06:19 Dose: 1 gm Documented by: Discontinued Medications Acetaminophen (Acetaminophen 325 Mg Tab) 650 mg PO NOW ONE Stop: 02/25/21 05:58 Last Admin: 02/25/21 06:03 Dose: 650 mg Documented by: Acetaminophen (Acetaminophen 325 Mg Tab) Confirm Administered Dose 650 mg .ROUTE .STK-MED ONE Stop: 02/25/21 06:03 Last Admin: 02/25/21 17:37 Dose: Not Given Documented by: Acetaminophen (Acetaminophen 325 Mg Tab) Confirm Administered Dose 325 mg .ROUTE .STK-MED ONE Stop: 02/25/21 06:07 Last Admin: 02/25/21 17:38 Dose: Not Given Documented by: Hydrocodone Bitart/Acetaminophen (Acetaminophen/Hydrocodone 325-5 Mg Tab) 2 tab PO ONETIME ONE Stop: 02/25/21 09:45 Last Admin: 02/25/21 09:55 Dose: 2 tab Documented by: Amlodipine Besylate (Amlodipine 5 Mg Tab) 10 mg PO DAILY [facility] Amlodipine Besylate (Amlodipine 5 Mg Tab) 2.5 mg PO DAILY [facility] Last Admin: 02/26/21 13:43 Dose: Not Given Documented by: Amlodipine Besylate (Amlodipine 2.5 Mg Tab) 2.5 mg PO DAILY [facility] Apixaban (Apixaban 5 Mg Tab) 5 mg PO DAILY [facility] Last Admin: 02/26/21 13:43 Dose: Not Given Documented by: Apixaban (Apixaban 5 Mg Tab) 5 mg PO BID [facility] Baclofen (Baclofen 10 Mg Tab) 30 mg PO QID [facility] Last Admin: 02/26/21 13:43 Dose: Not Given Documented by: Baclofen (Baclofen 10 Mg Tab) 30 mg PO TID [facility] Baclofen (Baclofen 10 Mg Tab) 30 mg PO TID [facility] Duloxetine HCl (Duloxetine 30 Mg Cap) 30 mg PO DAILY [facility] Last Admin: 02/26/21 13:42 Dose: Not Given Documented by: Duloxetine HCl (Duloxetine 30 Mg Cap) 30 mg PO DAILY [facility] Enoxaparin Sodium (Enoxaparin 40 Mg/0.4 Ml Syringe) 40 mg SUBCUT DAILY [facility] Last Admin: 02/27/21 14:00 Dose: 40 mg Documented by: Hydromorphone HCl (Hydromorphone 0.5 Mg/0.5 Ml Syringe) 0.5 mg IVPUSH ONETIME ONE Stop: 02/25/21 14:15 Last Admin: 02/25/21 14:33 Dose: 0.5 mg Documented by: Hydromorphone HCl (Hydromorphone 0.5 Mg/0.5 Ml Syringe) 0.5 mg IVPUSH ONETIME ONE Stop: 02/25/21 17:45 Last Admin: 02/25/21 18:01 Dose: 0.5 mg Documented by: Vancomycin HCl 2 gm/ Sodium (Chloride) 500 mls @ 250 mls/hr IV ONETIME ONE Stop: 02/25/21 15:59 Last Admin: 02/25/21 13:57 Dose: 250 mls/hr Documented by: Sodium Chloride (Normal Saline) 500 mls @ 250 mls/hr IV .BOLUS ONE Stop: 02/28/21 12:59 Last Admin: 02/28/21 11:03 Dose: 250 mls/hr Documented by: Ketorolac Tromethamine (Ketorolac 15 Mg/Ml Sdv) 30 mg IM ONETIME ONE Stop: 02/25/21 01:06 Last Admin: 02/25/21 01:16 Dose: 30 mg Documented by: Levofloxacin (Levofloxacin 750 Mg Tab) 750 mg PO ONETIME ONE Stop: 02/24/21 22:47 Last Admin: 02/24/21 22:53 Dose: 750 mg Documented by: Levofloxacin (Levofloxacin 750 Mg Tab) 750 mg PO Q24H [facility] Last Admin: 02/27/21 21:19 Dose: 750 mg Documented by: Ondansetron HCl (Ondansetron 4 Mg Tab.Dis) 4 mg PO ONETIME ONE Stop: 02/25/21 02:39 Last Admin: 02/25/21 02:43 Dose: 4 mg Documented by: Ondansetron HCl (Ondansetron 4 Mg Tab.Dis) Confirm Administered Dose 4 mg .ROUTE .STK-MED ONE Stop: 02/25/21 02:43 Last Admin: 02/25/21 17:38 Dose: Not Given Documented by: Ondansetron HCl (Ondansetron 4 Mg Tab.Dis) 4 mg PO ONETIME ONE Stop: 02/25/21 19:57 Last Admin: 02/25/21 20:15 Dose: 4 mg Documented by: Pantoprazole Sodium (Pantoprazole 40 Mg Tab.Cr) 40 mg PO BID [facility] Last Admin: 02/26/21 13:43 Dose: Not Given Documented by: Pantoprazole Sodium (Pantoprazole 40 Mg Tab.Cr) 40 mg PO BID [facility] Iron Polysaccharides Complex 150 Mg Cap Patient's Own Med 0 each PO DAILY [facility] Last Admin: 02/27/21 09:11 Dose: 1 each Documented by: Sucralfate 1 Gm Tab Patient's Own Med 0 each PO QIDACANDBED [facility] Last Admin: 02/27/21 16:34 Dose: 1 each Documented by: Apixaban 5 Mg Tab Patient's Own Med * * 0 each PO BID [facility] Last Admin: 02/27/21 09:09 Dose: 1 each Documented by: Baclofen 10 Mg Tab Patient's Own Med 0 each PO TID [facility] Last Admin: 02/27/21 14:05 Dose: 1 each Documented by: Pantoprazole 40 Mg Tab.Cr Patient's Own Med 0 each PO BID [facility] Last Admin: 02/27/21 09:12 Dose: 1 each Documented by: Amlodipine 10 Mg Tab Patient's Own Med 0 each PO DAILY [facility] Last Admin: 02/27/21 09:08 Dose: Not Given Documented by: Duloxetine 30 Mg Cap Patient's Own Med 0 each PO DAILY [facility] Last Admin: 02/27/21 09:10 Dose: 1 each Documented by: Polysaccharide Iron Complex (Iron Polysaccharides Complex 150 Mg Cap) 150 mg PO DAILY [facility] Sucralfate (Sucralfate 1 Gm Tab) 1 gm PO QIDACANDBED [facility] - Exam Urinary Catheter Total Time: 3Days 2Hours Physical Findings Comments:: General: Alert, Oriented, Cooperative HEENT: Pupils Equal, Pupils Reactive, EOMI Neck: Supple, No JVD Lungs: Clear to Auscultation, Normal Respiratory Effort Cardiovascular: Regular Rate, Regular Rhythm, No Murmurs, Irregular Rhythm GI/Abdominal Exam: Normal Bowel Sounds, Soft, Non-Tender, No Organomegaly Extremities: Non-Tender, right arm swelling, no tenderness Skin: Other : nath cath in place Wound/Incisions: Other (pressure ulcers x 1, stage II-III over left hip area; pressure ulcers x 2, stage II-III over right hip area; ulcers, stage II-III over sacral area. bases of ulcers are covered by purulent secretion) Neurological: Other (decreased strength and sensation in the both arms and legs) Psy/Mental Status: Alert, Normal Affect, Normal Mood - Patient Data Lab Results Last 24 hrs: Laboratory Results - last 24 hr 03/01/21 03/01/21 Range/Units 07:00 07:00 WBC 6.67 (4.23-9.07) K/mm3 RBC 4.73 (4.63-6.08) M/mm3 Hgb 9.6 L (13.7-17.5) gm/dl Hct 33.4 L (40.1-51.0) % MCV 70.6 L (79.0-92.2) fl MCH 20.3 L (25.7-32.2) pg MCHC 28.7 L (32.2-35.5) g/dl RDW Std Deviation 51.8 H (35.1-43.9) fL Plt Count 596 H (163-337) K/mm3 MPV 8.9 L (9.4-12.3) fl Neut % (Auto) 50.6 (34.0-67.9) % Lymph % (Auto) 34.9 (21.8-53.1) % [place] % (Auto) 6.1 (5.3-12.2) % Eos % (Auto) 7.6 H (0.8-7.0) Baso % (Auto) 0.4 (0.1-1.2) % Neut # (Auto) 3.36 (1.78-5.38) K/mm3 Lymph # (Auto) 2.33 (1.32-3.57) K/mm3 [place] # (Auto) 0.41 (0.30-0.82) K/mm3 Eos # (Auto) 0.51 (0.04-0.54) K/mm3 Baso # (Auto) 0.03 (0.01-0.08) K/mm3 Manual Slide Review Normal smear Sodium 143 (136-145) mEq/L Potassium 4.1 (3.5-5.1) mEq/L Chloride 109 H (98-107) mEq/L Carbon Dioxide 27 (21-32) mEq/L Anion Gap 11.1 (5-15) BUN 12 (7-18) mg/dL Creatinine 0.9 (0.7-1.3) mg/dL Est Cr Clr Drug Dosing 127.23 mL/min Estimated GFR (MDRD) > 60 (>60) mL/min BUN/Creatinine Ratio 13.3 L (14-18) Glucose 88 (70-99) mg/dL Calcium 8.5 (8.5-10.1) mg/dL Total Bilirubin 0.1 L (0.2-1.0) mg/dL AST 13 L (15-37) U/L ALT 27 (16-63) U/L Alkaline Phosphatase 67 (46-116) U/L Total Protein 6.5 (6.4-8.2) g/dl Albumin 2.4 L (3.4-5.0) g/dl Globulin 4.1 gm/dL Albumin/Globulin Ratio 0.6 L (1-2) Result Diagrams: 03/01/21 07:00 03/01/21 07:00 Leon Results Last 24 hrs: Microbiology 02/25/21 09:47 Miscellaneous Reference Culture - Final Sacrum Staphylococcus Aureus Iso Consis W/Enterocutan Kylah Gram Stain - Final 02/24/21 21:30 Urine Culture - Preliminary Urine Pseudomonas Aeruginosa Klebsiella Pneumoniae Sepsis Event Note - Evaluation Sepsis Screening Result: No Definite Risk - Focused Exam Vital Signs: Vital Signs Temp Pulse Resp BP Pulse Ox 03/01/21 07:32 36.2 C 57 L 16 123/72 97 03/01/21 03:48 36.3 C 72 18 112/71 94 L 02/28/21 23:39 36.8 C 78 18 130/87 98 - Problem List Review Problem List Initiated/Reviewed/Updated: Yes - My Orders Last 24 Hours: My Active Orders 02/28/21 10:02 Consult to Speech Language Pathology [COMPUTATOR Evaluation and Treatment] [CONS] Routine 02/28/21 11:22 Renew/Continue Urinary Catheter [OM.PC] Routine 03/02/21 05:00 CBC WITH AUTO DIFF [HEME] DAILY COMPREHENSIVE METABOLIC PN,CMP [CHEM] DAILY 03/03/21 05:00 CBC WITH AUTO DIFF [HEME] DAILY COMPREHENSIVE METABOLIC PN,CMP [CHEM] DAILY 03/04/21 05:00 CBC WITH AUTO DIFF [HEME] DAILY COMPREHENSIVE METABOLIC PN,CMP [CHEM] DAILY - Plan Plan:: Patient is a 35-year-old male with a past medical history as listed above who presented to the emergency department with generalized body aches and requesting placement into a [place] [facility] [place] because he believes he is not cared for and obviously cannot do it himself considering his neurologic condition. 1. Urinary tract infection. neurogenic bladder, using cath at home by himself. I would like to discharge this patient on Nath catheter and to follow with the urologist. urine culture - positive for Pseudomonas aeruginosa and Klebsiella pneumoniae. Both are sensitive to Levaquin Continue levofloxacin Nath catheter in place. 2. Skin ulcerations and skin breakdown. Pressure ulcers x 1, stage II-III over left hip area; pressure ulcers x 2, stage II-III over right hip area; ulcers, stage II-III over sacral area. bases of ulcers are covered by purulent secretion All wounds likely pressure ulcers in nature. Wound culture showed miscellaneous growth include staph aureus and eneterocutan kylah which are resistant to levofloxacin, but sensitive to clindamycin. 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 Wound care Topical antibiotics I will give him a short of course of clindamycin 600mg iv Q8hrs (since 03/01) Consistent repositioning. 3. Alcohol and methamphetamine abuse. Patient not acutely intoxicated with meth. Patient drinks about 8 ounces of hard liquor a day. Patient is on 3 times daily lorazepam at baseline which we will continue. Has never gone through with draw. Will invoke [facility] protocol if necessary. 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 Quadriplegia. PT and OT. Wound care as mentioned above. Frequent with repositioning. Intermittent catheterizations for urination. Baclofen at home dose. 5. Hx of PE As per patient, he had a PE in the past. For which he had been taking Eliquis Continue Eliquis 6. Dysphagia? I was reported that he may have dysphagia Speech pathology consult All other medical comorbidities are stable and nonactive conditions, will continue home medications at regular dose. CODE STATUS: Full code. DVT prophylaxis: Eliquis Pt needs pcp, urology and wound care. Length of stay greater then 96 hours due to slow response to treatment and placement.
[2021-03-01] MEDS ORDERED: Clindamycin Phosphate in D5W 600 MG in Premix Bag 1 BAG IV SCH ×2 (10:30)
[2021-03-01] MEDS: Baclofen 10 MG Tab PO SCH ×3 (10:48→21:57)
[2021-03-01] MEDS: amLODIPine 2.5 MG Tab PO SCH (10:49)
[2021-03-01] MEDS: LORazepam 0.5 MG Tab PO SCH ×3 (10:49→21:57)
[2021-03-01] MEDS: Apixaban 5 MG Tab PO SCH ×2 (10:49→21:57)
[2021-03-01] MEDS: Iron Polysaccharides Complex 150 MG Cap PO SCH (10:49)
[2021-03-01] MEDS: Gabapentin 600 MG Tab PO SCH ×3 (10:50→21:56)
[2021-03-01] MEDS: Bacitracin/Neomycin/Polymyxin B Oint 15 GM Tube TOP SCH (10:50)
[2021-03-01] MEDS: Pantoprazole 40 MG Tab.CR PO SCH ×2 (10:50→21:57)
[2021-03-01] MEDS: DULoxetine 30 MG Cap PO SCH (10:50)
[2021-03-01] MEDS: Clindamycin HCl 150 MG Cap PO SCH ×2 (10:58→19:04)
[2021-03-01] MEDS ORDERED: Clindamycin Phosphate 600 MG in Dextrose 5% in Water 100 ML IV SCH ×2 (11:00)
[2021-03-01] MEDS: Acetaminophen 325 MG Tab PO PRN (13:49)
[2021-03-01] MEDS: Sucralfate Suspension 1 GM/10 ML Cup PO SCH ×3 (13:55→21:57)
[2021-03-01] MEDS: Levofloxacin 750 MG Tab PO SCH (19:04)
[2021-03-02] MEDS: Morphine 2 MG/ML SYRINGE IVPUSH PRN ×4 (02:50→23:34)
[2021-03-02] MEDS: Clindamycin HCl 150 MG Cap PO SCH ×3 (02:54→18:44)
[2021-03-02] MEDS: Sucralfate Suspension 1 GM/10 ML Cup PO SCH ×5 (06:58→22:44)
[2021-03-02] MEDS: Baclofen 10 MG Tab PO SCH ×3 (09:00→20:00)
[2021-03-02] MEDS: Apixaban 5 MG Tab PO SCH ×2 (09:01→20:00)
[2021-03-02] MEDS: LORazepam 0.5 MG Tab PO SCH ×3 (09:01→20:00)
[2021-03-02] MEDS: Gabapentin 600 MG Tab PO SCH ×3 (09:01→20:00)
[2021-03-02] MEDS: Acetaminophen 325 MG Tab PO PRN (09:02)
[2021-03-02] MEDS: amLODIPine 2.5 MG Tab PO SCH (09:04)
[2021-03-02] MEDS: DULoxetine 30 MG Cap PO SCH (09:05)
[2021-03-02] MEDS: Iron Polysaccharides Complex 150 MG Cap PO SCH (09:05)
[2021-03-02] MEDS: Pantoprazole 40 MG Tab.CR PO SCH ×2 (09:05→20:00)
[2021-03-02] MEDS: Bacitracin/Neomycin/Polymyxin B Oint 15 GM Tube TOP SCH (09:06)
[2021-03-02] MEDS: Docusate Sodium 100 MG Cap PO PRN (10:12)
--- NOTE | 2021-03-02 16:33 | PCM.PN ---
- General Info Date of Service: 03/02/21 Admission Dx/Problem (Free Text): Admission Diagnosis/Problem Admission Diagnosis/Problem UTI, Urinary tract infectious disease Subjective Update: Patient is a 35-year-old male with a past medical history as listed below, most notable for functional quadriplegia who presented to the emergency department on February 24 in the late evening due to a chief complaint of generalized body aches. Patient has been living at home. He had been worried for himself as he does not believe he is getting the care and help he needs from family and friends. Patient still complains of a pain at times and asking for pain medication. Otherwise the patient denies fever, chills, nausea, or vomiting. Vital signs are stable and acceptable Hemoglobin 9.0 Speech pathology saw patient -no dysphagia but suggested patient to see GI as an outpatient - Review of Systems Systems Review Comment:: General: Reports: Weakness HEENT: Reports: No Symptoms Pulmonary: Reports: No Symptoms Cardiovascular: Reports: No Symptoms Gastrointestinal: Reports: No Symptoms Genitourinary: Reports: No Symptoms Musculoskeletal: Reports: Other (Body ache), right arm swelling Skin: Reports: No Symptoms Neurological: Reports: No Symptoms, Other (Quadriplegia) Psychiatric: Reports: No Symptoms - Patient Data Vitals - Most Recent: Last Vital Signs Temp 36.4 C 03/02/21 11:20 Pulse 82 03/02/21 11:20 Resp 16 03/02/21 11:20 BP 128/49 L 03/02/21 11:20 Pulse Ox 99 03/02/21 11:20 Weight - Most Recent: 80.467 kg I&O - Last 24 Hours: Intake & Output 03/02/21 03/02/21 03/02/21 06:59 14:59 22:59 Intake Total 1200 880 Output Total 1500 Balance -300 880 Lab Results Last 24 Hours: Laboratory Results - last 24 hr 03/02/21 03/02/21 Range/Units 07:25 07:25 WBC 5.99 (4.23-9.07) K/mm3 RBC 4.42 L (4.63-6.08) M/mm3 Hgb 9.0 L (13.7-17.5) gm/dl Hct 31.3 L (40.1-51.0) % MCV 70.8 L (79.0-92.2) fl MCH 20.4 L (25.7-32.2) pg MCHC 28.8 L (32.2-35.5) g/dl RDW Std Deviation 51.6 H (35.1-43.9) fL Plt Count 617 H (163-337) K/mm3 MPV 8.9 L (9.4-12.3) fl Neut % (Auto) 46.4 (34.0-67.9) % Lymph % (Auto) 37.9 (21.8-53.1) % Crowley % (Auto) 6.8 (5.3-12.2) % Eos % (Auto) 7.8 H (0.8-7.0) Baso % (Auto) 0.8 (0.1-1.2) % Neut # (Auto) 2.77 (1.78-5.38) K/mm3 Lymph # (Auto) 2.27 (1.32-3.57) K/mm3 Crowley # (Auto) 0.41 (0.30-0.82) K/mm3 Eos # (Auto) 0.47 (0.04-0.54) K/mm3 Baso # (Auto) 0.05 (0.01-0.08) K/mm3 Manual Slide Review Abnormal smear Sodium 141 (136-145) mEq/L Potassium 3.9 (3.5-5.1) mEq/L Chloride 108 H (98-107) mEq/L Carbon Dioxide 25 (21-32) mEq/L Anion Gap 11.9 (5-15) BUN 14 (7-18) mg/dL Creatinine 0.9 (0.7-1.3) mg/dL Est Cr Clr Drug Dosing 130.39 mL/min Estimated GFR (MDRD) > 60 (>60) mL/min BUN/Creatinine Ratio 15.6 (14-18) Glucose 119 H (70-99) mg/dL Calcium 8.3 L (8.5-10.1) mg/dL Total Bilirubin 0.2 (0.2-1.0) mg/dL AST 19 (15-37) U/L ALT 23 (16-63) U/L Alkaline Phosphatase 62 (46-116) U/L Total Protein 6.3 L (6.4-8.2) g/dl Albumin 2.3 L (3.4-5.0) g/dl Globulin 4.0 gm/dL Albumin/Globulin Ratio 0.6 L (1-2) Med Orders - Current: Current Medications Acetaminophen (Acetaminophen 325 Mg Tab) 650 mg PO Q6H PRN PRN Reason: Pain Last Admin: 03/02/21 09:02 Dose: 650 mg Documented by: Amlodipine Besylate (Amlodipine 2.5 Mg Tab) 2.5 mg PO DAILY [facility] Last Admin: 03/02/21 09:04 Dose: 2.5 mg Documented by: Apixaban (Apixaban 5 Mg Tab) 5 mg PO BID [facility] Last Admin: 03/02/21 09:01 Dose: 5 mg Documented by: Baclofen (Baclofen 10 Mg Tab) 30 mg PO TID [facility] Last Admin: 03/02/21 15:38 Dose: 30 mg Documented by: Clindamycin HCl (Clindamycin Hcl 150 Mg Cap) 300 mg PO Q8H [facility] Last Admin: 03/02/21 10:12 Dose: 300 mg Documented by: Docusate Sodium (Docusate Sodium 100 Mg Cap) 100 mg PO Q12H PRN PRN Reason: Constipation Last Admin: 03/02/21 10:12 Dose: 100 mg Documented by: Duloxetine HCl (Duloxetine 30 Mg Cap) 30 mg PO DAILY [facility] Last Admin: 03/02/21 09:05 Dose: 30 mg Documented by: Gabapentin (Gabapentin 600 Mg Tab) 600 mg PO TID [facility] Last Admin: 03/02/21 15:37 Dose: 600 mg Documented by: Lactulose (Lactulose Soln 10 Gm/15 Ml 30 Ml Ud Cup) 20 gm PO DAILY PRN PRN Reason: Constipation Stop: 03/05/21 09:31 Levofloxacin (Levofloxacin 750 Mg Tab) 750 mg PO Q24H [facility] Last Admin: 03/01/21 19:04 Dose: 750 mg Documented by: Lorazepam (Lorazepam 0.5 Mg Tab) 0.5 mg PO TID [facility] Last Admin: 03/02/21 15:38 Dose: 0.5 mg Documented by: Morphine Sulfate (Morphine 2 Mg/Ml Syringe) 2 mg IVPUSH Q6H PRN PRN Reason: Pain (severe 7-10) Last Admin: 03/02/21 10:14 Dose: 2 mg Documented by: Neomycin/Polymyxin/Bacitracin (Bacitracin/Neomycin/Polymyxin B Oint 15 Gm Tube) 1 gm TOP DAILY [facility] Last Admin: 03/02/21 09:06 Dose: Not Given Documented by: Ondansetron HCl (Ondansetron 4 Mg Tab.Dis) 4 mg PO Q8H PRN PRN Reason: Nausea Last Admin: 02/28/21 18:28 Dose: 4 mg Documented by: Pantoprazole Sodium (Pantoprazole 40 Mg Tab.Cr) 40 mg PO BID [facility] Last Admin: 03/02/21 09:05 Dose: 40 mg Documented by: Polysaccharide Iron Complex (Iron Polysaccharides Complex 150 Mg Cap) 150 mg PO DAILY [facility] Last Admin: 03/02/21 09:05 Dose: 150 mg Documented by: Sodium Chloride (Sodium Chloride 0.9% 10 Ml Syringe) 10 ml FLUSH ASDIRECTED PRN PRN Reason: Keep Vein Open Last Admin: 02/25/21 13:17 Dose: 10 ml Documented by: Sucralfate (Sucralfate Suspension 1 Gm/10 Ml Cup) 1 gm PO QIDACANDBED [facility] Last Admin: 03/02/21 10:13 Dose: 1 gm Documented by: Discontinued Medications Acetaminophen (Acetaminophen 325 Mg Tab) 650 mg PO NOW ONE Stop: 02/25/21 05:58 Last Admin: 02/25/21 06:03 Dose: 650 mg Documented by: Acetaminophen (Acetaminophen 325 Mg Tab) Confirm Administered Dose 650 mg .ROUTE .STK-MED ONE Stop: 02/25/21 06:03 Last Admin: 02/25/21 17:37 Dose: Not Given Documented by: Acetaminophen (Acetaminophen 325 Mg Tab) Confirm Administered Dose 325 mg .ROUTE .STK-MED ONE Stop: 02/25/21 06:07 Last Admin: 02/25/21 17:38 Dose: Not Given Documented by: Hydrocodone Bitart/Acetaminophen (Acetaminophen/Hydrocodone 325-5 Mg Tab) 2 tab PO ONETIME ONE Stop: 02/25/21 09:45 Last Admin: 02/25/21 09:55 Dose: 2 tab Documented by: Amlodipine Besylate (Amlodipine 5 Mg Tab) 10 mg PO DAILY [facility] Amlodipine Besylate (Amlodipine 5 Mg Tab) 2.5 mg PO DAILY [facility] Last Admin: 02/26/21 13:43 Dose: Not Given Documented by: Amlodipine Besylate (Amlodipine 2.5 Mg Tab) 2.5 mg PO DAILY [facility] Apixaban (Apixaban 5 Mg Tab) 5 mg PO DAILY [facility] Last Admin: 02/26/21 13:43 Dose: Not Given Documented by: Apixaban (Apixaban 5 Mg Tab) 5 mg PO BID [facility] Baclofen (Baclofen 10 Mg Tab) 30 mg PO QID [facility] Last Admin: 02/26/21 13:43 Dose: Not Given Documented by: Baclofen (Baclofen 10 Mg Tab) 30 mg PO TID [facility] Baclofen (Baclofen 10 Mg Tab) 30 mg PO TID [facility] Duloxetine HCl (Duloxetine 30 Mg Cap) 30 mg PO DAILY [facility] Last Admin: 02/26/21 13:42 Dose: Not Given Documented by: Duloxetine HCl (Duloxetine 30 Mg Cap) 30 mg PO DAILY [facility] Enoxaparin Sodium (Enoxaparin 40 Mg/0.4 Ml Syringe) 40 mg SUBCUT DAILY [facility] Last Admin: 02/27/21 14:00 Dose: 40 mg Documented by: Hydromorphone HCl (Hydromorphone 0.5 Mg/0.5 Ml Syringe) 0.5 mg IVPUSH ONETIME ONE Stop: 02/25/21 14:15 Last Admin: 02/25/21 14:33 Dose: 0.5 mg Documented by: Hydromorphone HCl (Hydromorphone 0.5 Mg/0.5 Ml Syringe) 0.5 mg IVPUSH ONETIME ONE Stop: 02/25/21 17:45 Last Admin: 02/25/21 18:01 Dose: 0.5 mg Documented by: Vancomycin HCl 2 gm/ Sodium (Chloride) 500 mls @ 250 mls/hr IV ONETIME ONE Stop: 02/25/21 15:59 Last Admin: 02/25/21 13:57 Dose: 250 mls/hr Documented by: Sodium Chloride (Normal Saline) 500 mls @ 250 mls/hr IV .BOLUS ONE Stop: 02/28/21 12:59 Last Admin: 02/28/21 11:03 Dose: 250 mls/hr Documented by: Clindamycin Phosphate 600 mg/ (Premix) 33.3333 mls @ 100 mls/hr IV Q8H [facility] Last Admin: 03/01/21 10:52 Dose: Not Given Documented by: Clindamycin Phosphate 600 mg/ (Dextrose/Water) 104 mls @ 312 mls/hr IV Q8H [facility] Ketorolac Tromethamine (Ketorolac 15 Mg/Ml Sdv) 30 mg IM ONETIME ONE Stop: 02/25/21 01:06 Last Admin: 02/25/21 01:16 Dose: 30 mg Documented by: Levofloxacin (Levofloxacin 750 Mg Tab) 750 mg PO ONETIME ONE Stop: 02/24/21 22:47 Last Admin: 02/24/21 22:53 Dose: 750 mg Documented by: Levofloxacin (Levofloxacin 750 Mg Tab) 750 mg PO Q24H [facility] Last Admin: 02/27/21 21:19 Dose: 750 mg Documented by: Morphine Sulfate (Morphine 2 Mg/Ml Syringe) 2 mg IVPUSH Q8H PRN PRN Reason: Pain (severe 7-10) Last Admin: 03/01/21 06:48 Dose: 2 mg Documented by: Ondansetron HCl (Ondansetron 4 Mg Tab.Dis) 4 mg PO ONETIME ONE Stop: 02/25/21 02:39 Last Admin: 02/25/21 02:43 Dose: 4 mg Documented by: Ondansetron HCl (Ondansetron 4 Mg Tab.Dis) Confirm Administered Dose 4 mg .ROUTE .STK-MED ONE Stop: 02/25/21 02:43 Last Admin: 02/25/21 17:38 Dose: Not Given Documented by: Ondansetron HCl (Ondansetron 4 Mg Tab.Dis) 4 mg PO ONETIME ONE Stop: 02/25/21 19:57 Last Admin: 02/25/21 20:15 Dose: 4 mg Documented by: Pantoprazole Sodium (Pantoprazole 40 Mg Tab.Cr) 40 mg PO BID [facility] Last Admin: 02/26/21 13:43 Dose: Not Given Documented by: Pantoprazole Sodium (Pantoprazole 40 Mg Tab.Cr) 40 mg PO BID [facility] Iron Polysaccharides Complex 150 Mg Cap Patient's Own Med 0 each PO DAILY [facility] Last Admin: 02/27/21 09:11 Dose: 1 each Documented by: Sucralfate 1 Gm Tab Patient's Own Med 0 each PO QIDACANDBED [facility] Last Admin: 02/27/21 16:34 Dose: 1 each Documented by: Apixaban 5 Mg Tab Patient's Own Med * * 0 each PO BID [facility] Last Admin: 02/27/21 09:09 Dose: 1 each Documented by: Baclofen 10 Mg Tab Patient's Own Med 0 each PO TID [facility] Last Admin: 02/27/21 14:05 Dose: 1 each Documented by: Pantoprazole 40 Mg Tab.Cr Patient's Own Med 0 each PO BID [facility] Last Admin: 02/27/21 09:12 Dose: 1 each Documented by: Amlodipine 10 Mg Tab Patient's Own Med 0 each PO DAILY [facility] Last Admin: 02/27/21 09:08 Dose: Not Given Documented by: Duloxetine 30 Mg Cap Patient's Own Med 0 each PO DAILY [facility] Last Admin: 02/27/21 09:10 Dose: 1 each Documented by: Polysaccharide Iron Complex (Iron Polysaccharides Complex 150 Mg Cap) 150 mg PO DAILY [facility] Sucralfate (Sucralfate 1 Gm Tab) 1 gm PO QIDACANDBED [facility] Sucralfate (Sucralfate 1 Gm Tab) 1 gm PO QIDACANDBED [facility] Last Admin: 03/01/21 12:11 Dose: Not Given Documented by: - Exam Urinary Catheter Total Time: 4Days 4Hours Physical Findings Comments:: General: Alert, Oriented, Cooperative HEENT: Pupils Equal, Pupils Reactive, EOMI Neck: Supple, No JVD Lungs: Clear to Auscultation, Normal Respiratory Effort Cardiovascular: Regular Rate, Regular Rhythm, No Murmurs, Irregular Rhythm GI/Abdominal Exam: Normal Bowel Sounds, Soft, Non-Tender, No Organomegaly Extremities: Non-Tender, right arm swelling, no tenderness Skin: Other : nath cath in place Wound/Incisions: Other (pressure ulcers x 1, stage II-III over left hip area; pressure ulcers x 2, stage II-III over right hip area; ulcers, stage II-III over sacral area. bases of ulcers are covered by purulent secretion) Neurological: Other (decreased strength and sensation in the both arms and legs) Psy/Mental Status: Alert, Normal Affect, Normal Mood - Patient Data Lab Results Last 24 hrs: Laboratory Results - last 24 hr 03/02/21 03/02/21 Range/Units 07:25 07:25 WBC 5.99 (4.23-9.07) K/mm3 RBC 4.42 L (4.63-6.08) M/mm3 Hgb 9.0 L (13.7-17.5) gm/dl Hct 31.3 L (40.1-51.0) % MCV 70.8 L (79.0-92.2) fl MCH 20.4 L (25.7-32.2) pg MCHC 28.8 L (32.2-35.5) g/dl RDW Std Deviation 51.6 H (35.1-43.9) fL Plt Count 617 H (163-337) K/mm3 MPV 8.9 L (9.4-12.3) fl Neut % (Auto) 46.4 (34.0-67.9) % Lymph % (Auto) 37.9 (21.8-53.1) % Crowley % (Auto) 6.8 (5.3-12.2) % Eos % (Auto) 7.8 H (0.8-7.0) Baso % (Auto) 0.8 (0.1-1.2) % Neut # (Auto) 2.77 (1.78-5.38) K/mm3 Lymph # (Auto) 2.27 (1.32-3.57) K/mm3 Crowley # (Auto) 0.41 (0.30-0.82) K/mm3 Eos # (Auto) 0.47 (0.04-0.54) K/mm3 Baso # (Auto) 0.05 (0.01-0.08) K/mm3 Manual Slide Review Abnormal smear Sodium 141 (136-145) mEq/L Potassium 3.9 (3.5-5.1) mEq/L Chloride 108 H (98-107) mEq/L Carbon Dioxide 25 (21-32) mEq/L Anion Gap 11.9 (5-15) BUN 14 (7-18) mg/dL Creatinine 0.9 (0.7-1.3) mg/dL Est Cr Clr Drug Dosing 130.39 mL/min Estimated GFR (MDRD) > 60 (>60) mL/min BUN/Creatinine Ratio 15.6 (14-18) Glucose 119 H (70-99) mg/dL Calcium 8.3 L (8.5-10.1) mg/dL Total Bilirubin 0.2 (0.2-1.0) mg/dL AST 19 (15-37) U/L ALT 23 (16-63) U/L Alkaline Phosphatase 62 (46-116) U/L Total Protein 6.3 L (6.4-8.2) g/dl Albumin 2.3 L (3.4-5.0) g/dl Globulin 4.0 gm/dL Albumin/Globulin Ratio 0.6 L (1-2) Result Diagrams: 03/02/21 07:25 03/02/21 07:25 Sepsis Event Note - Evaluation Sepsis Screening Result: No Definite Risk - Focused Exam Vital Signs: Vital Signs Temp Pulse Resp BP Pulse Ox 03/02/21 11:20 36.4 C 82 16 128/49 L 99 03/02/21 09:05 36.4 C 67 16 116/94 H 98 03/02/21 09:04 116/94 H 03/02/21 07:39 36.4 C 66 16 104/57 L 99 - Problem List Review Problem List Initiated/Reviewed/Updated: Yes - My Orders Last 24 Hours: My Active Orders 03/03/21 05:00 CBC WITH AUTO DIFF [HEME] DAILY COMPREHENSIVE METABOLIC PN,CMP [CHEM] DAILY 03/04/21 05:00 CBC WITH AUTO DIFF [HEME] DAILY COMPREHENSIVE METABOLIC PN,CMP [CHEM] DAILY - Plan Plan:: Patient is a 35-year-old male with a past medical history as listed above who presented to the emergency department with generalized body aches and requesting placement into a long-term because he believes he is not cared for and obviously cannot do it himself considering his neurologic condition. 1. Urinary tract infection. neurogenic bladder, using cath at home by himself. I would like to discharge this patient on Nath catheter and to follow with the urologist. urine culture - positive for Pseudomonas aeruginosa and Klebsiella pneumoniae. Both are sensitive to Levaquin Continue levofloxacin Nath catheter in place. 2. Skin ulcerations and skin breakdown. Pressure ulcers x 1, stage II-III over left hip area; pressure ulcers x 2, stage II-III over right hip area; ulcers, stage II-III over sacral area. bases of ulcers are covered by purulent secretion All wounds likely pressure ulcers in nature. Wound culture showed miscellaneous growth include staph aureus and eneterocutan surjit which are resistant to levofloxacin, but sensitive to clindamycin. Case management and social group worker involvement for placement into long-term. Wound care Topical antibiotics Clindamycin 300mg po Q8hrs (since 03/01) Consistent repositioning. 3. Alcohol and methamphetamine abuse. Patient not acutely intoxicated with meth. Patient drinks about 8 ounces of hard liquor a day. Patient is on 3 times daily lorazepam at baseline which we will continue. Has never gone through with draw. No evidence of alcohol withdrawal, discontinued CIWA protocol. lay out worker consulted 4. Quadriplegia. PT and OT. Wound care as mentioned above. Frequent with repositioning. Intermittent catheterizations for urination. Baclofen at home dose. 5. Hx of PE As per patient, he had a PE in the past. For which he had been taking Eliquis Continue Eliquis 6. Dysphagia? I was reported that he may have dysphagia Speech pathology saw patient -no dysphagia but suggested patient to see GI as an outpatient All other medical comorbidities are stable and nonactive conditions, will continue home medications at regular dose. CODE STATUS: Full code. DVT prophylaxis: Eliquis Disposition: medical ready. awaiting placement Pt needs pcp, urology and wound care. Length of stay greater then 96 hours due to slow response to treatment and placement.
[2021-03-02] MEDS: Levofloxacin 750 MG Tab PO SCH (18:44)
[2021-03-03] MEDS: Clindamycin HCl 150 MG Cap PO SCH ×3 (01:45→18:21)
[2021-03-03] MEDS: Acetaminophen 325 MG Tab PO PRN (03:22)
[2021-03-03] MEDS: Morphine 2 MG/ML SYRINGE IVPUSH PRN ×2 (05:27→11:54)
[2021-03-03] MEDS: Sucralfate Suspension 1 GM/10 ML Cup PO SCH ×4 (06:25→22:17)
[2021-03-03] MEDS: Iron Polysaccharides Complex 150 MG Cap PO SCH (10:03)
[2021-03-03] MEDS: Ondansetron 4 MG Tab.DIS PO PRN (10:04)
[2021-03-03] MEDS: LORazepam 0.5 MG Tab PO SCH ×3 (10:05→22:13)
[2021-03-03] MEDS: DULoxetine 30 MG Cap PO SCH (10:05)
[2021-03-03] MEDS: Pantoprazole 40 MG Tab.CR PO SCH ×2 (10:06→22:15)
[2021-03-03] MEDS: Baclofen 10 MG Tab PO SCH ×3 (10:06→22:16)
[2021-03-03] MEDS: Apixaban 5 MG Tab PO SCH ×2 (10:06→22:17)
[2021-03-03] MEDS: Gabapentin 600 MG Tab PO SCH ×3 (10:06→22:17)
[2021-03-03] MEDS: amLODIPine 2.5 MG Tab PO SCH (10:08)
[2021-03-03] MEDS: Bacitracin/Neomycin/Polymyxin B Oint 15 GM Tube TOP SCH (10:09)
--- NOTE | 2021-03-03 10:52 | PCM.PN ---
- General Info Date of Service: 03/03/21 Admission Dx/Problem (Free Text): Admission Diagnosis/Problem Admission Diagnosis/Problem UTI, Urinary tract infectious disease Subjective Update: Patient is a 35-year-old male with a past medical history as listed below, most notable for functional quadriplegia who presented to the emergency department on February 24 in the late evening due to a chief complaint of generalized body aches. Patient has been living at home. He had been worried for himself as he does not believe he is getting the care and help he needs from family and friends. That he is feeling better than when he was admitted. Speech pathology saw patient -no dysphagia but suggested patient to see GI as an outpatient Functional Status: Reports: Pain Controlled - Review of Systems General: Reports: No Symptoms HEENT: Reports: No Symptoms Pulmonary: Reports: No Symptoms Cardiovascular: Reports: No Symptoms Neurological: Reports: Paresthesia (Right hand) - Patient Data Vitals - Most Recent: Last Vital Signs Temp 97.3 F 03/03/21 07:30 Pulse 72 03/03/21 07:30 Resp 16 03/03/21 07:30 BP 124/80 03/03/21 07:30 Pulse Ox 99 03/03/21 07:30 Weight - Most Recent: 176 lb 4.8 oz I&O - Last 24 Hours: Intake & Output 03/02/21 03/03/21 03/03/21 22:59 06:59 14:59 Intake Total 1730 1200 Output Total 2925 1600 Balance -1195 -400 Lab Results Last 24 Hours: Laboratory Results - last 24 hr 03/03/21 03/03/21 Range/Units 06:25 06:25 WBC 12.02 H (4.23-9.07) K/mm3 RBC 4.12 L (4.63-6.08) M/mm3 Hgb 8.4 L (13.7-17.5) gm/dl Hct 29.0 L (40.1-51.0) % MCV 70.4 L (79.0-92.2) fl MCH 20.4 L (25.7-32.2) pg MCHC 29.0 L (32.2-35.5) g/dl RDW Std Deviation 51.0 H (35.1-43.9) fL Plt Count 634 H (163-337) K/mm3 MPV 8.8 L (9.4-12.3) fl Neut % (Auto) 73.5 H (34.0-67.9) % Lymph % (Auto) 15.8 L (21.8-53.1) % [place] % (Auto) 6.7 (5.3-12.2) % Eos % (Auto) 3.5 (0.8-7.0) Baso % (Auto) 0.2 (0.1-1.2) % Neut # (Auto) 8.84 H (1.78-5.38) K/mm3 Lymph # (Auto) 1.90 (1.32-3.57) K/mm3 [place] # (Auto) 0.80 (0.30-0.82) K/mm3 Eos # (Auto) 0.42 (0.04-0.54) K/mm3 Baso # (Auto) 0.02 (0.01-0.08) K/mm3 Sodium 144 (136-145) mEq/L Potassium 4.0 (3.5-5.1) mEq/L Chloride 108 H (98-107) mEq/L Carbon Dioxide 28 (21-32) mEq/L Anion Gap 12.0 (5-15) BUN 12 (7-18) mg/dL Creatinine 1.0 (0.7-1.3) mg/dL Est Cr Clr Drug Dosing 116.62 mL/min Estimated GFR (MDRD) > 60 (>60) mL/min BUN/Creatinine Ratio 12.0 L (14-18) Glucose 90 (70-99) mg/dL Calcium 8.0 L (8.5-10.1) mg/dL Total Bilirubin 0.1 L (0.2-1.0) mg/dL AST 12 L (15-37) U/L ALT 20 (16-63) U/L Alkaline Phosphatase 66 (46-116) U/L Total Protein 6.2 L (6.4-8.2) g/dl Albumin 2.2 L (3.4-5.0) g/dl Globulin 4.0 gm/dL Albumin/Globulin Ratio 0.6 L (1-2) Med Orders - Current: Current Medications Acetaminophen (Acetaminophen 325 Mg Tab) 650 mg PO Q6H PRN PRN Reason: Pain Last Admin: 03/03/21 03:22 Dose: 650 mg Documented by: Amlodipine Besylate (Amlodipine 2.5 Mg Tab) 2.5 mg PO DAILY [facility] Last Admin: 03/03/21 10:08 Dose: Not Given Documented by: Apixaban (Apixaban 5 Mg Tab) 5 mg PO BID [facility] [place] Last Admin: 03/03/21 10:06 Dose: 5 mg Documented by: Baclofen (Baclofen 10 Mg Tab) 30 mg PO TID [facility] [place] Last Admin: 03/03/21 10:06 Dose: 30 mg Documented by: Clindamycin HCl (Clindamycin Hcl 150 Mg Cap) 300 mg PO Q8H [facility] [place] Last Admin: 03/03/21 10:04 Dose: 300 mg Documented by: Docusate Sodium (Docusate Sodium 100 Mg Cap) 100 mg PO Q12H PRN PRN Reason: Constipation Last Admin: 03/02/21 10:12 Dose: 100 mg Documented by: Duloxetine HCl (Duloxetine 30 Mg Cap) 30 mg PO DAILY [facility] [place] Last Admin: 03/03/21 10:05 Dose: 30 mg Documented by: Gabapentin (Gabapentin 600 Mg Tab) 600 mg PO TID [facility] [place] Last Admin: 03/03/21 10:06 Dose: 600 mg Documented by: Lactulose (Lactulose Soln 10 Gm/15 Ml 30 Ml Ud Cup) 20 gm PO DAILY PRN PRN Reason: Constipation Stop: 03/05/21 09:31 Levofloxacin (Levofloxacin 750 Mg Tab) 750 mg PO Q24H [facility] [place] Last Admin: 03/02/21 18:44 Dose: 750 mg Documented by: Lorazepam (Lorazepam 0.5 Mg Tab) 0.5 mg PO TID [facility] [place] Last Admin: 03/03/21 10:05 Dose: 0.5 mg Documented by: Morphine Sulfate (Morphine 2 Mg/Ml Syringe) 2 mg IVPUSH Q6H PRN PRN Reason: Pain (severe 7-10) Last Admin: 03/03/21 05:27 Dose: 2 mg Documented by: Neomycin/Polymyxin/Bacitracin (Bacitracin/Neomycin/Polymyxin B Oint 15 Gm Tube) 1 gm TOP DAILY [facility] [place] Last Admin: 03/03/21 10:09 Dose: Not Given Documented by: Ondansetron HCl (Ondansetron 4 Mg Tab.Dis) 4 mg PO Q8H PRN PRN Reason: Nausea Last Admin: 03/03/21 10:04 Dose: 4 mg Documented by: Pantoprazole Sodium (Pantoprazole 40 Mg Tab.Cr) 40 mg PO BID [facility] [place] Last Admin: 03/03/21 10:06 Dose: 40 mg Documented by: Polysaccharide Iron Complex (Iron Polysaccharides Complex 150 Mg Cap) 150 mg PO DAILY [facility] [place] Last Admin: 03/03/21 10:03 Dose: 150 mg Documented by: Sodium Chloride (Sodium Chloride 0.9% 10 Ml Syringe) 10 ml FLUSH ASDIRECTED PRN PRN Reason: Keep Vein Open Last Admin: 02/25/21 13:17 Dose: 10 ml Documented by: Sucralfate (Sucralfate Suspension 1 Gm/10 Ml Cup) 1 gm PO QIDACANDBED [facility] [place] Last Admin: 03/03/21 06:25 Dose: 1 gm Documented by: Discontinued Medications Acetaminophen (Acetaminophen 325 Mg Tab) 650 mg PO NOW ONE Stop: 02/25/21 05:58 Last Admin: 02/25/21 06:03 Dose: 650 mg Documented by: Acetaminophen (Acetaminophen 325 Mg Tab) Confirm Administered Dose 650 mg .ROUTE .STK-MED ONE Stop: 02/25/21 06:03 Last Admin: 02/25/21 17:37 Dose: Not Given Documented by: Acetaminophen (Acetaminophen 325 Mg Tab) Confirm Administered Dose 325 mg .ROUTE .STK-MED ONE Stop: 02/25/21 06:07 Last Admin: 02/25/21 17:38 Dose: Not Given Documented by: Hydrocodone Bitart/Acetaminophen (Acetaminophen/Hydrocodone 325-5 Mg Tab) 2 tab PO ONETIME ONE Stop: 02/25/21 09:45 Last Admin: 02/25/21 09:55 Dose: 2 tab Documented by: Amlodipine Besylate (Amlodipine 5 Mg Tab) 10 mg PO DAILY [facility] [place] Amlodipine Besylate (Amlodipine 5 Mg Tab) 2.5 mg PO DAILY [facility] [place] Last Admin: 02/26/21 13:43 Dose: Not Given Documented by: Amlodipine Besylate (Amlodipine 2.5 Mg Tab) 2.5 mg PO DAILY [facility] [place] Apixaban (Apixaban 5 Mg Tab) 5 mg PO DAILY [facility] [place] Last Admin: 02/26/21 13:43 Dose: Not Given Documented by: Apixaban (Apixaban 5 Mg Tab) 5 mg PO BID [facility] [place] Baclofen (Baclofen 10 Mg Tab) 30 mg PO QID [facility] Last Admin: 02/26/21 13:43 Dose: Not Given Documented by: Baclofen (Baclofen 10 Mg Tab) 30 mg PO TID [facility] Baclofen (Baclofen 10 Mg Tab) 30 mg PO TID [facility] Duloxetine HCl (Duloxetine 30 Mg Cap) 30 mg PO DAILY [facility] Last Admin: 02/26/21 13:42 Dose: Not Given Documented by: Duloxetine HCl (Duloxetine 30 Mg Cap) 30 mg PO DAILY [facility] [place] Enoxaparin Sodium (Enoxaparin 40 Mg/0.4 Ml Syringe) 40 mg SUBCUT DAILY [facility] [place] Last Admin: 02/27/21 14:00 Dose: 40 mg Documented by: Hydromorphone HCl (Hydromorphone 0.5 Mg/0.5 Ml Syringe) 0.5 mg IVPUSH ONETIME ONE Stop: 02/25/21 14:15 Last Admin: 02/25/21 14:33 Dose: 0.5 mg Documented by: Hydromorphone HCl (Hydromorphone 0.5 Mg/0.5 Ml Syringe) 0.5 mg IVPUSH ONETIME ONE Stop: 02/25/21 17:45 Last Admin: 02/25/21 18:01 Dose: 0.5 mg Documented by: Vancomycin HCl 2 gm/ Sodium (Chloride) 500 mls @ 250 mls/hr IV ONETIME ONE Stop: 02/25/21 15:59 Last Admin: 02/25/21 13:57 Dose: 250 mls/hr Documented by: Sodium Chloride (Normal Saline) 500 mls @ 250 mls/hr IV .BOLUS ONE Stop: 02/28/21 12:59 Last Admin: 02/28/21 11:03 Dose: 250 mls/hr Documented by: Clindamycin Phosphate 600 mg/ (Premix) 33.3333 mls @ 100 mls/hr IV Q8H [facility] Last Admin: 03/01/21 10:52 Dose: Not Given Documented by: Clindamycin Phosphate 600 mg/ (Dextrose/Water) 104 mls @ 312 mls/hr IV Q8H [facility] Ketorolac Tromethamine (Ketorolac 15 Mg/Ml Sdv) 30 mg IM ONETIME ONE Stop: 02/25/21 01:06 Last Admin: 02/25/21 01:16 Dose: 30 mg Documented by: Levofloxacin (Levofloxacin 750 Mg Tab) 750 mg PO ONETIME ONE Stop: 02/24/21 22:47 Last Admin: 02/24/21 22:53 Dose: 750 mg Documented by: Levofloxacin (Levofloxacin 750 Mg Tab) 750 mg PO Q24H [facility] [place] Last Admin: 02/27/21 21:19 Dose: 750 mg Documented by: Morphine Sulfate (Morphine 2 Mg/Ml Syringe) 2 mg IVPUSH Q8H PRN PRN Reason: Pain (severe 7-10) Last Admin: 03/01/21 06:48 Dose: 2 mg Documented by: Ondansetron HCl (Ondansetron 4 Mg Tab.Dis) 4 mg PO ONETIME ONE Stop: 02/25/21 02:39 Last Admin: 02/25/21 02:43 Dose: 4 mg Documented by: Ondansetron HCl (Ondansetron 4 Mg Tab.Dis) Confirm Administered Dose 4 mg .ROUTE .STK-MED ONE Stop: 02/25/21 02:43 Last Admin: 02/25/21 17:38 Dose: Not Given Documented by: Ondansetron HCl (Ondansetron 4 Mg Tab.Dis) 4 mg PO ONETIME ONE Stop: 02/25/21 19:57 Last Admin: 02/25/21 20:15 Dose: 4 mg Documented by: Pantoprazole Sodium (Pantoprazole 40 Mg Tab.Cr) 40 mg PO BID [facility] Last Admin: 02/26/21 13:43 Dose: Not Given Documented by: Pantoprazole Sodium (Pantoprazole 40 Mg Tab.Cr) 40 mg PO BID [facility] Iron Polysaccharides Complex 150 Mg Cap Patient's Own Med 0 each PO DAILY [facility] Last Admin: 02/27/21 09:11 Dose: 1 each Documented by: Sucralfate 1 Gm Tab Patient's Own Med 0 each PO QIDACANDBED [facility] Last Admin: 02/27/21 16:34 Dose: 1 each Documented by: Apixaban 5 Mg Tab Patient's Own Med * * 0 each PO BID [facility] Last Admin: 02/27/21 09:09 Dose: 1 each Documented by: Baclofen 10 Mg Tab Patient's Own Med 0 each PO TID [facility] Last Admin: 02/27/21 14:05 Dose: 1 each Documented by: Pantoprazole 40 Mg Tab.Cr Patient's Own Med 0 each PO BID [facility] Last Admin: 02/27/21 09:12 Dose: 1 each Documented by: Amlodipine 10 Mg Tab Patient's Own Med 0 each PO DAILY [facility] Last Admin: 02/27/21 09:08 Dose: Not Given Documented by: Duloxetine 30 Mg Cap Patient's Own Med 0 each PO DAILY [facility] Last Admin: 02/27/21 09:10 Dose: 1 each Documented by: Polysaccharide Iron Complex (Iron Polysaccharides Complex 150 Mg Cap) 150 mg PO DAILY [facility] Sucralfate (Sucralfate 1 Gm Tab) 1 gm PO QIDACANDBED [facility] Sucralfate (Sucralfate 1 Gm Tab) 1 gm PO QIDACANDBED [facility] Last Admin: 03/01/21 12:11 Dose: Not Given Documented by: - Exam Urinary Catheter Total Time: 4Days 23Hours General: Alert, Oriented HEENT: Pupils Equal, Mucous Membr. Moist/[place] Neck: Supple Lungs: Clear to Auscultation, Normal Respiratory Effort Cardiovascular: Regular Rate, Regular Rhythm GI/Abdominal Exam: Normal Bowel Sounds, Soft, Non-Tender, No Organomegaly, No Distention, No Abnormal Bruit, No Mass Neurological: No: Strength Equal Bilateral Psy/Mental Status: Alert, Normal Affect, Normal Mood - Patient Data Lab Results Last 24 hrs: Laboratory Results - last 24 hr 03/03/21 03/03/21 Range/Units 06:25 06:25 WBC 12.02 H (4.23-9.07) K/mm3 RBC 4.12 L (4.63-6.08) M/mm3 Hgb 8.4 L (13.7-17.5) gm/dl Hct 29.0 L (40.1-51.0) % MCV 70.4 L (79.0-92.2) fl MCH 20.4 L (25.7-32.2) pg MCHC 29.0 L (32.2-35.5) g/dl RDW Std Deviation 51.0 H (35.1-43.9) fL Plt Count 634 H (163-337) K/mm3 MPV 8.8 L (9.4-12.3) fl Neut % (Auto) 73.5 H (34.0-67.9) % Lymph % (Auto) 15.8 L (21.8-53.1) % [place] % (Auto) 6.7 (5.3-12.2) % Eos % (Auto) 3.5 (0.8-7.0) Baso % (Auto) 0.2 (0.1-1.2) % Neut # (Auto) 8.84 H (1.78-5.38) K/mm3 Lymph # (Auto) 1.90 (1.32-3.57) K/mm3 [place] # (Auto) 0.80 (0.30-0.82) K/mm3 Eos # (Auto) 0.42 (0.04-0.54) K/mm3 Baso # (Auto) 0.02 (0.01-0.08) K/mm3 Sodium 144 (136-145) mEq/L Potassium 4.0 (3.5-5.1) mEq/L Chloride 108 H (98-107) mEq/L Carbon Dioxide 28 (21-32) mEq/L Anion Gap 12.0 (5-15) BUN 12 (7-18) mg/dL Creatinine 1.0 (0.7-1.3) mg/dL Est Cr Clr Drug Dosing 116.62 mL/min Estimated GFR (MDRD) > 60 (>60) mL/min BUN/Creatinine Ratio 12.0 L (14-18) Glucose 90 (70-99) mg/dL Calcium 8.0 L (8.5-10.1) mg/dL Total Bilirubin 0.1 L (0.2-1.0) mg/dL AST 12 L (15-37) U/L ALT 20 (16-63) U/L Alkaline Phosphatase 66 (46-116) U/L Total Protein 6.2 L (6.4-8.2) g/dl Albumin 2.2 L (3.4-5.0) g/dl Globulin 4.0 gm/dL Albumin/Globulin Ratio 0.6 L (1-2) Result Diagrams: 03/03/21 06:25 03/03/21 06:25 Sepsis Event Note - Evaluation Sepsis Screening Result: No Definite Risk - Focused Exam Vital Signs: Vital Signs Temp Pulse Resp BP Pulse Ox 03/03/21 07:30 97.3 F 72 16 124/80 99 03/03/21 03:37 98.6 F 90 16 118/56 L 97 03/02/21 23:40 98.6 F 89 16 113/59 L 98 - Problem List & Annotations (1) Decubitus ulcer of left buttock, stage 2 SNOMED Code(s): 85094876610107613, 04665356218037263 Code(s): L89.322 - PRESSURE ULCER OF LEFT BUTTOCK, STAGE 2 Status: Acute Current Visit: Yes (2) Urinary tract infection SNOMED Code(s): 51385576 Code(s): N39.0 - URINARY TRACT INFECTION, SITE NOT SPECIFIED Status: Acute Current Visit: Yes Qualifiers: Urinary tract infection type: acute pyelonephritis Qualified Code(s): N10 - Acute pyelonephritis (3) Paraplegia following spinal cord injury SNOMED Code(s): 09696399, 10005481 Code(s): G82.20 - PARAPLEGIA, UNSPECIFIED Status: Acute Current Visit: No - Problem List Review Problem List Initiated/Reviewed/Updated: Yes - Plan Plan:: Patient is a 35-year-old male with a past medical history as listed above who presented to the emergency department with generalized body aches and requesting placement into a prison because he believes he is not cared for and obviously cannot do it himself considering his neurologic condition. 1. Urinary tract infection. neurogenic bladder, using cath at home by himself. I would like to discharge this patient on Porter catheter and to follow with the urologist. urine culture - positive for Pseudomonas aeruginosa and Klebsiella pneumoniae. Both are sensitive to Levaquin Completed 5 days of levofloxacin. It does not appear that he was ever symptomatic with his UTI. Porter catheter in place. 2. Skin ulcerations and skin breakdown. Pressure ulcers x 1, stage II-III over left hip area; pressure ulcers x 2, stage II-III over right hip area; ulcers, stage II-III over sacral area. bases of ulcers are covered by purulent secretion. Wounds were covered today, but report are they are improving with wound care. All wounds likely pressure ulcers in nature. Wound culture showed miscellaneous growth include staph aureus and eneterocutan surjit which are resistant to levofloxacin, but sensitive to clindamycin. Case management and social and political studies professor involvement for placement into prison. Wound care Topical antibiotics Clindamycin 300mg po Q8hrs (since 03/01) Consistent repositioning. 3. Alcohol and methamphetamine abuse. Patient not acutely intoxicated with meth. Patient drinks about 8 ounces of hard liquor a day. Patient is on 3 times daily lorazepam at baseline which we will continue. Has never gone through with draw. No evidence of alcohol withdrawal, discontinued CIWA protocol. utility worker production consulted Added vitamin B12 and thiamine 4. Quadriplegia. PT and OT. Wound care as mentioned above. Frequent with repositioning. Intermittent catheterizations for urination. Currently with Porter catheter. Baclofen at home dose. 5. Hx of PE As per patient, he had a PE in the past. For which he had been taking Eliquis Continue Eliquis 6. Dysphagia? I was reported that he may have dysphagia Speech pathology saw patient -no dysphagia but suggested patient to see GI as an outpatient 7. Microcytic anemia Patient is on iron as an outpatient, but it is unlikely has been getting it. Continue outpatient iron. Hemoglobin today is 8.4, and on admission it was 8.7. Continue to monitor but only infrequently. All other medical comorbidities are stable and nonactive conditions, will continue home medications at regular dose. CODE STATUS: Full code. DVT prophylaxis: Eliquis Disposition: medical ready. awaiting placement Pt needs pcp, urology and wound care. Length of stay greater then 96 hours due to slow response to treatment and placement.
[2021-03-03] MEDS: Cyanocobalamin (Vitamin B12) 1,000 MCG Tab PO SCH (11:55)
[2021-03-03] MEDS: oxyCODONE 5 MG Tab PO PRN ×2 (17:34→22:14)
[2021-03-03] MEDS: Saccharomyces Boulardii (Probiotic) 250 MG Cap PO SCH (22:16)
[2021-03-03] MEDS: Thiamine 100 MG Tab PO SCH (22:17)
[2021-03-04] MEDS: Clindamycin HCl 150 MG Cap PO SCH ×3 (02:05→18:00)
[2021-03-04] MEDS: oxyCODONE 5 MG Tab PO PRN ×5 (02:25→21:33)
[2021-03-04] MEDS: Sucralfate Suspension 1 GM/10 ML Cup PO SCH ×4 (06:35→21:32)
[2021-03-04] MEDS: Saccharomyces Boulardii (Probiotic) 250 MG Cap PO SCH ×2 (08:47→21:30)
[2021-03-04] MEDS: Cyanocobalamin (Vitamin B12) 1,000 MCG Tab PO SCH (08:47)
[2021-03-04] MEDS: Apixaban 5 MG Tab PO SCH ×2 (08:47→21:30)
[2021-03-04] MEDS: Gabapentin 600 MG Tab PO SCH ×3 (08:47→21:32)
[2021-03-04] MEDS: Baclofen 10 MG Tab PO SCH ×3 (08:47→21:31)
[2021-03-04] MEDS: amLODIPine 2.5 MG Tab PO SCH (08:47)
[2021-03-04] MEDS: LORazepam 0.5 MG Tab PO SCH ×3 (08:47→21:29)
[2021-03-04] MEDS: DULoxetine 30 MG Cap PO SCH (08:48)
[2021-03-04] MEDS: Iron Polysaccharides Complex 150 MG Cap PO SCH (08:48)
[2021-03-04] MEDS: Pantoprazole 40 MG Tab.CR PO SCH ×2 (08:48→21:32)
[2021-03-04] MEDS: Bacitracin/Neomycin/Polymyxin B Oint 15 GM Tube TOP SCH (09:04)
--- NOTE | 2021-03-04 11:11 | PCM.PN ---
- General Info Date of Service: 03/04/21 Admission Dx/Problem (Free Text): Admission Diagnosis/Problem Admission Diagnosis/Problem UTI, Urinary tract infectious disease Subjective Update: Patient is a 35-year-old male with a past medical history as listed below, most notable for functional quadriplegia who presented to the emergency department on February 24 in the late evening due to a chief complaint of generalized body aches. Patient has been living at home. He had been worried for himself as he does not believe he is getting the care and help he needs from family and friends. He continues to feel better. He states that the switch from morphine to oxy codone has improved his pain control. Speech pathology saw patient -no dysphagia but suggested patient to see GI as an outpatient Functional Status: Reports: Pain Controlled - Review of Systems General: Reports: No Symptoms HEENT: Reports: No Symptoms Pulmonary: Reports: No Symptoms Cardiovascular: Reports: No Symptoms Gastrointestinal: Reports: No Symptoms Musculoskeletal: Reports: No Symptoms - Patient Data Vitals - Most Recent: Last Vital Signs Temp 97.9 F 03/04/21 08:12 Pulse 83 03/04/21 08:12 Resp 20 03/04/21 08:12 BP 127/70 03/04/21 08:47 Pulse Ox 98 03/04/21 08:12 Weight - Most Recent: 185 lb 6.4 oz I&O - Last 24 Hours: Intake & Output 03/03/21 03/04/21 03/04/21 22:59 06:59 14:59 Intake Total 2140 2000 Output Total 2800 2100 Balance -660 -100 Lab Results Last 24 Hours: Laboratory Results - last 24 hr 03/04/21 03/04/21 Range/Units 06:23 06:23 WBC 6.27 (4.23-9.07) K/mm3 RBC 4.56 L (4.63-6.08) M/mm3 Hgb 9.4 L (13.7-17.5) gm/dl Hct 32.2 L (40.1-51.0) % MCV 70.6 L (79.0-92.2) fl MCH 20.6 L (25.7-32.2) pg MCHC 29.2 L (32.2-35.5) g/dl RDW Std Deviation 52.4 H (35.1-43.9) fL Plt Count 486 H D (163-337) K/mm3 MPV 9.0 L (9.4-12.3) fl Neut % (Auto) 44.1 (34.0-67.9) % Lymph % (Auto) 38.4 (21.8-53.1) % Maries % (Auto) 7.3 (5.3-12.2) % Eos % (Auto) 8.9 H (0.8-7.0) Baso % (Auto) 0.8 (0.1-1.2) % Neut # (Auto) 2.76 (1.78-5.38) K/mm3 Lymph # (Auto) 2.41 (1.32-3.57) K/mm3 Maries # (Auto) 0.46 (0.30-0.82) K/mm3 Eos # (Auto) 0.56 H (0.04-0.54) K/mm3 Baso # (Auto) 0.05 (0.01-0.08) K/mm3 Manual Slide Review Abnormal smear Sodium 143 (136-145) mEq/L Potassium 4.6 (3.5-5.1) mEq/L Chloride 107 (98-107) mEq/L Carbon Dioxide 29 (21-32) mEq/L Anion Gap 11.6 (5-15) BUN 11 (7-18) mg/dL Creatinine 0.9 (0.7-1.3) mg/dL Est Cr Clr Drug Dosing 136.27 mL/min Estimated GFR (MDRD) > 60 (>60) mL/min BUN/Creatinine Ratio 12.2 L (14-18) Glucose 89 (70-99) mg/dL Calcium 8.2 L (8.5-10.1) mg/dL Total Bilirubin 0.1 L (0.2-1.0) mg/dL AST 19 (15-37) U/L ALT 21 (16-63) U/L Alkaline Phosphatase 76 (46-116) U/L Total Protein 6.3 L (6.4-8.2) g/dl Albumin 2.4 L (3.4-5.0) g/dl Globulin 3.9 gm/dL Albumin/Globulin Ratio 0.6 L (1-2) Med Orders - Current: Current Medications Acetaminophen (Acetaminophen 325 Mg Tab) 650 mg PO Q6H PRN PRN Reason: Pain Last Admin: 03/03/21 03:22 Dose: 650 mg Documented by: Amlodipine Besylate (Amlodipine 2.5 Mg Tab) 2.5 mg PO DAILY [facility] Last Admin: 03/04/21 08:47 Dose: 2.5 mg Documented by: Apixaban (Apixaban 5 Mg Tab) 5 mg PO BID [facility] Last Admin: 03/04/21 08:47 Dose: 5 mg Documented by: Baclofen (Baclofen 10 Mg Tab) 30 mg PO TID [facility] Last Admin: 03/04/21 08:47 Dose: 30 mg Documented by: Clindamycin HCl (Clindamycin Hcl 150 Mg Cap) 300 mg PO Q8H [facility] Last Admin: 03/04/21 02:05 Dose: 300 mg Documented by: Cyanocobalamin (Cyanocobalamin (Vitamin B12) 1,000 Mcg Tab) 1,000 mcg PO DAILY [facility] Last Admin: 03/04/21 08:47 Dose: 1,000 mcg Documented by: Docusate Sodium (Docusate Sodium 100 Mg Cap) 100 mg PO Q12H PRN PRN Reason: Constipation Last Admin: 03/02/21 10:12 Dose: 100 mg Documented by: Duloxetine HCl (Duloxetine 30 Mg Cap) 30 mg PO DAILY [facility] Last Admin: 03/04/21 08:48 Dose: 30 mg Documented by: Gabapentin (Gabapentin 600 Mg Tab) 600 mg PO TID [facility] Last Admin: 03/04/21 08:47 Dose: 600 mg Documented by: Lactulose (Lactulose Soln 10 Gm/15 Ml 30 Ml Ud Cup) 20 gm PO DAILY PRN PRN Reason: Constipation Stop: 03/05/21 09:31 Lorazepam (Lorazepam 0.5 Mg Tab) 0.5 mg PO TID [facility] Last Admin: 03/04/21 08:47 Dose: 0.5 mg Documented by: Neomycin/Polymyxin/Bacitracin (Bacitracin/Neomycin/Polymyxin B Oint 15 Gm Tube) 1 gm TOP DAILY [facility] Last Admin: 03/04/21 09:04 Dose: 1 applic Documented by: Ondansetron HCl (Ondansetron 4 Mg Tab.Dis) 4 mg PO Q8H PRN PRN Reason: Nausea Last Admin: 03/03/21 10:04 Dose: 4 mg Documented by: Oxycodone HCl (Oxycodone 5 Mg Tab) 5 - 10 mg PO Q4H PRN PRN Reason: Pain (moderate 4-6) Last Admin: 03/04/21 06:36 Dose: 10 mg Documented by: Pantoprazole Sodium (Pantoprazole 40 Mg Tab.Cr) 40 mg PO BID [facility] Last Admin: 03/04/21 08:48 Dose: 40 mg Documented by: Polysaccharide Iron Complex (Iron Polysaccharides Complex 150 Mg Cap) 150 mg PO DAILY [facility] Last Admin: 03/04/21 08:48 Dose: 150 mg Documented by: Saccharomyces Boulardii (Saccharomyces Boulardii (Probiotic) 250 Mg Cap) 500 mg PO BID [facility] Last Admin: 03/04/21 08:47 Dose: 500 mg Documented by: Sodium Chloride (Sodium Chloride 0.9% 10 Ml Syringe) 10 ml FLUSH ASDIRECTED PRN PRN Reason: Keep Vein Open Last Admin: 02/25/21 13:17 Dose: 10 ml Documented by: Sucralfate (Sucralfate Suspension 1 Gm/10 Ml Cup) 1 gm PO QIDACANDBED [facility] Last Admin: 03/04/21 06:35 Dose: 1 gm Documented by: Thiamine HCl (Thiamine 100 Mg Tab) 100 mg PO BEDTIME [facility] Last Admin: 03/03/21 22:17 Dose: 100 mg Documented by: Discontinued Medications Acetaminophen (Acetaminophen 325 Mg Tab) 650 mg PO NOW ONE Stop: 02/25/21 05:58 Last Admin: 02/25/21 06:03 Dose: 650 mg Documented by: Acetaminophen (Acetaminophen 325 Mg Tab) Confirm Administered Dose 650 mg .ROUTE .STK-MED ONE Stop: 02/25/21 06:03 Last Admin: 02/25/21 17:37 Dose: Not Given Documented by: Acetaminophen (Acetaminophen 325 Mg Tab) Confirm Administered Dose 325 mg .ROUTE .STK-MED ONE Stop: 02/25/21 06:07 Last Admin: 02/25/21 17:38 Dose: Not Given Documented by: Hydrocodone Bitart/Acetaminophen (Acetaminophen/Hydrocodone 325-5 Mg Tab) 2 tab PO ONETIME ONE Stop: 02/25/21 09:45 Last Admin: 02/25/21 09:55 Dose: 2 tab Documented by: Amlodipine Besylate (Amlodipine 5 Mg Tab) 10 mg PO DAILY [facility] Amlodipine Besylate (Amlodipine 5 Mg Tab) 2.5 mg PO DAILY [facility] Last Admin: 02/26/21 13:43 Dose: Not Given Documented by: Amlodipine Besylate (Amlodipine 2.5 Mg Tab) 2.5 mg PO DAILY [facility] Apixaban (Apixaban 5 Mg Tab) 5 mg PO DAILY [facility] Last Admin: 02/26/21 13:43 Dose: Not Given Documented by: Apixaban (Apixaban 5 Mg Tab) 5 mg PO BID [facility] Baclofen (Baclofen 10 Mg Tab) 30 mg PO QID [facility] Last Admin: 02/26/21 13:43 Dose: Not Given Documented by: Baclofen (Baclofen 10 Mg Tab) 30 mg PO TID [facility] Baclofen (Baclofen 10 Mg Tab) 30 mg PO TID [facility] Duloxetine HCl (Duloxetine 30 Mg Cap) 30 mg PO DAILY [facility] Last Admin: 02/26/21 13:42 Dose: Not Given Documented by: Duloxetine HCl (Duloxetine 30 Mg Cap) 30 mg PO DAILY [facility] Enoxaparin Sodium (Enoxaparin 40 Mg/0.4 Ml Syringe) 40 mg SUBCUT DAILY [facility] Last Admin: 02/27/21 14:00 Dose: 40 mg Documented by: Hydromorphone HCl (Hydromorphone 0.5 Mg/0.5 Ml Syringe) 0.5 mg IVPUSH ONETIME ONE Stop: 02/25/21 14:15 Last Admin: 02/25/21 14:33 Dose: 0.5 mg Documented by: Hydromorphone HCl (Hydromorphone 0.5 Mg/0.5 Ml Syringe) 0.5 mg IVPUSH ONETIME ONE Stop: 02/25/21 17:45 Last Admin: 02/25/21 18:01 Dose: 0.5 mg Documented by: Vancomycin HCl 2 gm/ Sodium (Chloride) 500 mls @ 250 mls/hr IV ONETIME ONE Stop: 02/25/21 15:59 Last Admin: 02/25/21 13:57 Dose: 250 mls/hr Documented by: Sodium Chloride (Normal Saline) 500 mls @ 250 mls/hr IV .BOLUS ONE Stop: 02/28/21 12:59 Last Admin: 02/28/21 11:03 Dose: 250 mls/hr Documented by: Clindamycin Phosphate 600 mg/ (Premix) 33.3333 mls @ 100 mls/hr IV Q8H [facility] Last Admin: 03/01/21 10:52 Dose: Not Given Documented by: Clindamycin Phosphate 600 mg/ (Dextrose/Water) 104 mls @ 312 mls/hr IV Q8H [facility] Ketorolac Tromethamine (Ketorolac 15 Mg/Ml Sdv) 30 mg IM ONETIME ONE Stop: 02/25/21 01:06 Last Admin: 02/25/21 01:16 Dose: 30 mg Documented by: Levofloxacin (Levofloxacin 750 Mg Tab) 750 mg PO ONETIME ONE Stop: 02/24/21 22:47 Last Admin: 02/24/21 22:53 Dose: 750 mg Documented by: Levofloxacin (Levofloxacin 750 Mg Tab) 750 mg PO Q24H [facility] Last Admin: 02/27/21 21:19 Dose: 750 mg Documented by: Levofloxacin (Levofloxacin 750 Mg Tab) 750 mg PO Q24H [facility] Last Admin: 03/02/21 18:44 Dose: 750 mg Documented by: Morphine Sulfate (Morphine 2 Mg/Ml Syringe) 2 mg IVPUSH Q8H PRN PRN Reason: Pain (severe 7-10) Last Admin: 03/01/21 06:48 Dose: 2 mg Documented by: Morphine Sulfate (Morphine 2 Mg/Ml Syringe) 2 mg IVPUSH Q6H PRN PRN Reason: Pain (severe 7-10) Last Admin: 03/03/21 11:54 Dose: 2 mg Documented by: Ondansetron HCl (Ondansetron 4 Mg Tab.Dis) 4 mg PO ONETIME ONE Stop: 02/25/21 02:39 Last Admin: 02/25/21 02:43 Dose: 4 mg Documented by: Ondansetron HCl (Ondansetron 4 Mg Tab.Dis) Confirm Administered Dose 4 mg .ROUTE .STK-MED ONE Stop: 02/25/21 02:43 Last Admin: 02/25/21 17:38 Dose: Not Given Documented by: Ondansetron HCl (Ondansetron 4 Mg Tab.Dis) 4 mg PO ONETIME ONE Stop: 02/25/21 19:57 Last Admin: 02/25/21 20:15 Dose: 4 mg Documented by: Pantoprazole Sodium (Pantoprazole 40 Mg Tab.Cr) 40 mg PO BID [facility] Last Admin: 02/26/21 13:43 Dose: Not Given Documented by: Pantoprazole Sodium (Pantoprazole 40 Mg Tab.Cr) 40 mg PO BID [facility] Iron Polysaccharides Complex 150 Mg Cap Patient's Own Med 0 each PO DAILY [facility] Last Admin: 02/27/21 09:11 Dose: 1 each Documented by: Sucralfate 1 Gm Tab Patient's Own Med 0 each PO QIDACANDBED [facility] Last Admin: 02/27/21 16:34 Dose: 1 each Documented by: Apixaban 5 Mg Tab Patient's Own Med * * 0 each PO BID [facility] Last Admin: 02/27/21 09:09 Dose: 1 each Documented by: Baclofen 10 Mg Tab Patient's Own Med 0 each PO TID [facility] Last Admin: 02/27/21 14:05 Dose: 1 each Documented by: Pantoprazole 40 Mg Tab.Cr Patient's Own Med 0 each PO BID [facility] Last Admin: 02/27/21 09:12 Dose: 1 each Documented by: Amlodipine 10 Mg Tab Patient's Own Med 0 each PO DAILY [facility] Last Admin: 02/27/21 09:08 Dose: Not Given Documented by: Duloxetine 30 Mg Cap Patient's Own Med 0 each PO DAILY [facility] Last Admin: 02/27/21 09:10 Dose: 1 each Documented by: Polysaccharide Iron Complex (Iron Polysaccharides Complex 150 Mg Cap) 150 mg PO DAILY [facility] Sucralfate (Sucralfate 1 Gm Tab) 1 gm PO QIDACANDBED [facility] Sucralfate (Sucralfate 1 Gm Tab) 1 gm PO QIDACANDBED [facility] Last Admin: 03/01/21 12:11 Dose: Not Given Documented by: - Exam Quality Assessment: No: Supplemental Oxygen Urinary Catheter Total Time: 6Days 12Hours General: Alert, Oriented HEENT: Pupils Equal, Mucous Membr. Moist/[place] Neck: Supple Lungs: Clear to Auscultation, Normal Respiratory Effort Cardiovascular: Regular Rate, Regular Rhythm GI/Abdominal Exam: Normal Bowel Sounds, Soft, Non-Tender, No Distention Extremities: Normal Inspection, Normal Range of Motion, No Pedal Edema, Normal Capillary Refill Skin: Warm, Dry, Intact Psy/Mental Status: Alert, Normal Affect, Normal Mood - Patient Data Lab Results Last 24 hrs: Laboratory Results - last 24 hr 03/04/21 03/04/21 Range/Units 06:23 06:23 WBC 6.27 (4.23-9.07) K/mm3 RBC 4.56 L (4.63-6.08) M/mm3 Hgb 9.4 L (13.7-17.5) gm/dl Hct 32.2 L (40.1-51.0) % MCV 70.6 L (79.0-92.2) fl MCH 20.6 L (25.7-32.2) pg MCHC 29.2 L (32.2-35.5) g/dl RDW Std Deviation 52.4 H (35.1-43.9) fL Plt Count 486 H D (163-337) K/mm3 MPV 9.0 L (9.4-12.3) fl Neut % (Auto) 44.1 (34.0-67.9) % Lymph % (Auto) 38.4 (21.8-53.1) % Maries % (Auto) 7.3 (5.3-12.2) % Eos % (Auto) 8.9 H (0.8-7.0) Baso % (Auto) 0.8 (0.1-1.2) % Neut # (Auto) 2.76 (1.78-5.38) K/mm3 Lymph # (Auto) 2.41 (1.32-3.57) K/mm3 Maries # (Auto) 0.46 (0.30-0.82) K/mm3 Eos # (Auto) 0.56 H (0.04-0.54) K/mm3 Baso # (Auto) 0.05 (0.01-0.08) K/mm3 Manual Slide Review Abnormal smear Sodium 143 (136-145) mEq/L Potassium 4.6 (3.5-5.1) mEq/L Chloride 107 (98-107) mEq/L Carbon Dioxide 29 (21-32) mEq/L Anion Gap 11.6 (5-15) BUN 11 (7-18) mg/dL Creatinine 0.9 (0.7-1.3) mg/dL Est Cr Clr Drug Dosing 136.27 mL/min Estimated GFR (MDRD) > 60 (>60) mL/min BUN/Creatinine Ratio 12.2 L (14-18) Glucose 89 (70-99) mg/dL Calcium 8.2 L (8.5-10.1) mg/dL Total Bilirubin 0.1 L (0.2-1.0) mg/dL AST 19 (15-37) U/L ALT 21 (16-63) U/L Alkaline Phosphatase 76 (46-116) U/L Total Protein 6.3 L (6.4-8.2) g/dl Albumin 2.4 L (3.4-5.0) g/dl Globulin 3.9 gm/dL Albumin/Globulin Ratio 0.6 L (1-2) Result Diagrams: 03/04/21 06:23 03/04/21 06:23 Sepsis Event Note - Evaluation Sepsis Screening Result: No Definite Risk - Focused Exam Vital Signs: Vital Signs Temp Pulse Resp BP Pulse Ox 03/04/21 08:47 127/70 03/04/21 08:12 97.9 F 83 20 127/70 98 03/04/21 04:57 97.9 F 80 20 115/62 96 03/04/21 02:14 97.9 F 76 16 118/66 99 - Problem List & Annotations (1) Decubitus ulcer of left buttock, stage 2 SNOMED Code(s): 91064069613843087, 51343431589376798 Code(s): L89.322 - PRESSURE ULCER OF LEFT BUTTOCK, STAGE 2 Status: Acute Current Visit: Yes (2) Urinary tract infection SNOMED Code(s): 94022599 Code(s): N39.0 - URINARY TRACT INFECTION, SITE NOT SPECIFIED Status: Acute Current Visit: Yes Qualifiers: Urinary tract infection type: acute pyelonephritis Qualified Code(s): N10 - Acute pyelonephritis (3) Paraplegia following spinal cord injury SNOMED Code(s): 97874086, 45809372 Code(s): G82.20 - PARAPLEGIA, UNSPECIFIED Status: Acute Current Visit: No - Problem List Review Problem List Initiated/Reviewed/Updated: Yes - My Orders Last 24 Hours: My Active Orders 03/03/21 11:10 Renew/Continue Urinary Catheter [OM.PC] Routine 03/03/21 12:00 Cyanocobalamin (Vitamin B12) [Vitamin B12] 1,000 mcg PO DAILY 03/03/21 14:15 oxyCODONE 5 - 10 mg PO Q4H PRN 03/03/21 21:00 Saccharomyces Boulardii [Florastor] 500 mg PO BID Thiamine [Vitamin B-1] 100 mg PO BEDTIME 03/04/21 09:09 Renew/Continue Urinary Catheter [OM.PC] Routine - Plan Plan:: Patient is a 35-year-old male with a past medical history as listed above who presented to the emergency department with generalized body aches and requesting placement into a [facility] because he believes he is not cared for and obviously cannot do it himself considering his neurologic condition. 1. Urinary tract infection. neurogenic bladder, using cath at home by himself. I would like to discharge this patient on Porter catheter and to follow with the urologist. urine culture - positive for Pseudomonas aeruginosa and Klebsiella pneumoniae. Both are sensitive to Levaquin Completed 5 days of levofloxacin. It does not appear that he was ever symptomatic with his UTI. Porter catheter in place. 2. Skin ulcerations and skin breakdown. Pressure ulcers x 1, stage II-III over left hip area; pressure ulcers x 2, stage II-III over right hip area; ulcers, stage II-III over sacral area. bases of ulcers are covered by purulent secretion. Wounds were covered today, but report are they are improving with wound care. All wounds likely pressure ulcers in nature. Wound culture showed miscellaneous growth include staph aureus and eneterocutan surjit which are resistant to levofloxacin, but sensitive to clindamycin. Case management and director of social work involvement for placement into [facility]. Wound care Topical antibiotics Clindamycin 300mg po Q8hrs (since 03/01) Consistent repositioning. Pressure ulcers have made continued improvement since hospitalization. 3. Alcohol and methamphetamine abuse. Patient not acutely intoxicated with meth. Patient drinks about 8 ounces of hard liquor a day. Patient is on 3 times daily lorazepam at baseline which we will continue. Has never gone through with draw. No evidence of alcohol withdrawal, discontinued CIWA protocol. drafting layout worker consulted Added vitamin B12 and thiamine 4. Quadriplegia. PT and OT. Wound care as mentioned above. Frequent with repositioning. Intermittent catheterizations for urination. Porter catheter in place Baclofen at home dose. 5. Hx of PE As per patient, he had a PE in the past. For which he had been taking Eliquis Continue Eliquis 6. Dysphagia? I was reported that he may have dysphagia Speech pathology saw patient -no dysphagia but suggested patient to see GI as an outpatient 7. Microcytic anemia Patient is on iron as an outpatient, but it is unlikely has been getting it. Continue outpatient iron. Hemoglobin today is 9.4, and on admission it was 8.7. Continue to monitor but only infrequently. All other medical comorbidities are stable and nonactive conditions, will continue home medications at regular dose. CODE STATUS: Full code. DVT prophylaxis: Eliquis Disposition: medical ready. awaiting placement Pt needs pcp, urology and wound care. Length of stay greater then 96 hours due to slow response to treatment and placement.
[2021-03-04] MEDS: Thiamine 100 MG Tab PO SCH (21:32)
[2021-03-05] MEDS: oxyCODONE 5 MG Tab PO PRN ×6 (04:06→23:50)
[2021-03-05] MEDS: Clindamycin HCl 150 MG Cap PO SCH ×3 (04:07→17:59)
[2021-03-05] MEDS: Sucralfate Suspension 1 GM/10 ML Cup PO SCH ×5 (06:56→21:09)
[2021-03-05] MEDS: Saccharomyces Boulardii (Probiotic) 250 MG Cap PO SCH ×2 (09:06→20:17)
[2021-03-05] MEDS: Iron Polysaccharides Complex 150 MG Cap PO SCH (09:07)
[2021-03-05] MEDS: Gabapentin 600 MG Tab PO SCH ×3 (09:08→20:14)
[2021-03-05] MEDS: Cyanocobalamin (Vitamin B12) 1,000 MCG Tab PO SCH (09:11)
[2021-03-05] MEDS: LORazepam 0.5 MG Tab PO SCH ×3 (09:12→20:15)
[2021-03-05] MEDS: DULoxetine 30 MG Cap PO SCH (09:12)
[2021-03-05] MEDS: Baclofen 10 MG Tab PO SCH ×3 (09:13→20:18)
[2021-03-05] MEDS: Apixaban 5 MG Tab PO SCH ×2 (09:13→20:16)
[2021-03-05] MEDS: Pantoprazole 40 MG Tab.CR PO SCH ×2 (09:13→20:16)
[2021-03-05] MEDS: Bacitracin/Neomycin/Polymyxin B Oint 15 GM Tube TOP SCH (09:14)
[2021-03-05] MEDS: amLODIPine 2.5 MG Tab PO SCH (09:14)
--- NOTE | 2021-03-05 09:41 | PCM.PN ---
- General Info Date of Service: 03/05/21 Admission Dx/Problem (Free Text): Admission Diagnosis/Problem Admission Diagnosis/Problem UTI, Urinary tract infectious disease Subjective Update: Patient is a 35-year-old male with a past medical history as listed below, most notable for functional quadriplegia who presented to the emergency department on February 24 in the late evening due to a chief complaint of generalized body aches. Patient has been living at home. He had been worried for himself as he does not believe he is getting the care and help he needs from family and friends. No significant change overnight. Patient is stable and getting oral antibio tics. At this point he is ready for discharge is pending placement. Functional Status: Reports: Pain Controlled - Review of Systems General: Reports: No Symptoms HEENT: Reports: No Symptoms Pulmonary: Reports: No Symptoms Cardiovascular: Reports: No Symptoms Gastrointestinal: Reports: No Symptoms Musculoskeletal: Reports: No Symptoms - Patient Data Vitals - Most Recent: Last Vital Signs Temp 97.7 F 03/05/21 04:04 Pulse 70 03/05/21 04:04 Resp 14 03/05/21 04:04 BP 100/74 03/05/21 09:14 Pulse Ox 96 03/05/21 04:04 Weight - Most Recent: 185 lb 14.4 oz I&O - Last 24 Hours: Intake & Output 03/04/21 03/05/21 03/05/21 22:59 06:59 14:59 Intake Total 2290 1525 Output Total 1650 2450 Balance 640 -925 Med Orders - Current: Current Medications Acetaminophen (Acetaminophen 325 Mg Tab) 650 mg PO Q6H PRN PRN Reason: Pain Last Admin: 03/03/21 03:22 Dose: 650 mg Documented by: Amlodipine Besylate (Amlodipine 2.5 Mg Tab) 2.5 mg PO DAILY [facility] Last Admin: 03/05/21 09:14 Dose: Not Given Documented by: Apixaban (Apixaban 5 Mg Tab) 5 mg PO BID [facility] Last Admin: 03/05/21 09:13 Dose: 5 mg Documented by: Baclofen (Baclofen 10 Mg Tab) 30 mg PO TID [facility] Last Admin: 03/05/21 09:13 Dose: 30 mg Documented by: Clindamycin HCl (Clindamycin Hcl 150 Mg Cap) 300 mg PO Q8H [facility] Last Admin: 03/05/21 04:07 Dose: 300 mg Documented by: Cyanocobalamin (Cyanocobalamin (Vitamin B12) 1,000 Mcg Tab) 1,000 mcg PO DAILY [facility] Last Admin: 03/05/21 09:11 Dose: 1,000 mcg Documented by: Docusate Sodium (Docusate Sodium 100 Mg Cap) 100 mg PO Q12H PRN PRN Reason: Constipation Last Admin: 03/02/21 10:12 Dose: 100 mg Documented by: Duloxetine HCl (Duloxetine 30 Mg Cap) 30 mg PO DAILY [facility] Last Admin: 03/05/21 09:12 Dose: 30 mg Documented by: Gabapentin (Gabapentin 600 Mg Tab) 600 mg PO TID [facility] Last Admin: 03/05/21 09:08 Dose: 600 mg Documented by: Lorazepam (Lorazepam 0.5 Mg Tab) 0.5 mg PO TID [facility] Last Admin: 03/05/21 09:12 Dose: 0.5 mg Documented by: Neomycin/Polymyxin/Bacitracin (Bacitracin/Neomycin/Polymyxin B Oint 15 Gm Tube) 1 gm TOP DAILY [facility] Last Admin: 03/05/21 09:14 Dose: Not Given Documented by: Ondansetron HCl (Ondansetron 4 Mg Tab.Dis) 4 mg PO Q8H PRN PRN Reason: Nausea Last Admin: 03/03/21 10:04 Dose: 4 mg Documented by: Oxycodone HCl (Oxycodone 5 Mg Tab) 5 - 10 mg PO Q4H PRN PRN Reason: Pain (moderate 4-6) Last Admin: 03/05/21 09:10 Dose: 10 mg Documented by: Pantoprazole Sodium (Pantoprazole 40 Mg Tab.Cr) 40 mg PO BID [facility] Last Admin: 03/05/21 09:13 Dose: 40 mg Documented by: Polysaccharide Iron Complex (Iron Polysaccharides Complex 150 Mg Cap) 150 mg PO DAILY [facility] Last Admin: 03/05/21 09:07 Dose: 150 mg Documented by: Saccharomyces Boulardii (Saccharomyces Boulardii (Probiotic) 250 Mg Cap) 500 mg PO BID [facility] Last Admin: 03/05/21 09:06 Dose: 500 mg Documented by: Sodium Chloride (Sodium Chloride 0.9% 10 Ml Syringe) 10 ml FLUSH ASDIRECTED PRN PRN Reason: Keep Vein Open Last Admin: 02/25/21 13:17 Dose: 10 ml Documented by: Sucralfate (Sucralfate Suspension 1 Gm/10 Ml Cup) 1 gm PO QIDACANDBED [facility] Last Admin: 03/05/21 06:56 Dose: 1 gm Documented by: Thiamine HCl (Thiamine 100 Mg Tab) 100 mg PO BEDTIME [facility] Last Admin: 03/04/21 21:32 Dose: 100 mg Documented by: Discontinued Medications Acetaminophen (Acetaminophen 325 Mg Tab) 650 mg PO NOW ONE Stop: 02/25/21 05:58 Last Admin: 02/25/21 06:03 Dose: 650 mg Documented by: Acetaminophen (Acetaminophen 325 Mg Tab) Confirm Administered Dose 650 mg .ROUTE .STK-MED ONE Stop: 02/25/21 06:03 Last Admin: 02/25/21 17:37 Dose: Not Given Documented by: Acetaminophen (Acetaminophen 325 Mg Tab) Confirm Administered Dose 325 mg .ROUTE .STK-MED ONE Stop: 02/25/21 06:07 Last Admin: 02/25/21 17:38 Dose: Not Given Documented by: Hydrocodone Bitart/Acetaminophen (Acetaminophen/Hydrocodone 325-5 Mg Tab) 2 tab PO ONETIME ONE Stop: 02/25/21 09:45 Last Admin: 02/25/21 09:55 Dose: 2 tab Documented by: Amlodipine Besylate (Amlodipine 5 Mg Tab) 10 mg PO DAILY [facility] Amlodipine Besylate (Amlodipine 5 Mg Tab) 2.5 mg PO DAILY [facility] Last Admin: 02/26/21 13:43 Dose: Not Given Documented by: Amlodipine Besylate (Amlodipine 2.5 Mg Tab) 2.5 mg PO DAILY [facility] Apixaban (Apixaban 5 Mg Tab) 5 mg PO DAILY [facility] Last Admin: 02/26/21 13:43 Dose: Not Given Documented by: Apixaban (Apixaban 5 Mg Tab) 5 mg PO BID [facility] Baclofen (Baclofen 10 Mg Tab) 30 mg PO QID [facility] Last Admin: 02/26/21 13:43 Dose: Not Given Documented by: Baclofen (Baclofen 10 Mg Tab) 30 mg PO TID [facility] Baclofen (Baclofen 10 Mg Tab) 30 mg PO TID [facility] Duloxetine HCl (Duloxetine 30 Mg Cap) 30 mg PO DAILY [facility] Last Admin: 02/26/21 13:42 Dose: Not Given Documented by: Duloxetine HCl (Duloxetine 30 Mg Cap) 30 mg PO DAILY [facility] Enoxaparin Sodium (Enoxaparin 40 Mg/0.4 Ml Syringe) 40 mg SUBCUT DAILY [facility] Last Admin: 02/27/21 14:00 Dose: 40 mg Documented by: Hydromorphone HCl (Hydromorphone 0.5 Mg/0.5 Ml Syringe) 0.5 mg IVPUSH ONETIME ONE Stop: 02/25/21 14:15 Last Admin: 02/25/21 14:33 Dose: 0.5 mg Documented by: Hydromorphone HCl (Hydromorphone 0.5 Mg/0.5 Ml Syringe) 0.5 mg IVPUSH ONETIME ONE Stop: 02/25/21 17:45 Last Admin: 02/25/21 18:01 Dose: 0.5 mg Documented by: Vancomycin HCl 2 gm/ Sodium (Chloride) 500 mls @ 250 mls/hr IV ONETIME ONE Stop: 02/25/21 15:59 Last Admin: 02/25/21 13:57 Dose: 250 mls/hr Documented by: Sodium Chloride (Normal Saline) 500 mls @ 250 mls/hr IV .BOLUS ONE Stop: 02/28/21 12:59 Last Admin: 02/28/21 11:03 Dose: 250 mls/hr Documented by: Clindamycin Phosphate 600 mg/ (Premix) 33.3333 mls @ 100 mls/hr IV Q8H [facility] Last Admin: 03/01/21 10:52 Dose: Not Given Documented by: Clindamycin Phosphate 600 mg/ (Dextrose/Water) 104 mls @ 312 mls/hr IV Q8H [facility] Ketorolac Tromethamine (Ketorolac 15 Mg/Ml Sdv) 30 mg IM ONETIME ONE Stop: 02/25/21 01:06 Last Admin: 02/25/21 01:16 Dose: 30 mg Documented by: Lactulose (Lactulose Soln 10 Gm/15 Ml 30 Ml Ud Cup) 20 gm PO DAILY PRN PRN Reason: Constipation Stop: 03/05/21 09:31 Levofloxacin (Levofloxacin 750 Mg Tab) 750 mg PO ONETIME ONE Stop: 02/24/21 22:47 Last Admin: 02/24/21 22:53 Dose: 750 mg Documented by: Levofloxacin (Levofloxacin 750 Mg Tab) 750 mg PO Q24H [facility] Last Admin: 02/27/21 21:19 Dose: 750 mg Documented by: Levofloxacin (Levofloxacin 750 Mg Tab) 750 mg PO Q24H [facility] Last Admin: 03/02/21 18:44 Dose: 750 mg Documented by: Morphine Sulfate (Morphine 2 Mg/Ml Syringe) 2 mg IVPUSH Q8H PRN PRN Reason: Pain (severe 7-10) Last Admin: 03/01/21 06:48 Dose: 2 mg Documented by: Morphine Sulfate (Morphine 2 Mg/Ml Syringe) 2 mg IVPUSH Q6H PRN PRN Reason: Pain (severe 7-10) Last Admin: 03/03/21 11:54 Dose: 2 mg Documented by: Ondansetron HCl (Ondansetron 4 Mg Tab.Dis) 4 mg PO ONETIME ONE Stop: 02/25/21 02:39 Last Admin: 02/25/21 02:43 Dose: 4 mg Documented by: Ondansetron HCl (Ondansetron 4 Mg Tab.Dis) Confirm Administered Dose 4 mg .ROUTE .STK-MED ONE Stop: 02/25/21 02:43 Last Admin: 02/25/21 17:38 Dose: Not Given Documented by: Ondansetron HCl (Ondansetron 4 Mg Tab.Dis) 4 mg PO ONETIME ONE Stop: 02/25/21 19:57 Last Admin: 02/25/21 20:15 Dose: 4 mg Documented by: Pantoprazole Sodium (Pantoprazole 40 Mg Tab.Cr) 40 mg PO BID [facility] Last Admin: 02/26/21 13:43 Dose: Not Given Documented by: Pantoprazole Sodium (Pantoprazole 40 Mg Tab.Cr) 40 mg PO BID [facility] Iron Polysaccharides Complex 150 Mg Cap Patient's Own Med 0 each PO DAILY [facility] Last Admin: 02/27/21 09:11 Dose: 1 each Documented by: Sucralfate 1 Gm Tab Patient's Own Med 0 each PO QIDACANDBED [facility] Last Admin: 02/27/21 16:34 Dose: 1 each Documented by: Apixaban 5 Mg Tab Patient's Own Med * * 0 each PO BID [facility] Last Admin: 02/27/21 09:09 Dose: 1 each Documented by: Baclofen 10 Mg Tab Patient's Own Med 0 each PO TID [facility] Last Admin: 02/27/21 14:05 Dose: 1 each Documented by: Pantoprazole 40 Mg Tab.Cr Patient's Own Med 0 each PO BID [facility] Last Admin: 02/27/21 09:12 Dose: 1 each Documented by: Amlodipine 10 Mg Tab Patient's Own Med 0 each PO DAILY [facility] Last Admin: 02/27/21 09:08 Dose: Not Given Documented by: Duloxetine 30 Mg Cap Patient's Own Med 0 each PO DAILY [facility] Last Admin: 02/27/21 09:10 Dose: 1 each Documented by: Polysaccharide Iron Complex (Iron Polysaccharides Complex 150 Mg Cap) 150 mg PO DAILY [facility] Sucralfate (Sucralfate 1 Gm Tab) 1 gm PO QIDACANDBED TANVIR Sucralfate (Sucralfate 1 Gm Tab) 1 gm PO QIDACANDBED [facility] Last Admin: 03/01/21 12:11 Dose: Not Given Documented by: - Exam Quality Assessment: No: Supplemental Oxygen Urinary Catheter Total Time: 7Days 6Hours General: Alert, Oriented HEENT: Pupils Equal, Mucous Membr. Moist/[employer] Neck: Supple Lungs: Clear to Auscultation, Normal Respiratory Effort Cardiovascular: Regular Rate, Regular Rhythm GI/Abdominal Exam: Normal Bowel Sounds, Soft, Non-Tender, No Organomegaly, No Distention, No Abnormal Bruit, No Mass Extremities: No Pedal Edema, Normal Capillary Refill Skin: Warm, Dry, Intact Psy/Mental Status: Alert, Normal Affect, Normal Mood - Patient Data Result Diagrams: 03/04/21 06:23 03/04/21 06:23 Sepsis Event Note - Evaluation Sepsis Screening Result: No Definite Risk - Focused Exam Vital Signs: Vital Signs Temp Pulse Resp BP Pulse Ox 03/05/21 09:14 100/74 03/05/21 04:04 97.7 F 70 14 129/82 96 - Problem List & Annotations (1) Decubitus ulcer of left buttock, stage 2 SNOMED Code(s): 36823473754946506, 77009048773252474 Code(s): L89.322 - PRESSURE ULCER OF LEFT BUTTOCK, STAGE 2 Status: Acute Current Visit: Yes (2) Urinary tract infection SNOMED Code(s): 83239997 Code(s): N39.0 - URINARY TRACT INFECTION, SITE NOT SPECIFIED Status: Acute Current Visit: Yes Qualifiers: Urinary tract infection type: acute pyelonephritis Qualified Code(s): N10 - Acute pyelonephritis (3) Paraplegia following spinal cord injury SNOMED Code(s): 46159627, 26785672 Code(s): G82.20 - PARAPLEGIA, UNSPECIFIED Status: Acute Current Visit: No - Problem List Review Problem List Initiated/Reviewed/Updated: Yes - My Orders Last 24 Hours: My Active Orders 03/04/21 09:09 Renew/Continue Urinary Catheter [OM.PC] Routine 03/04/21 12:25 Ready for Discharge [RC] PER UNIT ROUTINE - Plan Plan:: Patient is a 35-year-old male with a past medical history as listed above who presented to the emergency department with generalized body aches and requesting placement into a fpc because he believes he is not cared for and obviously cannot do it himself considering his neurologic condition. 1. Urinary tract infection. neurogenic bladder, using cath at home by himself. I would like to discharge this patient on Poretr catheter and to follow with the urologist. urine culture - positive for Pseudomonas aeruginosa and Klebsiella pneumoniae. Both are sensitive to Levaquin Completed 5 days of levofloxacin. It does not appear that he was ever symptomatic with his UTI. Porter catheter in place. 2. Skin ulcerations and skin breakdown. Pressure ulcers x 1, stage II-III over left hip area; pressure ulcers x 2, stage II-III over right hip area; ulcers, stage II-III over sacral area. bases of ulcers are covered by purulent secretion. Wounds were covered today, but report are they are improving with wound care. All wounds likely pressure ulcers in nature. Wound culture showed miscellaneous growth include staph aureus and eneterocutan surjit which are resistant to levofloxacin, but sensitive to clindamycin. Case management and social media editor involvement for placement into fpc. Wound care Topical antibiotics Clindamycin 300mg po Q8hrs (since 03/01) Consistent repositioning. Pressure ulcers continue to improve since hospitalization. 3. Alcohol and methamphetamine abuse. Patient not acutely intoxicated with meth. Patient drinks about 8 ounces of hard liquor a day. Patient is on 3 times daily lorazepam at baseline which we will continue. Has never gone through with draw. No evidence of alcohol withdrawal, discontinued CIWA protocol. central office worker consulted Added vitamin B12 and thiamine 4. Quadriplegia. PT and OT. Wound care as mentioned above. Frequent with repositioning. Intermittent catheterizations for urination. Porter catheter in place Baclofen at home dose. 5. Hx of PE As per patient, he had a PE in the past. For which he had been taking Eliquis Continue Eliquis 6. Dysphagia? I was reported that he may have dysphagia Speech pathology saw patient -no dysphagia but suggested patient to see GI as an outpatient 7. Microcytic anemia Patient is on iron as an outpatient, but it is unlikely has been getting it. Continue outpatient iron. Hemoglobin today is 9.4, and on admission it was 8.7. Continue to monitor but only infrequently. All other medical comorbidities are stable and nonactive conditions, will continue home medications at regular dose. CODE STATUS: Full code. DVT prophylaxis: Eliquis Disposition: medical ready. awaiting placement Pt needs pcp, urology and wound care. Length of stay greater then 96 hours due to slow response to treatment and placement. Plan is to discharge patient on Sunday back to his apartment on the [facility]. We are told that the nurse will be available to make sure he gets appropriate wound care.
[2021-03-05] MEDS: Thiamine 100 MG Tab PO SCH (20:15)
[2021-03-06] MEDS: Clindamycin HCl 150 MG Cap PO SCH ×3 (01:51→21:14)
[2021-03-06] MEDS: oxyCODONE 5 MG Tab PO PRN ×4 (04:37→21:12)
[2021-03-06] MEDS: Sucralfate Suspension 1 GM/10 ML Cup PO SCH ×4 (07:37→21:15)
[2021-03-06] MEDS: DULoxetine 30 MG Cap PO SCH (09:00)
[2021-03-06] MEDS: Baclofen 10 MG Tab PO SCH ×3 (09:00→21:14)
[2021-03-06] MEDS: amLODIPine 2.5 MG Tab PO SCH (09:00)
[2021-03-06] MEDS: Iron Polysaccharides Complex 150 MG Cap PO SCH (09:00)
[2021-03-06] MEDS: LORazepam 0.5 MG Tab PO SCH ×3 (09:01→21:15)
[2021-03-06] MEDS: Saccharomyces Boulardii (Probiotic) 250 MG Cap PO SCH ×2 (09:02→21:14)
[2021-03-06] MEDS: Cyanocobalamin (Vitamin B12) 1,000 MCG Tab PO SCH (09:04)
[2021-03-06] MEDS: Gabapentin 600 MG Tab PO SCH ×3 (09:04→21:15)
[2021-03-06] MEDS: Bacitracin/Neomycin/Polymyxin B Oint 15 GM Tube TOP SCH (09:04)
[2021-03-06] MEDS: Apixaban 5 MG Tab PO SCH ×2 (09:04→21:14)
[2021-03-06] MEDS: Pantoprazole 40 MG Tab.CR PO SCH ×2 (09:04→21:14)
[2021-03-06] MEDS ORDERED: Clindamycin HCl 150 MG Cap PO SCH (10:00)
--- NOTE | 2021-03-06 11:03 | PCM.PN ---
- General Info Date of Service: 03/06/21 Admission Dx/Problem (Free Text): Admission Diagnosis/Problem Admission Diagnosis/Problem UTI, Urinary tract infectious disease Subjective Update: Patient is a 35-year-old male with a past medical history as listed below, most notable for functional quadriplegia who presented to the emergency department on February 24 in the late evening due to a chief complaint of generalized body aches. Patient has been living at home. He had been worried for himself as he does not believe he is getting the care and help he needs from family and friends. No significant change overnight. Patient is stable and getting oral antibiotics and wound therapy. At this point he is ready for discharge is pending placement. Functional Status: Reports: Pain Controlled - Review of Systems General: Reports: No Symptoms HEENT: Reports: No Symptoms Pulmonary: Reports: No Symptoms Cardiovascular: Reports: No Symptoms Gastrointestinal: Reports: No Symptoms - Patient Data Vitals - Most Recent: Last Vital Signs Temp 97.9 F 03/06/21 08:36 Pulse 84 03/06/21 08:36 Resp 18 03/06/21 08:36 BP 136/77 03/06/21 09:00 Pulse Ox 99 03/06/21 08:36 Weight - Most Recent: 184 lb 11.2 oz I&O - Last 24 Hours: Intake & Output 03/05/21 03/06/21 03/06/21 22:59 06:59 14:59 Intake Total 1700 2250 Output Total 1900 3900 Balance -200 -1650 Med Orders - Current: Current Medications Acetaminophen (Acetaminophen 325 Mg Tab) 650 mg PO Q6H PRN PRN Reason: Pain Last Admin: 03/03/21 03:22 Dose: 650 mg Documented by: Amlodipine Besylate (Amlodipine 2.5 Mg Tab) 2.5 mg PO DAILY [facility] Last Admin: 03/06/21 09:00 Dose: Not Given Documented by: Apixaban (Apixaban 5 Mg Tab) 5 mg PO BID [facility] Last Admin: 03/06/21 09:04 Dose: 5 mg Documented by: Baclofen (Baclofen 10 Mg Tab) 30 mg PO TID [facility] Last Admin: 03/06/21 09:00 Dose: 30 mg Documented by: Clindamycin HCl (Clindamycin Hcl 150 Mg Cap) 300 mg PO Q8H [facility] Last Admin: 03/06/21 10:03 Dose: 300 mg Documented by: Cyanocobalamin (Cyanocobalamin (Vitamin B12) 1,000 Mcg Tab) 1,000 mcg PO DAILY [facility] Last Admin: 03/06/21 09:04 Dose: 1,000 mcg Documented by: Docusate Sodium (Docusate Sodium 100 Mg Cap) 100 mg PO Q12H PRN PRN Reason: Constipation Last Admin: 03/02/21 10:12 Dose: 100 mg Documented by: Duloxetine HCl (Duloxetine 30 Mg Cap) 30 mg PO DAILY [facility] Last Admin: 03/06/21 09:00 Dose: 30 mg Documented by: Gabapentin (Gabapentin 600 Mg Tab) 600 mg PO TID [facility] Last Admin: 03/06/21 09:04 Dose: 600 mg Documented by: Lorazepam (Lorazepam 0.5 Mg Tab) 0.5 mg PO TID [facility] Last Admin: 03/06/21 09:01 Dose: 0.5 mg Documented by: Neomycin/Polymyxin/Bacitracin (Bacitracin/Neomycin/Polymyxin B Oint 15 Gm Tube) 1 gm TOP DAILY [facility] Last Admin: 03/06/21 09:04 Dose: 15 applic Documented by: Ondansetron HCl (Ondansetron 4 Mg Tab.Dis) 4 mg PO Q8H PRN PRN Reason: Nausea Last Admin: 03/03/21 10:04 Dose: 4 mg Documented by: Oxycodone HCl (Oxycodone 5 Mg Tab) 5 - 10 mg PO Q4H PRN PRN Reason: Pain (moderate 4-6) Last Admin: 03/06/21 09:02 Dose: 10 mg Documented by: Pantoprazole Sodium (Pantoprazole 40 Mg Tab.Cr) 40 mg PO BID [facility] Last Admin: 03/06/21 09:04 Dose: 40 mg Documented by: Polysaccharide Iron Complex (Iron Polysaccharides Complex 150 Mg Cap) 150 mg PO DAILY [facility] Last Admin: 03/06/21 09:00 Dose: 150 mg Documented by: Saccharomyces Boulardii (Saccharomyces Boulardii (Probiotic) 250 Mg Cap) 500 mg PO BID [facility] Last Admin: 03/06/21 09:02 Dose: 500 mg Documented by: Sodium Chloride (Sodium Chloride 0.9% 10 Ml Syringe) 10 ml FLUSH ASDIRECTED PRN PRN Reason: Keep Vein Open Last Admin: 02/25/21 13:17 Dose: 10 ml Documented by: Sucralfate (Sucralfate Suspension 1 Gm/10 Ml Cup) 1 gm PO QIDACANDBED [facility] Last Admin: 03/06/21 10:03 Dose: 1 gm Documented by: Thiamine HCl (Thiamine 100 Mg Tab) 100 mg PO BEDTIME [facility] Last Admin: 03/05/21 20:15 Dose: 100 mg Documented by: Discontinued Medications Acetaminophen (Acetaminophen 325 Mg Tab) 650 mg PO NOW ONE Stop: 02/25/21 05:58 Last Admin: 02/25/21 06:03 Dose: 650 mg Documented by: Acetaminophen (Acetaminophen 325 Mg Tab) Confirm Administered Dose 650 mg .ROUTE .STK-MED ONE Stop: 02/25/21 06:03 Last Admin: 02/25/21 17:37 Dose: Not Given Documented by: Acetaminophen (Acetaminophen 325 Mg Tab) Confirm Administered Dose 325 mg .ROUTE .STK-MED ONE Stop: 02/25/21 06:07 Last Admin: 02/25/21 17:38 Dose: Not Given Documented by: Hydrocodone Bitart/Acetaminophen (Acetaminophen/Hydrocodone 325-5 Mg Tab) 2 tab PO ONETIME ONE Stop: 02/25/21 09:45 Last Admin: 02/25/21 09:55 Dose: 2 tab Documented by: Amlodipine Besylate (Amlodipine 5 Mg Tab) 10 mg PO DAILY [facility] Amlodipine Besylate (Amlodipine 5 Mg Tab) 2.5 mg PO DAILY [facility] Last Admin: 02/26/21 13:43 Dose: Not Given Documented by: Amlodipine Besylate (Amlodipine 2.5 Mg Tab) 2.5 mg PO DAILY [facility] Apixaban (Apixaban 5 Mg Tab) 5 mg PO DAILY [facility] Last Admin: 02/26/21 13:43 Dose: Not Given Documented by: Apixaban (Apixaban 5 Mg Tab) 5 mg PO BID [facility] Baclofen (Baclofen 10 Mg Tab) 30 mg PO QID [facility] Last Admin: 02/26/21 13:43 Dose: Not Given Documented by: Baclofen (Baclofen 10 Mg Tab) 30 mg PO TID [facility] Baclofen (Baclofen 10 Mg Tab) 30 mg PO TID [facility] Duloxetine HCl (Duloxetine 30 Mg Cap) 30 mg PO DAILY [facility] Last Admin: 02/26/21 13:42 Dose: Not Given Documented by: Duloxetine HCl (Duloxetine 30 Mg Cap) 30 mg PO DAILY [facility] Enoxaparin Sodium (Enoxaparin 40 Mg/0.4 Ml Syringe) 40 mg SUBCUT DAILY [facility] Last Admin: 02/27/21 14:00 Dose: 40 mg Documented by: Hydromorphone HCl (Hydromorphone 0.5 Mg/0.5 Ml Syringe) 0.5 mg IVPUSH ONETIME ONE Stop: 02/25/21 14:15 Last Admin: 02/25/21 14:33 Dose: 0.5 mg Documented by: Hydromorphone HCl (Hydromorphone 0.5 Mg/0.5 Ml Syringe) 0.5 mg IVPUSH ONETIME ONE Stop: 02/25/21 17:45 Last Admin: 02/25/21 18:01 Dose: 0.5 mg Documented by: Vancomycin HCl 2 gm/ Sodium (Chloride) 500 mls @ 250 mls/hr IV ONETIME ONE Stop: 02/25/21 15:59 Last Admin: 02/25/21 13:57 Dose: 250 mls/hr Documented by: Sodium Chloride (Normal Saline) 500 mls @ 250 mls/hr IV .BOLUS ONE Stop: 02/28/21 12:59 Last Admin: 02/28/21 11:03 Dose: 250 mls/hr Documented by: Clindamycin Phosphate 600 mg/ (Premix) 33.3333 mls @ 100 mls/hr IV Q8H [facility] Last Admin: 03/01/21 10:52 Dose: Not Given Documented by: Clindamycin Phosphate 600 mg/ (Dextrose/Water) 104 mls @ 312 mls/hr IV Q8H [facility] Ketorolac Tromethamine (Ketorolac 15 Mg/Ml Sdv) 30 mg IM ONETIME ONE Stop: 02/25/21 01:06 Last Admin: 02/25/21 01:16 Dose: 30 mg Documented by: Lactulose (Lactulose Soln 10 Gm/15 Ml 30 Ml Ud Cup) 20 gm PO DAILY PRN PRN Reason: Constipation Stop: 03/05/21 09:31 Levofloxacin (Levofloxacin 750 Mg Tab) 750 mg PO ONETIME ONE Stop: 02/24/21 22:47 Last Admin: 02/24/21 22:53 Dose: 750 mg Documented by: Levofloxacin (Levofloxacin 750 Mg Tab) 750 mg PO Q24H [facility] Last Admin: 02/27/21 21:19 Dose: 750 mg Documented by: Levofloxacin (Levofloxacin 750 Mg Tab) 750 mg PO Q24H [facility] Last Admin: 03/02/21 18:44 Dose: 750 mg Documented by: Morphine Sulfate (Morphine 2 Mg/Ml Syringe) 2 mg IVPUSH Q8H PRN PRN Reason: Pain (severe 7-10) Last Admin: 03/01/21 06:48 Dose: 2 mg Documented by: Morphine Sulfate (Morphine 2 Mg/Ml Syringe) 2 mg IVPUSH Q6H PRN PRN Reason: Pain (severe 7-10) Last Admin: 03/03/21 11:54 Dose: 2 mg Documented by: Ondansetron HCl (Ondansetron 4 Mg Tab.Dis) 4 mg PO ONETIME ONE Stop: 02/25/21 02:39 Last Admin: 02/25/21 02:43 Dose: 4 mg Documented by: Ondansetron HCl (Ondansetron 4 Mg Tab.Dis) Confirm Administered Dose 4 mg .ROUTE .STK-MED ONE Stop: 02/25/21 02:43 Last Admin: 02/25/21 17:38 Dose: Not Given Documented by: Ondansetron HCl (Ondansetron 4 Mg Tab.Dis) 4 mg PO ONETIME ONE Stop: 02/25/21 19:57 Last Admin: 02/25/21 20:15 Dose: 4 mg Documented by: Pantoprazole Sodium (Pantoprazole 40 Mg Tab.Cr) 40 mg PO BID [facility] Last Admin: 02/26/21 13:43 Dose: Not Given Documented by: Pantoprazole Sodium (Pantoprazole 40 Mg Tab.Cr) 40 mg PO BID [facility] Iron Polysaccharides Complex 150 Mg Cap Patient's Own Med 0 each PO DAILY [facility] Last Admin: 02/27/21 09:11 Dose: 1 each Documented by: Sucralfate 1 Gm Tab Patient's Own Med 0 each PO QIDACANDBED [facility] Last Admin: 02/27/21 16:34 Dose: 1 each Documented by: Apixaban 5 Mg Tab Patient's Own Med * * 0 each PO BID [facility] Last Admin: 02/27/21 09:09 Dose: 1 each Documented by: Baclofen 10 Mg Tab Patient's Own Med 0 each PO TID [facility] Last Admin: 02/27/21 14:05 Dose: 1 each Documented by: Pantoprazole 40 Mg Tab.Cr Patient's Own Med 0 each PO BID [facility] Last Admin: 02/27/21 09:12 Dose: 1 each Documented by: Amlodipine 10 Mg Tab Patient's Own Med 0 each PO DAILY [facility] Last Admin: 02/27/21 09:08 Dose: Not Given Documented by: Duloxetine 30 Mg Cap Patient's Own Med 0 each PO DAILY [facility] Last Admin: 02/27/21 09:10 Dose: 1 each Documented by: Polysaccharide Iron Complex (Iron Polysaccharides Complex 150 Mg Cap) 150 mg PO DAILY [facility] Sucralfate (Sucralfate 1 Gm Tab) 1 gm PO QIDACANDBED [facility] Sucralfate (Sucralfate 1 Gm Tab) 1 gm PO QIDACANDBED [facility] Last Admin: 03/01/21 12:11 Dose: Not Given Documented by: - Exam Quality Assessment: No: Supplemental Oxygen Urinary Catheter Total Time: 8Days 2Hours General: Alert HEENT: Pupils Equal, Mucous Membr. Moist/[place] Neck: Supple Lungs: Clear to Auscultation, Normal Respiratory Effort Cardiovascular: Regular Rate, Regular Rhythm GI/Abdominal Exam: Normal Bowel Sounds, Soft, Non-Tender, No Distention Extremities: Normal Range of Motion, Non-Tender, No Pedal Edema, Normal Ca pillary Refill Skin: Warm, Dry, Intact Psy/Mental Status: Alert, Normal Affect, Normal Mood - Patient Data Result Diagrams: 03/04/21 06:23 03/04/21 06:23 Sepsis Event Note - Evaluation Sepsis Screening Result: No Definite Risk - Focused Exam Vital Signs: Vital Signs Temp Pulse Resp BP Pulse Ox 03/06/21 09:00 136/77 03/06/21 08:36 97.9 F 84 18 136/77 99 03/06/21 04:36 97.9 F 83 14 113/62 97 - Problem List & Annotations (1) Decubitus ulcer of left buttock, stage 2 SNOMED Code(s): 88637749762914768, 75201219976202067 Code(s): L89.322 - PRESSURE ULCER OF LEFT BUTTOCK, STAGE 2 Status: Acute Current Visit: Yes (2) Urinary tract infection SNOMED Code(s): 37392960 Code(s): N39.0 - URINARY TRACT INFECTION, SITE NOT SPECIFIED Status: Acute Current Visit: Yes Qualifiers: Urinary tract infection type: acute pyelonephritis Qualified Code(s): N10 - Acute pyelonephritis (3) Paraplegia following spinal cord injury SNOMED Code(s): 80492899, 86062196 Code(s): G82.20 - PARAPLEGIA, UNSPECIFIED Status: Acute Current Visit: No - Problem List Review Problem List Initiated/Reviewed/Updated: Yes - My Orders Last 24 Hours: My Active Orders 03/05/21 19:38 Renew/Continue Urinary Catheter [OM.PC] Routine - Plan Plan:: Patient is a 35-year-old male with a past medical history as listed above who presented to the emergency department with generalized body aches and requesting placement into a long-term because he believes he is not cared for and obviously cannot do it himself considering his neurologic condition. 1. Urinary tract infection. neurogenic bladder, using cath at home by himself. I would like to discharge this patient on Porter catheter and to follow with the urologist. urine culture - positive for Pseudomonas aeruginosa and Klebsiella pneumoniae. Both are sensitive to Levaquin Completed 5 days of levofloxacin. It does not appear that he was ever symptomatic with his UTI. Porter catheter in place to prevent wound breakdown. 2. Skin ulcerations and skin breakdown. Pressure ulcers x 1, stage II-III over left hip area; pressure ulcers x 2, stage II-III over right hip area; ulcers, stage II-III over sacral area. bases of ulcers are covered by purulent secretion. Wounds were covered today, but report are they are improving with wound care. All wounds likely pressure ulcers in nature. Wound culture showed miscellaneous growth include staph aureus and eneterocutan surjit which are resistant to levofloxacin, but sensitive to clindamycin. Case management and social media assistant involvement for placement into long-term. Wound care Topical antibiotics Clindamycin 300mg po Q8hrs (since 03/01) Consistent repositioning. Pressure ulcers continue to improve since hospitalization. 3. Alcohol and methamphetamine abuse. Patient not acutely intoxicated with meth. Patient drinks about 8 ounces of hard liquor a day. Patient is on 3 times daily lorazepam at baseline which we will continue. Has never gone through with draw. No evidence of alcohol withdrawal, discontinued CIWA protocol. 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 Quadriplegia. PT and OT. Frequent with repositioning. Intermittent catheterizations for urination. Porter catheter in place Baclofen at home dose. 5. Hx of PE As per patient, he had a PE in the past. For which he had been taking Eliquis Continue Eliquis 6. Dysphagia? I was reported that he may have dysphagia Speech pathology saw patient -no dysphagia but suggested patient to see GI as an outpatient 7. Microcytic anemia Patient is on iron as an outpatient, but it is unlikely has been getting it. Continue outpatient iron. Hemoglobin today is 9.4, and on admission it was 8.7. Continue to monitor but only infrequently. All other medical comorbidities are stable and nonactive conditions, will continue home medications at regular dose. CODE STATUS: Full code. DVT prophylaxis: Eliquis Disposition: medical ready. awaiting placement Pt needs pcp, urology and wound care. Length of stay greater then 96 hours due to slow response to treatment and placement. Plan is to discharge patient on Sunday back to his apartment on the [facility] [place]. We are told that the nurse will be available to make sure he gets appropriate wound care.
[2021-03-06] MEDS: Thiamine 100 MG Tab PO SCH (21:14)
[2021-03-07] MEDS: oxyCODONE 5 MG Tab PO PRN ×3 (02:11→18:47)
[2021-03-07] MEDS: Clindamycin HCl 150 MG Cap PO SCH ×3 (06:23→21:54)
[2021-03-07] MEDS: Sucralfate Suspension 1 GM/10 ML Cup PO SCH ×4 (06:28→21:52)
[2021-03-07] MEDS: Baclofen 10 MG Tab PO SCH ×3 (08:38→21:53)
[2021-03-07] MEDS: LORazepam 0.5 MG Tab PO SCH ×3 (08:38→21:53)
[2021-03-07] MEDS: Cyanocobalamin (Vitamin B12) 1,000 MCG Tab PO SCH (08:38)
[2021-03-07] MEDS: DULoxetine 30 MG Cap PO SCH (08:38)
[2021-03-07] MEDS: Pantoprazole 40 MG Tab.CR PO SCH ×2 (08:38→21:54)
[2021-03-07] MEDS: Gabapentin 600 MG Tab PO SCH ×3 (08:38→21:53)
[2021-03-07] MEDS: Saccharomyces Boulardii (Probiotic) 250 MG Cap PO SCH ×2 (08:38→21:52)
[2021-03-07] MEDS: Apixaban 5 MG Tab PO SCH ×2 (08:39→21:52)
[2021-03-07] MEDS: Iron Polysaccharides Complex 150 MG Cap PO SCH (08:39)
[2021-03-07] MEDS: amLODIPine 2.5 MG Tab PO SCH (08:39)
[2021-03-07] MEDS: Bacitracin/Neomycin/Polymyxin B Oint 15 GM Tube TOP SCH (08:40)
--- NOTE | 2021-03-07 12:25 | PCM.PN ---
- General Info Date of Service: 03/07/21 Admission Dx/Problem (Free Text): Admission Diagnosis/Problem Admission Diagnosis/Problem UTI, Urinary tract infectious disease Subjective Update: 35-year-old male with no complaints. Awaiting placement. Functional Status: Reports: Pain Controlled - Review of Systems General: Reports: No Symptoms HEENT: Reports: No Symptoms Pulmonary: Reports: No Symptoms Cardiovascular: Reports: No Symptoms - Patient Data Vitals - Most Recent: Last Vital Signs Temp 97.7 F 03/07/21 12:01 Pulse 72 03/07/21 12:01 Resp 18 03/07/21 12:01 BP 110/90 03/07/21 12:01 Pulse Ox 98 03/07/21 12:01 Weight - Most Recent: 183 lb 6.4 oz I&O - Last 24 Hours: Intake & Output 03/06/21 03/07/21 03/07/21 22:59 06:59 14:59 Intake Total 3280 2200 780 Output Total 1999 3900 Balance 1280 -1700 780 Med Orders - Current: Current Medications Acetaminophen (Acetaminophen 325 Mg Tab) 650 mg PO Q6H PRN PRN Reason: Pain Last Admin: 03/03/21 03:22 Dose: 650 mg Documented by: Amlodipine Besylate (Amlodipine 2.5 Mg Tab) 2.5 mg PO DAILY [facility] Last Admin: 03/07/21 08:39 Dose: 2.5 mg Documented by: Apixaban (Apixaban 5 Mg Tab) 5 mg PO BID [facility] Last Admin: 03/07/21 08:39 Dose: 5 mg Documented by: Baclofen (Baclofen 10 Mg Tab) 30 mg PO TID [facility] Last Admin: 03/07/21 08:38 Dose: 30 mg Documented by: Clindamycin HCl (Clindamycin Hcl 150 Mg Cap) 300 mg PO Q8H [facility] Last Admin: 03/07/21 06:23 Dose: 300 mg Documented by: Cyanocobalamin (Cyanocobalamin (Vitamin B12) 1,000 Mcg Tab) 1,000 mcg PO DAILY [facility] Last Admin: 03/07/21 08:38 Dose: 1,000 mcg Documented by: Docusate Sodium (Docusate Sodium 100 Mg Cap) 100 mg PO Q12H PRN PRN Reason: Constipation Last Admin: 03/02/21 10:12 Dose: 100 mg Documented by: Duloxetine HCl (Duloxetine 30 Mg Cap) 30 mg PO DAILY [facility] Last Admin: 03/07/21 08:38 Dose: 30 mg Documented by: Gabapentin (Gabapentin 600 Mg Tab) 600 mg PO TID [facility] Last Admin: 03/07/21 08:38 Dose: 600 mg Documented by: Lorazepam (Lorazepam 0.5 Mg Tab) 0.5 mg PO TID [facility] Last Admin: 03/07/21 08:38 Dose: 0.5 mg Documented by: Neomycin/Polymyxin/Bacitracin (Bacitracin/Neomycin/Polymyxin B Oint 15 Gm Tube) 1 gm TOP DAILY [facility] Last Admin: 03/07/21 08:40 Dose: 1 applic Documented by: Ondansetron HCl (Ondansetron 4 Mg Tab.Dis) 4 mg PO Q8H PRN PRN Reason: Nausea Last Admin: 03/03/21 10:04 Dose: 4 mg Documented by: Oxycodone HCl (Oxycodone 5 Mg Tab) 5 - 10 mg PO Q4H PRN PRN Reason: Pain (moderate 4-6) Last Admin: 03/07/21 06:24 Dose: 10 mg Documented by: Pantoprazole Sodium (Pantoprazole 40 Mg Tab.Cr) 40 mg PO BID [facility] Last Admin: 03/07/21 08:38 Dose: 40 mg Documented by: Polysaccharide Iron Complex (Iron Polysaccharides Complex 150 Mg Cap) 150 mg PO DAILY [facility] Last Admin: 03/07/21 08:39 Dose: 150 mg Documented by: Saccharomyces Boulardii (Saccharomyces Boulardii (Probiotic) 250 Mg Cap) 500 mg PO BID [facility] Last Admin: 03/07/21 08:38 Dose: 500 mg Documented by: Sodium Chloride (Sodium Chloride 0.9% 10 Ml Syringe) 10 ml FLUSH ASDIRECTED PRN PRN Reason: Keep Vein Open Last Admin: 02/25/21 13:17 Dose: 10 ml Documented by: Sucralfate (Sucralfate Suspension 1 Gm/10 Ml Cup) 1 gm PO QIDACANDBED [facility] Last Admin: 03/07/21 11:05 Dose: 1 gm Documented by: Thiamine HCl (Thiamine 100 Mg Tab) 100 mg PO BEDTIME [facility] Last Admin: 03/06/21 21:14 Dose: 100 mg Documented by: Discontinued Medications Acetaminophen (Acetaminophen 325 Mg Tab) 650 mg PO NOW ONE Stop: 02/25/21 05:58 Last Admin: 02/25/21 06:03 Dose: 650 mg Documented by: Acetaminophen (Acetaminophen 325 Mg Tab) Confirm Administered Dose 650 mg .ROUTE .STK-MED ONE Stop: 02/25/21 06:03 Last Admin: 02/25/21 17:37 Dose: Not Given Documented by: Acetaminophen (Acetaminophen 325 Mg Tab) Confirm Administered Dose 325 mg .ROUTE .STK-MED ONE Stop: 02/25/21 06:07 Last Admin: 02/25/21 17:38 Dose: Not Given Documented by: Hydrocodone Bitart/Acetaminophen (Acetaminophen/Hydrocodone 325-5 Mg Tab) 2 tab PO ONETIME ONE Stop: 02/25/21 09:45 Last Admin: 02/25/21 09:55 Dose: 2 tab Documented by: Amlodipine Besylate (Amlodipine 5 Mg Tab) 10 mg PO DAILY [facility] Amlodipine Besylate (Amlodipine 5 Mg Tab) 2.5 mg PO DAILY [facility] Last Admin: 02/26/21 13:43 Dose: Not Given Documented by: Amlodipine Besylate (Amlodipine 2.5 Mg Tab) 2.5 mg PO DAILY [facility] Apixaban (Apixaban 5 Mg Tab) 5 mg PO DAILY [facility] Last Admin: 02/26/21 13:43 Dose: Not Given Documented by: Apixaban (Apixaban 5 Mg Tab) 5 mg PO BID [facility] Baclofen (Baclofen 10 Mg Tab) 30 mg PO QID [facility] Last Admin: 02/26/21 13:43 Dose: Not Given Documented by: Baclofen (Baclofen 10 Mg Tab) 30 mg PO TID [facility] Baclofen (Baclofen 10 Mg Tab) 30 mg PO TID [facility] Clindamycin HCl (Clindamycin Hcl 150 Mg Cap) 300 mg PO Q8H [facility] Last Admin: 03/06/21 10:03 Dose: 300 mg Documented by: Clindamycin HCl (Clindamycin Hcl 150 Mg Cap) 300 mg PO Q8H [facility] Last Admin: 03/06/21 18:24 Dose: Not Given Documented by: Duloxetine HCl (Duloxetine 30 Mg Cap) 30 mg PO DAILY [facility] Last Admin: 02/26/21 13:42 Dose: Not Given Documented by: Duloxetine HCl (Duloxetine 30 Mg Cap) 30 mg PO DAILY [facility] Enoxaparin Sodium (Enoxaparin 40 Mg/0.4 Ml Syringe) 40 mg SUBCUT DAILY [facility] Last Admin: 02/27/21 14:00 Dose: 40 mg Documented by: Hydromorphone HCl (Hydromorphone 0.5 Mg/0.5 Ml Syringe) 0.5 mg IVPUSH ONETIME ONE Stop: 02/25/21 14:15 Last Admin: 02/25/21 14:33 Dose: 0.5 mg Documented by: Hydromorphone HCl (Hydromorphone 0.5 Mg/0.5 Ml Syringe) 0.5 mg IVPUSH ONETIME ONE Stop: 02/25/21 17:45 Last Admin: 02/25/21 18:01 Dose: 0.5 mg Documented by: Vancomycin HCl 2 gm/ Sodium (Chloride) 500 mls @ 250 mls/hr IV ONETIME ONE Stop: 02/25/21 15:59 Last Admin: 02/25/21 13:57 Dose: 250 mls/hr Documented by: Sodium Chloride (Normal Saline) 500 mls @ 250 mls/hr IV .BOLUS ONE Stop: 02/28/21 12:59 Last Admin: 02/28/21 11:03 Dose: 250 mls/hr Documented by: Clindamycin Phosphate 600 mg/ (Premix) 33.3333 mls @ 100 mls/hr IV Q8H [facility] Last Admin: 03/01/21 10:52 Dose: Not Given Documented by: Clindamycin Phosphate 600 mg/ (Dextrose/Water) 104 mls @ 312 mls/hr IV Q8H [facility] Ketorolac Tromethamine (Ketorolac 15 Mg/Ml Sdv) 30 mg IM ONETIME ONE Stop: 02/25/21 01:06 Last Admin: 02/25/21 01:16 Dose: 30 mg Documented by: Lactulose (Lactulose Soln 10 Gm/15 Ml 30 Ml Ud Cup) 20 gm PO DAILY PRN PRN Reason: Constipation Stop: 03/05/21 09:31 Levofloxacin (Levofloxacin 750 Mg Tab) 750 mg PO ONETIME ONE Stop: 02/24/21 22:47 Last Admin: 02/24/21 22:53 Dose: 750 mg Documented by: Levofloxacin (Levofloxacin 750 Mg Tab) 750 mg PO Q24H [facility] Last Admin: 02/27/21 21:19 Dose: 750 mg Documented by: Levofloxacin (Levofloxacin 750 Mg Tab) 750 mg PO Q24H [facility] Last Admin: 03/02/21 18:44 Dose: 750 mg Documented by: Morphine Sulfate (Morphine 2 Mg/Ml Syringe) 2 mg IVPUSH Q8H PRN PRN Reason: Pain (severe 7-10) Last Admin: 03/01/21 06:48 Dose: 2 mg Documented by: Morphine Sulfate (Morphine 2 Mg/Ml Syringe) 2 mg IVPUSH Q6H PRN PRN Reason: Pain (severe 7-10) Last Admin: 03/03/21 11:54 Dose: 2 mg Documented by: Ondansetron HCl (Ondansetron 4 Mg Tab.Dis) 4 mg PO ONETIME ONE Stop: 02/25/21 02:39 Last Admin: 02/25/21 02:43 Dose: 4 mg Documented by: Ondansetron HCl (Ondansetron 4 Mg Tab.Dis) Confirm Administered Dose 4 mg .ROUTE .STK-MED ONE Stop: 02/25/21 02:43 Last Admin: 02/25/21 17:38 Dose: Not Given Documented by: Ondansetron HCl (Ondansetron 4 Mg Tab.Dis) 4 mg PO ONETIME ONE Stop: 02/25/21 19:57 Last Admin: 02/25/21 20:15 Dose: 4 mg Documented by: Pantoprazole Sodium (Pantoprazole 40 Mg Tab.Cr) 40 mg PO BID [facility] Last Admin: 02/26/21 13:43 Dose: Not Given Documented by: Pantoprazole Sodium (Pantoprazole 40 Mg Tab.Cr) 40 mg PO BID [facility] Iron Polysaccharides Complex 150 Mg Cap Patient's Own Med 0 each PO DAILY [facility] Last Admin: 02/27/21 09:11 Dose: 1 each Documented by: Sucralfate 1 Gm Tab Patient's Own Med 0 each PO QIDACANDBED [facility] Last Admin: 02/27/21 16:34 Dose: 1 each Documented by: Apixaban 5 Mg Tab Patient's Own Med * * 0 each PO BID [facility] Last Admin: 02/27/21 09:09 Dose: 1 each Documented by: Baclofen 10 Mg Tab Patient's Own Med 0 each PO TID [facility] Last Admin: 02/27/21 14:05 Dose: 1 each Documented by: Pantoprazole 40 Mg Tab.Cr Patient's Own Med 0 each PO BID [facility] Last Admin: 02/27/21 09:12 Dose: 1 each Documented by: Amlodipine 10 Mg Tab Patient's Own Med 0 each PO DAILY [facility] Last Admin: 02/27/21 09:08 Dose: Not Given Documented by: Duloxetine 30 Mg Cap Patient's Own Med 0 each PO DAILY [facility] Last Admin: 02/27/21 09:10 Dose: 1 each Documented by: Polysaccharide Iron Complex (Iron Polysaccharides Complex 150 Mg Cap) 150 mg PO DAILY [facility] Sucralfate (Sucralfate 1 Gm Tab) 1 gm PO QIDACANDBED [facility] Sucralfate (Sucralfate 1 Gm Tab) 1 gm PO QIDACANDBED [facility] Last Admin: 03/01/21 12:11 Dose: Not Given Documented by: - Exam Quality Assessment: No: Supplemental Oxygen Urinary Catheter Total Time: 9Days 13Hours General: Alert, Oriented HEENT: Pupils Equal, Mucous Membr. Moist/[place] Neck: Supple Lungs: Clear to Auscultation, Normal Respiratory Effort Cardiovascular: Regular Rate, Regular Rhythm GI/Abdominal Exam: Normal Bowel Sounds, Soft, Non-Tender, No Organomegaly, No Distention, No Abnormal Bruit, No Mass - Patient Data Result Diagrams: 03/04/21 06:23 03/04/21 06:23 Sepsis Event Note - Evaluation Sepsis Screening Result: No Definite Risk - Focused Exam Vital Signs: Vital Signs Temp Pulse Resp BP Pulse Ox 03/07/21 12:01 97.7 F 72 18 110/90 98 03/07/21 11:05 98.1 F 75 16 113/50 L 95 03/07/21 08:39 108/64 03/07/21 07:57 97.9 F 75 18 108/64 98 03/07/21 04:52 96.6 F L 80 18 127/69 97 - Problem List & Annotations (1) Decubitus ulcer of left buttock, stage 2 SNOMED Code(s): 34014619252122430, 67280604818635264 Code(s): L89.322 - PRESSURE ULCER OF LEFT BUTTOCK, STAGE 2 Status: Acute Current Visit: Yes (2) Urinary tract infection SNOMED Code(s): 84926806 Code(s): N39.0 - URINARY TRACT INFECTION, SITE NOT SPECIFIED Status: Acute Current Visit: Yes Qualifiers: Urinary tract infection type: acute pyelonephritis Qualified Code(s): N10 - Acute pyelonephritis (3) Paraplegia following spinal cord injury SNOMED Code(s): 45588852, 11864789 Code(s): G82.20 - PARAPLEGIA, UNSPECIFIED Status: Acute Current Visit: No - Problem List Review Problem List Initiated/Reviewed/Updated: Yes - My Orders Last 24 Hours: My Active Orders 03/06/21 14:22 Renew/Continue Urinary Catheter [OM.PC] Routine 03/07/21 09:26 Renew/Continue Urinary Catheter [OM.PC] Routine - Plan Plan:: Patient is a 35-year-old male with a past medical history as listed above who presented to the emergency department with generalized body aches and requesting placement into a [facility] because he believes he is not cared for and obviously cannot do it himself considering his neurologic condition. 1. Urinary tract infection. neurogenic bladder, using cath at home by himself. I would like to discharge this patient on Porter catheter and to follow with the urologist. urine culture - positive for Pseudomonas aeruginosa and Klebsiella pneumoniae. Both are sensitive to Levaquin Completed 5 days of levofloxacin. It does not appear that he was ever symptomatic with his UTI. Porter catheter in place to prevent wound breakdown. 2. Skin ulcerations and skin breakdown. Pressure ulcers x 1, stage II-III over left hip area; pressure ulcers x 2, stage II-III over right hip area; ulcers, stage II-III over sacral area. bases of ulcers are covered by purulent secretion. Wounds were covered today, but report are they are improving with wound care. All wounds likely pressure ulcers in nature. Wound culture showed miscellaneous growth include staph aureus and eneterocutan surjit which are resistant to levofloxacin, but sensitive to clindamycin. Case management and social science manager involvement for placement into [facility]. Wound care Topical antibiotics Clindamycin 300mg po Q8hrs (since 03/01) Consistent repositioning. Pressure ulcers continue to improve since hospitalization. 3. Alcohol and methamphetamine abuse. Patient not acutely intoxicated with meth. Patient drinks about 8 ounces of hard liquor a day. Patient is on 3 times daily lorazepam at baseline which we will continue. Has never gone through with draw. pit crew support worker consulted Added vitamin B12 and thiamine No signs of withdrawal during hospitalization 4. Quadriplegia. PT and OT. Frequent with repositioning. Intermittent catheterizations for urination. Porter catheter in place Baclofen at home dose. 5. Hx of PE As per patient, he had a PE in the past. For which he had been taking Eliquis Continue Eliquis 6. Dysphagia -ruled out I was reported that he may have dysphagia Speech pathology saw patient -no dysphagia but suggested patient to see GI as an outpatient 7. Microcytic anemia Patient is on iron as an outpatient, but it is unlikely has been getting it. Continue outpatient iron. Most recent hemoglobin 9.4, and on admission it was 8.7. Please be followed as an outpatient. All other medical comorbidities are stable and nonactive conditions, will continue home medications at regular dose. CODE STATUS: Full code. DVT prophylaxis: Eliquis Disposition: medical ready. awaiting placement Pt needs pcp, urology and wound care. Length of stay greater then 96 hours due to slow response to treatment and placement. No change in patient's condition. Physical therapy continues debriding and working on his decubiti. Awaiting placement.
[2021-03-07] MEDS: Thiamine 100 MG Tab PO SCH (21:52)
[2021-03-08] MEDS: oxyCODONE 5 MG Tab PO PRN ×3 (03:52→15:24)
[2021-03-08] MEDS: Clindamycin HCl 150 MG Cap PO SCH ×2 (06:03→15:24)
[2021-03-08] MEDS: Sucralfate Suspension 1 GM/10 ML Cup PO SCH ×3 (06:03→16:27)
[2021-03-08] MEDS: Baclofen 10 MG Tab PO SCH ×2 (10:28→14:56)
[2021-03-08] MEDS: Pantoprazole 40 MG Tab.CR PO SCH (10:28)
[2021-03-08] MEDS: Apixaban 5 MG Tab PO SCH (10:28)
[2021-03-08] MEDS: LORazepam 0.5 MG Tab PO SCH ×2 (10:29→14:56)
[2021-03-08] MEDS: Cyanocobalamin (Vitamin B12) 1,000 MCG Tab PO SCH (10:29)
[2021-03-08] MEDS: Bacitracin/Neomycin/Polymyxin B Oint 15 GM Tube TOP SCH (10:30)
[2021-03-08] MEDS: Saccharomyces Boulardii (Probiotic) 250 MG Cap PO SCH (10:30)
[2021-03-08] MEDS: Iron Polysaccharides Complex 150 MG Cap PO SCH (10:30)
[2021-03-08] MEDS: amLODIPine 2.5 MG Tab PO SCH (10:31)
[2021-03-08] MEDS: Gabapentin 600 MG Tab PO SCH ×2 (10:31→14:56)
[2021-03-08] MEDS: DULoxetine 30 MG Cap PO SCH (10:31)
--- NOTE | 2021-03-08 14:27 | PCM.DCSUM1 ---
Discharge Summary - Hospital Course HPI Initial Comments: - History of Present Illness Initial Comments - Free Text/Narative: Patient is a 35-year-old male with a past medical history as listed below, most notable for functional quadriplegia who presented to the emergency department on February 24 in the late evening due to a chief complaint of generalized body aches. Patient has been living at home. He had been worried for himself as he does not believe he is getting the care and help he needs from family and friends. He also does not have any visiting nursing support. The patient has developed wounds over the right elbow and over the sacral area is where the lid as irritation over the left hip and flank. He has denied any fever, chills, shortness of breath, chest pain, chest pressure or pleurisy. P.o. intake has been "okay." Denies any abdominal pain, nausea/vomiting or changes in bowel habits. Cannot really feel a change in voiding. The patient catheterizes for urination. Upon initial evaluation in the emergency department that evening his vital signs were normal. He was nontoxic-appearing. Physical examination was notable for multiple ulcerated areas over the sacrum at least 1 stage II and I stage III ulcer. 1 ulcer noted over the left greater trochanter and various places of skin irritation including the right elbow along with some skin breakdown. Laboratory studies were notable for a urinary tract infection indicative by many leukocytes, bacteria and nitrates. Patient has been resting in the ER over the past day. Patient had been requesting going to a snf as he thought that being home was unsafe. Patient was evaluated for snf placement which will not apparently happen until Sunday. Patient was not accepted by his disposition facility until Sunday simply because it is the weekend and they do not have anybody to do his intake. After 24 hours of staying in the emergency department the ER has requested that the patient be brought into the hospital while he awaits placement. 14 point review of systems was reviewed and only pertinent for the above information. Assessment/Plan Comment:: Patient is a 35-year-old male with a past medical history as listed above who presented to the emergency department with generalized body aches and requesting placement into a snf because he believes he is not cared for and obviously cannot do it himself considering his neurologic condition. 1. Urinary tract infection. Uncomplicated in the setting of neurogenic bladder. Not septic and nontoxic-appearing. Monitor volume status. Empiric antibiotics with levofloxacin to continue. Tailor antibiotic therapy as appropriate according to sensitivities when available. 2. Skin ulcerations and skin breakdown. All wounds likely pressure ulcers in nature. Wound care consult. Case management and social media assistant involvement for placement into snf. Awaiting placement on Sunday. Consistent repositioning. 3. Alcohol and methamphetamine abuse. Patient not acutely intoxicated with meth. Patient drinks about 8 ounces of hard liquor a day. Patient is on 3 times daily lorazepam at baseline which we will continue. Has never gone through with draw. Will invoke [facility] protocol if necessary. 4. Quadriplegia. PT and OT. Wound care as mentioned above. Frequent with repositioning. Intermittent catheterizations for urination. Baclofen at home dose. All other medical comorbidities are stable and nonactive conditions, will continue home medications at regular dose. CODE STATUS: Full code. DVT prophylaxis with enoxaparin. - Mortality Measure Prognosis:: Good Diagnosis: Stroke: No - Discharge Data Discharge Date: 03/08/21 Discharge Disposition: Home, Self-Care 01 Condition: Good - Referral to Home Health Primary Care Physician: PCP None - Discharge Diagnosis/Problem(s) (1) Decubitus ulcer of left buttock, stage 2 SNOMED Code(s): 77887336957330996, [id number] ICD Code: L89.322 - PRESSURE ULCER OF LEFT BUTTOCK, STAGE 2 Status: Acute Current Visit: Yes (2) Urinary tract infection SNOMED Code(s): 13619892 ICD Code: N39.0 - URINARY TRACT INFECTION, SITE NOT SPECIFIED Status: Acute Current Visit: Yes Qualifiers: Urinary tract infection type: acute pyelonephritis Qualified Code(s): N10 - Acute pyelonephritis (3) Paraplegia following spinal cord injury SNOMED Code(s): 32772242, 58985429 ICD Code: G82.20 - PARAPLEGIA, UNSPECIFIED Status: Acute Current Visit: No - Patient Summary/Data Consults: Consultations 02/25/21 04:48 Consult to Case Management/Supervisor [employer] [CONS] Routine 02/25/21 12:44 Consult to Physical Therapy [PT Evaluation and Treatment] [CONS] Routine 02/27/21 17:34 PT Evaluation and Treatment [CONS] Routine 02/27/21 17:35 Consult to Occupational Therapy [OT Evaluation and Treatment] [CONS] Routine 02/28/21 10:02 Consult to Speech Language Pathology [DYNAMOMETER TESTER Evaluation and Treatment] [CONS] Routine Hospital Course: Patient is a 35-year-old male with a past medical history as listed above who presented to the emergency department with generalized body aches and requesting placement into a snf because he believes he is not cared for and obviously cannot do it himself considering his neurologic condition. 1. Urinary tract infection. neurogenic bladder, using cath at home by himself. I would like to discharge this patient on Porter catheter and to follow with the urologist. urine culture - positive for Pseudomonas aeruginosa and Klebsiella pneumoniae. Both are sensitive to Levaquin Completed 5 days of levofloxacin. It does not appear that he was ever symptomatic with his UTI. Porter catheter in place to prevent wound breakdown. 2. Skin ulcerations and skin breakdown. Pressure ulcers x 1, stage II-III over left hip area; pressure ulcers x 2, stage II-III over right hip area; ulcers, stage II-III over sacral area. bases of ulcers are covered by purulent secretion. Wounds were covered today, but report are they are improving with wound care. All wounds likely pressure ulcers in nature. Wound culture showed miscellaneous growth include staph aureus and eneterocutan surjit which are resistant to levofloxacin, but sensitive to clindamycin. Case management and social media assistant involvement for placement. Unfortunately, placement was not able to be obtained in a care home facility. The care team and administration felt the best they could do was to get a hotel for him for 1 night while he finds arrangements for further housing. He received wound care through our inpatient physical therapy and nursing throughout hospitalization. He had significant improvements in his wounds. This will need to be continued as an outpatient. Clindamycin 300mg po Q8hrs (since 03/01), complete a total of 10 days. Consistent repositioning. 3. Alcohol and methamphetamine abuse. Patient not acutely intoxicated on admission and did well throughout his hospital stay. Patient drinks about 8 ounces of hard liquor a day. Patient is on 3 times daily lorazepam at baseline which was continued throughout his hospitalization.. Has never gone through with draw. daycare worker consulted Added vitamin B12 and thiamine No signs of withdrawal during hospitalization 4. Quadriplegia. PT and OT. Frequent with repositioning. Intermittent catheterizations for urination. Porter catheter in place during hospitalization and he was left when he discharged. He will follow up with urology. Patient has an appointment to follow-up with urology. Baclofen at home dose. 5. Hx of PE As per patient, he had a PE in the past. For which he had been taking Eliquis Continue Eliquis 6. Dysphagia -ruled out It was reported that he may have dysphagia Speech pathology saw patient -no dysphagia but suggested patient to see GI as an outpatient 7. Microcytic anemia Patient is on iron as an outpatient, but it is unlikely has been getting it. Continue outpatient iron. Most recent hemoglobin 9.4, and on admission it was 8.7. Please be followed as an outpatient. All other medical comorbidities are stable and nonactive conditions, will continue home medications at regular dose. Pt needs pcp, urology and wound care. Length of stay greater then 96 hours due to slow response to treatment and placement. - Patient Instructions Diet: Usual Diet as Tolerated Driving: Do Not Drive Showering/Bathing: May Shower Other/Special Instructions: Patient will get services through nursing at the [facility]. This will be set up on Sunday, March 07. He will need help with repositioning and wound care. He should follow-up with primary care earlier that week. Porter catheter should be left in place to help with wound healing. He should follow-up with urology. - Discharge Plan *PRESCRIPTION DRUG MONITORING PROGRAM REVIEWED*: No *COPY OF PRESCRIPTION DRUG MONITORING REPORT IN PATIENT [place]: No Prescriptions/Med Rec: clindamycin HCL [Cleocin] 300 mg PO Q8H #30 cap Saccharomyces Boulardii [Florastor] 500 mg PO BID #60 cap Gabapentin [Neurontin] 600 mg PO TID #90 tablet amLODIPine [Norvasc] 2.5 mg PO DAILY #30 tablet oxyCODONE 5 - 10 mg PO Q4H PRN #10 tablet PRN Reason: Pain (Moderate 4-6) Thiamine [Vitamin B-1] 100 mg PO BEDTIME #30 tablet Cyanocobalamin (Vitamin B12) [Vitamin B12] 1,000 mcg PO DAILY #30 tablet Ondansetron [Zofran ODT] 4 mg PO Q8H PRN #5 tab.dis PRN Reason: Nausea Home Medications: Home Meds Pantoprazole [ProTONIX] 40 mg PO BID #30 tab 08/09/21 [Rx] Apixaban [Eliquis] 5 mg PO BID 02/25/21 [History] DULoxetine [Cymbalta] 30 mg PO DAILY 02/25/21 [History] Sucralfate 1 gm PO QID 02/25/21 [History] Iron Polysaccharides Complex [Ferrex 150] 150 mg PO DAILY 02/26/21 [History] LORazepam [Ativan] 0.5 mg PO TID 02/26/21 [History] Acetaminophen [Tylenol] 650 mg PO Q6H PRN tablet 03/04/21 [Rx] Cyanocobalamin (Vitamin B12) [Vitamin B12] 1,000 mcg PO DAILY #30 tablet 03/04/21 [Rx] Gabapentin [Neurontin] 600 mg PO TID #90 tablet 03/04/21 [Rx] LORazepam [Ativan] 0.5 mg PO TID tablet 03/04/21 [Rx] Ondansetron [Zofran ODT] 4 mg PO Q8H PRN #5 tab.dis 03/04/21 [Rx] Saccharomyces Boulardii [Florastor] 500 mg PO BID #60 cap 03/04/21 [Rx] Thiamine [Vitamin B-1] 100 mg PO BEDTIME #30 tablet 03/04/21 [Rx] amLODIPine [Norvasc] 2.5 mg PO DAILY #30 tablet 03/04/21 [Rx] clindamycin HCL [Cleocin] 300 mg PO Q8H #30 cap 03/04/21 [Rx] oxyCODONE 5 - 10 mg PO Q4H PRN #10 tablet 03/04/21 [Rx] Patient Handouts: Clean Intermittent Catheterization, Male, Preventing Pressure Injuries, Sepsis, Diagnosis, Adult, Steps to Quit Smoking Referrals: GI, Follow up [Other] (Patient will need GI appt. Patient is to follow up with [facility] for a gastrointestinal follow up.) Ildefonso Matos NP [Ordering Only Provider] - 03/22/21 8:30 am (This appt. is in [place] on the [place] side of the hospital. This is urology appt.) Gillian Roland MD [Ordering Only Provider] - 03/15/21 3:15 pm (Please check in at 3p.m.) - Discharge Summary/Plan Comment DC Time >30 min.: Yes Total # of Minutes for Discharge Time: 45 Total time spent includes seeing the patient, doing discharge paperwork, and arranging care. Discharge Summary/Plan Comment: Case management and social media assistant involvement for placement. Unfortunately, placement was not able to be obtained in a care home facility. The care team and administration felt the best they could do was to get a hotel for him for 1 night while he finds arrangements for further housing. - General Info Date of Service: 03/08/21 Admission Dx/Problem (Free Text: Admission Diagnosis/Problem Admission Diagnosis/Problem UTI, Urinary tract infectious disease Subjective Update: Patient states he is feeling well. No significant complaints this morning. Functional Status: Reports: Pain Controlled - Review of Systems General: Reports: No Symptoms HEENT: Reports: No Symptoms Pulmonary: Reports: No Symptoms Cardiovascular: Reports: No Symptoms - Patient Data Vitals - Most Recent: Last Vital Signs Temp 98.1 F 03/08/21 11:30 Pulse 73 03/08/21 11:30 Resp 16 03/08/21 11:30 BP 100/44 L 03/08/21 11:30 Pulse Ox 97 03/08/21 11:30 Weight - Most Recent: 252 lb 3.2 oz I&O - Last 24 hours: Intake & Output 03/07/21 03/08/21 03/08/21 22:59 06:59 14:59 Intake Total 3720 1500 760 Output Total 2850 2650 Balance 870 -1150 760 Med Orders - Current: Current Medications Acetaminophen (Acetaminophen 325 Mg Tab) 650 mg PO Q6H PRN PRN Reason: Pain Last Admin: 03/03/21 03:22 Dose: 650 mg Documented by: Amlodipine Besylate (Amlodipine 2.5 Mg Tab) 2.5 mg PO DAILY [facility] Last Admin: 03/08/21 10:31 Dose: 2.5 mg Documented by: Apixaban (Apixaban 5 Mg Tab) 5 mg PO BID [facility] Last Admin: 03/08/21 10:28 Dose: 5 mg Documented by: Baclofen (Baclofen 10 Mg Tab) 30 mg PO TID [facility] Last Admin: 03/08/21 10:28 Dose: 30 mg Documented by: Clindamycin HCl (Clindamycin Hcl 150 Mg Cap) 300 mg PO Q8H [facility] Last Admin: 03/08/21 06:03 Dose: 300 mg Documented by: Cyanocobalamin (Cyanocobalamin (Vitamin B12) 1,000 Mcg Tab) 1,000 mcg PO DAILY [facility] Last Admin: 03/08/21 10:29 Dose: 1,000 mcg Documented by: Docusate Sodium (Docusate Sodium 100 Mg Cap) 100 mg PO Q12H PRN PRN Reason: Constipation Last Admin: 03/02/21 10:12 Dose: 100 mg Documented by: Duloxetine HCl (Duloxetine 30 Mg Cap) 30 mg PO DAILY [facility] Last Admin: 03/08/21 10:31 Dose: 30 mg Documented by: Gabapentin (Gabapentin 600 Mg Tab) 600 mg PO TID [facility] Last Admin: 03/08/21 10:31 Dose: 600 mg Documented by: Lorazepam (Lorazepam 0.5 Mg Tab) 0.5 mg PO TID [facility] Last Admin: 03/08/21 10:29 Dose: 0.5 mg Documented by: Neomycin/Polymyxin/Bacitracin (Bacitracin/Neomycin/Polymyxin B Oint 15 Gm Tube) 1 gm TOP DAILY [facility] Last Admin: 03/08/21 10:30 Dose: 1 applic Documented by: Ondansetron HCl (Ondansetron 4 Mg Tab.Dis) 4 mg PO Q8H PRN PRN Reason: Nausea Last Admin: 03/03/21 10:04 Dose: 4 mg Documented by: Oxycodone HCl (Oxycodone 5 Mg Tab) 5 - 10 mg PO Q4H PRN PRN Reason: Pain (moderate 4-6) Last Admin: 03/08/21 10:41 Dose: 10 mg Documented by: Pantoprazole Sodium (Pantoprazole 40 Mg Tab.Cr) 40 mg PO BID [facility] Last Admin: 03/08/21 10:28 Dose: 40 mg Documented by: Polysaccharide Iron Complex (Iron Polysaccharides Complex 150 Mg Cap) 150 mg PO DAILY [facility] Last Admin: 03/08/21 10:30 Dose: 150 mg Documented by: Saccharomyces Boulardii (Saccharomyces Boulardii (Probiotic) 250 Mg Cap) 500 mg PO BID [facility] Last Admin: 03/08/21 10:30 Dose: 500 mg Documented by: Sodium Chloride (Sodium Chloride 0.9% 10 Ml Syringe) 10 ml FLUSH ASDIRECTED PRN PRN Reason: Keep Vein Open Last Admin: 02/25/21 13:17 Dose: 10 ml Documented by: Sucralfate (Sucralfate Suspension 1 Gm/10 Ml Cup) 1 gm PO QIDACANDBED [facility] Last Admin: 03/08/21 10:37 Dose: 1 gm Documented by: Thiamine HCl (Thiamine 100 Mg Tab) 100 mg PO BEDTIME [facility] Last Admin: 03/07/21 21:52 Dose: 100 mg Documented by: Discontinued Medications Acetaminophen (Acetaminophen 325 Mg Tab) 650 mg PO NOW ONE Stop: 02/25/21 05:58 Last Admin: 02/25/21 06:03 Dose: 650 mg Documented by: Acetaminophen (Acetaminophen 325 Mg Tab) Confirm Administered Dose 650 mg .ROUTE .STK-MED ONE Stop: 02/25/21 06:03 Last Admin: 02/25/21 17:37 Dose: Not Given Documented by: Acetaminophen (Acetaminophen 325 Mg Tab) Confirm Administered Dose 325 mg .ROUTE .STK-MED ONE Stop: 02/25/21 06:07 Last Admin: 02/25/21 17:38 Dose: Not Given Documented by: Hydrocodone Bitart/Acetaminophen (Acetaminophen/Hydrocodone 325-5 Mg Tab) 2 tab PO ONETIME ONE Stop: 02/25/21 09:45 Last Admin: 02/25/21 09:55 Dose: 2 tab Documented by: Amlodipine Besylate (Amlodipine 5 Mg Tab) 10 mg PO DAILY [facility] Amlodipine Besylate (Amlodipine 5 Mg Tab) 2.5 mg PO DAILY [facility] Last Admin: 02/26/21 13:43 Dose: Not Given Documented by: Amlodipine Besylate (Amlodipine 2.5 Mg Tab) 2.5 mg PO DAILY [facility] Apixaban (Apixaban 5 Mg Tab) 5 mg PO DAILY [facility] Last Admin: 02/26/21 13:43 Dose: Not Given Documented by: Apixaban (Apixaban 5 Mg Tab) 5 mg PO BID [facility] Baclofen (Baclofen 10 Mg Tab) 30 mg PO QID [facility] Last Admin: 02/26/21 13:43 Dose: Not Given Documented by: Baclofen (Baclofen 10 Mg Tab) 30 mg PO TID [facility] Baclofen (Baclofen 10 Mg Tab) 30 mg PO TID [facility] Clindamycin HCl (Clindamycin Hcl 150 Mg Cap) 300 mg PO Q8H [facility] Last Admin: 03/06/21 10:03 Dose: 300 mg Documented by: Clindamycin HCl (Clindamycin Hcl 150 Mg Cap) 300 mg PO Q8H [facility] Last Admin: 03/06/21 18:24 Dose: Not Given Documented by: Duloxetine HCl (Duloxetine 30 Mg Cap) 30 mg PO DAILY [facility] Last Admin: 02/26/21 13:42 Dose: Not Given Documented by: Duloxetine HCl (Duloxetine 30 Mg Cap) 30 mg PO DAILY [facility] Enoxaparin Sodium (Enoxaparin 40 Mg/0.4 Ml Syringe) 40 mg SUBCUT DAILY [facility] Last Admin: 02/27/21 14:00 Dose: 40 mg Documented by: Hydromorphone HCl (Hydromorphone 0.5 Mg/0.5 Ml Syringe) 0.5 mg IVPUSH ONETIME ONE Stop: 02/25/21 14:15 Last Admin: 02/25/21 14:33 Dose: 0.5 mg Documented by: Hydromorphone HCl (Hydromorphone 0.5 Mg/0.5 Ml Syringe) 0.5 mg IVPUSH ONETIME ONE Stop: 02/25/21 17:45 Last Admin: 02/25/21 18:01 Dose: 0.5 mg Documented by: Vancomycin HCl 2 gm/ Sodium (Chloride) 500 mls @ 250 mls/hr IV ONETIME ONE Stop: 02/25/21 15:59 Last Admin: 02/25/21 13:57 Dose: 250 mls/hr Documented by: Sodium Chloride (Normal Saline) 500 mls @ 250 mls/hr IV .BOLUS ONE Stop: 02/28/21 12:59 Last Admin: 02/28/21 11:03 Dose: 250 mls/hr Documented by: Clindamycin Phosphate 600 mg/ (Premix) 33.3333 mls @ 100 mls/hr IV Q8H [facility] Last Admin: 03/01/21 10:52 Dose: Not Given Documented by: Clindamycin Phosphate 600 mg/ (Dextrose/Water) 104 mls @ 312 mls/hr IV Q8H [facility] Ketorolac Tromethamine (Ketorolac 15 Mg/Ml Sdv) 30 mg IM ONETIME ONE Stop: 02/25/21 01:06 Last Admin: 02/25/21 01:16 Dose: 30 mg Documented by: Lactulose (Lactulose Soln 10 Gm/15 Ml 30 Ml Ud Cup) 20 gm PO DAILY PRN PRN Reason: Constipation Stop: 03/05/21 09:31 Levofloxacin (Levofloxacin 750 Mg Tab) 750 mg PO ONETIME ONE Stop: 02/24/21 22:47 Last Admin: 02/24/21 22:53 Dose: 750 mg Documented by: Levofloxacin (Levofloxacin 750 Mg Tab) 750 mg PO Q24H [facility] Last Admin: 02/27/21 21:19 Dose: 750 mg Documented by: Levofloxacin (Levofloxacin 750 Mg Tab) 750 mg PO Q24H [facility] Last Admin: 03/02/21 18:44 Dose: 750 mg Documented by: Morphine Sulfate (Morphine 2 Mg/Ml Syringe) 2 mg IVPUSH Q8H PRN PRN Reason: Pain (severe 7-10) Last Admin: 03/01/21 06:48 Dose: 2 mg Documented by: Morphine Sulfate (Morphine 2 Mg/Ml Syringe) 2 mg IVPUSH Q6H PRN PRN Reason: Pain (severe 7-10) Last Admin: 03/03/21 11:54 Dose: 2 mg Documented by: Ondansetron HCl (Ondansetron 4 Mg Tab.Dis) 4 mg PO ONETIME ONE Stop: 02/25/21 02:39 Last Admin: 02/25/21 02:43 Dose: 4 mg Documented by: Ondansetron HCl (Ondansetron 4 Mg Tab.Dis) Confirm Administered Dose 4 mg .ROUTE .STK-MED ONE Stop: 02/25/21 02:43 Last Admin: 02/25/21 17:38 Dose: Not Given Documented by: Ondansetron HCl (Ondansetron 4 Mg Tab.Dis) 4 mg PO ONETIME ONE Stop: 02/25/21 19:57 Last Admin: 02/25/21 20:15 Dose: 4 mg Documented by: Pantoprazole Sodium (Pantoprazole 40 Mg Tab.Cr) 40 mg PO BID [facility] Last Admin: 02/26/21 13:43 Dose: Not Given Documented by: Pantoprazole Sodium (Pantoprazole 40 Mg Tab.Cr) 40 mg PO BID [facility] Iron Polysaccharides Complex 150 Mg Cap Patient's Own Med 0 each PO DAILY [facility] Last Admin: 02/27/21 09:11 Dose: 1 each Documented by: Sucralfate 1 Gm Tab Patient's Own Med 0 each PO QIDACANDBED [facility] Last Admin: 02/27/21 16:34 Dose: 1 each Documented by: Apixaban 5 Mg Tab Patient's Own Med * * 0 each PO BID [facility] Last Admin: 02/27/21 09:09 Dose: 1 each Documented by: Baclofen 10 Mg Tab Patient's Own Med 0 each PO TID [facility] Last Admin: 02/27/21 14:05 Dose: 1 each Documented by: Pantoprazole 40 Mg Tab.Cr Patient's Own Med 0 each PO BID [facility] Last Admin: 02/27/21 09:12 Dose: 1 each Documented by: Amlodipine 10 Mg Tab Patient's Own Med 0 each PO DAILY [facility] Last Admin: 02/27/21 09:08 Dose: Not Given Documented by: Duloxetine 30 Mg Cap Patient's Own Med 0 each PO DAILY [facility] Last Admin: 02/27/21 09:10 Dose: 1 each Documented by: Polysaccharide Iron Complex (Iron Polysaccharides Complex 150 Mg Cap) 150 mg PO DAILY [facility] Sucralfate (Sucralfate 1 Gm Tab) 1 gm PO QIDACANDBED [facility] Sucralfate (Sucralfate 1 Gm Tab) 1 gm PO QIDACANDBED [facility] Last Admin: 03/01/21 12:11 Dose: Not Given Documented by: - Exam General: Reports: Alert, Oriented HEENT: Reports: Pupils Equal, Mucous Membr. Moist/[place] Neck: Reports: Supple Lungs: Reports: Clear to Auscultation, Normal Respiratory Effort Cardiovascular: Reports: Regular Rate, Regular Rhythm GI/Abdominal Exam: Normal Bowel Sounds, Soft, Non-Tender, No Distention Extremities: No Pedal Edema Skin: Reports: Warm, Dry, Intact, Other ([facility] on right arm, sacrum, legs.) Psy/Mental Status: Reports: Alert, Normal Affect, Normal Mood
[2021-03-08] MEDS ORDERED: FLU Vacc QS2021-22 36MOS UP/PF 60 MCG/0.5 ML Syringe IM ONE (15:00)
== END 2021-03-08 17:23 | disposition home or self-care (01) | DRG 689 ==
LOC: JD.ED 21:09 → JD.MS 02-25 20:55 → OBSVTOIN 02-25 20:57
PROVIDERS: ADMIT Hospitalist; ATTEND Hospitalist
DX: N10 Acute pyelonephritis (principal); L89.153 Pressure ulcer of sacral region, stage 3; R53.2 Functional quadriplegia; G82.20 Paraplegia, unspecified; F10.10 Alcohol abuse, uncomplicated; F15.10 Other stimulant abuse, uncomplicated; G82.50 Quadriplegia, unspecified; S14.109S Unspecified injury at unspecified level of cervical spinal cord, sequela; X58.XXXS Exposure to other specified factors, sequela; M81.0 Age-related osteoporosis without current pathological fracture; J45.909 Unspecified asthma, uncomplicated; N31.9 Neuromuscular dysfunction of bladder, unspecified; Z87.440 Personal history of urinary (tract) infections; F19.10 Other psychoactive substance abuse, uncomplicated; F17.210 Nicotine dependence, cigarettes, uncomplicated; D50.9 Iron deficiency anemia, unspecified; L89.322 Pressure ulcer of left buttock, stage 2; B96.1 Klebsiella pneumoniae [K. pneumoniae] as the cause of diseases classified elsewhere; B96.5 Pseudomonas (aeruginosa) (mallei) (pseudomallei) as the cause of diseases classified elsewhere; Z79.01 Long term (current) use of anticoagulants; Z79.899 Other long term (current) drug therapy; Z86.14 Personal history of Methicillin resistant Staphylococcus aureus infection; Z86.19 Personal history of other infectious and parasitic diseases; Z20.822 Contact with and (suspected) exposure to COVID-19
CPT/HCPCS: 36415; 73080; 80053; 80306; 80307; 81001; 85025; 85610; 87070; 87077; 87086; 87088 ×2; 87186 ×3; 87205; A9270 ×5; J1170 ×2; J1885; J3370; J7040; U0002; 80048; 87081; 90686; 92610-GN; 93005; 93971-26-RT; 93971-RT; 97110-GP; 97162-GP; 97530-GP; 97597-GP; 99222; 99232; 99239; G0008; J1650; J2270

== ENCOUNTER 2021-03-18 00:05 | Emergency (ER) | payer MEDICARE, MEDICAID ==
[2021-03-18] MEDS ORDERED: Sulfamethoxazole/Trimethoprim 800-160 MG Tab PO ONE (01:54)
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
== END 2021-03-18 13:10 | disposition home or self-care (01) ==
LOC: JD.ED 00:05
DX: L89.019 Pressure ulcer of right elbow, unspecified stage (principal); Z79.01 Long term (current) use of anticoagulants; Z79.899 Other long term (current) drug therapy
CPT/HCPCS: 99284; A9270

== ENCOUNTER 2021-03-23 15:26 | Emergency (ER) | payer MEDICARE, MEDICAID ==
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
== END 2021-03-23 18:26 | disposition home or self-care (01) ==
LOC: JD.ED 15:26
DX: Z46.6 Encounter for fitting and adjustment of urinary device (principal); J45.909 Unspecified asthma, uncomplicated; Z72.0 Tobacco use; Z79.01 Long term (current) use of anticoagulants; Z79.899 Other long term (current) drug therapy
CPT/HCPCS: 51702; 81001; 87086; 99283-25

== ENCOUNTER 2021-04-05 09:55 | Emergency (ER) | payer MEDICARE, MEDICAID ==
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
[2021-04-05] MEDS ORDERED: Acetaminophen/oxyCODONE 325-5 MG Tab PO ONE (10:29)
[2021-04-05] MEDS ORDERED: Ondansetron 4 MG Tab.DIS PO ONE ×2 (10:45→12:56)
--- NOTE | 2021-04-05 11:14 | CR ---
Right elbow: Portable view of the right elbow was obtained. Comparison: Prior right elbow study of 02/24/21. Joint spaces are preserved. No joint effusion is seen. No fracture, dislocation or other bony abnormality is appreciated. Impression: 1. Nothing acute is seen on right elbow study. Diagnostic code #1
== END 2021-04-05 14:15 | disposition home or self-care (01) ==
LOC: JD.ED 09:55
DX: L03.113 Cellulitis of right upper limb (principal); N32.89 Other specified disorders of bladder; J45.909 Unspecified asthma, uncomplicated; K21.9 Gastro-esophageal reflux disease without esophagitis; Z72.0 Tobacco use; Z79.01 Long term (current) use of anticoagulants; Z79.899 Other long term (current) drug therapy
CPT/HCPCS: 73080; 81001; 99283; A9270; 99285

== ENCOUNTER 2021-05-20 00:26 | Emergency (ER) | payer MEDICARE, MEDICAID ==
[2021-05-20] MEDS ORDERED: HYDROmorphone 1 MG/ML Syringe IM ONE (02:22)
[2021-05-20] MEDS ORDERED: Cephalexin 500 MG Cap PO STA (02:31)
== END 2021-05-20 11:50 | disposition home or self-care (01) ==
LOC: JD.ED 00:26
DX: L89.159 Pressure ulcer of sacral region, unspecified stage (principal); L89.329 Pressure ulcer of left buttock, unspecified stage; L89.319 Pressure ulcer of right buttock, unspecified stage; K21.9 Gastro-esophageal reflux disease without esophagitis; Z72.0 Tobacco use; Z79.01 Long term (current) use of anticoagulants; Z79.899 Other long term (current) drug therapy
CPT/HCPCS: 51702; 96372; 99283; A9270; J1170

== ENCOUNTER 2022-07-07 18:30 | Emergency (ER) | payer MEDICARE, MEDICAID ==
[2022-07-07] MEDS ORDERED: Lactated Ringers 1,000 ML IV SCH (19:45)
[2022-07-07 20:32] LABS: ESTIMATED GFR 99 mL/min (>60)
[2022-07-07] MEDS ORDERED: Morphine 2 MG/ML SYRINGE IVPUSH ONE (21:05)
[2022-07-08] MEDS: Piperacillin/Tazobactam 4.5 GM in Sodium Chloride 0.9% 100 ML IV SCH ×3 (00:17→12:12)
[2022-07-08] MEDS ORDERED: Morphine 2 MG/ML SYRINGE IVPUSH ONE ×2 (01:59→07:34)
[2022-07-08] MEDS ORDERED: Dextrose 5%-0.9% NaCl with KCl 1,000 ML IV SCH (04:15)
[2022-07-08] MEDS ORDERED: HYDROmorphone 0.5 MG/0.5 ML Syringe IVPUSH ONE ×3 (09:47→15:18)
[2022-07-08] MEDS ORDERED: HYDROmorphone 1 MG/ML Syringe IVPUSH ONE (15:30)
[2022-07-08] MEDS ORDERED: Famotidine 20 MG/2 ML SDV IVPUSH ONE (15:34)
[2022-07-08] MEDS ORDERED: Alum Hydrox/Mag Hydrox/Simeth 30 ML, Lidocaine 2% 15 ML PO ONE ×2 (15:34)
== END 2022-07-08 15:55 ==
LOC: EEVIPCON 18:30 → JD.ED 18:30
DX: M46.28 Osteomyelitis of vertebra, sacral and sacrococcygeal region (principal); L89.329 Pressure ulcer of left buttock, unspecified stage; L89.319 Pressure ulcer of right buttock, unspecified stage; K21.9 Gastro-esophageal reflux disease without esophagitis; Z79.01 Long term (current) use of anticoagulants; Z79.899 Other long term (current) drug therapy
CPT/HCPCS: 36415; 51702; 80053; 81001; 83605; 85025; 85610; 85730; 87040; 87086; 96361; 96365; 96366; 96375; 96376; 99284; A9270; C1758; J1170; J2270; J2543; J3480; J3490; J7120